=== PATIENT | male | born 1935 | race African-American/Black ===

== ENCOUNTER 2016-12-13 19:38 | Inpatient (IN) | payer MEDICARE, OTHER ==
[~2016-12-13] VITALS: Ht 170.2 cm; Wt 82.1 kg
[2016-12-13 19:38] VITALS: BP 110/64
[~2016-12-13 19:38] MED LIST: ALBUTEROL2.5 MG/3 M INH; AMIKACIN S1000 MG/4 IV; AMIKACIN S500 MG/2 M IVPB; ASCORBIC A500 MG/1 M GT; ASPIR 8181 MG ORAL; ATORVASTATIN CA20 MG GT; ATROVENT HFA12.9 GM IH; BETIMOL5 M2 BOTH EYES; CARAFATE1 G1 GT; CEFEPIME-D2 GM/50 ML IVPB; CRANBERRY EXTRAC1 G1 GT; CRANBERRY400 MG PO; CRANBERRY425 MG GT; CUBICIN1 MG IV; DOCUSATE S50 MG/5 ML GT; DOCUSATE SODIU100 MG ORAL; FERROUS SU300 MG/5 M ORAL; FLAGYL500 MG ORAL; FLOMAX0.4 MG ORAL; FUROSEMIDE40 MG GT; HEPARIN SO5000 UNIT2 SUBQ; HUMALOG100 UNIT/4 SUBQ; IRON325 M2 PO; K-SOL20 MEQ/15 PO; LACTULOSE20 GM/301 GT; LANTUS SOL100 UNIT/1 SUBQ; LANTUS5 UNITS SUBQ; LEVEMIR FL100 UNIT/1 SUBQ; M.V.I. ADULT10 ML PO; METFORMIN HCL500 M1 GT; METRONIDAZOLE500 MG GT; MIRALAX17 G2 GT; MOM30 ML ORAL; MULTIVITAMINS1 EAC2 ORAL; MULTIVITAMINS1 EAC8 GT; NAMENDA5 MG GT; NOVOLIN R100 UNIT/1 SUBQ; NOVOLOG100 UNIT/3 SUBQ; PANTOPRAZOLE SO40 MG GT; PEPCID40 MG GT; PERIDEX15 ML MM; POTASSIUM CHLO20 ME3 PO; POTASSIUM20 MEQ/15 ORAL; POTASSIUM30 MEQ/22. GT; PRILOSEC40 MG GT; PRILOSEC40 MG ORAL; PROSCAR5 MG GT; PROSCAR5 MG ORAL; PROTONIX IV40 MG IV; RANITIDINE50 MG/2 ML IV; REGLAN10 MG GT; THEO-DUR200 MG GT; TYLENOL EXTRA500 MG GT; TYLENOL100 MG/11 PO; TYLENOL325 MG GT; TYLENOL650 MG/20. ORAL; UNASYN3 GM IV; VANCOMYCIN1 GM/2502 IVPB; VITAMIN C500 M7 PO; ZINC SULFATE220 M1 GT; ZINC SULFATE220 M1 ORAL; ZOCOR40 MG ORAL; ZOFRAN4 M1 GT; ZOSYN 3.373.375 GM/1 IVPB; [UNRECOGNIZED DRUG - OTHER] PO
[2016-12-13 20:27] LABS: MEAN CORPUSCULAR HEMOGLOBIN 30.9 PG (27.0-31.0); MEAN CORPUSCULAR HGB CONC 28.7 G/DL (32.0-36.0); MEAN CORPUSCULAR VOLUME 108 FL (80-99); MEAN PLATELET VOLUME 8.9 FL (6.5-10.1); PLATELET COUNT 167 K/UL (150-450); RED BLOOD COUNT 2.49 M/UL (4.70-6.10); RED CELL DISTRIBUTION WIDTH 19.9 % (11.6-14.8); WHITE BLOOD COUNT 7.9 K/UL (4.8-10.8)
[2016-12-13 20:52] LABS: PROTHROMBIN TIME 10.1 SEC (9.30-11.50)
[2016-12-13 21:02] VITALS: BP 138/88
[2016-12-13 21:04] LABS: TROPONIN I < 0.30 ng/mL (<=0.30)
[2016-12-13 21:10] LABS: ALANINE AMINOTRANSFERASE 20 U/L (3-41); ALBUMIN/GLOBULIN RATIO 0.5 (1.0-2.7); ANION GAP 17 (5-15); ASPARTATE AMINO TRANSFERASE 32 U/L (5-40); CALCIUM 9.6 mg/dL (8.6-10.2); CARBON DIOXIDE 24 mEQ/L (20-30); CHLORIDE 103 mEQ/L (98-107); CREATININE 1.6 mg/dL (0.7-1.2); HEMOLYSIS 82; POTASSIUM 5.3 mEQ/L (3.4-4.9); SODIUM 144 mEQ/L (135-145); TOTAL PROTEIN 10.3 g/dL (6.6-8.7)
[2016-12-13 21:20] LABS: CKMB 1.5 ng/mL (< 6.7)
[2016-12-13 21:27] LABS: EOSINOPHILS % (MANUAL) 1 % (0-3); LYMPHOCYTES % (MANUAL) 35 % (20-45); NEUTROPHILS % (MANUAL) 54 % (45-75); TOTAL CELLS COUNTED 100
[2016-12-13 21:28] LABS: ANISOCYTOSIS 2+; BAND NEUTROPHILS % (MANUAL) 0 % (0-8); BASOPHILS % (MANUAL) 0 % (0-2); MACROCYTES 3+; PLATELET ESTIMATE ADEQUATE; POLYCHROMASIA 1+
--- NOTE | 2016-12-13 21:49 | Emergency Room Report ---
History of Present Illness General Chief Complaint: Abnormal Labs Source: Medical Record Present Illness HPI 81 YO M sent by Dr Bragg from [facility] for "low hemoglobin." Unknown source per Dr Bragg. Patient not providing additional HPI at this time. I do not find any SNF paperwork in patient's rack or with RN. Patient on trach/vent. No family members bedside to provide additional HPI. Allergies: Coded Allergies: NO KNOWN DRUG ALLERGIES (Unverified Allergy, Unknown, 10/29/14) Patient History Past Medical History: unable to obtain Past Surgical History: unable to obtain Pertinent Family History: unable to obtain Social History: Denies: alcohol use, drug use, smoking Immunizations: UTD Reviewed Nursing Documentation: PMH: Agreed, PSxH: Agreed Nursing Documentation-PMH Hx Cardiac Problems: Yes Hx Hypertension: Yes Hx Asthma: No Hx Diabetes: Yes Hx Cancer: No Hx Gastrointestinal Problems: Yes Hx Neurological Problems: Yes Hx Cerebrovascular Accident: Yes Hx Transient Ischemic Attacks: No Hx Dementia: Yes Hx Alzheimer's Disease: No Hx Parkinson's Disease: No Hx Meningitis: No Hx Encephalitis: No Hx Seizures: No Hx Epilepsy: No Hx Multiple Sclerosis: No Hx Cerebral Palsy: No Hx Amyotrophic Lat Sclerosis: No Hx Guillian-[place] Syndrome: No Hx Peripheral Neuropathy: No Hx Spinal Cord Injury: No Hx Head Trauma: No Hx Traumatic Brain Injury: No Hx Memory Loss: Yes Hx Concentration Difficulty: Yes Hx Speech Problem: Yes Hx Tremors: Yes Hx Vertigo: No Hx Dizziness: No Hx Syncope: No Hx Headaches: No Hx Aphasia: Yes Hx Dysphasia: Yes Hx Numbness: No Hx Weakness: No Hx Fatigue: No Hx Neurologic Surgery: No Hx Brain Shunt: No Review of Systems All Other Systems: limited - unable to provide, trach patient Physical Exam Vital Signs Date Time Temp Pulse Resp B/P Pulse Ox O2 Delivery O2 Flow Rate FiO2 12/13/16 19:27 108 22 110/64 98 Mechanical Ventilator 5.0 12/13/16 19:38 100.0 12/13/16 19:51 40 Sp02 EP Interpretation: reviewed, abnormal General Appearance: normal inspection, well appearing, no apparent distress, alert, GCS 15, non-toxic Head: normocephalic, atraumatic Eyes: bilateral eye EOMI, bilateral eye PERRL ENT: normal ENT inspection, hearing grossly normal, normal voice, other - Trach in place. No air leak Neck: normal inspection, full range of motion, supple, no bony tend Respiratory: normal inspection, lungs clear, normal breath sounds, no respiratory distress, no retraction, no wheezing Cardiovascular #1: regular rate, rhythm, no edema Gastrointestinal: normal inspection, normal bowel sounds, non tender, soft, no guarding, no hernia, other - Protuberant abdomen Rectal: deferred Genitourinary: no CVA tenderness Musculoskeletal: normal inspection, back normal, normal range of motion, Sana' s Sign negative Neurologic: normal inspection, responsive, flatwork catcher III-XII nml as tested, speech normal Psychiatric: normal inspection, judgement/insight normal, mood/affect normal Skin: normal inspection, normal color, no rash Medical Decision Making Medicare Attestation I Tino Krause MD hereby attest that the medical record entry for date of service, 09/18/16 accurately reflects signatures/notations that I made in my capacity as MD when I treated/diagnosed the above listed Medicare beneficiary. I attest that this information is true, accurate and complete to the best of my knowledge. I understand that any falsification, omission, or concealment of material fact may subject me to administrative, civil, or criminal liability. This patient warrants hospital admission for extreme of age and has a condition that cannot be treated as outpatient. Diagnostic Impression: Primary Impression: Anemia Qualified Codes: D64.9 - Anemia, unspecified ER Course Hb/Hct 7.7/26.8 Transfuse in progress Mild HyperK 5.3 Albuterol given via Trach to decrease potassium SerumCr 1.6. has had elevations in the past. Endorsed to Dr Bragg at 909pm EKG Diagnostic Results Rate: tachycardiac Rhythm: NSR ST Segments: no acute changes Rhythm Strip Diag. Results EP Interpretation: yes Rate: 112 Rhythm: NSR, no PVC's, no ectopy Chest X-Ray Diagnostic Results EP Interpretation: Yes Findings: no consolidation, no effusion, no pneumothorax, no acute cardiopulmonary disease Number of Views: 1 Last Vital Signs Date Time Temp Pulse Resp B/P Pulse Ox O2 Delivery O2 Flow Rate FiO2 12/13/16 21:30 108 23 40 12/13/16 21:02 100.0 138/88 98 Mechanical Ventilator 5.0 Status: improved Disposition: ADMITTED INPATIENT Condition: Serious Referrals: David Bowie MD (PCP) TINO KRAUSE M.D. Dec 13, 2016 21:48
[2016-12-13] MEDS ORDERED: Albuterol ud Inhalation HHN ONE (22:00)
[2016-12-13] MEDS ORDERED: Miralax 17gm pkt ORAL PRN (22:30)
[2016-12-13] MEDS ORDERED: DuoNeb 0.5-3(2.5)mg/3ml neb HHN PRN (22:30)
[2016-12-13] MEDS ORDERED: LORazepam Inj 2mg/ml 1ml IV PRN (22:30)
[2016-12-13] MEDS ORDERED: Morphine Sulfate 4mg/ml Inj IVP PRN (22:30)
[2016-12-13 22:56] VITALS: BP 144/98
[2016-12-13] MEDS ORDERED: Vancomycin 1 GM in D5W 275 ML IV SCH (23:00)
[2016-12-14] MEDS ORDERED: Piperacillin/Tazobactam 3.375 GM in NS 110 ML IVPB SCH ×2
[2016-12-14] MEDS ORDERED: Zosyn 3.375gm inj ONE (01:00)
[2016-12-14] MEDS ORDERED: Vancomycin 1gm inj IVPB ONE (01:01)
[2016-12-14] MEDS: Vancomycin 1.5 GM in D5W 325 ML IVPB SCH (02:25)
[2016-12-14 04:00] VITALS: BP 109/69
[2016-12-14 06:20] LABS: MEAN CORPUSCULAR HGB CONC 29.4 G/DL (32.0-36.0); MEAN CORPUSCULAR VOLUME 105 FL (80-99); MEAN PLATELET VOLUME 9.4 FL (6.5-10.1); PLATELET COUNT 199 K/UL (150-450); RED BLOOD COUNT 2.54 M/UL (4.70-6.10); RED CELL DISTRIBUTION WIDTH 20.7 % (11.6-14.8); WHITE BLOOD COUNT 8.7 K/UL (4.8-10.8)
[2016-12-14] MEDS: NovoLOG Insulin Flexpen SUBQ SCH ×3 (06:24→19:08)
[2016-12-14 07:35] LABS: ANION GAP 15 (5-15); CALCIUM 9.7 mg/dL (8.6-10.2); CARBON DIOXIDE 27 mEQ/L (20-30); CHLORIDE 104 mEQ/L (98-107); CREATININE 1.6 mg/dL (0.7-1.2); HEMOLYSIS 2; PHOSPHORUS 3.6 mg/dL (2.5-4.8); POTASSIUM 4.8 mEQ/L (3.4-4.9); SODIUM 146 mEQ/L (135-145)
[2016-12-14 08:00] VITALS: BP 116/64
[2016-12-14 08:48] LABS: ANISOCYTOSIS 2+; BAND NEUTROPHILS % (MANUAL) 1 % (0-8); BASOPHILS % (MANUAL) 0 % (0-2); EOSINOPHILS % (MANUAL) 2 % (0-3); LYMPHOCYTES % (MANUAL) 23 % (20-45); NEUTROPHILS % (MANUAL) 56 % (45-75); PLATELET ESTIMATE ADEQUATE; PLATELET MORPHOLOGY NORMAL; TOTAL CELLS COUNTED 100
[2016-12-14 08:49] LABS: HYPOCHROMASIA 1+; MACROCYTES 1+; POLYCHROMASIA OCCASIONAL
[2016-12-14] MEDS: Heparin 5000 units/ml inj SUBQ SCH ×2 (09:00→21:00)
[2016-12-14] MEDS: Piperacillin/Tazobactam 3.375 GM in D5W 110 ML IVPB SCH ×2 (10:48→22:04)
--- NOTE | 2016-12-14 11:59 | Consultation ---
Consult Note Consult Note DATE: 12/13/16 NOTE: HEMATOLOGY/ONCOLOGY CONSUTLATION REFERRING PHYSICIAN: David Bowie M.D. REASON FOR CONSULTATION: Evaluation of recurrent anemia IDENTIFYING DATA: Dear Dr. Bowie, The patient is a pleasant 81-year-old male with past medical history which is significant for chronic respiratory failure on trach and vent, was brought in by ambulance with complaints of low hgb of 7, was transfused here in the ER. He has been admitted multiple times in the previous past. He is in vegetative state , unable to provide any further history from the patient, does have a history of dementia. Piror eval has shown a recanalized thrombosis of the right lower extremity. Prior imaging 4 months ago showed an acute DVT in the same area, however given it has recalnalized does not need heparin. Heme was consulted because of recurrent anemia. Prior w/u does not show a iron deficiency and is c/ w anemia of chronic disease, no b12 or folate deficiency either noted and no schistocytes are seen PAST MEDICAL HISTORY: Acute on chronic respiratory failure, kidney injury, dementia, pneumonia, hypertension, diabetes mellitus, COPD, [id number] diabetes mellitus, GERD, and multiple decubitus ulceration. PAST SURGICAL HISTORY: Tracheostomy. ALLERGIES: No known drug allergies. MEDICATIONS: Ferrous sulfate, Pepcid, Colace, finasteride, insulin, metformin, omeprazole, and zinc sulfate. SOCIAL HISTORY: Difficult to obtain given mental status. FAMILY HISTORY: Unable to obtain given mental status. REVIEW OF SYSTEMS: Unable to obtain given mental status. PHYSICAL EXAMINATION: GENERAL: No acute distress. VITAL SIGNS: Last 24 Hour Vital Signs Date Time Temp Pulse Resp B/P Pulse Ox O2 Delivery O2 Flow Rate FiO2 12/14/16 11:15 101 16 40 12/14/16 09:05 100 18 40 12/14/16 08:03 40 12/14/16 08:00 97.9 98 16 116/64 100 Mechanical Ventilator 40 12/14/16 08:00 99 12/14/16 06:54 103 18 40 12/14/16 04:56 101 21 40 12/14/16 04:00 40 12/14/16 04:00 98.2 105 19 109/69 100 40 12/14/16 04:00 102 12/14/16 03:25 111 18 40 12/14/16 01:27 103 18 40 12/14/16 00:14 114 12/13/16 23:13 100.0 115 16 144/98 100 Mechanical Ventilator 5.0 40 12/13/16 22:56 100.0 115 16 144/98 100 Mechanical Ventilator 5.0 40 12/13/16 22:38 108 16 100 Mechanical Ventilator 40 12/13/16 22:36 108 16 40 12/13/16 21:59 109 23 100 Mechanical Ventilator 40 12/13/16 21:30 108 23 40 12/13/16 21:02 100.0 108 18 138/88 98 Mechanical Ventilator 5.0 40 12/13/16 19:51 112 18 40 12/13/16 19:40 40 12/13/16 19:38 100.0 114 22 110/64 98 Mechanical Ventilator 5.0 12/13/16 19:27 108 22 110/64 98 Mechanical Ventilator 5.0 PULMONARY: Decreased breath sounds. on trach/vent CARDIOVASCULAR: Regular rhythm. GASTROINTESTINAL: Abdomen soft, nontender, and nondistended. EXTREMITIES: No pedal edema. NEURO: non-focal LABORATORY DATA: Test 12/13/16 19:30 12/13/16 19:50 12/14/16 04:45 Ferritin 246 ng/mL (10-230) H White Blood Count 7.9 K/UL (4.8-10.8) 8.7 K/UL (4.8-10.8) Red Blood Count 2.49 M/UL (4.70-6.10) L 2.54 M/UL (4.70-6.10) L Hemoglobin 7.7 G/DL (14.2-18.0) L 7.9 G/DL (14.2-18.0) L Hematocrit 26.8 % (42.0-52.0) L 26.8 % (42.0-52.0) L Mean Corpuscular Volume 108 FL (80-99) H 105 FL (80-99) H Mean Corpuscular Hemoglobin 30.9 PG (27.0-31.0) 31.0 PG (27.0-31.0) Mean Corpuscular Hemoglobin Concent 28.7 G/DL (32.0-36.0) L 29.4 G/DL (32.0-36.0) L Red Cell Distribution Width 19.9 % (11.6-14.8) H 20.7 % (11.6-14.8) H Platelet Count 167 K/UL (150-450) 199 K/UL (150-450) Mean Platelet Volume 8.9 FL (6.5-10.1) 9.4 FL (6.5-10.1) Neutrophils (%) (Auto) % (45.0-75.0) % (45.0-75.0) Lymphocytes (%) (Auto) % (20.0-45.0) % (20.0-45.0) Monocytes (%) (Auto) % (1.0-10.0) % (1.0-10.0) Eosinophils (%) (Auto) % (0.0-3.0) % (0.0-3.0) Basophils (%) (Auto) % (0.0-2.0) % (0.0-2.0) Differential Total Cells Counted 100 100 Neutrophils % (Manual) 54 % (45-75) 56 % (45-75) Lymphocytes % (Manual) 35 % (20-45) 23 % (20-45) Monocytes % (Manual) 10 % (1-10) 18 % (1-10) H Eosinophils % (Manual) 1 % (0-3) 2 % (0-3) Basophils % (Manual) 0 % (0-2) 0 % (0-2) Band Neutrophils 0 % (0-8) 1 % (0-8) Platelet Estimate Adequate Adequate Platelet Morphology Normal Giant Platelets 1+ Polychromasia 1+ Occasional Anisocytosis 2+ 2+ Macrocytosis 3+ 1+ Prothrombin Time 10.1 SEC (9.30-11.50) Prothromb Time International Ratio 1.0 (0.9-1.1) Activated Partial Thromboplast Time 22 SEC (23-33) L Sodium Level 144 mEQ/L (135-145) 146 mEQ/L (135-145) H Potassium Level 5.3 mEQ/L (3.4-4.9) H 4.8 mEQ/L (3.4-4.9) Chloride Level 103 mEQ/L (98-107) 104 mEQ/L (98-107) Carbon Dioxide Level 24 mEQ/L (20-30) 27 mEQ/L (20-30) Anion Gap 17 (5-15) H 15 (5-15) Blood Urea Nitrogen 52 mg/dL (7-23) H 53 mg/dL (7-23) H Creatinine 1.6 mg/dL (0.7-1.2) H 1.6 mg/dL (0.7-1.2) H Estimat Glomerular Filtration Rate mL/min (>60) mL/min (>60) Glucose Level 193 mg/dL (74-106) H 140 mg/dL (74-106) H Calcium Level 9.6 mg/dL (8.6-10.2) 9.7 mg/dL (8.6-10.2) Total Bilirubin 0.2 mg/dL (0.0-1.2) Aspartate Amino Transf (AST/SGOT) 32 U/L (5-40) Alanine Aminotransferase (ALT/SGPT) 20 U/L (3-41) Alkaline Phosphatase 127 U/L (40-129) Total Creatine Kinase 71 U/L (38-174) Creatine Kinase MB 1.5 ng/mL (< 6.7) Creatine Kinase MB Relative Index 2.1 Troponin I < 0.30 ng/mL (<=0.30) Total Protein 10.3 g/dL (6.6-8.7) H Albumin 3.6 g/dL (3.5-5.2) 3.5 g/dL (3.5-5.2) Globulin 6.7 g/dL Albumin/Globulin Ratio 0.5 (1.0-2.7) L Hypochromasia 1+ Phosphorus Level 3.6 mg/dL (2.5-4.8) Assessment/Plan ASSESSMENT: 1. Recurrent anemia with a acute drop in h/h, now improved s/p transfusion and s /p egd in the recent past 2. Anemia secondary to chronic disease based on previous labs, ferritin elevated 3. Acute superficial clot of femoral vein (a deep vein) on 10/04/16 - rescan right now-->if continues to persist, will consider IVC filter placement 4. Leukocytosis 2/2 likely infection, r/o UTI 5. 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 Hyperferritinemia. 7. Acute on chronic respiratory failure, trach/vent 8. Elevated retic count 9. Urinary tract infection. 10. Decubitus ulceration. RECOMMENDATIONS: 1. Patient had recent GI w/u 2. Check upper doppler, may need IVC filter 3. Monitor counts 4. Continue antibiotics as needed. 5. Breathing treatments prn 6. Pain control. 7. Gi followup recs 8. DVT prophylaxis with SCDs. 9. Continue tube feedings. 10. Discussed with staff. Thank you, MD Fab Foote Roman L. Dec 14, 2016 11:59
[2016-12-14 12:00] VITALS: BP 113/73
--- NOTE | 2016-12-14 12:25 | Diagnostic Imaging Report ---
APPROVED REPORT CPT Code: 12746 Present Symptoms Shortness of breath Past History DVT :Right RIGHT LEG: Venous imaging reveals acute thrombus in the proximal superficial femoral to mid superficial femoral vein. Imaging also reveals chronic thrombus in the distal superficial femoral vein. Large collateral vein noted anterior to the superficial femoral artery. Remainder of the deep venous system within normal limits. No evidence of thrombus in the common femoral, popliteal, and calf veins. Greater saphenous vein also within normal limits. LEFT LEG: Venous imaging reveals a patent deep venous system. There is no evidence of thrombus within the femoral, popliteal or tibial segments. The greater saphenous vein is also within normal limits. Doppler indicates normal spontaneous flow within these segments. FELIX Edmond was notified of abnormal results at 1030 hours
--- NOTE | 2016-12-14 12:51 | Diagnostic Imaging Report ---
Indication: Chest Pain Comparison: 10/04/16 A single view chest radiograph was obtained. Findings: Bones are osteopenic. Tracheostomy noted. Heart is large. Lungs are essentially clear. Impression: Stable chest x-ray. No acute findings
--- NOTE | 2016-12-14 12:56 | Consultation ---
Consult Note Consult Note asked to eval for renal failure- Known to me from his previous admissions 81 YO M sent by Dr Bragg from SNF for "low hemoglobin." Unknown source per Dr Bragg. Patient not providing additional HPI at this time. I do not find any SNF paperwork in patient's rack or with RN. Patient on trach/vent. No family members bedside to provide additional HPI. Hx Cardiac Problems: Yes Hx Hypertension: Yes Hx Diabetes: Yes Hx Gastrointestinal Problems: Yes Hx Neurological Problems: Yes Hx Cerebrovascular Accident: Yes Hx Dementia: Yes Hx Memory Loss: Yes Hx Concentration Difficulty: Yes Hx Speech Problem: Yes Hx Tremors: Yes Hx Aphasia: Yes Hx Dysphasia: Yes . Assessment/Plan status: Acute Renal Failure- Pre Renal / Super Imposed on Renal Respiratory failure Anemia Decubs h/o DVT Other conditions: 1. Acute on chronic respiratory failure. 2. h/o Severe sepsis. 3. Ventilator-dependent respiratory failure. 4. Chronic obstructive pulmonary disease. 5. History of deep venous thrombosis. 6. Hypoalbuminemia. 7. h/o Clostridium difficile colitis. 8. Pressure ulcers on sacrococcygeal down to buttocks, right ischial tuberosity, and right heel and right trochanter present on admission. 9. h/o Urinary tract infection, Proteus mirabilis. 10. h/o Acute deep venous thrombosis of the right lower extremity, on heparin and bridged to Coumadin. 11. Tracheostomy status. 12. Gastrostomy tube feeding. 13. Diabetes mellitus. Plan: transfuse- Avoid Nephrotoxics- Monitor renal parameters and H&H IV protonix check COLTEN DONNELLY Dec 14, 2016 12:56
--- NOTE | 2016-12-14 12:59 | Consultation ---
History of Present Illness General Date patient seen: Dec 14, 2016 Chief Complaint: Abnormal Labs Referring physician: Dr. Bowie Reason for Consultation: chronic respiratry failure Present Illness HPI 81 year of male with hx of chronic respiratory failure, trach/vent/peg/ was discharged recently from the hospital Was found to have a low hemoglobin in the longterm and sent back to the emergency room. Patient himself is nonverbal and entire hx is taken from the medical records. Allergies: Coded Allergies: NO KNOWN DRUG ALLERGIES (Unverified Allergy, Unknown, 10/29/14) Medication History Scheduled Cranberry Extract (Cranberry), 425 MG GT DAILY, (Reported) Docusate Sodium (Docusate Sodium), 50 MG GT BID, (Reported) Famotidine (Pepcid), 40 MG GT DAILY, (Reported) Ferrous Sulfate (Ferrous Sulfate), 5 ML ORAL TID, (Reported) Finasteride* (Proscar*), 5 MG GT DAILY, (Reported) Insulin Detemir (Levemir Flexpen), 30 SUBQ Q12HR, (Reported) Insulin Glargine (Lantus), 16 UNITS SUBQ BEDTIME, (Reported) Lactulose (Lactulose*), 45 ML GT TID, (Reported) Metformin Hcl* (Metformin Hcl*), 500 MG GT TWICE A DAY, (Reported) Multivitamins* (Multivitamins*), 1 TAB ORAL DAILY, (Reported) Omeprazole (Prilosec), 40 MG GT DAILY, (Reported) Pantoprazole* (Pantoprazole*), 40 MG GT DAILY, (Reported) Zinc Sulfate (Zinc Sulfate*), 220 MG ORAL DAILY, (Reported) Scheduled PRN Acetaminophen (Tylenol), 650 MG GT EVERY 4 HOURS PRN for For Pain, (Reported) Albuterol Sulfate* (Albuterol Sulfate Hhn*), 3 ML INH Q6H PRN for Shortness of Breath, (Reported) Ipratropium Dameron (Atrovent Hfa), 12.9 GM IH EVERY 6 HOURS PRN for Shortness of Breath, (Reported) Miscellaneous Medications Ascorbic Acid (Ascorbic Acid), 500 MG GT, (Reported) Insulin Aspart* (Novolog*), 0 SUBQ, (Reported) Discontinued Medications Ampicillin Sod/Sulbactam Sod (Unasyn), 3 GM IV EVERY 6 HOURS, (Reported) Discontinued Reason: Therapy completed Cubicin (Cubicin), 1 MG IV DAILY, (Reported) Discontinued Reason: Therapy completed Stdhrzwthbog-Khti-Ctafkudp,Iso (Zosyn 3.375 Gm Pre Mix-Bag), 3.375 GM IVPB EVERY 8 HOURS, (Reported) Discontinued Reason: Therapy completed Vancomycin Hcl/D5w (Vancomycin-D5w 1 G/250 Ml), 1 GM IVPB Q24H, (Reported) Discontinued Reason: Therapy completed Vancomycin Hcl/D5w (Vancomycin-D5w 1 G/250 Ml), 1 GM IVPB Q24H, (Reported) Discontinued Reason: Therapy completed Patient History Healthcare decision maker Resuscitation status Full Code Advanced Directive on File Past Medical/Surgical History Past Medical/Surgical History: (1) Feeding by G-tube (2) Anemia (3) DVT (deep venous thrombosis) (4) UTI (urinary tract infection) (5) Pressure ulcer (6) Respiratory failure Review of Systems All Other Systems: negative except mentioned in HPI Physical Exam General Appearance: cachetic Lines, tubes and drains: peripheral, central line HEENT: normocephalic, atraumatic Neck: non-tender Respiratory/Chest: chest wall non-tender, lungs clear Cardiovascular/Chest: normal peripheral pulses, regular rhythm Abdomen: normal bowel sounds, non tender Genitourinary/Rectal: normal genital exam, normal rectal exam Extremities: normal range of motion, non-tender Last 24 Hour Vital Signs Date Time Temp Pulse Resp B/P Pulse Ox O2 Delivery O2 Flow Rate FiO2 12/14/16 12:00 40 12/14/16 11:15 101 16 40 12/14/16 09:05 100 18 40 12/14/16 08:03 40 12/14/16 08:00 97.9 98 16 116/64 100 Mechanical Ventilator 40 12/14/16 08:00 99 12/14/16 06:54 103 18 40 12/14/16 04:56 101 21 40 12/14/16 04:00 40 12/14/16 04:00 98.2 105 19 109/69 100 40 12/14/16 04:00 102 12/14/16 03:25 111 18 40 12/14/16 01:27 103 18 40 12/14/16 00:14 114 12/13/16 23:13 100.0 115 16 144/98 100 Mechanical Ventilator 5.0 40 12/13/16 22:56 100.0 115 16 144/98 100 Mechanical Ventilator 5.0 40 12/13/16 22:38 108 16 100 Mechanical Ventilator 40 12/13/16 22:36 108 16 40 12/13/16 21:59 109 23 100 Mechanical Ventilator 40 12/13/16 21:30 108 23 40 12/13/16 21:02 100.0 108 18 138/88 98 Mechanical Ventilator 5.0 40 12/13/16 19:51 112 18 40 12/13/16 19:40 40 12/13/16 19:38 100.0 114 22 110/64 98 Mechanical Ventilator 5.0 12/13/16 19:27 108 22 110/64 98 Mechanical Ventilator 5.0 Intake and Output 12/13/16 12/14/16 19:00 07:00 Intake Total 435.0 ml Output Total 1050 ml Balance -615.0 ml Intake IV Total 435.0 ml Output Urine Total 1050 ml Laboratory Tests Test 12/13/16 19:30 12/13/16 19:50 12/14/16 04:45 Ferritin 246 ng/mL (10-230) H White Blood Count 7.9 K/UL (4.8-10.8) 8.7 K/UL (4.8-10.8) Red Blood Count 2.49 M/UL (4.70-6.10) L 2.54 M/UL (4.70-6.10) L Hemoglobin 7.7 G/DL (14.2-18.0) L 7.9 G/DL (14.2-18.0) L Hematocrit 26.8 % (42.0-52.0) L 26.8 % (42.0-52.0) L Mean Corpuscular Volume 108 FL (80-99) H 105 FL (80-99) H Mean Corpuscular Hemoglobin 30.9 PG (27.0-31.0) 31.0 PG (27.0-31.0) Mean Corpuscular Hemoglobin Concent 28.7 G/DL (32.0-36.0) L 29.4 G/DL (32.0-36.0) L Red Cell Distribution Width 19.9 % (11.6-14.8) H 20.7 % (11.6-14.8) H Platelet Count 167 K/UL (150-450) 199 K/UL (150-450) Mean Platelet Volume 8.9 FL (6.5-10.1) 9.4 FL (6.5-10.1) Neutrophils (%) (Auto) % (45.0-75.0) % (45.0-75.0) Lymphocytes (%) (Auto) % (20.0-45.0) % (20.0-45.0) Monocytes (%) (Auto) % (1.0-10.0) % (1.0-10.0) Eosinophils (%) (Auto) % (0.0-3.0) % (0.0-3.0) Basophils (%) (Auto) % (0.0-2.0) % (0.0-2.0) Differential Total Cells Counted 100 100 Neutrophils % (Manual) 54 % (45-75) 56 % (45-75) Lymphocytes % (Manual) 35 % (20-45) 23 % (20-45) Monocytes % (Manual) 10 % (1-10) 18 % (1-10) H Eosinophils % (Manual) 1 % (0-3) 2 % (0-3) Basophils % (Manual) 0 % (0-2) 0 % (0-2) Band Neutrophils 0 % (0-8) 1 % (0-8) Platelet Estimate Adequate Adequate Platelet Morphology Normal Giant Platelets 1+ Polychromasia 1+ Occasional Anisocytosis 2+ 2+ Macrocytosis 3+ 1+ Prothrombin Time 10.1 SEC (9.30-11.50) Prothromb Time International Ratio 1.0 (0.9-1.1) Activated Partial Thromboplast Time 22 SEC (23-33) L Sodium Level 144 mEQ/L (135-145) 146 mEQ/L (135-145) H Potassium Level 5.3 mEQ/L (3.4-4.9) H 4.8 mEQ/L (3.4-4.9) Chloride Level 103 mEQ/L (98-107) 104 mEQ/L (98-107) Carbon Dioxide Level 24 mEQ/L (20-30) 27 mEQ/L (20-30) Anion Gap 17 (5-15) H 15 (5-15) Blood Urea Nitrogen 52 mg/dL (7-23) H 53 mg/dL (7-23) H Creatinine 1.6 mg/dL (0.7-1.2) H 1.6 mg/dL (0.7-1.2) H Estimat Glomerular Filtration Rate mL/min (>60) mL/min (>60) Glucose Level 193 mg/dL (74-106) H 140 mg/dL (74-106) H Calcium Level 9.6 mg/dL (8.6-10.2) 9.7 mg/dL (8.6-10.2) Total Bilirubin 0.2 mg/dL (0.0-1.2) Aspartate Amino Transf (AST/SGOT) 32 U/L (5-40) Alanine Aminotransferase (ALT/SGPT) 20 U/L (3-41) Alkaline Phosphatase 127 U/L (40-129) Total Creatine Kinase 71 U/L (38-174) Creatine Kinase MB 1.5 ng/mL (< 6.7) Creatine Kinase MB Relative Index 2.1 Troponin I < 0.30 ng/mL (<=0.30) Total Protein 10.3 g/dL (6.6-8.7) H Albumin 3.6 g/dL (3.5-5.2) 3.5 g/dL (3.5-5.2) Globulin 6.7 g/dL Albumin/Globulin Ratio 0.5 (1.0-2.7) L Hypochromasia 1+ Phosphorus Level 3.6 mg/dL (2.5-4.8) Height (Feet): 5 Height (Inches): 7.00 Weight (Pounds): 181 Medications Current Medications Medications (Trade) Dose Ordered Sig/Shubham Route PRN Reason Start Time Stop Time Status Last Admin Dose Admin Acetaminophen (Tylenol) 650 mg Q4H PRN ORAL FEVER 12/13/16 22:30 01/12/17 22:29 Albuterol/ Ipratropium (DuoNeb 0.5-3(2.5)mg/3ml) 3 ml EVERY 4 HOURS PRN HHN Shortness of Breath 12/13/16 22:30 12/18/16 22:29 Dextrose (Dextrose 50%) STAT PRN IV Hypoglycemia 12/13/16 22:30 01/12/17 22:29 Heparin Sodium (Porcine) (Heparin 5000 units/ml) 5,000 units EVERY 12 HOURS SUBQ 12/14/16 09:00 01/13/17 08:59 Insulin Aspart BEFORE MEALS AND HS SUBQ 12/14/16 06:30 01/13/17 06:29 12/14/16 12:35 Lorazepam (Ativan 2mg/ml 1ml) 2 mg EVERY 2 HOURS PRN IV For Anxiety 12/13/16 22:30 12/20/16 22:29 Morphine Sulfate (Morphine Sulfate) 4 mg EVERY 4 HOURS PRN IVP Severe Pain (Pain Scale 7-10) 12/13/16 22:30 12/20/16 22:29 Ondansetron HCl (Zofran) 4 mg Q6H PRN IVP Nausea & Vomiting 12/13/16 22:30 01/12/17 22:29 Piperacillin Sod/ Tazobactam Sod/ Dextrose (Zosyn/D5W) 110 ml @ 27.5 mls/hr Q8HR IVPB 12/14/16 11:00 12/21/16 10:59 12/14/16 10:48 Polyethylene Glycol (Miralax) 17 gm DAILYPRN PRN ORAL Constipation 12/13/16 22:30 01/12/17 22:29 Vancomycin HCl 1.5 gm/Dextrose 325 ml @ 162.5 mls/ hr Q24H IVPB 12/14/16 02:00 12/19/16 01:59 12/14/16 02:25 Assessment/Plan Problem List: (1) Respiratory failure ICD Codes: J96.90 - Respiratory failure, unspecified, unspecified whether with hypoxia or hypercapnia SNOMED: 216326143 Qualifiers: Qualified Codes: J96.11 - Chronic respiratory failure with hypoxia (2) Anemia ICD Codes: D64.9 - Anemia SNOMED: 894473361 (3) Hypoalbuminemia ICD Codes: E88.09 - Other disorders of plasma-protein metabolism, not elsewhere classified SNOMED: 573443695 (4) HTN (hypertension) ICD Codes: I10 - HTN (hypertension) SNOMED: 70305919 Respiratory: monitor respiratory rate, adjust FIO2, CXR Cardiac: continue pressors, continue to monitor HR/BP, d/c pm head cook Renal: F/U I&O, keep IV fluid Infectious Disease: check cultures, continue antibiotics Gastrointestinal: continue feedings/current rate, hold feedings Endocrine: check TSH, check HgA1C, continue sliding scale insulin Hematologic: monitor H/H, transfuse if hgb<8.5 Neurologic: PRN Ativan, PRN Morphine, keep patient comfortable Affect: PRN ativan Prophylaxis: Heparin Time Spent (Minutes): 40 Notes Reviewed: district sales representative, cardio, 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, consultants, pillowcase cutter MICH FONSECA Dec 14, 2016 12:59
[2016-12-14] MEDS: Pantoprazole Inj IVP SCH ×2 (14:43→21:23)
[2016-12-14] MEDS ORDERED: Heparin 2000 units/Ns 1000ml INJ ONE (15:45)
[2016-12-14] MEDS ORDERED: Sodium Bicarbonate 8.4% 50ml Inj IV ONE (15:45)
[2016-12-14 16:00] VITALS: BP 126/69
[2016-12-14] MEDS ORDERED: Lidocaine 1% Plain 30 ml INJ ONE (16:00)
--- NOTE | 2016-12-14 16:11 | Wound Care Consultation ---
Wound Assessment Wound Assessment #1: Wound Present on Admission: Yes New Wound: No Status Change of Wound: No Wound Location Body Site Modif: mid Wound Location Body Site: sacral Wound Type: pressure ulcer Danny Test: Does not Danny Pressure Ulcer Stage: IV/unstageable Wound Thickness: Full Thickness Wound Length: 1.0 Wound Width: 0.5 Wound Depth: 0.4 Percent of Wound [place]/Red: 100 Wound Drainage Description: Serosanguineous Wound Drainage Amount: Scant Wound Drainage Odor: None/Absent Tissue Surrounding Wound: with extensive full thickness scar tissue Wound General Appearance: Reddened Wound Assessment #2: Wound Number: #2 Wound Present on Admission: Yes New Wound: No Status Change of Wound: No Wound Location Body Site Modif: left Wound Location Body Site: buttocks Wound Type: pressure ulcer Danny Test: Does not Danny Pressure Ulcer Stage: III Wound Thickness: Full Thickness Wound Length: 0.5 Wound Width: 1.0 Wound Depth: 0.3 Percent of Wound [place]/Red: 100 Wound Drainage Description: Serosanguineous Wound Drainage Amount: Scant Wound Drainage Odor: None/Absent Tissue Surrounding Wound: full thickness scar tissue Wound General Appearance: Reddened Wound Assessment #3: Wound Number: #2 Wound Present on Admission: Yes New Wound: No Status Change of Wound: No Wound Location Body Site Modif: right Wound Location Body Site: buttocks Wound Type: pressure ulcer Danny Test: Does not Danny Pressure Ulcer Stage: II Wound Thickness: Partial Thickness Wound Length: 0.5 Wound Width: 0.5 Wound Depth: 0.1 Percent of Wound [place]/Red: 100 Wound Drainage Amount: None Wound Drainage Odor: None/Absent Tissue Surrounding Wound: Erythemic Wound General Appearance: Reddened Wound Assessment #4: Wound Number: #4 Wound Present on Admission: Yes New Wound: No Status Change of Wound: No Wound Location Body Site Modif: right Wound Location Body Site: ischial tuberosity Wound Type: pressure ulcer Danny Test: Does not Danny Pressure Ulcer Stage: III Wound Thickness: Full Thickness Wound Length: 2.0 Wound Width: 1.5 Wound Depth: 0.3 Percent of Wound [place]/Red: 100 Wound Drainage Description: Serosanguineous Wound Drainage Amount: Scant Wound Drainage Odor: None/Absent Tissue Surrounding Wound: full thickness scar tissue Wound General Appearance: Reddened Wound Comment #1 Sacral stage IV/Unstageable pressure ulcer. Surrounding area with extensive full thickness scar tissue #2 Right buttock stage II pressure ulcer. Surrounding area with full thickness scar tissue #3 Left buttock stage III pressure ulcer. Surrounding tissue with full thickness scar tissue #4 Right Ischial tuberosity stage III pressure ulcer. surrounding tissue with full thickness scar tissue Recommendation -Sacral area, left buttock, right buttock and right ischial tuberosity pressure ulcers Cleanse with saline pat dry apply Triad cream cover with Biatain silicone daily and PRN soiled/dislodged -Keep clean and dry -Turn and reposition -Offload both heels -Optimize nutrition -Low air loss overlay mattress -Assess and f/u accordingly for any changes RAISA QUIROZ RN Dec 14, 2016 16:11
[2016-12-14 17:46] LABS: APPEARANCE,URINE SLIGHTLY CLOUDY; KETONES,URINE NEGATIVE (NEGATIVE); LEUKOCYTE ESTERASE ,URINE 3+ (NEGATIVE); NITRITE,URINE POSITIVE (NEGATIVE); PH,URINE 9 (4.5-8.0); PROTEIN,URINE 3+ (NEGATIVE); UROBILINOGEN,URINE NORMAL MG/DL (0.0-1.0)
[2016-12-14 18:16] LABS: WBC,URINE 0-2 /HPF (0 - 0)
[2016-12-14 18:17] LABS: BACTERIA,URINE MANY /HPF; TRIPLE PHOSPHATE CRYSTAL,UR MANY /LPF
[2016-12-14 20:00] VITALS: BP 133/72
[2016-12-15] VITALS (14 sets, daily range): BP systolic 93–158; BP diastolic 57–96
[2016-12-15] MEDS: NovoLOG Insulin Flexpen SUBQ SCH ×5 (00:22→23:33)
--- NOTE | 2016-12-15 00:50 | History and Physical Report ---
DATE OF ADMISSION: 12/13/2016 HISTORY OF PRESENT ILLNESS: The patient is nonverbal. Cannot obtain any history from the patient. The patient is admitted because of severe anemia. His hemoglobin is 7.7. He is going to get transfusion by Dr. Sanon. Again, cannot obtain any history as the patient is nonverbal. PAST MEDICAL HISTORY: As mentioned, GI bleeding at the [facility]. The patient does have this GI hemorrhage from history of diverticulosis. Renal insufficiency, diverticulosis, dysphagia, and history of decubitus, history of pneumonia, history of renal failure, iron deficiency anemia, UTI, history of COPD, history of sepsis, history of DVT, history of NIDDM, history of BPH, history of GERD, iron deficiency anemia, and constipation. PAST SURGICAL HISTORY: Tracheostomy and PEG. MEDICATIONS: Zinc, Protonix, Prilosec, multivitamin, metformin, Levemir, ferrous sulfate, Colace, and vitamin C. ALLERGIES: No known allergies. SOCIAL HISTORY: Unable to obtain. FAMILY HISTORY: Unable to obtain. REVIEW OF SYSTEMS: Unable to obtain. PHYSICAL EXAMINATION: VITAL SIGNS: Temperature 97.2 degrees, pulse 95, and blood pressure 130/70. HEENT: PERRLA. Intact. Trach site is intact. NECK: Supple. No lymphadenopathy. CHEST: Clear to auscultation. ABDOMEN: Abdomen is soft. No organomegaly. Positive bowel sounds. EXTREMITIES: 2+ edema. Has edema throughout, which is chronic. NEUROLOGIC: The patient is nonverbal. Did not perform neurological exam. Bedbound, so it is difficult to get the report, please refer to the nursing notes. LABORATORY AND DIAGNOSTIC DATA: WBC is 10.9, hemoglobin 7.7, and platelets 167,000. Sodium is 144, potassium 5.3, BUN is 15, creatinine 1.6, CO2 24, and glucose of 193. ASSESSMENT AND PLAN: 1. Anemia. 2. History of diverticulitis. 3. History of GI bleed. I have asked Dr. Sanon, Dr. Loera and Dr. Solomon to see the patient for the above and to treat the anemia and to order event setting as well as for his azotemia. David Bowie M.D. DR: LUZMARIA JOB#: [id number] CC:
[2016-12-15] MEDS: Vancomycin 1.5 GM in D5W 325 ML IVPB SCH (02:43)
[2016-12-15 06:04] LABS: MEAN CORPUSCULAR HEMOGLOBIN 31.3 PG (27.0-31.0); MEAN CORPUSCULAR HGB CONC 30.7 G/DL (32.0-36.0); MEAN CORPUSCULAR VOLUME 102 FL (80-99); MEAN PLATELET VOLUME 8.8 FL (6.5-10.1); PLATELET COUNT 196 K/UL (150-450); RED CELL DISTRIBUTION WIDTH 20.7 % (11.6-14.8); WHITE BLOOD COUNT 7.6 K/UL (4.8-10.8)
[2016-12-15] MEDS: Piperacillin/Tazobactam 3.375 GM in D5W 110 ML IVPB SCH ×2 (06:17→22:09)
[2016-12-15 06:22] LABS: INR 1.1 (0.9-1.1); PROTHROMBIN TIME 10.7 SEC (9.30-11.50)
[2016-12-15 06:31] LABS: APPEARANCE,URINE CLOUDY; KETONES,URINE NEGATIVE (NEGATIVE); LEUKOCYTE ESTERASE ,URINE 3+ (NEGATIVE); NITRITE,URINE POSITIVE (NEGATIVE); PH,URINE 9 (4.5-8.0); PROTEIN,URINE 2+ (NEGATIVE); UROBILINOGEN,URINE NORMAL MG/DL (0.0-1.0)
[2016-12-15 06:35] LABS: ALANINE AMINOTRANSFERASE 14 U/L (3-41); ALBUMIN/GLOBULIN RATIO 0.5 (1.0-2.7); ANION GAP 15 (5-15); ASPARTATE AMINO TRANSFERASE 16 U/L (5-40); CALCIUM 9.4 mg/dL (8.6-10.2); CARBON DIOXIDE 26 mEQ/L (20-30); CHLORIDE 106 mEQ/L (98-107); CREATININE 1.7 mg/dL (0.7-1.2); HEMOLYSIS 16; MAGNESIUM 2.6 mg/dL (1.7-2.5); PHOSPHORUS 3.7 mg/dL (2.5-4.8); POTASSIUM 4.9 mEQ/L (3.4-4.9); SODIUM 147 mEQ/L (135-145); TOTAL PROTEIN 9.2 g/dL (6.6-8.7)
[2016-12-15 06:41] LABS: SQUAMOUS EPITHELIAL CELL,UR FEW /LPF (NONE/OCC)
[2016-12-15 06:42] LABS: TRIPLE PHOSPHATE CRYSTAL,UR MODERATE /LPF
[2016-12-15 06:44] LABS: BACTERIA,URINE MODERATE /HPF
[2016-12-15 06:50] LABS: CRP QUANT 6.1 mg/dL (< 0.5); URIC ACID 10.2 mg/dL (3.0-7.5)
[2016-12-15 08:14] LABS: ANISOCYTOSIS 2+; BAND NEUTROPHILS % (MANUAL) 1 % (0-8); BASOPHILS % (MANUAL) 0 % (0-2); EOSINOPHILS % (MANUAL) 0 % (0-3); HYPOCHROMASIA 1+; LYMPHOCYTES % (MANUAL) 16 % (20-45); MACROCYTES 1+; NEUTROPHILS % (MANUAL) 73 % (45-75); PLATELET ESTIMATE ADEQUATE; PLATELET MORPHOLOGY NORMAL; TOTAL CELLS COUNTED 100
[2016-12-15] MEDS: Pantoprazole Inj IVP SCH ×2 (08:25→20:14)
[2016-12-15] MEDS: Heparin 5000 units/ml inj SUBQ SCH ×2 (08:26→20:16)
--- NOTE | 2016-12-15 08:48 | General Progress Note ---
Assessment/Plan Assessment/Plan ASSESSMENT: 1. Acute superficial clot of femoral vein (a deep vein) on 10/04/16 and on , was rescaned and shows dvt again, will recommend ivc filter given low h/h contraindication for anticoag 2. Anemia secondary to chronic disease based on previous labs, ferritin is elevated, egd in the recent past was negative 3. Decreased h/h rule out GI bleed 4. Leukocytosis 2/2 likely infection, r/o UTI 5. 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 7. Acute on chronic respiratory failure, trach/vent 8. Elevated retic count 9. Urinary tract infection. 10. Decubitus ulceration. RECOMMENDATIONS: 1. Recommend IVc filter will discuss with primary 2. H/H remains low and clot detected 3. Monitor counts 4. Continue antibiotics as needed. 5. Breathing treatments prn 6. Pain control. 7. Gi followup recs 8. DVT prophylaxis with SCDs. 9. Continue tube feedings. 10. Discussed with staff. Thank you, Alexx Sanon MD Subjective Constitutional: Reports: no symptoms HEENT: Reports: no symptoms Cardiovascular: Reports: no symptoms Respiratory: Reports: no symptoms Gastrointestinal/Abdominal: Reports: no symptoms Genitourinary: Reports: no symptoms Neurologic/Psychiatric: Reports: no symptoms Endocrine: Reports: no symptoms Hematologic/Lymphatic: Reports: anemia Allergies: Coded Allergies: NO KNOWN DRUG ALLERGIES (Unverified Allergy, Unknown, 10/29/14) Subjective no events overnight, no fevers or chills Objective Last 24 Hour Vital Signs Date Time Temp Pulse Resp B/P Pulse Ox O2 Delivery O2 Flow Rate FiO2 12/15/16 08:03 40 12/15/16 07:18 94 16 40 12/15/16 05:18 94 17 40 12/15/16 04:13 94 12/15/16 04:00 98.3 95 16 123/71 100 Mechanical Ventilator 40 12/15/16 04:00 40 12/15/16 03:07 85 16 40 12/15/16 01:20 95 16 40 12/15/16 00:00 40 12/15/16 00:00 97.4 90 16 112/66 100 Mechanical Ventilator 40 12/14/16 23:42 90 12/14/16 23:01 89 17 40 12/14/16 20:57 89 16 40 12/14/16 20:00 95 12/14/16 20:00 40 12/14/16 20:00 98.5 95 20 133/72 100 Mechanical Ventilator 40 12/14/16 19:16 93 17 40 12/14/16 16:30 86 15 40 12/14/16 16:00 91 12/14/16 16:00 97.3 90 18 126/69 100 Mechanical Ventilator 40 12/14/16 16:00 40 12/14/16 15:36 98 15 40 12/14/16 13:14 96 16 40 12/14/16 12:00 40 12/14/16 12:00 95 12/14/16 12:00 97.2 92 16 113/73 Mechanical Ventilator 40 12/14/16 11:15 101 16 40 12/14/16 09:05 100 18 40 Intake and Output 12/14/16 12/15/16 19:00 07:00 Intake Total 510.0 ml 1215.0 ml Output Total 450 ml 670 ml Balance 60.0 ml 545.0 ml Intake Free Water 100 ml 150 ml IV Total 110.0 ml 435.0 ml Tube Feeding 300 ml 330 ml Blood Product 300 ml Output Urine Total 450 ml 670 ml # Bowel Movements 2 2 Laboratory Tests 12/14/16 16:00: Urine Color Pale yellow, Urine Appearance Slightly cloudy, Urine pH 9, Urine Specific [place] 1.010, Urine Protein 3+H, Urine Glucose (UA) Negative, Urine Ketones Negative, Urine Occult Blood 4+H, Urine Nitrite PositiveH, Urine Bilirubin Negative, Urine Urobilinogen Normal, Urine Leukocyte Esterase 3+H, Urine RBC 5-10H, Urine WBC 0-2, Urine Squamous Epithelial Cells None, Urine Triple Phosphate Crystals ManyH, Urine Bacteria ManyH 12/15/16 04:00: Urine Color Pale yellow, Urine Appearance Cloudy, Urine pH 9, Urine Specific [place] 1.015, Urine Protein 2+H, Urine Glucose (UA) Negative, Urine Ketones Negative, Urine Occult Blood 4+H, Urine Nitrite PositiveH, Urine Bilirubin Negative, Urine Urobilinogen Normal, Urine Leukocyte Esterase 3+H, Urine RBC 5- 10H, Urine WBC 2-4, Urine Squamous Epithelial Cells Few, Urine Triple Phosphate Crystals ModerateH, Urine Bacteria ModerateH, Urine Amorphous Sediment , Urine Random Sodium 59 12/15/16 05:15: White Blood Count 7.6, Red Blood Count 2.50L, Hemoglobin 7.9L, Hematocrit 25.5L , Mean Corpuscular Volume 102H, Mean Corpuscular Hemoglobin 31.3H, Mean Corpuscular Hemoglobin Concent 30.7L, Red Cell Distribution Width 20.7H, Platelet Count 196, Mean Platelet Volume 8.8, Neutrophils (%) (Auto) , Lymphocytes (%) (Auto) , Monocytes (%) (Auto) , Eosinophils (%) (Auto) , Basophils (%) (Auto) , Differential Total Cells Counted 100, Neutrophils % ( Manual) 73, Lymphocytes % (Manual) 16L, Monocytes % (Manual) 10, Eosinophils % ( Manual) 0, Basophils % (Manual) 0, Band Neutrophils 1, Platelet Estimate Adequate, Platelet Morphology Normal, Hypochromasia 1+, Anisocytosis 2+, Macrocytosis 1+, Prothrombin Time 10.7, Prothromb Time International Ratio 1.1, Activated Partial Thromboplast Time 30, Sodium Level 147H, Potassium Level 4.9, Chloride Level 106, Carbon Dioxide Level 26, Anion Gap 15, Blood Urea Nitrogen 47H, Creatinine 1.7H, Estimat Glomerular Filtration Rate , Glucose Level 204H, Uric Acid 10.2H, Calcium Level 9.4, Phosphorus Level 3.7, Magnesium Level 2.6H, Total Bilirubin 0.5, Gamma Glutamyl Transpeptidase 56, Aspartate Amino Transf ( AST/SGOT) 16, Alanine Aminotransferase (ALT/SGPT) 14, Alkaline Phosphatase 109, Total Creatine Kinase 86, C-Reactive Protein, Quantitative 6.1H, Pro-B-Type Natriuretic Peptide 128, Total Protein 9.2H, Albumin 3.2L, Globulin 6.0, Albumin /Globulin Ratio 0.5L, Thyroid Stimulating Hormone (TSH) 1.900 Height (Feet): 5 Height (Inches): 7.00 Weight (Pounds): 181 General Appearance: no apparent distress EENT: TMs normal Neck: supple Cardiovascular: regular rhythm Respiratory/Chest: lungs clear Abdomen: non tender Extremities: non-tender Edema: 1+ Leg (L), 1+ Leg (R) Edema: mild edema Neurologic: alert Skin: warm/dry Alexx Sanon Dec 15, 2016 08:48
--- NOTE | 2016-12-15 11:58 | General Progress Note ---
Assessment/Plan Problem List: (1) Abdominal distension ICD Codes: R14.0 - Abdominal distension (gaseous) SNOMED: 05395847 (2) Dehydration ICD Codes: E86.0 - Dehydration SNOMED: 38106106 (3) Tracheostomy status (4) Respiratory insufficiency ICD Codes: R06.89 - Respiratory insufficiency SNOMED: 739579683 (5) Iron deficiency anemia ICD Codes: D50.9 - Iron deficiency anemia SNOMED: 97778506 (6) Chronic respiratory failure ICD Codes: J96.10 - Chronic respiratory failure SNOMED: 54775456 (7) Anemia ICD Codes: D64.9 - Anemia SNOMED: 609345594 (8) DVT (deep venous thrombosis) ICD Codes: I82.409 - Acute embolism and thrombosis of unspecified deep veins of unspecified lower extremity SNOMED: 381864463 (9) Hypoalbuminemia ICD Codes: E88.09 - Other disorders of plasma-protein metabolism, not elsewhere classified SNOMED: 452823028 (10) Feeding by G-tube ICD Codes: Z93.1 - Feeding by G-tube SNOMED: 724297829 (11) HTN (hypertension) ICD Codes: I10 - HTN (hypertension) SNOMED: 22183744 Status: progressing Assessment/Plan dvt heme /onc recommending ivc filter so ivx filter per heme/onc h/o gi bleed so not a coumadin candidate w recurrent anemia and gi bleed Subjective ROS Limited/Unobtainable: Yes Allergies: Coded Allergies: NO KNOWN DRUG ALLERGIES (Unverified Allergy, Unknown, 10/29/14) Objective Last 24 Hour Vital Signs Date Time Temp Pulse Resp B/P Pulse Ox O2 Delivery O2 Flow Rate FiO2 12/15/16 08:42 97 19 40 12/15/16 08:03 40 12/15/16 08:00 97.7 91 16 133/85 99 Mechanical Ventilator 40 12/15/16 08:00 94 12/15/16 07:18 94 16 40 12/15/16 05:18 94 17 40 12/15/16 04:13 94 12/15/16 04:00 98.3 95 16 123/71 100 Mechanical Ventilator 40 12/15/16 04:00 40 12/15/16 03:07 85 16 40 12/15/16 01:20 95 16 40 12/15/16 00:00 40 12/15/16 00:00 97.4 90 16 112/66 100 Mechanical Ventilator 40 12/14/16 23:42 90 12/14/16 23:01 89 17 40 12/14/16 20:57 89 16 40 12/14/16 20:00 95 12/14/16 20:00 40 12/14/16 20:00 98.5 95 20 133/72 100 Mechanical Ventilator 40 12/14/16 19:16 93 17 40 12/14/16 16:30 86 15 40 12/14/16 16:00 91 12/14/16 16:00 97.3 90 18 126/69 100 Mechanical Ventilator 40 12/14/16 16:00 40 12/14/16 15:36 98 15 40 12/14/16 13:14 96 16 40 12/14/16 12:00 40 12/14/16 12:00 95 12/14/16 12:00 97.2 92 16 113/73 Mechanical Ventilator 40 Intake and Output 12/14/16 12/15/16 19:00 07:00 Intake Total 510.0 ml 1215.0 ml Output Total 450 ml 670 ml Balance 60.0 ml 545.0 ml Intake Free Water 100 ml 150 ml IV Total 110.0 ml 435.0 ml Tube Feeding 300 ml 330 ml Blood Product 300 ml Output Urine Total 450 ml 670 ml # Bowel Movements 2 2 Laboratory Tests 12/14/16 16:00: Urine Color Pale yellow, Urine Appearance Slightly cloudy, Urine pH 9, Urine Specific [place] 1.010, Urine Protein 3+H, Urine Glucose (UA) Negative, Urine Ketones Negative, Urine Occult Blood 4+H, Urine Nitrite PositiveH, Urine Bilirubin Negative, Urine Urobilinogen Normal, Urine Leukocyte Esterase 3+H, Urine RBC 5-10H, Urine WBC 0-2, Urine Squamous Epithelial Cells None, Urine Triple Phosphate Crystals ManyH, Urine Bacteria ManyH 12/15/16 04:00: Urine Color Pale yellow, Urine Appearance Cloudy, Urine pH 9, Urine Specific [place] 1.015, Urine Protein 2+H, Urine Glucose (UA) Negative, Urine Ketones Negative, Urine Occult Blood 4+H, Urine Nitrite PositiveH, Urine Bilirubin Negative, Urine Urobilinogen Normal, Urine Leukocyte Esterase 3+H, Urine RBC 5- 10H, Urine WBC 2-4, Urine Squamous Epithelial Cells Few, Urine Triple Phosphate Crystals ModerateH, Urine Bacteria ModerateH, Urine Amorphous Sediment , Urine Random Sodium 59 12/15/16 05:15: White Blood Count 7.6, Red Blood Count 2.50L, Hemoglobin 7.9L, Hematocrit 25.5L , Mean Corpuscular Volume 102H, Mean Corpuscular Hemoglobin 31.3H, Mean Corpuscular Hemoglobin Concent 30.7L, Red Cell Distribution Width 20.7H, Platelet Count 196, Mean Platelet Volume 8.8, Neutrophils (%) (Auto) , Lymphocytes (%) (Auto) , Monocytes (%) (Auto) , Eosinophils (%) (Auto) , Basophils (%) (Auto) , Differential Total Cells Counted 100, Neutrophils % ( Manual) 73, Lymphocytes % (Manual) 16L, Monocytes % (Manual) 10, Eosinophils % ( Manual) 0, Basophils % (Manual) 0, Band Neutrophils 1, Platelet Estimate Adequate, Platelet Morphology Normal, Hypochromasia 1+, Anisocytosis 2+, Macrocytosis 1+, Prothrombin Time 10.7, Prothromb Time International Ratio 1.1, Activated Partial Thromboplast Time 30, Sodium Level 147H, Potassium Level 4.9, Chloride Level 106, Carbon Dioxide Level 26, Anion Gap 15, Blood Urea Nitrogen 47H, Creatinine 1.7H, Estimat Glomerular Filtration Rate , Glucose Level 204H, Uric Acid 10.2H, Calcium Level 9.4, Phosphorus Level 3.7, Magnesium Level 2.6H, Total Bilirubin 0.5, Gamma Glutamyl Transpeptidase 56, Aspartate Amino Transf ( AST/SGOT) 16, Alanine Aminotransferase (ALT/SGPT) 14, Alkaline Phosphatase 109, Total Creatine Kinase 86, C-Reactive Protein, Quantitative 6.1H, Pro-B-Type Natriuretic Peptide 128, Total Protein 9.2H, Albumin 3.2L, Globulin 6.0, Albumin /Globulin Ratio 0.5L, Thyroid Stimulating Hormone (TSH) 1.900 Height (Feet): 5 Height (Inches): 7.00 Weight (Pounds): 181 Neck: normal inspection Cardiovascular: normal rate Respiratory/Chest: lungs clear David Bowie MD Dec 15, 2016 11:58
--- NOTE | 2016-12-15 12:13 | Pulmonology Progress Note ---
Assessment/Plan Problems: (1) Respiratory failure (2) Anemia (3) Hypoalbuminemia (4) HTN (hypertension) Respiratory: monitor respiratory rate, adjust FIO2 Cardiac: continue to monitor HR/BP Renal: F/U I&O, keep IV fluid, check electrolytes Infectious Disease: check cultures, continue antibiotics Gastrointestinal: continue feedings/current rate Endocrine: monitor blood sugar, check TSH, check HgA1C Hematologic: monitor H/H, transfuse if hgb<8.5 - got one unit prbc yesterday, will get another unit today, other Neurologic: PRN Morphine Affect: PRN ativan Prophylaxis: Protonix Notes Reviewed: planning advisor, cardio, 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, consultants, machine adjuster leader case trim Subjective ROS Limited/Unobtainable: Yes Allergies: Coded Allergies: NO KNOWN DRUG ALLERGIES (Unverified Allergy, Unknown, 10/29/14) Objective Last 24 Hour Vital Signs Date Time Temp Pulse Resp B/P Pulse Ox O2 Delivery O2 Flow Rate FiO2 12/15/16 12:04 40 12/15/16 10:48 92 16 40 12/15/16 08:42 97 19 40 12/15/16 08:03 40 12/15/16 08:00 97.7 91 16 133/85 99 Mechanical Ventilator 40 12/15/16 08:00 94 12/15/16 07:18 94 16 40 12/15/16 05:18 94 17 40 12/15/16 04:13 94 12/15/16 04:00 98.3 95 16 123/71 100 Mechanical Ventilator 40 12/15/16 04:00 40 12/15/16 03:07 85 16 40 12/15/16 01:20 95 16 40 12/15/16 00:00 40 12/15/16 00:00 97.4 90 16 112/66 100 Mechanical Ventilator 40 12/14/16 23:42 90 12/14/16 23:01 89 17 40 12/14/16 20:57 89 16 40 12/14/16 20:00 95 12/14/16 20:00 40 12/14/16 20:00 98.5 95 20 133/72 100 Mechanical Ventilator 40 12/14/16 19:16 93 17 40 12/14/16 16:30 86 15 40 12/14/16 16:00 91 12/14/16 16:00 97.3 90 18 126/69 100 Mechanical Ventilator 40 12/14/16 16:00 40 12/14/16 15:36 98 15 40 12/14/16 13:14 96 16 40 Intake and Output 12/14/16 12/15/16 19:00 07:00 Intake Total 510.0 ml 1215.0 ml Output Total 450 ml 670 ml Balance 60.0 ml 545.0 ml Intake Free Water 100 ml 150 ml IV Total 110.0 ml 435.0 ml Tube Feeding 300 ml 330 ml Blood Product 300 ml Output Urine Total 450 ml 670 ml # Bowel Movements 2 2 Objective General Appearance: WD/WN, trach in place Respiratory/Chest: chest wall non-tender, lungs clear Cardiovascular: normal peripheral pulses Abdomen: normal bowel sounds, soft, non tender, G-tube Extremities: no cyanosis, no clubbing Skin: no rash, no ulcers Lymphatic: no neck adenopathy Laboratory Tests 12/14/16 16:00: Urine Color Pale yellow, Urine Appearance Slightly cloudy, Urine pH 9, Urine Specific [place] 1.010, Urine Protein 3+H, Urine Glucose (UA) Negative, Urine Ketones Negative, Urine Occult Blood 4+H, Urine Nitrite PositiveH, Urine Bilirubin Negative, Urine Urobilinogen Normal, Urine Leukocyte Esterase 3+H, Urine RBC 5-10H, Urine WBC 0-2, Urine Squamous Epithelial Cells None, Urine Triple Phosphate Crystals ManyH, Urine Bacteria ManyH 12/15/16 04:00: Urine Color Pale yellow, Urine Appearance Cloudy, Urine pH 9, Urine Specific [place] 1.015, Urine Protein 2+H, Urine Glucose (UA) Negative, Urine Ketones Negative, Urine Occult Blood 4+H, Urine Nitrite PositiveH, Urine Bilirubin Negative, Urine Urobilinogen Normal, Urine Leukocyte Esterase 3+H, Urine RBC 5- 10H, Urine WBC 2-4, Urine Squamous Epithelial Cells Few, Urine Triple Phosphate Crystals ModerateH, Urine Bacteria ModerateH, Urine Amorphous Sediment , Urine Random Sodium 59 12/15/16 05:15: White Blood Count 7.6, Red Blood Count 2.50L, Hemoglobin 7.9L, Hematocrit 25.5L , Mean Corpuscular Volume 102H, Mean Corpuscular Hemoglobin 31.3H, Mean Corpuscular Hemoglobin Concent 30.7L, Red Cell Distribution Width 20.7H, Platelet Count 196, Mean Platelet Volume 8.8, Neutrophils (%) (Auto) , Lymphocytes (%) (Auto) , Monocytes (%) (Auto) , Eosinophils (%) (Auto) , Basophils (%) (Auto) , Differential Total Cells Counted 100, Neutrophils % ( Manual) 73, Lymphocytes % (Manual) 16L, Monocytes % (Manual) 10, Eosinophils % ( Manual) 0, Basophils % (Manual) 0, Band Neutrophils 1, Platelet Estimate Adequate, Platelet Morphology Normal, Hypochromasia 1+, Anisocytosis 2+, Macrocytosis 1+, Prothrombin Time 10.7, Prothromb Time International Ratio 1.1, Activated Partial Thromboplast Time 30, Sodium Level 147H, Potassium Level 4.9, Chloride Level 106, Carbon Dioxide Level 26, Anion Gap 15, Blood Urea Nitrogen 47H, Creatinine 1.7H, Estimat Glomerular Filtration Rate , Glucose Level 204H, Uric Acid 10.2H, Calcium Level 9.4, Phosphorus Level 3.7, Magnesium Level 2.6H, Total Bilirubin 0.5, Gamma Glutamyl Transpeptidase 56, Aspartate Amino Transf ( AST/SGOT) 16, Alanine Aminotransferase (ALT/SGPT) 14, Alkaline Phosphatase 109, Total Creatine Kinase 86, C-Reactive Protein, Quantitative 6.1H, Pro-B-Type Natriuretic Peptide 128, Total Protein 9.2H, Albumin 3.2L, Globulin 6.0, Albumin /Globulin Ratio 0.5L, Thyroid Stimulating Hormone (TSH) 1.900 Current Medications Medications (Trade) Dose Ordered Sig/Shubham Route PRN Reason Start Time Stop Time Status Last Admin Dose Admin Acetaminophen (Tylenol) 650 mg Q4H PRN ORAL FEVER 12/13/16 22:30 01/12/17 22:29 Albuterol/ Ipratropium (DuoNeb 0.5-3(2.5)mg/3ml) 3 ml EVERY 4 HOURS PRN HHN Shortness of Breath 12/13/16 22:30 12/18/16 22:29 Dextrose STAT PRN IV Hypoglycemia 12/13/16 22:30 01/12/17 22:29 Heparin Sodium (Porcine) (Heparin 5000 units/ml) 5,000 units EVERY 12 HOURS SUBQ 12/14/16 09:00 01/13/17 08:59 12/15/16 08:26 Insulin Aspart (NovoLOG) EVERY 6 HOURS SUBQ 12/14/16 18:00 01/13/17 17:59 12/15/16 06:17 Lorazepam (Ativan 2mg/ml 1ml) 2 mg EVERY 2 HOURS PRN IV For Anxiety 12/13/16 22:30 12/20/16 22:29 Morphine Sulfate (Morphine Sulfate) 4 mg EVERY 4 HOURS PRN IVP Severe Pain (Pain Scale 7-10) 12/13/16 22:30 12/20/16 22:29 Ondansetron HCl (Zofran) 4 mg Q6H PRN IVP Nausea & Vomiting 12/13/16 22:30 01/12/17 22:29 Pantoprazole (Protonix) 40 mg EVERY 12 HOURS IVP 12/14/16 14:00 01/13/17 13:59 12/15/16 08:25 Piperacillin Sod/ Tazobactam Sod/ Dextrose (Zosyn/D5W) 110 ml @ 27.5 mls/hr Q8HR IVPB 12/14/16 11:00 12/21/16 10:59 12/15/16 06:17 Polyethylene Glycol (Miralax) 17 gm DAILYPRN PRN ORAL Constipation 12/13/16 22:30 01/12/17 22:29 Vancomycin HCl 1.5 gm/Dextrose 325 ml @ 162.5 mls/ hr Q24H IVPB 12/14/16 02:00 12/19/16 01:59 12/15/16 02:43 MICH FONSECA Dec 15, 2016 12:13
[2016-12-15 12:24] LABS: OTHERS PATHOLOGIST COMMENT
--- NOTE | 2016-12-15 13:49 | General Progress Note ---
Assessment/Plan Status: unchanged Status Narrative Cr 1.7 Assessment/Plan status: Acute Renal Failure- Pre Renal / Super Imposed on Renal Respiratory failure Anemia Decubs h/o DVT Other conditions: 1. Acute on chronic respiratory failure. 2. h/o Severe sepsis. 3. Ventilator-dependent respiratory failure. 4. Chronic obstructive pulmonary disease. 5. History of deep venous thrombosis. 6. Hypoalbuminemia. 7. h/o Clostridium difficile colitis. 8. Pressure ulcers on sacrococcygeal down to buttocks, right ischial tuberosity, and right heel and right trochanter present on admission. 9. h/o Urinary tract infection, Proteus mirabilis. 10. h/o Acute deep venous thrombosis of the right lower extremity, on heparin and bridged to Coumadin. 11. Tracheostomy status. 12. Gastrostomy tube feeding. 13. Diabetes mellitus. Plan: transfuse- ? Avoid Nephrotoxics- Monitor renal parameters and H&H IV protonix check UA Subjective ROS Limited/Unobtainable: Yes Allergies: Coded Allergies: NO KNOWN DRUG ALLERGIES (Unverified Allergy, Unknown, 10/29/14) Objective Last 24 Hour Vital Signs Date Time Temp Pulse Resp B/P Pulse Ox O2 Delivery O2 Flow Rate FiO2 12/15/16 13:14 89 16 40 12/15/16 12:04 40 12/15/16 12:00 92 12/15/16 12:00 97.3 87 18 134/78 100 Mechanical Ventilator 40 12/15/16 10:48 92 16 40 12/15/16 08:42 97 19 40 12/15/16 08:03 40 12/15/16 08:00 97.7 91 16 133/85 99 Mechanical Ventilator 40 12/15/16 08:00 94 12/15/16 07:18 94 16 40 12/15/16 05:18 94 17 40 12/15/16 04:13 94 12/15/16 04:00 98.3 95 16 123/71 100 Mechanical Ventilator 40 12/15/16 04:00 40 12/15/16 03:07 85 16 40 12/15/16 01:20 95 16 40 12/15/16 00:00 40 12/15/16 00:00 97.4 90 16 112/66 100 Mechanical Ventilator 40 12/14/16 23:42 90 12/14/16 23:01 89 17 40 12/14/16 20:57 89 16 40 12/14/16 20:00 95 12/14/16 20:00 40 12/14/16 20:00 98.5 95 20 133/72 100 Mechanical Ventilator 40 12/14/16 19:16 93 17 40 12/14/16 16:30 86 15 40 12/14/16 16:00 91 12/14/16 16:00 97.3 90 18 126/69 100 Mechanical Ventilator 40 12/14/16 16:00 40 12/14/16 15:36 98 15 40 Intake and Output 12/14/16 12/15/16 18:59 06:59 Intake Total 480.0 ml 1215.0 ml Output Total 450 ml 670 ml Balance 30.0 ml 545.0 ml Intake Free Water 100 ml 150 ml IV Total 110.0 ml 435.0 ml Tube Feeding 270 ml 330 ml Blood Product 300 ml Output Urine Total 450 ml 670 ml # Bowel Movements 2 2 Laboratory Tests 12/14/16 16:00: Urine Color Pale yellow, Urine Appearance Slightly cloudy, Urine pH 9, Urine Specific [place] 1.010, Urine Protein 3+H, Urine Glucose (UA) Negative, Urine Ketones Negative, Urine Occult Blood 4+H, Urine Nitrite PositiveH, Urine Bilirubin Negative, Urine Urobilinogen Normal, Urine Leukocyte Esterase 3+H, Urine RBC 5-10H, Urine WBC 0-2, Urine Squamous Epithelial Cells None, Urine Triple Phosphate Crystals ManyH, Urine Bacteria ManyH 12/15/16 04:00: Urine Color Pale yellow, Urine Appearance Cloudy, Urine pH 9, Urine Specific [place] 1.015, Urine Protein 2+H, Urine Glucose (UA) Negative, Urine Ketones Negative, Urine Occult Blood 4+H, Urine Nitrite PositiveH, Urine Bilirubin Negative, Urine Urobilinogen Normal, Urine Leukocyte Esterase 3+H, Urine RBC 5- 10H, Urine WBC 2-4, Urine Squamous Epithelial Cells Few, Urine Triple Phosphate Crystals ModerateH, Urine Bacteria ModerateH, Urine Amorphous Sediment , Urine Random Sodium 59 12/15/16 05:15: White Blood Count 7.6, Red Blood Count 2.50L, Hemoglobin 7.9L, Hematocrit 25.5L , Mean Corpuscular Volume 102H, Mean Corpuscular Hemoglobin 31.3H, Mean Corpuscular Hemoglobin Concent 30.7L, Red Cell Distribution Width 20.7H, Platelet Count 196, Mean Platelet Volume 8.8, Neutrophils (%) (Auto) , Lymphocytes (%) (Auto) , Monocytes (%) (Auto) , Eosinophils (%) (Auto) , Basophils (%) (Auto) , Differential Total Cells Counted 100, Neutrophils % ( Manual) 73, Lymphocytes % (Manual) 16L, Monocytes % (Manual) 10, Eosinophils % ( Manual) 0, Basophils % (Manual) 0, Band Neutrophils 1, Platelet Estimate Adequate, Platelet Morphology Normal, Hypochromasia 1+, Anisocytosis 2+, Macrocytosis 1+, Prothrombin Time 10.7, Prothromb Time International Ratio 1.1, Activated Partial Thromboplast Time 30, Sodium Level 147H, Potassium Level 4.9, Chloride Level 106, Carbon Dioxide Level 26, Anion Gap 15, Blood Urea Nitrogen 47H, Creatinine 1.7H, Estimat Glomerular Filtration Rate , Glucose Level 204H, Uric Acid 10.2H, Calcium Level 9.4, Phosphorus Level 3.7, Magnesium Level 2.6H, Total Bilirubin 0.5, Gamma Glutamyl Transpeptidase 56, Aspartate Amino Transf ( AST/SGOT) 16, Alanine Aminotransferase (ALT/SGPT) 14, Alkaline Phosphatase 109, Total Creatine Kinase 86, C-Reactive Protein, Quantitative 6.1H, Pro-B-Type Natriuretic Peptide 128, Total Protein 9.2H, Albumin 3.2L, Globulin 6.0, Albumin /Globulin Ratio 0.5L, Thyroid Stimulating Hormone (TSH) 1.900 Height (Feet): 5 Height (Inches): 7.00 Weight (Pounds): 181 General Appearance: no apparent distress Neck: other - Trach Cardiovascular: regular rhythm Respiratory/Chest: decreased breath sounds Abdomen: distended COLTEN DIEGO Dec 15, 2016 13:49
--- NOTE | 2016-12-15 16:22 | Diagnostic Imaging Report ---
Indications: Long-term central IV access required for intravenous therapy Technique: The procedure indications, risks, and alternatives were explained to the agents family who understands and gives consent to proceed. Strict aseptic technique was utilized, including hand washing, use of hat and mask, use of sterile gown and gloves, sterile ultrasound gel and probe cover, prepping of right arm skin with 2% chlorhexidine solution, and application of full-body sterile barrier over this area. Skin and subcutaneous soft tissues were infiltrated with 1% lidocaine and sodium bicarbonate. A small dermatotomy was made, through which the larger of two patent, adequate size right brachial veins was punctured percutaneously under direct sonographic guidance with a 21-gauge needle. Exchange was made over a 0.018 inch guidewire for a 5 [place] peel-away sheath. A [employer] Power-PICC 5 [place] dual lumen central venous catheter was cut to appropriate length, then advanced through the sheath over the guidewire under direct fluoroscopic guidance into the superior vena cava. Guidewire and sheath were removed. Both catheter ports were aspirated, then flushed with heparinized saline. Final image was obtained. Catheter was secured the skin with adhesive dressing. Patient tolerated procedure well without immediate complications. Total fluoroscopy time: 0.3 minutes. Dose-area product: 6 dGy-cm2 Findings: Final image demonstrates tip of the central venous catheter at the level of superior vena cava-right atrial junction, 39 cm in from the skin. Both ports aspirate and flush freely. IMPRESSION:? Placement of peripherally inserted central venous catheter via right brachial vein, working well.
--- NOTE | 2016-12-15 18:02 | General Progress Note ---
Assessment/Plan Assessment/Plan ASSESSMENT: 1. Acute superficial clot of femoral vein (a deep vein) on 10/04/16 and on , was rescaned and shows dvt again, s/p ivc filter 12/15/16 2. Anemia secondary to chronic disease based on previous labs, ferritin is elevated, egd in the recent past was negative 3. Decreased h/h rule out GI bleed 4. Leukocytosis 2/2 likely infection, r/o UTI 5. 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 7. Acute on chronic respiratory failure, trach/vent 8. Elevated retic count 9. Urinary tract infection. 10. Decubitus ulceration. RECOMMENDATIONS: 1. s/p ivc filter 12/15/16 2. Transfuse hgb >7 3. Monitor counts 4. Continue antibiotics as needed. 5. Breathing treatments prn 6. Pain control. 7. Gi followup recs 8. DVT prophylaxis with SCDs. 9. Continue tube feedings. 10. Discussed with staff. Thank you, Alexx Sanon MD Subjective Date patient seen: Dec 14, 2016 Constitutional: Reports: no symptoms HEENT: Reports: no symptoms Cardiovascular: Reports: no symptoms Respiratory: Reports: no symptoms Gastrointestinal/Abdominal: Reports: poor appetite Genitourinary: Reports: no symptoms Neurologic/Psychiatric: Reports: no symptoms Endocrine: Reports: no symptoms Hematologic/Lymphatic: Reports: anemia Allergies: Coded Allergies: NO KNOWN DRUG ALLERGIES (Unverified Allergy, Unknown, 10/29/14) Subjective no events overnight, no fevers or chills, hgb lower today Objective Last 24 Hour Vital Signs Date Time Temp Pulse Resp B/P Pulse Ox O2 Delivery O2 Flow Rate FiO2 12/15/16 17:06 88 19 40 12/15/16 16:00 96.8 86 16 127/72 99 Mechanical Ventilator 40 12/15/16 15:42 86 16 40 12/15/16 15:25 97 21 122/75 100 Mechanical Ventilator 40 12/15/16 15:20 88 21 116/75 100 Mechanical Ventilator 40 12/15/16 15:15 88 23 109/71 100 Mechanical Ventilator 40 12/15/16 15:10 88 20 95/68 100 Mechanical Ventilator 40 12/15/16 15:05 82 16 93/57 100 Mechanical Ventilator 40 12/15/16 15:00 90 17 111/65 100 Mechanical Ventilator 40 12/15/16 14:55 92 21 128/79 100 Mechanical Ventilator 40 12/15/16 14:29 90 16 6.0 12/15/16 13:14 89 16 40 12/15/16 12:04 40 12/15/16 12:00 92 12/15/16 12:00 97.3 87 18 134/78 100 Mechanical Ventilator 40 12/15/16 10:48 92 16 40 12/15/16 08:42 97 19 40 12/15/16 08:03 40 12/15/16 08:00 97.7 91 16 133/85 99 Mechanical Ventilator 40 12/15/16 08:00 94 12/15/16 07:18 94 16 40 12/15/16 05:18 94 17 40 12/15/16 04:13 94 12/15/16 04:00 98.3 95 16 123/71 100 Mechanical Ventilator 40 12/15/16 04:00 40 12/15/16 03:07 85 16 40 12/15/16 01:20 95 16 40 12/15/16 00:00 40 12/15/16 00:00 97.4 90 16 112/66 100 Mechanical Ventilator 40 12/14/16 23:42 90 12/14/16 23:01 89 17 40 12/14/16 20:57 89 16 40 12/14/16 20:00 95 12/14/16 20:00 40 12/14/16 20:00 98.5 95 20 133/72 100 Mechanical Ventilator 40 12/14/16 19:16 93 17 40 Intake and Output 12/14/16 12/15/16 19:00 07:00 Intake Total 510.0 ml 1215.0 ml Output Total 450 ml 670 ml Balance 60.0 ml 545.0 ml Intake Free Water 100 ml 150 ml IV Total 110.0 ml 435.0 ml Tube Feeding 300 ml 330 ml Blood Product 300 ml Output Urine Total 450 ml 670 ml # Bowel Movements 2 2 Laboratory Tests 12/15/16 04:00: Urine Color Pale yellow, Urine Appearance Cloudy, Urine pH 9, Urine Specific [place] 1.015, Urine Protein 2+H, Urine Glucose (UA) Negative, Urine Ketones Negative, Urine Occult Blood 4+H, Urine Nitrite PositiveH, Urine Bilirubin Negative, Urine Urobilinogen Normal, Urine Leukocyte Esterase 3+H, Urine RBC 5- 10H, Urine WBC 2-4, Urine Squamous Epithelial Cells Few, Urine Triple Phosphate Crystals ModerateH, Urine Amorphous Sediment , Urine Bacteria ModerateH, Urine Random Sodium 59 12/15/16 05:15: White Blood Count 7.6, Red Blood Count 2.50L, Hemoglobin 7.9L, Hematocrit 25.5L , Mean Corpuscular Volume 102H, Mean Corpuscular Hemoglobin 31.3H, Mean Corpuscular Hemoglobin Concent 30.7L, Red Cell Distribution Width 20.7H, Platelet Count 196, Mean Platelet Volume 8.8, Neutrophils (%) (Auto) , Lymphocytes (%) (Auto) , Monocytes (%) (Auto) , Eosinophils (%) (Auto) , Basophils (%) (Auto) , Differential Total Cells Counted 100, Neutrophils % ( Manual) 73, Lymphocytes % (Manual) 16L, Monocytes % (Manual) 10, Eosinophils % ( Manual) 0, Basophils % (Manual) 0, Band Neutrophils 1, Platelet Estimate Adequate, Platelet Morphology Normal, Hypochromasia 1+, Anisocytosis 2+, Macrocytosis 1+, Prothrombin Time 10.7, Prothromb Time International Ratio 1.1, Activated Partial Thromboplast Time 30, Sodium Level 147H, Potassium Level 4.9, Chloride Level 106, Carbon Dioxide Level 26, Anion Gap 15, Blood Urea Nitrogen 47H, Creatinine 1.7H, Estimat Glomerular Filtration Rate , Glucose Level 204H, Uric Acid 10.2H, Calcium Level 9.4, Phosphorus Level 3.7, Magnesium Level 2.6H, Total Bilirubin 0.5, Gamma Glutamyl Transpeptidase 56, Aspartate Amino Transf ( AST/SGOT) 16, Alanine Aminotransferase (ALT/SGPT) 14, Alkaline Phosphatase 109, Total Creatine Kinase 86, C-Reactive Protein, Quantitative 6.1H, Pro-B-Type Natriuretic Peptide 128, Total Protein 9.2H, Albumin 3.2L, Globulin 6.0, Albumin /Globulin Ratio 0.5L, Thyroid Stimulating Hormone (TSH) 1.900 Height (Feet): 5 Height (Inches): 7.00 Weight (Pounds): 181 General Appearance: no apparent distress EENT: TMs normal Neck: supple Cardiovascular: regular rhythm Respiratory/Chest: lungs clear Abdomen: no organomegaly Extremities: non-tender Edema: 1+ Leg (L), 1+ Leg (R) Alexx Sanon Dec 15, 2016 18:02
[2016-12-16] VITALS: BP 135/74
[2016-12-16 04:00] VITALS: BP 122/56
[2016-12-16 05:04] LABS: EOSINOPHILS % (AUTO) 2.9 % (0.0-3.0); LYMPHOCYTES % (AUTO) 19.1 % (20.0-45.0); MEAN CORPUSCULAR HEMOGLOBIN 31.6 PG (27.0-31.0); MEAN CORPUSCULAR HGB CONC 31.7 G/DL (32.0-36.0); MEAN CORPUSCULAR VOLUME 100 FL (80-99); MONOCYTES % (AUTO) 11.3 % (1.0-10.0); NEUTROPHILS % (AUTO) 65.7 % (45.0-75.0); PLATELET COUNT 173 K/UL (150-450); RED BLOOD COUNT 2.75 M/UL (4.70-6.10); RED CELL DISTRIBUTION WIDTH 19.4 % (11.6-14.8); WHITE BLOOD COUNT 6.2 K/UL (4.8-10.8)
[2016-12-16] MEDS: NovoLOG Insulin Flexpen SUBQ SCH ×4 (05:44→23:29)
[2016-12-16 05:49] LABS: ANION GAP 13 (5-15); CALCIUM 9.2 mg/dL (8.6-10.2); CARBON DIOXIDE 26 mEQ/L (20-30); CHLORIDE 108 mEQ/L (98-107); CREATININE 1.4 mg/dL (0.7-1.2); HEMOLYSIS 1; POTASSIUM 4.6 mEQ/L (3.4-4.9); SODIUM 147 mEQ/L (135-145)
[2016-12-16 08:00] VITALS: BP 121/74
[2016-12-16] MEDS: Pantoprazole Inj IVP SCH ×2 (08:25→21:28)
[2016-12-16] MEDS: Heparin 5000 units/ml inj SUBQ SCH (08:26)
[2016-12-16] MEDS: Piperacillin/Tazobactam 3.375 GM in D5W 110 ML IVPB SCH ×2 (08:27→21:29)
--- NOTE | 2016-12-16 09:00 | Pulmonology Progress Note ---
Assessment/Plan Assessment/Plan ASSESSMENT VDRF/trach anemia of chronic disease s/p blood transfusion r/o GI bleeding ATN, likely prerenal, superimposed on renal dysphagia, G tube acute DVT RLE SFV s/p IVC filter UTI decubitus ulcer, POA PLAN OF CARE JALEESA vent/trach care, pulmonary toilet ABG stable on current settings, keep as is and titrate as needed CXR negative Venous Duplex + acute DVT RLE SFV s/p IVC filter heme follows started on Lovenox and Couamdin to bridge to therapeutic INR, monitor HH clsoely in lieu of current bleeding abx, fup cx ID follows monitor HH, s/p blood transfusion check stool OB GI prophylaxis strict aspiration precautions, GT feeding, monitor tolerance Bowel regimen BS management with SS of insulin wound care as per wound nurse recommendations monitor renal parameters, lytes , creat trending down, increase free water via GT case discussed and evaluated by supervising physician Subjective Allergies: Coded Allergies: NO KNOWN DRUG ALLERGIES (Unverified Allergy, Unknown, 10/29/14) Subjective ABG stable on current settings, no signs of respiratory distress HH at baseline creat trending down Objective Last 24 Hour Vital Signs Date Time Temp Pulse Resp B/P Pulse Ox O2 Delivery O2 Flow Rate FiO2 12/16/16 06:58 89 16 40 12/16/16 04:33 85 16 40 12/16/16 04:00 40 12/16/16 04:00 98.1 86 16 122/56 98 Mechanical Ventilator 40 12/16/16 04:00 87 12/16/16 04:00 40 12/16/16 02:32 87 20 40 12/16/16 00:55 87 20 40 12/16/16 00:00 40 12/16/16 00:00 87 12/16/16 00:00 98.8 85 19 135/74 100 Mechanical Ventilator 40 12/15/16 23:30 81 18 40 12/15/16 20:35 80 16 40 12/15/16 20:00 98.2 84 18 131/76 100 Mechanical Ventilator 40 12/15/16 20:00 82 12/15/16 20:00 40 12/15/16 18:57 82 16 40 12/15/16 17:06 88 19 40 12/15/16 16:00 96.8 86 16 127/72 99 Mechanical Ventilator 40 12/15/16 16:00 40 12/15/16 16:00 89 12/15/16 15:42 86 16 40 12/15/16 15:25 97 21 122/75 100 Mechanical Ventilator 40 12/15/16 15:20 88 21 116/75 100 Mechanical Ventilator 40 12/15/16 15:15 88 23 109/71 100 Mechanical Ventilator 40 12/15/16 15:10 88 20 95/68 100 Mechanical Ventilator 40 12/15/16 15:05 82 16 93/57 100 Mechanical Ventilator 40 12/15/16 15:00 90 17 111/65 100 Mechanical Ventilator 40 12/15/16 14:55 92 21 128/79 100 Mechanical Ventilator 40 12/15/16 14:29 90 16 6.0 12/15/16 13:14 89 16 40 12/15/16 12:04 40 12/15/16 12:00 92 12/15/16 12:00 97.3 87 18 134/78 100 Mechanical Ventilator 40 12/15/16 10:48 92 16 40 Intake and Output 12/15/16 12/16/16 19:00 07:00 Intake Total 540.0 ml 900.0 ml Output Total 400 ml Balance 140.0 ml 900.0 ml Intake Free Water 150 ml 50 ml IV Total 110.0 ml 110.0 ml Tube Feeding 280 ml 440 ml Blood Product 300 ml Output Urine Total 400 ml # Voids 2 General Appearance: no acute distress, other - vent dependent obtunded male in NAD Vent AC 550-16-40 HEENT: normocephalic, atraumatic, status post trach - Shiley#8, secretions moderte, yellow, thick Respiratory/Chest: chest wall non-tender, lungs clear, no respiratory distress Cardiovascular: normal rate, regular rhythm, no JVD, other - RUE PICC intact Genitourinary: normal external genitalia Skin: other - decub Neurologic/Psychiatric: no motor/sensory deficits - bedridden, other - obtunded , spastic LE Musculoskeletal: atrophy - BLE Laboratory Tests 12/16/16 04:00: White Blood Count 6.2, Red Blood Count 2.75L, Hemoglobin 8.7L, Hematocrit 27.4L , Mean Corpuscular Volume 100H, Mean Corpuscular Hemoglobin 31.6H, Mean Corpuscular Hemoglobin Concent 31.7L, Red Cell Distribution Width 19.4H, Platelet Count 173, Mean Platelet Volume 9.0, Neutrophils (%) (Auto) 65.7, Lymphocytes (%) (Auto) 19.1L, Monocytes (%) (Auto) 11.3H, Eosinophils (%) (Auto ) 2.9, Basophils (%) (Auto) 1.0, Sodium Level 147H, Potassium Level 4.6, Chloride Level 108H, Carbon Dioxide Level 26, Anion Gap 13, Blood Urea Nitrogen 36H, Creatinine 1.4H, Estimat Glomerular Filtration Rate , Glucose Level 166H, Calcium Level 9.2, Random Vancomycin Level 21.5 Current Medications Medications (Trade) Dose Ordered Sig/Shubham Route PRN Reason Start Time Stop Time Status Last Admin Dose Admin Acetaminophen (Tylenol) 650 mg Q4H PRN ORAL FEVER 12/13/16 22:30 01/12/17 22:29 Albuterol/ Ipratropium (DuoNeb 0.5-3(2.5)mg/3ml) 3 ml EVERY 4 HOURS PRN HHN Shortness of Breath 12/13/16 22:30 12/18/16 22:29 Dextrose (Dextrose 50%) STAT PRN IV Hypoglycemia 12/13/16 22:30 01/12/17 22:29 Heparin Sodium (Porcine) (Heparin 5000 units/ml) 5,000 units EVERY 12 HOURS SUBQ 12/14/16 09:00 01/13/17 08:59 12/16/16 08:26 Insulin Aspart EVERY 6 HOURS SUBQ 12/14/16 18:00 01/13/17 17:59 12/16/16 05:44 Lorazepam (Ativan 2mg/ml 1ml) 2 mg EVERY 2 HOURS PRN IV For Anxiety 12/13/16 22:30 12/20/16 22:29 Morphine Sulfate (Morphine Sulfate) 4 mg EVERY 4 HOURS PRN IVP Severe Pain (Pain Scale 7-10) 12/13/16 22:30 12/20/16 22:29 Ondansetron HCl (Zofran) 4 mg Q6H PRN IVP Nausea & Vomiting 12/13/16 22:30 01/12/17 22:29 Pantoprazole (Protonix) 40 mg EVERY 12 HOURS IVP 12/14/16 14:00 01/13/17 13:59 12/16/16 08:25 Piperacillin Sod/ Tazobactam Sod/ Dextrose (Zosyn/D5W) 110 ml @ 27.5 mls/hr Q12H IVPB 12/15/16 22:00 12/22/16 21:59 12/16/16 08:27 Polyethylene Glycol (Miralax) 17 gm DAILYPRN PRN ORAL Constipation 12/13/16 22:30 01/12/17 22:29 Ehsan DiasHermila cordova NP Dec 16, 2016 09:00
--- NOTE | 2016-12-16 11:31 | General Progress Note ---
Assessment/Plan Problem List: (1) Abdominal distension ICD Codes: R14.0 - Abdominal distension (gaseous) SNOMED: 20677071 (2) Dehydration ICD Codes: E86.0 - Dehydration SNOMED: 51900005 (3) Tracheostomy status (4) Respiratory insufficiency ICD Codes: R06.89 - Respiratory insufficiency SNOMED: 967263931 (5) Iron deficiency anemia ICD Codes: D50.9 - Iron deficiency anemia SNOMED: 58972906 (6) Chronic respiratory failure ICD Codes: J96.10 - Chronic respiratory failure SNOMED: 65415209 (7) Anemia ICD Codes: D64.9 - Anemia SNOMED: 791745072 (8) DVT (deep venous thrombosis) ICD Codes: I82.409 - Acute embolism and thrombosis of unspecified deep veins of unspecified lower extremity SNOMED: 661653078 (9) Hypoalbuminemia ICD Codes: E88.09 - Other disorders of plasma-protein metabolism, not elsewhere classified SNOMED: 290891350 (10) Feeding by G-tube ICD Codes: Z93.1 - Feeding by G-tube SNOMED: 129051454 (11) HTN (hypertension) ICD Codes: I10 - HTN (hypertension) SNOMED: 63649692 Status: progressing Assessment/Plan dvt heme /onc recommending ivc filter so ivx filter per heme/onc moniter h/h afebrile vitals stable Subjective ROS Limited/Unobtainable: Yes Constitutional: Reports: no symptoms Allergies: Coded Allergies: NO KNOWN DRUG ALLERGIES (Unverified Allergy, Unknown, 10/29/14) Objective Last 24 Hour Vital Signs Date Time Temp Pulse Resp B/P Pulse Ox O2 Delivery O2 Flow Rate FiO2 12/16/16 10:43 94 19 40 12/16/16 08:34 91 22 40 12/16/16 08:00 97.9 88 17 121/74 100 Mechanical Ventilator 40 12/16/16 08:00 88 12/16/16 08:00 40 12/16/16 06:58 89 16 40 12/16/16 04:33 85 16 40 12/16/16 04:00 40 12/16/16 04:00 98.1 86 16 122/56 98 Mechanical Ventilator 40 12/16/16 04:00 87 12/16/16 04:00 40 12/16/16 02:32 87 20 40 12/16/16 00:55 87 20 40 12/16/16 00:00 40 12/16/16 00:00 87 12/16/16 00:00 98.8 85 19 135/74 100 Mechanical Ventilator 40 12/15/16 23:30 81 18 40 12/15/16 20:35 80 16 40 12/15/16 20:00 98.2 84 18 131/76 100 Mechanical Ventilator 40 12/15/16 20:00 82 12/15/16 20:00 40 12/15/16 18:57 82 16 40 12/15/16 17:06 88 19 40 12/15/16 16:00 96.8 86 16 127/72 99 Mechanical Ventilator 40 12/15/16 16:00 40 12/15/16 16:00 89 12/15/16 15:42 86 16 40 12/15/16 15:25 97 21 122/75 100 Mechanical Ventilator 40 12/15/16 15:20 88 21 116/75 100 Mechanical Ventilator 40 12/15/16 15:15 88 23 109/71 100 Mechanical Ventilator 40 12/15/16 15:10 88 20 95/68 100 Mechanical Ventilator 40 12/15/16 15:05 82 16 93/57 100 Mechanical Ventilator 40 12/15/16 15:00 90 17 111/65 100 Mechanical Ventilator 40 12/15/16 14:55 92 21 128/79 100 Mechanical Ventilator 40 12/15/16 14:29 90 16 6.0 12/15/16 13:14 89 16 40 12/15/16 12:04 40 12/15/16 12:00 92 12/15/16 12:00 97.3 87 18 134/78 100 Mechanical Ventilator 40 Intake and Output 12/15/16 12/16/16 19:00 07:00 Intake Total 540.0 ml 900.0 ml Output Total 400 ml Balance 140.0 ml 900.0 ml Intake Free Water 150 ml 50 ml IV Total 110.0 ml 110.0 ml Tube Feeding 280 ml 440 ml Blood Product 300 ml Output Urine Total 400 ml # Voids 2 Laboratory Tests 12/16/16 04:00: White Blood Count 6.2, Red Blood Count 2.75L, Hemoglobin 8.7L, Hematocrit 27.4L , Mean Corpuscular Volume 100H, Mean Corpuscular Hemoglobin 31.6H, Mean Corpuscular Hemoglobin Concent 31.7L, Red Cell Distribution Width 19.4H, Platelet Count 173, Mean Platelet Volume 9.0, Neutrophils (%) (Auto) 65.7, Lymphocytes (%) (Auto) 19.1L, Monocytes (%) (Auto) 11.3H, Eosinophils (%) (Auto ) 2.9, Basophils (%) (Auto) 1.0, Sodium Level 147H, Potassium Level 4.6, Chloride Level 108H, Carbon Dioxide Level 26, Anion Gap 13, Blood Urea Nitrogen 36H, Creatinine 1.4H, Estimat Glomerular Filtration Rate , Glucose Level 166H, Calcium Level 9.2, Random Vancomycin Level 21.5 Height (Feet): 5 Height (Inches): 7.00 Weight (Pounds): 181 General Appearance: confused EENT: PERRL/EOMI Neck: supple Cardiovascular: normal rate Respiratory/Chest: lungs clear David Bowie MD Dec 16, 2016 11:31
[2016-12-16 12:17] LABS: ABG PCO2 47.1 mmHg (35.0-45.0)
[2016-12-16 12:18] LABS: ABG ALLEN TEST POSITIVE; ABG BASE EXCESS 1.5
[2016-12-16 12:48] VITALS: BP 129/74
--- NOTE | 2016-12-16 14:09 | General Progress Note ---
Assessment/Plan Status: stable - from renal stand Status Narrative Cr down 1.4 Assessment/Plan status: Acute Renal Failure- Pre Renal / Super Imposed on Renal Respiratory failure Anemia Decubs h/o DVT Other conditions: 1. Acute on chronic respiratory failure. 2. h/o Severe sepsis. 3. Ventilator-dependent respiratory failure. 4. Chronic obstructive pulmonary disease. 5. History of deep venous thrombosis. 6. Hypoalbuminemia. 7. h/o Clostridium difficile colitis. 8. Pressure ulcers on sacrococcygeal down to buttocks, right ischial tuberosity, and right heel and right trochanter present on admission. 9. h/o Urinary tract infection, Proteus mirabilis. 10. h/o Acute deep venous thrombosis of the right lower extremity, on heparin and bridged to Coumadin. 11. Tracheostomy status. 12. Gastrostomy tube feeding. 13. Diabetes mellitus. Plan: per consultants transfuse- ? Avoid Nephrotoxics- Monitor renal parameters and H&H IV protonix check UA Subjective ROS Limited/Unobtainable: Yes Allergies: Coded Allergies: NO KNOWN DRUG ALLERGIES (Unverified Allergy, Unknown, 10/29/14) Objective Last 24 Hour Vital Signs Date Time Temp Pulse Resp B/P Pulse Ox O2 Delivery O2 Flow Rate FiO2 12/16/16 13:00 95 16 40 12/16/16 12:50 40 12/16/16 12:48 97.5 94 16 129/74 100 Mechanical Ventilator 40 12/16/16 10:43 94 19 40 12/16/16 08:34 91 22 40 12/16/16 08:00 97.9 88 17 121/74 100 Mechanical Ventilator 40 12/16/16 08:00 88 12/16/16 08:00 40 12/16/16 06:58 89 16 40 12/16/16 04:33 85 16 40 12/16/16 04:00 40 12/16/16 04:00 98.1 86 16 122/56 98 Mechanical Ventilator 40 12/16/16 04:00 87 12/16/16 04:00 40 12/16/16 02:32 87 20 40 12/16/16 00:55 87 20 40 12/16/16 00:00 40 12/16/16 00:00 87 12/16/16 00:00 98.8 85 19 135/74 100 Mechanical Ventilator 40 12/15/16 23:30 81 18 40 12/15/16 20:35 80 16 40 12/15/16 20:00 98.2 84 18 131/76 100 Mechanical Ventilator 40 12/15/16 20:00 82 12/15/16 20:00 40 12/15/16 18:57 82 16 40 12/15/16 17:06 88 19 40 12/15/16 16:00 96.8 86 16 127/72 99 Mechanical Ventilator 40 12/15/16 16:00 40 12/15/16 16:00 89 12/15/16 15:42 86 16 40 12/15/16 15:25 97 21 122/75 100 Mechanical Ventilator 40 12/15/16 15:20 88 21 116/75 100 Mechanical Ventilator 40 12/15/16 15:15 88 23 109/71 100 Mechanical Ventilator 40 12/15/16 15:10 88 20 95/68 100 Mechanical Ventilator 40 12/15/16 15:05 82 16 93/57 100 Mechanical Ventilator 40 12/15/16 15:00 90 17 111/65 100 Mechanical Ventilator 40 12/15/16 14:55 92 21 128/79 100 Mechanical Ventilator 40 12/15/16 14:29 90 16 6.0 Intake and Output 12/15/16 12/16/16 19:00 07:00 Intake Total 540.0 ml 940.0 ml Output Total 400 ml Balance 140.0 ml 940.0 ml Intake Free Water 150 ml 50 ml IV Total 110.0 ml 110.0 ml Tube Feeding 280 ml 480 ml Blood Product 300 ml Output Urine Total 400 ml # Voids 2 Laboratory Tests 12/16/16 04:00: White Blood Count 6.2, Red Blood Count 2.75L, Hemoglobin 8.7L, Hematocrit 27.4L , Mean Corpuscular Volume 100H, Mean Corpuscular Hemoglobin 31.6H, Mean Corpuscular Hemoglobin Concent 31.7L, Red Cell Distribution Width 19.4H, Platelet Count 173, Mean Platelet Volume 9.0, Neutrophils (%) (Auto) 65.7, Lymphocytes (%) (Auto) 19.1L, Monocytes (%) (Auto) 11.3H, Eosinophils (%) (Auto ) 2.9, Basophils (%) (Auto) 1.0, Arterial Blood pH 7.370, Arterial Blood Partial Pressure CO2 47.1H, Arterial Blood Partial Pressure O2 121.1H, Arterial Blood HCO3 27.0H, Arterial Blood Oxygen Saturation 96.7, Arterial Blood Base Excess 1.5, Jam Test Positive, Sodium Level 147H, Potassium Level 4.6, Chloride Level 108H, Carbon Dioxide Level 26, Anion Gap 13, Blood Urea Nitrogen 36H, Creatinine 1.4H, Estimat Glomerular Filtration Rate , Glucose Level 166H, Calcium Level 9.2, Random Vancomycin Level 21.5 Height (Feet): 5 Height (Inches): 7.00 Weight (Pounds): 181 General Appearance: no apparent distress Objective other physical exam not changed COLTEN DIEGO 4, 2017 14:08
[2016-12-16] MEDS ORDERED: Tubing IV Secondary IV ONE (14:44)
[2016-12-16] MEDS ORDERED: Tubing Blood Filter IV ONE (14:44)
[2016-12-16] MEDS ORDERED: D5W 275ml ONE (14:44)
[2016-12-16] MEDS ORDERED: NS 275ml ONE (14:44)
[2016-12-16 16:00] VITALS: BP 113/69
--- NOTE | 2016-12-16 17:33 | General Progress Note ---
Assessment/Plan Assessment/Plan Assessment/Plan ASSESSMENT: 1. Acute superficial clot of femoral vein (a deep vein) on 10/04/16 and on , was rescaned and shows dvt again, s/p ivc filter 12/15/16 2. Anemia secondary to chronic disease based on previous labs, ferritin is elevated, egd in the recent past was negative 3. Decreased h/h rule out GI bleed 4. Leukocytosis 2/2 likely infection, r/o UTI 5. 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 7. Acute on chronic respiratory failure, trach/vent 8. Elevated retic count 9. Urinary tract infection. 10. Decubitus ulceration. RECOMMENDATIONS: 1. s/p ivc filter 12/15/16 2. Transfuse hgb >7 3. Monitor counts 4. Continue antibiotics as needed. 5. Breathing treatments prn 6. Pain control. 7. Gi followup recs 8. DVT prophylaxis with SCDs. 9. Continue tube feedings. 10. Discussed with staff. Thank you, Dion Sanon MD Subjective Constitutional: Reports: no symptoms HEENT: Reports: no symptoms Cardiovascular: Reports: no symptoms Respiratory: Reports: no symptoms Gastrointestinal/Abdominal: Reports: no symptoms Genitourinary: Reports: no symptoms Neurologic/Psychiatric: Reports: no symptoms Endocrine: Reports: no symptoms Hematologic/Lymphatic: Reports: no symptoms Allergies: Coded Allergies: NO KNOWN DRUG ALLERGIES (Unverified Allergy, Unknown, 10/29/14) Objective Last 24 Hour Vital Signs Date Time Temp Pulse Resp B/P Pulse Ox O2 Delivery O2 Flow Rate FiO2 12/16/16 17:14 89 20 40 12/16/16 16:00 98.4 88 16 113/69 100 Mechanical Ventilator 40 12/16/16 14:52 86 17 40 12/16/16 13:00 95 16 40 12/16/16 12:50 40 12/16/16 12:48 97.5 94 16 129/74 100 Mechanical Ventilator 40 12/16/16 12:00 65 12/16/16 10:43 94 19 40 12/16/16 08:34 91 22 40 12/16/16 08:00 97.9 88 17 121/74 100 Mechanical Ventilator 40 12/16/16 08:00 88 12/16/16 08:00 40 12/16/16 06:58 89 16 40 12/16/16 04:33 85 16 40 12/16/16 04:00 40 12/16/16 04:00 98.1 86 16 122/56 98 Mechanical Ventilator 40 12/16/16 04:00 87 12/16/16 04:00 40 12/16/16 02:32 87 20 40 12/16/16 00:55 87 20 40 12/16/16 00:00 40 12/16/16 00:00 87 12/16/16 00:00 98.8 85 19 135/74 100 Mechanical Ventilator 40 12/15/16 23:30 81 18 40 12/15/16 20:35 80 16 40 12/15/16 20:00 98.2 84 18 131/76 100 Mechanical Ventilator 40 12/15/16 20:00 82 12/15/16 20:00 40 12/15/16 18:57 82 16 40 Intake and Output 12/15/16 12/16/16 19:00 07:00 Intake Total 540.0 ml 940.0 ml Output Total 400 ml Balance 140.0 ml 940.0 ml Intake Free Water 150 ml 50 ml IV Total 110.0 ml 110.0 ml Tube Feeding 280 ml 480 ml Blood Product 300 ml Output Urine Total 400 ml # Voids 2 Laboratory Tests 12/16/16 04:00: White Blood Count 6.2, Red Blood Count 2.75L, Hemoglobin 8.7L, Hematocrit 27.4L , Mean Corpuscular Volume 100H, Mean Corpuscular Hemoglobin 31.6H, Mean Corpuscular Hemoglobin Concent 31.7L, Red Cell Distribution Width 19.4H, Platelet Count 173, Mean Platelet Volume 9.0, Neutrophils (%) (Auto) 65.7, Lymphocytes (%) (Auto) 19.1L, Monocytes (%) (Auto) 11.3H, Eosinophils (%) (Auto ) 2.9, Basophils (%) (Auto) 1.0, Arterial Blood pH 7.370, Arterial Blood Partial Pressure CO2 47.1H, Arterial Blood Partial Pressure O2 121.1H, Arterial Blood HCO3 27.0H, Arterial Blood Oxygen Saturation 96.7, Arterial Blood Base Excess 1.5, Jam Test Positive, Sodium Level 147H, Potassium Level 4.6, Chloride Level 108H, Carbon Dioxide Level 26, Anion Gap 13, Blood Urea Nitrogen 36H, Creatinine 1.4H, Estimat Glomerular Filtration Rate , Glucose Level 166H, Calcium Level 9.2, Random Vancomycin Level 21.5 Height (Feet): 5 Height (Inches): 7.00 Weight (Pounds): 181 General Appearance: alert EENT: TMs normal Neck: supple Cardiovascular: regular rhythm Respiratory/Chest: lungs clear Abdomen: soft Extremities: non-tender Edema: no edema noted Arm (L), no edema noted Arm (R), no edema noted Leg (L), no edema noted Leg (R), no edema noted Pedal (L), no edema noted Pedal (R), no edema noted Generalized Neurologic: alert Lymphatic: normal anterior cervical (L), normal anterior cervical (R), normal axillary (L), normal axillary (R), normal inguinal (L), normal inguinal (R), normal other, normal posterior cervical (L), normal posterior cervical (R), normal submandibular (L), normal submandibular (R), normal supraclavicular (L), normal supraclavicular (R) DION SANON Dec 16, 2016 17:33
[2016-12-16] MEDS ORDERED: Warfarin Sodium 5mg ORAL ONE (19:00)
[2016-12-16 20:00] VITALS: BP 118/85
[2016-12-16] MEDS: Enoxaparin 80mg Inj SUBQ SCH (21:29)
[2016-12-16] MEDS ORDERED: DuoNeb 0.5-3(2.5)mg/3ml neb HHN PRN (21:45)
[2016-12-17] VITALS: BP 114/68
[2016-12-17 04:00] VITALS: BP 116/67
[2016-12-17] MEDS: NovoLOG Insulin Flexpen SUBQ SCH ×4 (05:37→23:32)
[2016-12-17 05:52] LABS: BASOPHILS % (AUTO) 0.8 % (0.0-2.0); EOSINOPHILS % (AUTO) 2.7 % (0.0-3.0); LYMPHOCYTES % (AUTO) 22.5 % (20.0-45.0); MEAN CORPUSCULAR HEMOGLOBIN 31.9 PG (27.0-31.0); MEAN CORPUSCULAR HGB CONC 31.6 G/DL (32.0-36.0); MEAN CORPUSCULAR VOLUME 101 FL (80-99); MEAN PLATELET VOLUME 8.2 FL (6.5-10.1); MONOCYTES % (AUTO) 11.9 % (1.0-10.0); NEUTROPHILS % (AUTO) 62.2 % (45.0-75.0); PLATELET COUNT 185 K/UL (150-450); RED BLOOD COUNT 2.84 M/UL (4.70-6.10); RED CELL DISTRIBUTION WIDTH 19.4 % (11.6-14.8); WHITE BLOOD COUNT 6.4 K/UL (4.8-10.8)
[2016-12-17 05:59] LABS: INR 1.1 (0.9-1.1); PROTHROMBIN TIME 10.7 SEC (9.30-11.50)
[2016-12-17 06:15] LABS: ANION GAP 13 (5-15); CARBON DIOXIDE 27 mEQ/L (20-30); CHLORIDE 107 mEQ/L (98-107); CREATININE 1.4 mg/dL (0.7-1.2); HEMOLYSIS 13; SODIUM 147 mEQ/L (135-145)
--- NOTE | 2016-12-17 07:18 | General Progress Note ---
Assessment/Plan Assessment/Plan ASSESSMENT: 1. Acute superficial clot of femoral vein (a deep vein) on 10/04/16 and on , was rescaned and shows dvt again, s/p ivc filter 12/15/16 2. Anemia secondary to chronic disease based on previous labs, ferritin is elevated, egd in the recent past was negative 3. Decreased h/h rule out GI bleed, now >8.5 4. Leukocytosis 2/2 likely infection, r/o UTI 5. 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 7. Acute on chronic respiratory failure, trach/vent 8. Elevated retic count 9. Urinary tract infection. 10. Decubitus ulceration. RECOMMENDATIONS: 1. s/p ivc filter 12/15/16 2. Transfuse hgb >7 3. Monitor counts 4. Continue antibiotics as needed. 5. Breathing treatments prn 6. Pain control. 7. Gi followup recs 8. DVT prophylaxis with SCDs. 9. Continue tube feedings. 10. Discussed with staff. Thank you, Alexx Sanon MD Subjective Constitutional: Reports: no symptoms HEENT: Reports: no symptoms Cardiovascular: Reports: no symptoms Respiratory: Reports: no symptoms Gastrointestinal/Abdominal: Reports: no symptoms Genitourinary: Reports: no symptoms Neurologic/Psychiatric: Reports: no symptoms Endocrine: Reports: no symptoms Hematologic/Lymphatic: Reports: anemia Allergies: Coded Allergies: NO KNOWN DRUG ALLERGIES (Unverified Allergy, Unknown, 10/29/14) Subjective no events overnight, no fevers or chills, hgb stable Objective Last 24 Hour Vital Signs Date Time Temp Pulse Resp B/P Pulse Ox O2 Delivery O2 Flow Rate FiO2 12/17/16 05:09 90 19 30 12/17/16 04:00 86 12/17/16 04:00 97.8 89 16 116/67 100 Mechanical Ventilator 12/17/16 04:00 40 12/17/16 03:29 91 21 30 12/17/16 01:19 82 18 30 12/17/16 00:00 84 12/17/16 00:00 40 12/17/16 00:00 97.2 86 16 114/68 99 Room Air 12/16/16 23:05 92 25 30 12/16/16 21:02 82 18 30 12/16/16 20:00 87 12/16/16 20:00 40 12/16/16 20:00 97.5 89 23 118/85 100 Mechanical Ventilator 30 12/16/16 18:51 89 18 30 12/16/16 17:14 89 20 40 12/16/16 16:00 98.4 88 16 113/69 100 Mechanical Ventilator 40 12/16/16 16:00 40 12/16/16 14:52 86 17 40 12/16/16 13:00 95 16 40 12/16/16 12:50 40 12/16/16 12:48 97.5 94 16 129/74 100 Mechanical Ventilator 40 12/16/16 12:00 65 12/16/16 10:43 94 19 40 12/16/16 08:34 91 22 40 12/16/16 08:00 97.9 88 17 121/74 100 Mechanical Ventilator 40 12/16/16 08:00 88 12/16/16 08:00 40 Intake and Output 12/16/16 12/17/16 19:00 07:00 Intake Total 855 ml 710 ml Output Total 750 ml 650 ml Balance 105 ml 60 ml Intake Free Water 150 ml 60 ml Tube Feeding 705 ml 650 ml Output Urine Total 750 ml 650 ml # Bowel Movements 1 1 Laboratory Tests 12/17/16 03:51: White Blood Count 6.4, Red Blood Count 2.84L, Hemoglobin 9.1L, Hematocrit 28.7L , Mean Corpuscular Volume 101H, Mean Corpuscular Hemoglobin 31.9H, Mean Corpuscular Hemoglobin Concent 31.6L, Red Cell Distribution Width 19.4H, Platelet Count 185, Mean Platelet Volume 8.2, Neutrophils (%) (Auto) 62.2, Lymphocytes (%) (Auto) 22.5, Monocytes (%) (Auto) 11.9H, Eosinophils (%) (Auto) 2.7, Basophils (%) (Auto) 0.8, Prothrombin Time 10.7, Prothromb Time International Ratio 1.1, Sodium Level 147H, Potassium Level 5.0H, Chloride Level 107, Carbon Dioxide Level 27, Anion Gap 13, Blood Urea Nitrogen 36H, Creatinine 1.4H, Estimat Glomerular Filtration Rate , Glucose Level 153H, Calcium Level 9.0 Height (Feet): 5 Height (Inches): 7.00 Weight (Pounds): 181 General Appearance: no apparent distress EENT: TMs normal Neck: normal alignment Cardiovascular: regular rhythm Respiratory/Chest: normal breath sounds Extremities: non-tender Edema: 1+ Leg (L), 1+ Leg (R) Edema: mild edema Neurologic: alert Skin: warm/dry Alexx Sanon Dec 17, 2016 07:18
[2016-12-17 08:00] VITALS: BP 133/70
[2016-12-17] MEDS: Pantoprazole Inj IVP SCH ×2 (09:17→21:00)
[2016-12-17] MEDS: Piperacillin/Tazobactam 3.375 GM in D5W 110 ML IVPB SCH ×2 (09:18→21:01)
[2016-12-17] MEDS: Enoxaparin 80mg Inj SUBQ SCH ×2 (09:20→21:01)
--- NOTE | 2016-12-17 10:27 | Pulmonology Progress Note ---
Assessment/Plan Assessment/Plan ASSESSMENT VDRF/trach anemia of chronic disease s/p blood transfusion r/o GI bleeding ATN, likely prerenal, superimposed on renal dysphagia, G tube acute DVT RLE SFV s/p IVC filter UTI decubitus ulcer, POA PLAN OF CARE JALEESA vent/trach care, pulmonary toilet ABG stable on current settings, keep as is and titrate as needed CXR negative Venous Duplex + acute DVT RLE SFV s/p IVC filter heme follows started on Lovenox and Couamdin to bridge to therapeutic INR, monitor HH clsoely in lieu of current bleeding abx, fup cx ID follows monitor HH, s/p blood transfusion check stool OB GI prophylaxis strict aspiration precautions, GT feeding, monitor tolerance Bowel regimen BS management with SS of insulin wound care as per wound nurse recommendations monitor renal parameters, lytes , creat trending down, increased free water via GT case discussed and evaluated by supervising physician Subjective Allergies: Coded Allergies: NO KNOWN DRUG ALLERGIES (Unverified Allergy, Unknown, 10/29/14) Subjective no signs of respiratory distress afebrile, no leukocytosis at baseline Objective Last 24 Hour Vital Signs Date Time Temp Pulse Resp B/P Pulse Ox O2 Delivery O2 Flow Rate FiO2 12/17/16 08:46 99 17 30 12/17/16 08:00 89 12/17/16 06:36 98 22 30 12/17/16 05:09 90 19 30 12/17/16 04:00 86 12/17/16 04:00 97.8 89 16 116/67 100 Mechanical Ventilator 12/17/16 04:00 40 12/17/16 03:29 91 21 30 12/17/16 01:19 82 18 30 12/17/16 00:00 84 12/17/16 00:00 40 12/17/16 00:00 97.2 86 16 114/68 99 Room Air 12/16/16 23:05 92 25 30 12/16/16 21:02 82 18 30 12/16/16 20:00 87 12/16/16 20:00 40 12/16/16 20:00 97.5 89 23 118/85 100 Mechanical Ventilator 30 12/16/16 18:51 89 18 30 12/16/16 17:14 89 20 40 12/16/16 16:00 98.4 88 16 113/69 100 Mechanical Ventilator 40 12/16/16 16:00 40 12/16/16 14:52 86 17 40 12/16/16 13:00 95 16 40 12/16/16 12:50 40 12/16/16 12:48 97.5 94 16 129/74 100 Mechanical Ventilator 40 12/16/16 12:00 65 12/16/16 10:43 94 19 40 Intake and Output 12/16/16 12/17/16 19:00 07:00 Intake Total 855 ml 710 ml Output Total 750 ml 650 ml Balance 105 ml 60 ml Intake Free Water 150 ml 60 ml Tube Feeding 705 ml 650 ml Output Urine Total 750 ml 650 ml # Bowel Movements 1 1 Objective General Appearance: no acute distress, other - vent dependent obtunded male in NAD Vent AC [id number] HEENT: normocephalic, atraumatic, status post trach - Shiley#8, secretions moderte, yellow, thick Respiratory/Chest: chest wall non-tender, lungs clear, no respiratory distress Cardiovascular: normal rate, regular rhythm, no JVD, RUE PICC intact Genitourinary: normal external genitalia Skin: other - decub Neurologic/Psychiatric: no motor/sensory deficits - bedridden, obtunded, spastic LE Musculoskeletal: atrophy - BLE Microbiology Date/Time Source Procedure Growth Status 12/15/16 04:00 Urine,Clean Catch Urine Culture - Preliminary Resulted Laboratory Tests 12/17/16 03:51: White Blood Count 6.4, Red Blood Count 2.84L, Hemoglobin 9.1L, Hematocrit 28.7L , Mean Corpuscular Volume 101H, Mean Corpuscular Hemoglobin 31.9H, Mean Corpuscular Hemoglobin Concent 31.6L, Red Cell Distribution Width 19.4H, Platelet Count 185, Mean Platelet Volume 8.2, Neutrophils (%) (Auto) 62.2, Lymphocytes (%) (Auto) 22.5, Monocytes (%) (Auto) 11.9H, Eosinophils (%) (Auto) 2.7, Basophils (%) (Auto) 0.8, Prothrombin Time 10.7, Prothromb Time International Ratio 1.1, Sodium Level 147H, Potassium Level 5.0H, Chloride Level 107, Carbon Dioxide Level 27, Anion Gap 13, Blood Urea Nitrogen 36H, Creatinine 1.4H, Estimat Glomerular Filtration Rate , Glucose Level 153H, Calcium Level 9.0 Current Medications Medications (Trade) Dose Ordered Sig/Shubham Route PRN Reason Start Time Stop Time Status Last Admin Dose Admin Acetaminophen (Tylenol) 650 mg Q4H PRN ORAL FEVER 12/13/16 22:30 01/12/17 22:29 Albuterol/ Ipratropium (DuoNeb 0.5-3(2.5)mg/3ml) 3 ml Q4H PRN HHN Shortness of Breath 12/16/16 21:45 12/21/16 21:44 Dextrose (Dextrose 50%) STAT PRN IV Hypoglycemia 12/13/16 22:30 01/12/17 22:29 Enoxaparin Sodium (Lovenox) 80 mg EVERY 12 HOURS SUBQ 12/16/16 21:00 01/15/17 20:59 12/17/16 09:20 Insulin Aspart EVERY 6 HOURS SUBQ 12/14/16 18:00 01/13/17 17:59 12/17/16 05:37 Lorazepam (Ativan 2mg/ml 1ml) 2 mg EVERY 2 HOURS PRN IV For Anxiety 12/13/16 22:30 12/20/16 22:29 Morphine Sulfate (Morphine Sulfate) 4 mg EVERY 4 HOURS PRN IVP Severe Pain (Pain Scale 7-10) 12/13/16 22:30 12/20/16 22:29 Ondansetron HCl (Zofran) 4 mg Q6H PRN IVP Nausea & Vomiting 12/13/16 22:30 01/12/17 22:29 Pantoprazole (Protonix) 40 mg EVERY 12 HOURS IVP 12/14/16 14:00 01/13/17 13:59 12/17/16 09:17 Piperacillin Sod/ Tazobactam Sod/ Dextrose (Zosyn/D5W) 110 ml @ 27.5 mls/hr Q12H IVPB 12/15/16 22:00 12/22/16 21:59 12/17/16 09:18 Polyethylene Glycol (Miralax) 17 gm DAILYPRN PRN ORAL Constipation 12/13/16 22:30 01/12/17 22:29 Warfarin Sodium (Coumadin per pharmacy) 1 ea DAILY PRN MISC Per rx protocol 12/16/16 18:00 01/15/17 17:59 Warfarin Sodium (Coumadin) 5 mg COUMADIN ONCE ORAL 12/17/16 17:00 12/17/16 17:01 Ehsan (Jefferyrobin)Hermila NP Dec 17, 2016 10:27
[2016-12-17 12:00] VITALS: BP 131/80
--- NOTE | 2016-12-17 12:25 | General Progress Note ---
Assessment/Plan Status: stable Assessment/Plan status: Acute Renal Failure- Pre Renal / Super Imposed on Renal Respiratory failure Anemia Decubs h/o DVT Other conditions: 1. Acute on chronic respiratory failure. 2. h/o Severe sepsis. 3. Ventilator-dependent respiratory failure. 4. Chronic obstructive pulmonary disease. 5. History of deep venous thrombosis. 6. Hypoalbuminemia. 7. h/o Clostridium difficile colitis. 8. Pressure ulcers on sacrococcygeal down to buttocks, right ischial tuberosity, and right heel and right trochanter present on admission. 9. h/o Urinary tract infection, Proteus mirabilis. 10. h/o Acute deep venous thrombosis of the right lower extremity, on heparin and bridged to Coumadin. 11. Tracheostomy status. 12. Gastrostomy tube feeding. 13. Diabetes mellitus. Plan: per consultants transfuse as needed Avoid Nephrotoxics- Monitor renal parameters and H&H IV protonix check UA Subjective ROS Limited/Unobtainable: Yes Allergies: Coded Allergies: NO KNOWN DRUG ALLERGIES (Unverified Allergy, Unknown, 10/29/14) Objective Last 24 Hour Vital Signs Date Time Temp Pulse Resp B/P Pulse Ox O2 Delivery O2 Flow Rate FiO2 12/17/16 08:46 99 17 30 12/17/16 08:00 97.9 99 17 133/70 98 Mechanical Ventilator 12/17/16 08:00 89 12/17/16 06:36 98 22 30 12/17/16 05:09 90 19 30 12/17/16 04:00 86 12/17/16 04:00 97.8 89 16 116/67 100 Mechanical Ventilator 12/17/16 04:00 40 12/17/16 03:29 91 21 30 12/17/16 01:19 82 18 30 12/17/16 00:00 84 12/17/16 00:00 40 12/17/16 00:00 97.2 86 16 114/68 99 Room Air 12/16/16 23:05 92 25 30 12/16/16 21:02 82 18 30 12/16/16 20:00 87 12/16/16 20:00 40 12/16/16 20:00 97.5 89 23 118/85 100 Mechanical Ventilator 30 12/16/16 18:51 89 18 30 12/16/16 17:14 89 20 40 12/16/16 16:00 98.4 88 16 113/69 100 Mechanical Ventilator 40 12/16/16 16:00 40 12/16/16 14:52 86 17 40 12/16/16 13:00 95 16 40 12/16/16 12:50 40 12/16/16 12:48 97.5 94 16 129/74 100 Mechanical Ventilator 40 Intake and Output 12/16/16 12/17/16 19:00 07:00 Intake Total 855 ml 710 ml Output Total 750 ml 650 ml Balance 105 ml 60 ml Intake Free Water 150 ml 60 ml Tube Feeding 705 ml 650 ml Output Urine Total 750 ml 650 ml # Bowel Movements 1 1 Laboratory Tests 12/17/16 03:51: White Blood Count 6.4, Red Blood Count 2.84L, Hemoglobin 9.1L, Hematocrit 28.7L , Mean Corpuscular Volume 101H, Mean Corpuscular Hemoglobin 31.9H, Mean Corpuscular Hemoglobin Concent 31.6L, Red Cell Distribution Width 19.4H, Platelet Count 185, Mean Platelet Volume 8.2, Neutrophils (%) (Auto) 62.2, Lymphocytes (%) (Auto) 22.5, Monocytes (%) (Auto) 11.9H, Eosinophils (%) (Auto) 2.7, Basophils (%) (Auto) 0.8, Prothrombin Time 10.7, Prothromb Time International Ratio 1.1, Sodium Level 147H, Potassium Level 5.0H, Chloride Level 107, Carbon Dioxide Level 27, Anion Gap 13, Blood Urea Nitrogen 36H, Creatinine 1.4H, Estimat Glomerular Filtration Rate , Glucose Level 153H, Calcium Level 9.0 Height (Feet): 5 Height (Inches): 7.00 Weight (Pounds): 181 General Appearance: no apparent distress Cardiovascular: tachycardia Respiratory/Chest: decreased breath sounds Abdomen: soft Objective other physical exam not changed COLTEN DIEGO 5, 2017 12:25
[2016-12-17 16:00] VITALS: BP 117/70
[2016-12-17] MEDS ORDERED: Warfarin Sodium 5mg ORAL ONE (17:00)
[2016-12-17 20:00] VITALS: BP 116/86
[2016-12-18] VITALS (7 sets, daily range): BP systolic 110–145; BP diastolic 73–87
[2016-12-18] MEDS: NovoLOG Insulin Flexpen SUBQ SCH ×3 (06:02→17:14)
[2016-12-18 06:10] LABS: BASOPHILS % (AUTO) 0.9 % (0.0-2.0); EOSINOPHILS % (AUTO) 3.7 % (0.0-3.0); MEAN CORPUSCULAR HEMOGLOBIN 31.7 PG (27.0-31.0); MEAN CORPUSCULAR HGB CONC 31.6 G/DL (32.0-36.0); MEAN CORPUSCULAR VOLUME 100 FL (80-99); MEAN PLATELET VOLUME 9.2 FL (6.5-10.1); MONOCYTES % (AUTO) 9.6 % (1.0-10.0); NEUTROPHILS % (AUTO) 55.9 % (45.0-75.0); PLATELET COUNT 189 K/UL (150-450); RED BLOOD COUNT 2.91 M/UL (4.70-6.10); RED CELL DISTRIBUTION WIDTH 19.4 % (11.6-14.8); WHITE BLOOD COUNT 5.3 K/UL (4.8-10.8)
[2016-12-18 06:21] LABS: INR 1.1 (0.9-1.1)
[2016-12-18 06:42] LABS: ANION GAP 10 (5-15); CARBON DIOXIDE 27 mEQ/L (20-30); CHLORIDE 109 mEQ/L (98-107); CREATININE 1.4 mg/dL (0.7-1.2); HEMOLYSIS 20; POTASSIUM 5.1 mEQ/L (3.4-4.9); SODIUM 146 mEQ/L (135-145)
[2016-12-18] MEDS: Pantoprazole Inj IVP SCH (08:51)
[2016-12-18] MEDS: Enoxaparin 80mg Inj SUBQ SCH (08:53)
[2016-12-18] MEDS: Piperacillin/Tazobactam 3.375 GM in D5W 110 ML IVPB SCH (10:13)
[2016-12-18] MEDS ORDERED: Amikacin Rx to dose MISC PRN (10:45)
--- NOTE | 2016-12-18 11:07 | General Progress Note ---
Assessment/Plan Assessment/Plan ASSESSMENT: 1. Acute superficial clot of femoral vein (a deep vein) on 10/04/16 and on , was rescaned and shows dvt again, s/p ivc filter 12/15/16 2. Anemia secondary to chronic disease based on previous labs, ferritin is elevated, egd in the recent past was negative 3. Decreased h/h rule out GI bleed, now >8.5 4. Leukocytosis 2/2 likely infection, r/o UTI 5. 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 7. Acute on chronic respiratory failure, trach/vent 8. Elevated retic count 9. Urinary tract infection. 10. Decubitus ulceration. RECOMMENDATIONS: 1. s/p ivc filter 12/15/16 2. Transfuse hgb >7 3. Monitor counts 4. Continue antibiotics prn 5. Breathing treatments prn 6. Pain control. 7. Gi followup recs 8. DVT prophylaxis with coumadin + lovenox 9. INR goal 2-3 10. Discussed with staff. Thank you, Alexx Sanon MD Subjective Constitutional: Reports: no symptoms HEENT: Reports: no symptoms Cardiovascular: Reports: no symptoms Respiratory: Reports: no symptoms Gastrointestinal/Abdominal: Reports: no symptoms Genitourinary: Reports: no symptoms Neurologic/Psychiatric: Reports: no symptoms Endocrine: Reports: no symptoms Hematologic/Lymphatic: Reports: anemia Allergies: Coded Allergies: NO KNOWN DRUG ALLERGIES (Unverified Allergy, Unknown, 10/29/14) Subjective no events overnight, no fevers or chills Objective Last 24 Hour Vital Signs Date Time Temp Pulse Resp B/P Pulse Ox O2 Delivery O2 Flow Rate FiO2 12/18/16 08:00 97.7 89 19 133/81 100 Mechanical Ventilator 30 12/18/16 05:10 87 18 30 12/18/16 04:00 85 12/18/16 04:00 97.5 89 20 138/87 100 Mechanical Ventilator 12/18/16 03:36 91 21 30 12/18/16 00:54 94 18 30 12/18/16 00:00 97.5 85 20 110/73 100 Mechanical Ventilator 12/18/16 00:00 40 12/17/16 23:15 92 20 30 12/17/16 20:52 97 20 30 12/17/16 20:22 87 12/17/16 20:00 97.5 87 22 116/86 100 Mechanical Ventilator 12/17/16 20:00 90 12/17/16 20:00 40 12/17/16 19:26 93 19 30 12/17/16 17:19 107 20 30 12/17/16 16:42 40 12/17/16 16:00 94 12/17/16 16:00 97.7 92 17 117/70 99 Mechanical Ventilator 30 12/17/16 14:45 91 17 30 12/17/16 13:09 102 18 30 12/17/16 12:00 98.1 99 16 131/80 100 Mechanical Ventilator 30 12/17/16 12:00 40 12/17/16 11:07 98 17 30 Intake and Output 12/17/16 12/18/16 19:00 07:00 Intake Total 750 ml 760.0 ml Output Total 450 ml 275 ml Balance 300 ml 485.0 ml IV Total 100 ml 110.0 ml Tube Feeding 650 ml 650 ml Output Urine Total 450 ml 275 ml Laboratory Tests 12/18/16 03:45: White Blood Count 5.3, Red Blood Count 2.91L, Hemoglobin 9.2L, Hematocrit 29.2L , Mean Corpuscular Volume 100H, Mean Corpuscular Hemoglobin 31.7H, Mean Corpuscular Hemoglobin Concent 31.6L, Red Cell Distribution Width 19.4H, Platelet Count 189, Mean Platelet Volume 9.2, Neutrophils (%) (Auto) 55.9, Lymphocytes (%) (Auto) 30.0, Monocytes (%) (Auto) 9.6, Eosinophils (%) (Auto) 3.7H, Basophils (%) (Auto) 0.9, Prothrombin Time 11.0, Prothromb Time International Ratio 1.1, Sodium Level 146H, Potassium Level 5.1H, Chloride Level 109H, Carbon Dioxide Level 27, Anion Gap 10, Blood Urea Nitrogen 33H, Creatinine 1.4H, Estimat Glomerular Filtration Rate , Glucose Level 126H, Calcium Level 9.0 12/18/16 06:00: Stool Occult Blood [Pending] Height (Feet): 5 Height (Inches): 7.00 Weight (Pounds): 181 General Appearance: no apparent distress EENT: normal ENT inspection Neck: normal inspection Cardiovascular: regular rhythm Respiratory/Chest: no accessory muscle use Abdomen: no mass Extremities: non-tender Edema: 1+ Leg (L), 1+ Leg (R) Edema: mild edema Neurologic: alert Skin: warm/dry Alexx Sanon Dec 18, 2016 11:07
--- NOTE | 2016-12-18 11:54 | Pulmonology Progress Note ---
Assessment/Plan Problems: (1) Respiratory failure (2) Anemia (3) Hypoalbuminemia (4) HTN (hypertension) Respiratory: monitor respiratory rate, adjust FIO2, CXR Cardiac: continue to monitor HR/BP Renal: F/U I&O, keep IV fluid Gastrointestinal: continue feedings/current rate Endocrine: monitor blood sugar, check HgA1C Hematologic: monitor H/H, transfuse if hgb<8.5, other Neurologic: PRN Morphine Affect: PRN ativan Prophylaxis: Protonix, SCDs Notes Reviewed: buyer agent, cardio Discussed with: nurses, consultants, manager rn case Subjective ROS Limited/Unobtainable: Yes Allergies: Coded Allergies: NO KNOWN DRUG ALLERGIES (Unverified Allergy, Unknown, 10/29/14) Objective Last 24 Hour Vital Signs Date Time Temp Pulse Resp B/P Pulse Ox O2 Delivery O2 Flow Rate FiO2 12/18/16 08:00 97.7 89 19 133/81 100 Mechanical Ventilator 30 12/18/16 05:10 87 18 30 12/18/16 04:00 85 12/18/16 04:00 97.5 89 20 138/87 100 Mechanical Ventilator 12/18/16 03:36 91 21 30 12/18/16 00:54 94 18 30 12/18/16 00:00 97.5 85 20 110/73 100 Mechanical Ventilator 12/18/16 00:00 40 12/17/16 23:15 92 20 30 12/17/16 20:52 97 20 30 12/17/16 20:22 87 12/17/16 20:00 97.5 87 22 116/86 100 Mechanical Ventilator 12/17/16 20:00 90 12/17/16 20:00 40 12/17/16 19:26 93 19 30 12/17/16 17:19 107 20 30 12/17/16 16:42 40 12/17/16 16:00 94 12/17/16 16:00 97.7 92 17 117/70 99 Mechanical Ventilator 30 12/17/16 14:45 91 17 30 12/17/16 13:09 102 18 30 12/17/16 12:00 98.1 99 16 131/80 100 Mechanical Ventilator 30 12/17/16 12:00 40 Intake and Output 12/17/16 12/18/16 19:00 07:00 Intake Total 750 ml 760.0 ml Output Total 450 ml 275 ml Balance 300 ml 485.0 ml IV Total 100 ml 110.0 ml Tube Feeding 650 ml 650 ml Output Urine Total 450 ml 275 ml Objective General Appearance: WD/WN, trach in place Respiratory/Chest: chest wall non-tender, lungs clear Cardiovascular: normal peripheral pulses Abdomen: normal bowel sounds, soft, non tender, G-tube Extremities: no cyanosis, no clubbing Skin: no rash, no ulcers Lymphatic: no neck adenopathy Abdomen: normal bowel sounds, soft, non tender Laboratory Tests 12/18/16 03:45: White Blood Count 5.3, Red Blood Count 2.91L, Hemoglobin 9.2L, Hematocrit 29.2L , Mean Corpuscular Volume 100H, Mean Corpuscular Hemoglobin 31.7H, Mean Corpuscular Hemoglobin Concent 31.6L, Red Cell Distribution Width 19.4H, Platelet Count 189, Mean Platelet Volume 9.2, Neutrophils (%) (Auto) 55.9, Lymphocytes (%) (Auto) 30.0, Monocytes (%) (Auto) 9.6, Eosinophils (%) (Auto) 3.7H, Basophils (%) (Auto) 0.9, Prothrombin Time 11.0, Prothromb Time International Ratio 1.1, Sodium Level 146H, Potassium Level 5.1H, Chloride Level 109H, Carbon Dioxide Level 27, Anion Gap 10, Blood Urea Nitrogen 33H, Creatinine 1.4H, Estimat Glomerular Filtration Rate , Glucose Level 126H, Calcium Level 9.0 12/18/16 06:00: Stool Occult Blood [Pending] Current Medications Medications (Trade) Dose Ordered Sig/Shubham Route PRN Reason Start Time Stop Time Status Last Admin Dose Admin Acetaminophen (Tylenol) 650 mg Q4H PRN ORAL FEVER 12/13/16 22:30 01/12/17 22:29 Albuterol/ Ipratropium (DuoNeb 0.5-3(2.5)mg/3ml) 3 ml Q4H PRN HHN Shortness of Breath 12/16/16 21:45 12/21/16 21:44 Amikacin Protocol 1 ea 1 ea DAILY PRN MISC . 12/18/16 10:45 01/17/17 10:44 Amikacin Sulfate/ Sodium Chloride (Amikin/Sodium Chloride) 114 ml @ 228 mls/hr Q48H IV 12/18/16 12:00 12/25/16 11:59 Dextrose (Dextrose 50%) STAT PRN IV Hypoglycemia 12/13/16 22:30 01/12/17 22:29 Enoxaparin Sodium (Lovenox) 80 mg EVERY 12 HOURS SUBQ 12/16/16 21:00 01/15/17 20:59 12/18/16 08:53 Insulin Aspart (NovoLOG) EVERY 6 HOURS SUBQ 12/14/16 18:00 01/13/17 17:59 12/18/16 11:44 Lorazepam (Ativan 2mg/ml 1ml) 2 mg EVERY 2 HOURS PRN IV For Anxiety 12/13/16 22:30 12/20/16 22:29 Morphine Sulfate (Morphine Sulfate) 4 mg EVERY 4 HOURS PRN IVP Severe Pain (Pain Scale 7-10) 12/13/16 22:30 12/20/16 22:29 Ondansetron HCl (Zofran) 4 mg Q6H PRN IVP Nausea & Vomiting 12/13/16 22:30 01/12/17 22:29 Pantoprazole (Protonix) 40 mg EVERY 12 HOURS IVP 12/14/16 14:00 01/13/17 13:59 12/18/16 08:51 Polyethylene Glycol (Miralax) 17 gm DAILYPRN PRN ORAL Constipation 12/13/16 22:30 01/12/17 22:29 Warfarin Sodium (Coumadin per pharmacy) 1 ea DAILY PRN MISC Per rx protocol 12/16/16 18:00 01/15/17 17:59 Warfarin Sodium (Coumadin) 6 mg COUMADIN ONCE ORAL 12/18/16 17:00 12/18/16 17:01 MICH FONSECA Dec 18, 2016 11:54
[2016-12-18] MEDS ORDERED: Amikacin 1,000 MG in NS 110 ML IV SCH (12:00)
--- NOTE | 2016-12-18 12:15 | Diagnostic Imaging Report ---
Indication: Dyspnea Comparison: 12/13/16 A single view chest radiograph was obtained. Findings: There is interstitial prominence which is nonspecific. The findings however appear unchanged. Cardiomegaly is present. Tracheostomy and osteopenia are again noted. There is a new PICC line on the right which appears to be in good position. Impression: PICC line in good position. No significant change otherwise
--- NOTE | 2016-12-18 14:31 | General Progress Note ---
Assessment/Plan Status: unchanged Status Narrative Cr 1.4 Assessment/Plan status: Acute Renal Failure- Pre Renal / Super Imposed on Renal Respiratory failure Anemia Decubs h/o DVT Other conditions: 1. Acute on chronic respiratory failure. 2. h/o Severe sepsis. 3. Ventilator-dependent respiratory failure. 4. Chronic obstructive pulmonary disease. 5. History of deep venous thrombosis. 6. Hypoalbuminemia. 7. h/o Clostridium difficile colitis. 8. Pressure ulcers on sacrococcygeal down to buttocks, right ischial tuberosity, and right heel and right trochanter present on admission. 9. h/o Urinary tract infection, Proteus mirabilis. 10. h/o Acute deep venous thrombosis of the right lower extremity, on heparin and bridged to Coumadin. 11. Tracheostomy status. 12. Gastrostomy tube feeding. 13. Diabetes mellitus. Plan: per consultants transfuse as needed Avoid Nephrotoxics- Monitor renal parameters and H&H IV protonix check UA Subjective ROS Limited/Unobtainable: Yes Allergies: Coded Allergies: NO KNOWN DRUG ALLERGIES (Unverified Allergy, Unknown, 10/29/14) Objective Last 24 Hour Vital Signs Date Time Temp Pulse Resp B/P Pulse Ox O2 Delivery O2 Flow Rate FiO2 12/18/16 13:16 98 18 30 12/18/16 12:00 40 12/18/16 12:00 97.7 98 18 135/81 100 Mechanical Ventilator 30 12/18/16 12:00 99 12/18/16 10:39 83 23 30 12/18/16 08:37 89 17 30 12/18/16 08:00 97.7 89 19 133/81 100 Mechanical Ventilator 30 12/18/16 08:00 99 12/18/16 08:00 40 12/18/16 06:38 92 21 30 12/18/16 05:10 87 18 30 12/18/16 04:00 85 12/18/16 04:00 97.5 89 20 138/87 100 Mechanical Ventilator 12/18/16 03:36 91 21 30 12/18/16 00:54 94 18 30 12/18/16 00:00 97.5 85 20 110/73 100 Mechanical Ventilator 12/18/16 00:00 40 12/17/16 23:15 92 20 30 12/17/16 20:52 97 20 30 12/17/16 20:22 87 12/17/16 20:00 97.5 87 22 116/86 100 Mechanical Ventilator 12/17/16 20:00 90 12/17/16 20:00 40 12/17/16 19:26 93 19 30 12/17/16 17:19 107 20 30 12/17/16 16:42 40 12/17/16 16:00 94 12/17/16 16:00 97.7 92 17 117/70 99 Mechanical Ventilator 30 12/17/16 14:45 91 17 30 Intake and Output 12/17/16 12/18/16 19:00 07:00 Intake Total 750 ml 760.0 ml Output Total 450 ml 275 ml Balance 300 ml 485.0 ml IV Total 100 ml 110.0 ml Tube Feeding 650 ml 650 ml Output Urine Total 450 ml 275 ml Laboratory Tests 12/18/16 03:45: White Blood Count 5.3, Red Blood Count 2.91L, Hemoglobin 9.2L, Hematocrit 29.2L , Mean Corpuscular Volume 100H, Mean Corpuscular Hemoglobin 31.7H, Mean Corpuscular Hemoglobin Concent 31.6L, Red Cell Distribution Width 19.4H, Platelet Count 189, Mean Platelet Volume 9.2, Neutrophils (%) (Auto) 55.9, Lymphocytes (%) (Auto) 30.0, Monocytes (%) (Auto) 9.6, Eosinophils (%) (Auto) 3.7H, Basophils (%) (Auto) 0.9, Prothrombin Time 11.0, Prothromb Time International Ratio 1.1, Sodium Level 146H, Potassium Level 5.1H, Chloride Level 109H, Carbon Dioxide Level 27, Anion Gap 10, Blood Urea Nitrogen 33H, Creatinine 1.4H, Estimat Glomerular Filtration Rate , Glucose Level 126H, Calcium Level 9.0 12/18/16 06:00: Stool Occult Blood Positive Height (Feet): 5 Height (Inches): 7.00 Weight (Pounds): 181 General Appearance: no apparent distress Objective other physical exam not changed COLTEN DIEGO 6, 2017 14:31
--- NOTE | 2016-12-18 14:51 | General Progress Note ---
Assessment/Plan Problem List: (1) Abdominal distension ICD Codes: R14.0 - Abdominal distension (gaseous) SNOMED: 00855169 (2) Dehydration ICD Codes: E86.0 - Dehydration SNOMED: 33067693 (3) Tracheostomy status (4) Respiratory insufficiency ICD Codes: R06.89 - Respiratory insufficiency SNOMED: 712581227 (5) Iron deficiency anemia ICD Codes: D50.9 - Iron deficiency anemia SNOMED: 58447195 (6) Chronic respiratory failure ICD Codes: J96.10 - Chronic respiratory failure SNOMED: 19555903 (7) Anemia ICD Codes: D64.9 - Anemia SNOMED: 882888098 (8) DVT (deep venous thrombosis) ICD Codes: I82.409 - Acute embolism and thrombosis of unspecified deep veins of unspecified lower extremity SNOMED: 120800574 (9) Hypoalbuminemia ICD Codes: E88.09 - Other disorders of plasma-protein metabolism, not elsewhere classified SNOMED: 666968000 (10) Feeding by G-tube ICD Codes: Z93.1 - Feeding by G-tube SNOMED: 146354282 (11) HTN (hypertension) ICD Codes: I10 - HTN (hypertension) SNOMED: 88424063 Status: progressing Assessment/Plan dvt heme /onc recommending ivc filter so ivx filter per heme/onc h/h is stable so dc to snf see dc summary Subjective ROS Limited/Unobtainable: Yes Allergies: Coded Allergies: NO KNOWN DRUG ALLERGIES (Unverified Allergy, Unknown, 10/29/14) Objective Last 24 Hour Vital Signs Date Time Temp Pulse Resp B/P Pulse Ox O2 Delivery O2 Flow Rate FiO2 12/18/16 13:16 98 18 30 12/18/16 12:00 40 12/18/16 12:00 97.7 98 18 135/81 100 Mechanical Ventilator 30 12/18/16 12:00 99 12/18/16 10:39 83 23 30 12/18/16 08:37 89 17 30 12/18/16 08:00 97.7 89 19 133/81 100 Mechanical Ventilator 30 12/18/16 08:00 99 12/18/16 08:00 40 12/18/16 06:38 92 21 30 12/18/16 05:10 87 18 30 12/18/16 04:00 85 12/18/16 04:00 97.5 89 20 138/87 100 Mechanical Ventilator 12/18/16 03:36 91 21 30 12/18/16 00:54 94 18 30 12/18/16 00:00 97.5 85 20 110/73 100 Mechanical Ventilator 12/18/16 00:00 40 12/17/16 23:15 92 20 30 12/17/16 20:52 97 20 30 12/17/16 20:22 87 12/17/16 20:00 97.5 87 22 116/86 100 Mechanical Ventilator 12/17/16 20:00 90 12/17/16 20:00 40 12/17/16 19:26 93 19 30 12/17/16 17:19 107 20 30 12/17/16 16:42 40 12/17/16 16:00 94 12/17/16 16:00 97.7 92 17 117/70 99 Mechanical Ventilator 30 Intake and Output 12/17/16 12/18/16 19:00 07:00 Intake Total 750 ml 760.0 ml Output Total 450 ml 275 ml Balance 300 ml 485.0 ml IV Total 100 ml 110.0 ml Tube Feeding 650 ml 650 ml Output Urine Total 450 ml 275 ml Laboratory Tests 12/18/16 03:45: White Blood Count 5.3, Red Blood Count 2.91L, Hemoglobin 9.2L, Hematocrit 29.2L , Mean Corpuscular Volume 100H, Mean Corpuscular Hemoglobin 31.7H, Mean Corpuscular Hemoglobin Concent 31.6L, Red Cell Distribution Width 19.4H, Platelet Count 189, Mean Platelet Volume 9.2, Neutrophils (%) (Auto) 55.9, Lymphocytes (%) (Auto) 30.0, Monocytes (%) (Auto) 9.6, Eosinophils (%) (Auto) 3.7H, Basophils (%) (Auto) 0.9, Prothrombin Time 11.0, Prothromb Time International Ratio 1.1, Sodium Level 146H, Potassium Level 5.1H, Chloride Level 109H, Carbon Dioxide Level 27, Anion Gap 10, Blood Urea Nitrogen 33H, Creatinine 1.4H, Estimat Glomerular Filtration Rate , Glucose Level 126H, Calcium Level 9.0 12/18/16 06:00: Stool Occult Blood Positive Height (Feet): 5 Height (Inches): 7.00 Weight (Pounds): 181 EENT: PERRL/EOMI Neck: supple Cardiovascular: normal rate Respiratory/Chest: lungs clear David Bowie MD Dec 18, 2016 14:51
[2016-12-18] MEDS ORDERED: Warfarin Sodium 3mg ORAL ONE (17:00)
[2016-12-18] MEDS ORDERED: Tubing IV Secondary IV ONE (20:44)
[2016-12-18] MEDS ORDERED: NS 275ml ONE (20:44)
--- NOTE | 2016-12-19 14:12 | Discharge Summary ---
Discharge Summary Hospital Course Date of Admission Dec 13, 2016 at 20:43 Date of Discharge Dec 18, 2016 at 20:45 Admitting Diagnosis anemia HPI José Miguel Travis is a 81 year old male who was admitted on Dec 13, 2016 at 20:43 for Anemia Hospital Course dc summary # [id number] Discharge Medications New Medications: Amikacin Sulfate (Amikacin Sulfate*) 500 Mg/2 Ml Vial 1000 MG IJ QOD, #3 VIAL give q 48 hrs due to renal insufficiency for 3 more doses Enoxaparin* (Lovenox*) 80 Mg/0.8 Ml Inj 80 MG SUBQ EVERY 12 HOURS for 3 Days, #6 EA 0 Refills Lovenox and Coumadin until INR above 2, then dc Lovenox and continue Coumadin Warfarin Sod* (Coumadin*) 6 Mg Tablet 6 MG ORAL DAILY, #5 TAB on Couamdin - pre doctor dosing and Lovenox when INR above 2 , dc Lovenox and continue Coumadin, keep INR in 2-3 range Continued Medications: Acetaminophen (Tylenol) 325 Mg Tab 650 MG GT EVERY 4 HOURS PRN for For Pain, #30 TAB 0 Refills Albuterol Sulfate* (Albuterol Sulfate Hhn*) 2.5 Mg/3 Ml Vial.neb 3 ML INH Q6H PRN for Shortness of Breath, #30 EA 0 Refills Ascorbic Acid (Ascorbic Acid) 500 Mg/1 Ml Vial 500 MG GT, VIAL Cranberry Extract (Cranberry) 425 Mg Capsule 425 MG GT DAILY, CAP Docusate Sodium (Docusate Sodium) 50 Mg/5 Ml Liquid 50 MG GT BID, ML Ferrous Sulfate (Ferrous Sulfate) 300 Mg/5 Ml Liqd 5 ML ORAL TID, #473 ML 0 Refills Finasteride* (Proscar*) 5 Mg Tablet 5 MG GT DAILY, #30 TAB 0 Refills Insulin Aspart* (Novolog*) 100 Unit/1 Ml Insuln.pen 0 SUBQ, #1 EA 0 Refills Insulin Detemir (Levemir Flexpen) 100 Unit/1 Ml Insuln.pen 30 SUBQ Q12HR, #300 UNITS 0 Refills Insulin Glargine (Lantus) 100 Unit/1 Ml Insuln.pen 16 UNITS SUBQ BEDTIME, #1 EA 0 Refills Ipratropium [place] (Atrovent Hfa) 12.9 Gm Hfa.aer.ad 12.9 GM IH EVERY 6 HOURS PRN for Shortness of Breath Lactulose (Lactulose*) 20 Gm/30 Ml Solution 45 ML GT TID, ML 0 Refills Multivitamins* (Multivitamins*) 1 Each Tablet 1 TAB ORAL DAILY, TAB 0 Refills Omeprazole (Prilosec) 40 Mg Capsule.dr 40 MG GT DAILY, CAP Zinc Sulfate (Zinc Sulfate*) 220 Mg Capsule 220 MG ORAL DAILY, CAP 0 Refills Discharge Condition Upon Discharge: stable Discharge Disposition Patient was discharged to [facility] Discharge Diagnoses: Ehsan (Jefferyrobin)Hermila NP Dec 19, 2016 14:12
--- NOTE | 2016-12-20 03:28 | Discharge Summary 2 SIG ---
DATE OF ADMISSION: 12/13/2016 DATE OF DISCHARGE: 12/18/2016 REASON FOR ADMISSION: 81-year-old male with chronic ventilator-dependent respiratory failure, tracheostomy, and dysphagia brought from the correction facility for low hemoglobin. Upon presentation, hemoglobin 7.7 and hematocrit 26.8. The patient had low-grade fever of 100 degrees, tachycardic 108, respiration 22, blood pressure was stable, saturation on mechanical ventilator was stable. Serum creatinine was 1.6. Potassium 5.3. The patient admitted for further management. ADMITTING DIAGNOSIS; anemia acute renal failure hyperkalemia VDRF/trach. HOSPITAL STAY: The patient admitted to [facility]. Ventilator and tracheostomy care provided. The patient was transfused with one unit of red blood cells. Hemoglobin and hematocrit at baseline. Venous duplex bilateral lower extremities revealed acute DVT in the right lower extremity. The patient had IVC filter placed. Cutch Cleaner followed. He also started the patient on Lovenox and Coumadin to bridge to therapeutic INR. Hemoglobin and hematocrit need to be monitored closely in lieu of recurrent bleeding and anemia . On day of discharge, INR is 1.1. Stool OB x1 was positive. Hemoglobin upon discharge up to 9.2 and hematocrit 29.2,-at baseline for this patient. Ferritin high . Urine culture revealed Providencia. The patient started on empiric antibiotics initially and then optimized based on the sensitivity. Dope Sprayer followed the patient for acute renal failure. Free water increased via G-tube. Creatinine down to 1.4. Per cisco consultant, acute renal failure was likely prerenal superimposed on renal insufficiency. GI prophylaxis provided. Closely monitor hemoglobin and hematocrit in the correction facility. Recommended GI workup as outpatient. Blood sugar management was managed with sliding scale of insulin. Bowel regimen instituted. Strict aspiration precaution were maintained. Patient tolerated tube feeding, Wound care as per wound care nurse recommendations provided and continue wound care at the correction facility. DISCHARGE DIAGNOSES: 1. Anemia of chronic disease , 2. Status post blood transfusion 3. Possible gastrointestinal bleeding. 4. Acute renal failure/ tubular necrosis likely prerenal superimposed on chronic renal insufficiency. 5. Dysphagia gastrostomy tube. 6. Ventilator-dependent respiratory failure tracheostomy. 7. Acute deep venous thrombosis right lower extremity superficial femoral vein. 8. Status post inferior vena cava filter placement 9. Urinary tract infection. 10. Decubitus ulcer , present on admission. DISCHARGE MEDICATIONS: See medication reconciliation list. DISCHARGE INSTRUCTIONS: The patient discharged to correction facility. Follow up with medical doctor and marklogic developer at the facility. David Bowie M.D. Hermila [facility]manWadsworth HospitalArlyn NAlvinaPAlvina DR: Fernando JOB#: [id number] CC: PAM
--- NOTE | 2017-01-02 14:17 | Cardiology Report ---
APPROVED REPORT EKG Measurement Heart [id number] Sinus tachycardia Right bundle branch block Abnormal ECG
--- NOTE | 2017-01-17 14:00 | Diagnostic Imaging Report ---
Indications: Right lower extremity extremity deep venous thrombosis, GI bleeding precludes safe anticoagulation Technique: Procedure, indications, risks, alternatives were explained to the issues family, who understands and gives written consent to proceed. Strict aseptic technique was utilized, including hand washing, use of hat and mask, use of sterile gown and gloves, sterile ultrasound gel and probe cover, prepping of right neck base skin with 2% chlorhexidine solution, and application of full body sterile barrier over this area. Skin and subcutaneous soft tissues were infiltrated with 1% lidocaine and sodium bicarbonate. A small dermatotomy was made, through which the right internal jugular vein was punctured percutaneously under direct sonographic guidance with a 5 [place]ian micropuncture set.. Exchange was made over a guidewire for a 5 Lithuanian pigtail catheter catheter. This was advanced through the superior vena cava and inferior vena cava into the left common iliac vein. Nonionic iodine contrast was injected and digital subtraction images of the inferior vena cava obtained. The percutaneous tract was dilated over a guidewire, then a 7 Lithuanian introducer sheath advanced over the guidewire under direct fluoroscopic guidance into the infrarenal segment of the inferior vena cava. A Hemphill Vena-Tech filter was deployed into and advanced through the sheath to its distal end, sheath withdrawn and filter deployed in the immediate infrarenal inferior vena cava. The sheath was carefully advanced distal to the filter, contrast injected and followup images obtained. The sheath was removed and right neck puncture site manually compressed to achieve hemostasis. The patient tolerated the procedures well without immediate complications and was returned to his room in stable condition. Total fluoroscopy time: 2 minutes. Dose-area product: 994 dGy-cm2 Findings: Comparison: None The bilateral common iliac veins and inferior vena cava are patent and normal in caliber without intraluminal filling defect. The right renal vein joins the inferior vena cava at the L1-2 level. The left renal vein joins the inferior vena cava at the L1-L2 level. Final images demonstrate successful deployment of filter in the inferior vena cava immediately below renal veins, well centered. Contrast flows freely through the filter. IMPRESSION: Inferior venacavogram within normal limits. Placement of permanent filter in the infrarenal inferior vena cava.
== END 2016-12-18 20:45 | DRG 252 ==
LOC: EDBD 19:38 → EDBEDREQ 20:04 → EMR 20:30 → 2W 20:43 → EDBEDREQ 21:00 → EDBEDREQTM 21:36 → EDBEDREQSVC 21:36 → EDBEDREQ 21:38
PROC: 5A1955Z Respiratory Ventilation, Greater than 96 Consecutive Hours (ICD-10-PCS; 2016-12-13)
PROC: 30233N1 Transfusion of Nonautologous Red Blood Cells into Peripheral Vein, Percutaneous Approach (ICD-10-PCS; principal; 2016-12-14)
PROC: 02HV33Z Insertion of Infusion Device into Superior Vena Cava, Percutaneous Approach (ICD-10-PCS; 2016-12-15)
PROC: 06H03DZ Insertion of Intraluminal Device into Inferior Vena Cava, Percutaneous Approach (ICD-10-PCS; 2016-12-15)
DX: I82.411 Acute embolism and thrombosis of right femoral vein (principal); L89.154 Pressure ulcer of sacral region, stage 4; N17.0 Acute kidney failure with tubular necrosis; J96.20 Acute and chronic respiratory failure, unspecified whether with hypoxia or hypercapnia; Z99.11 Dependence on respirator [ventilator] status; R40.3 Persistent vegetative state; L89.219 Pressure ulcer of right hip, unspecified stage; L89.323 Pressure ulcer of left buttock, stage 3; E86.0 Dehydration; Z43.1 Encounter for attention to gastrostomy; N39.0 Urinary tract infection, site not specified; K92.2 Gastrointestinal hemorrhage, unspecified; D50.8 Other iron deficiency anemias; D63.8 Anemia in other chronic diseases classified elsewhere; R13.10 Dysphagia, unspecified; Z43.0 Encounter for attention to tracheostomy; Z79.01 Long term (current) use of anticoagulants; E87.5 Hyperkalemia; N18.9 Chronic kidney disease, unspecified; E11.9 Type 2 diabetes mellitus without complications; K21.9 Gastro-esophageal reflux disease without esophagitis; Z79.4 Long term (current) use of insulin; Z86.718 Personal history of other venous thrombosis and embolism; L89.312 Pressure ulcer of right buttock, stage 2; E88.09 Other disorders of plasma-protein metabolism, not elsewhere classified; L89.619 Pressure ulcer of right heel, unspecified stage; R14.0 Abdominal distension (gaseous)
CPT/HCPCS: 36415; 36569; 36600; 37191; 71010; 75825; 76937; 80048; 80053; 80069; 80202; 81001; 82270; 82550; 82553; 82728; 82803; 82962; 82977; 83735; 83880; 84100; 84300; 84443; 84484; 84550; 85007; 85025; 85610; 85730; 86140; 86850; 86900; 86901; 86920; 87081; 87086; 87181; 93005; 93970; 94002; 94003; 94640; J1815

== ENCOUNTER 2016-12-26 14:04 | Emergency (ER) | payer MEDICARE, OTHER ==
[~2016-12-26] VITALS: Ht 182.9 cm; Wt 90.7 kg
[2016-12-26] MEDS ORDERED: Pantoprazole Inj IV ONE (14:30)
[2016-12-26 15:07] VITALS: BP 137/77
[2016-12-26 15:09] LABS: APPEARANCE,URINE SLIGHTLY CLOUDY; KETONES,URINE NEGATIVE (NEGATIVE); LEUKOCYTE ESTERASE ,URINE 3+ (NEGATIVE); NITRITE,URINE NEGATIVE (NEGATIVE); PH,URINE 8 (4.5-8.0); PROTEIN,URINE 2+ (NEGATIVE); UROBILINOGEN,URINE NORMAL MG/DL (0.0-1.0)
--- NOTE | 2016-12-26 15:33 | Emergency Room Report ---
History of Present Illness General Chief Complaint: Abnormal Labs Source: Medical Record, EMS, PMD (NICKIE TOWNSEND D.O.) Present Illness HPI This [facility]. He presents for anemia. I was called by the patient's primary care physician and he had undergone laboratory workup at the jail facility was found to be anemic. He has had a history of GI bleed in the past. The patient cannot give a history as he trach/vent dependent. He is nonverbal at baseline. There is no other history available. (NICKIE TOWNSEND D.O.) Allergies: Coded Allergies: NO KNOWN DRUG ALLERGIES (Unverified Allergy, Unknown, 10/29/14) Patient History Past Medical History: see triage record, DM, ID, CAD, GERD, CVA/TIA, dementia Past Surgical History: other - trach, PEG Social History: Denies: alcohol use, drug use, smoking Reviewed Nursing Documentation: PMH: Agreed, PSxH: Agreed (NICKIE TOWNSEND D.O. ) Nursing Documentation-PMH Past Medical History: No History, Except For Hx Hypertension: Yes Hx Asthma: No Hx COPD: Yes - resp failure, tracheostomy Hx Diabetes: Yes Hx Cancer: No Hx Neurological Problems: Yes - dementia Hx Cerebrovascular Accident: Yes Hx Transient Ischemic Attacks: No Hx Dementia: Yes Hx Alzheimer's Disease: No Hx Parkinson's Disease: No Hx Meningitis: No Hx Encephalitis: No Hx Seizures: No Hx Epilepsy: No Hx Multiple Sclerosis: No Hx Cerebral Palsy: No Hx Amyotrophic Lat Sclerosis: No Hx Guillian-Tempe Syndrome: No Hx Peripheral Neuropathy: No Hx Spinal Cord Injury: No Hx Head Trauma: No Hx Traumatic Brain Injury: No Hx Memory Loss: Yes Hx Concentration Difficulty: Yes Hx Speech Problem: Yes Hx Tremors: Yes Hx Vertigo: No Hx Dizziness: No Hx Syncope: No Hx Headaches: No Hx Aphasia: Yes Hx Dysphasia: Yes Hx Numbness: No Hx Weakness: No Hx Fatigue: No Hx Neurologic Surgery: No Hx Brain Shunt: No (NICKIE TOWNSEND D.O.) Review of Systems All Other Systems: limited (NICKIE TOWNSEND D.O.) Physical Exam Vital Signs Date Time Temp Pulse Resp B/P Pulse Ox O2 Delivery O2 Flow Rate FiO2 12/26/16 14:10 84 18 Mechanical Ventilator 35 12/26/16 14:12 98.2 95/52 98 Sp02 EP Interpretation: reviewed, normal General Appearance: no apparent distress, alert, GCS 15, non-toxic Head: normocephalic, atraumatic Eyes: bilateral eye PERRL, bilateral eye normal inspection ENT: no angioedema, other - Trach in place Neck: other - Trach in place Respiratory: chest non-tender, lungs clear, normal breath sounds Cardiovascular #1: regular rate, rhythm, edema - ansasarca Gastrointestinal: normal inspection, normal bowel sounds, soft, non-distended, no guarding, other - PEG Rectal: deferred Musculoskeletal: swelling - anasarca Neurologic: alert, other - nonverbal. non-focal Skin: warm/dry, well hydrated, other - See RN skin exam (NICKIE TOWNSEND D.O.) Procedures Central Line Central Line : Consent: Emergent Central Line Lumen: triple Maximal Sterile Barrier Tech: yes cap, yes mask, yes sterile gown, yes sterile gloves, yes large sterile sheet, yes hand hygiene, yes chlorhexidine prep No Max Barrier Tech Because: emergency insertion Central Line Postion: femoral (R) Complications: none Attempts: Other - 3 Patient Tolerated: Well Complications: None Progress Able to obtain bloodwork from right femoral vein but unable to thread catheter despite numerous attempts Access to Right and left IJ unable d/t trach mask RN eventually able to obtain peripheral IV (SKYE KRAUSE M.D.) Medical Decision Making Medicare Attestation I Skye Krause MD hereby attest that the medical record entry for date of service, 09/18/16 accurately reflects signatures/notations that I made in my capacity as MD when I treated/diagnosed the above listed Medicare beneficiary. I attest that this information is true, accurate and complete to the best of my knowledge. I understand that any falsification, omission, or concealment of material fact may subject me to administrative, civil, or criminal liability. This patient warrants hospital admission for extreme of age and has a condition that cannot be treated as outpatient. (SKYE KRAUSE M.D.) Diagnostic Impression: Primary Impression: Anemia Qualified Codes: D64.9 - Anemia, unspecified Additional Impression: Abnormal laboratory test result ER Course This patient he presented from a jail facility for concern of anemia and a history of a GI bleed. The patient had obtained labs that the jail [facility] and was found to have a hemoglobin of 7. Primary care physician request reevaluation in emergency department. There is no evidence of bleeding on physical exam. At the time of this dictation the nursing staff was attempting to obtain labs and IV access. There was difficulty with this. This patient is signed out to the oncoming physician Dr. Krause. Please see his note. This patient may need to undergo PICC line placement. (NICKIE TOWNSEND D.O.) ER Course Received signout from Dr Jovel to obtain access, followup labs See her H&P and PE for full assessment. H&H stable. No leuks. Elevated serumCr. Mild elevated K UA negative for infection. VSS. Afebrile. K treated with levalbuterol Dw/ Dr Bragg - requests patient transfer back to SNF since H&H stable. (SKYE KRAUSE M.D.) EKG Diagnostic Results Rate: normal Rhythm: NSR ST Segments: no acute changes (NICKIE TOWNSEND D.O.) Rhythm Strip Diag. Results EP Interpretation: yes Rate: 80's Rhythm: NSR, no PVC's, no ectopy (NICKIE TOWNSEND D.O.) EP Interpretation: yes Rate: 77 Rhythm: NSR, no PVC's, no ectopy (SKYE KRAUSE M.D.) Last Vital Signs Date Time Temp Pulse Resp B/P Pulse Ox O2 Delivery O2 Flow Rate FiO2 12/26/16 15:07 98.2 84 18 137/77 100 Mechanical Ventilator 35 (NICKIE TOWNSEND D.O.) Status: improved (SKYE KRAUSE M.D.) Disposition: XFER SNF Condition: Critical Referrals: David Bowie MD (PCP) NICKIE TOWNSEND D.O. Dec 26, 2016 15:33 SKYE KRAUSE M.D. Dec 26, 2016 17:33
[2016-12-26 15:58] LABS: RBC,URINE 0-2 /HPF (0 - 0)
[2016-12-26 15:59] LABS: BACTERIA,URINE MODERATE /HPF; TRIPLE PHOSPHATE CRYSTAL,UR FEW /LPF
[2016-12-26 16:03] LABS: BASOPHILS % (AUTO) 1.7 % (0.0-2.0); EOSINOPHILS % (AUTO) 3.3 % (0.0-3.0); LYMPHOCYTES % (AUTO) 22.7 % (20.0-45.0); MEAN CORPUSCULAR HEMOGLOBIN 31.6 PG (27.0-31.0); MEAN CORPUSCULAR HGB CONC 31.9 G/DL (32.0-36.0); MEAN CORPUSCULAR VOLUME 99 FL (80-99); MEAN PLATELET VOLUME 8.2 FL (6.5-10.1); MONOCYTES % (AUTO) 6.3 % (1.0-10.0); NEUTROPHILS % (AUTO) 66.1 % (45.0-75.0); PLATELET COUNT 178 K/UL (150-450); RED BLOOD COUNT 2.88 M/UL (4.70-6.10); RED CELL DISTRIBUTION WIDTH 17.7 % (11.6-14.8); WHITE BLOOD COUNT 8.2 K/UL (4.8-10.8)
[2016-12-26 16:21] LABS: PROTHROMBIN TIME 10.1 SEC (9.30-11.50)
[2016-12-26 16:32] LABS: ALANINE AMINOTRANSFERASE 11 U/L (3-41); ALBUMIN/GLOBULIN RATIO 0.5 (1.0-2.7); ANION GAP 14 (5-15); ASPARTATE AMINO TRANSFERASE 13 U/L (5-40); CALCIUM 9.4 mg/dL (8.6-10.2); CARBON DIOXIDE 25 mEQ/L (20-30); CHLORIDE 105 mEQ/L (98-107); CREATININE 1.5 mg/dL (0.7-1.2); HEMOLYSIS 13; POTASSIUM 5.4 mEQ/L (3.4-4.9); SODIUM 144 mEQ/L (135-145)
[2016-12-26 17:05] VITALS: BP 116/64
[2016-12-26 17:51] VITALS: BP 137/75
[2016-12-26] MEDS ORDERED: Levalbuterol Inh UD 1.25mg/0.5ml HHN ONE (18:00)
[2016-12-26 19:24] VITALS: BP 134/76
[2016-12-26 20:45] VITALS: BP 137/75
--- NOTE | 2016-12-28 14:03 | Cardiology Report ---
APPROVED REPORT EKG Measurement Heart [id number] Normal sinus rhythm Right bundle branch block Cannot rule out Inferior infarct, age undetermined Abnormal ECG
== END 2016-12-26 20:45 ==
LOC: EMR 14:20 → EDBEDREQ 17:23 → EDBEDREQSVC 17:24 → CANBEDREQ 19:16 → EMR 20:45
DX: D64.9 Anemia, unspecified (principal); R79.89 Other specified abnormal findings of blood chemistry; I10 Essential (primary) hypertension; J44.9 Chronic obstructive pulmonary disease, unspecified; F03.90 Unspecified dementia, unspecified severity, without behavioral disturbance, psychotic disturbance, mood disturbance, and anxiety; E11.9 Type 2 diabetes mellitus without complications; I25.10 Atherosclerotic heart disease of native coronary artery without angina pectoris; K21.9 Gastro-esophageal reflux disease without esophagitis; Z86.73 Personal history of transient ischemic attack (TIA), and cerebral infarction without residual deficits; Z93.0 Tracheostomy status; Z99.11 Dependence on respirator [ventilator] status; Z93.1 Gastrostomy status
CPT/HCPCS: 36415; 80053; 81003; 85025; 85610; 85730; 86850; 86900; 86901; 87086; 87181; 93005; 94002; 94003; 94640; 94664; 96360; 96374; 99285; C9113; J7644

== ENCOUNTER 2017-03-09 00:51 | Inpatient (IN) | payer MEDICARE, OTHER ==
[~2017-03-09] VITALS: Ht 182.9 cm; Wt 117.9 kg
[2017-03-09] VITALS (7 sets, daily range): BP systolic 105–148; BP diastolic 58–88
--- NOTE | 2017-03-09 01:05 | Emergency Room Report ---
History of Present Illness General Chief Complaint: Abnormal Labs Source: Medical Record, EMS, PMD Present Illness HPI This is an 80-year-old male with multiple medical problems. He is a DO NOT RESUSCITATE and resides in a senior living. He has a tracheostomy and feeding tube. He presents with chief complaint of abnormal labs. His BUN is over 100. It is 2.6. No other complaint. History is from primary care Dr. and senior living note. Patient unable to give a history. No noted history of fever or vomiting. Allergies: Coded Allergies: NO KNOWN DRUG ALLERGIES (Unverified Allergy, Unknown, 10/29/14) Patient History Past Medical History: see triage record, old chart reviewed Past Surgical History: other Pertinent Family History: none Social History: Denies: smoking Immunizations: UTD Reviewed Nursing Documentation: PMH: Agreed, PSxH: Agreed Nursing Documentation-PMH Hx Hypertension: Yes Hx Asthma: No Hx COPD: Yes - ARF, TRACHEOSTOMY, VENT DEPENDENT Hx Diabetes: Yes - TYPE 2 Hx Transient Ischemic Attacks: No Hx Dementia: Yes Hx Alzheimer's Disease: No Hx Parkinson's Disease: No Hx Meningitis: No Hx Encephalitis: No Hx Seizures: No Hx Epilepsy: No Hx Multiple Sclerosis: No Hx Cerebral Palsy: No Hx Amyotrophic Lat Sclerosis: No Hx Guillian-Counce Syndrome: No Hx Peripheral Neuropathy: No Hx Spinal Cord Injury: No Hx Head Trauma: No Hx Traumatic Brain Injury: No Hx Memory Loss: Yes Hx Concentration Difficulty: Yes Hx Speech Problem: Yes Hx Tremors: Yes Hx Vertigo: No Hx Dizziness: No Hx Syncope: No Hx Headaches: No Hx Aphasia: Yes Hx Dysphasia: Yes Hx Numbness: No Hx Weakness: No Hx Fatigue: No Hx Neurologic Surgery: No Hx Brain Shunt: No Review of Systems All Other Systems: limited - Patient is norbal Physical Exam Vital Signs Date Time Temp Pulse Resp B/P Pulse Ox O2 Delivery O2 Flow Rate FiO2 03/09/17 00:52 97.9 100 20 107/67 100 Mechanical Ventilator vitals normal Sp02 EP Interpretation: reviewed, normal General Appearance: no apparent distress, alert, Chronically Ill Head: normocephalic, atraumatic Eyes: bilateral eye EOMI, bilateral eye PERRL ENT: hearing grossly normal, normal pharynx Neck: full range of motion, supple, no meningismus Respiratory: chest non-tender, lungs clear, normal breath sounds Cardiovascular #1: regular rate, rhythm, no murmur Gastrointestinal: normal bowel sounds, non tender, no mass, no organomegaly, no bruit, non-distended, other - Feeding tube intact Musculoskeletal: back normal Neurologic: alert Psychiatric: mood/affect normal Skin: warm/dry Procedures Critical Care Time Critical Care Time Critical care is mandated in this patient who presented with acute renal failure and severe dehydration. Patient require my urgent intervention to attenuate the risks of metabolic collapse which may lead to cardiovascular collapse and . Critical care time is 35 minutes excluding any reportable procedure. Critical care time included evaluation, multiple reevaluation, looking at old charts, interpreting laboratory and diagnostic data, discussing case with patient and family and consultants, and charting. Medical Decision Making Diagnostic Impression: Primary Impression: ARF (acute renal failure) Qualified Codes: N17.9 - Acute kidney failure, unspecified Additional Impressions: Anemia Qualified Codes: D64.9 - Anemia, unspecified Dehydration UTI (urinary tract infection) Qualified Codes: N30.00 - Acute cystitis without hematuria Proteinuria Qualified Codes: R80.9 - Proteinuria, unspecified ER Course Patient presents with severe dehydration and acute on chronic renal failure. Beginning to make urine after IV fluid. He does have a urinary tract infection. In December of 2016, he grew out ESBL Proteus and Providencia. Both of these bacteria are sensitive to ertapenem. He received a dose of antibiotics here. I discussed the case with primary care who will be admitting. Laboratory Tests Test 03/09/17 01:15 White Blood Count 10.7 K/UL (4.8-10.8) Red Blood Count 3.60 M/UL (4.70-6.10) L Hemoglobin 10.8 G/DL (14.2-18.0) L Hematocrit 35.7 % (42.0-52.0) L Mean Corpuscular Volume 99 FL (80-99) Mean Corpuscular Hemoglobin 29.9 PG (27.0-31.0) Mean Corpuscular Hemoglobin Concent 30.1 G/DL (32.0-36.0) L Red Cell Distribution Width 19.7 % (11.6-14.8) H Platelet Count 192 K/UL (150-450) Mean Platelet Volume 9.1 FL (6.5-10.1) Neutrophils (%) (Auto) 78.4 % (45.0-75.0) H Lymphocytes (%) (Auto) 11.3 % (20.0-45.0) L Monocytes (%) (Auto) 8.1 % (1.0-10.0) Eosinophils (%) (Auto) 1.7 % (0.0-3.0) Basophils (%) (Auto) 0.5 % (0.0-2.0) Urine Color Pale yellow Urine Appearance Slightly cloudy Urine pH 8 (4.5-8.0) Urine Specific [place] 1.010 (1.005-1.035) Urine Protein 4+ (NEGATIVE) H Urine Glucose (UA) 2+ (NEGATIVE) H Urine Ketones Negative (NEGATIVE) Urine Occult Blood 3+ (NEGATIVE) H Urine Nitrite Positive (NEGATIVE) H Urine Bilirubin Negative (NEGATIVE) Urine Urobilinogen Normal MG/DL (0.0-1.0) Urine Leukocyte Esterase 3+ (NEGATIVE) H Urine RBC 2-4 /HPF (0 - 0) H Urine WBC 20-30 /HPF (0 - 0) H Urine Squamous Epithelial Cells Few /LPF (NONE/OCC) Urine Bacteria Moderate /HPF (NONE) H Sodium Level 153 mEQ/L (135-145) H Potassium Level 5.4 mEQ/L (3.4-4.9) H Chloride Level 112 mEQ/L (98-107) H Carbon Dioxide Level 25 mEQ/L (20-30) Anion Gap 16 (5-15) H Blood Urea Nitrogen 105 mg/dL (7-23) H Creatinine 2.4 mg/dL (0.7-1.2) H Estimat Glomerular Filtration Rate mL/min (>60) Glucose Level 395 mg/dL (74-106) H Calcium Level 9.8 mg/dL (8.6-10.2) Total Bilirubin 0.3 mg/dL (0.0-1.2) Aspartate Amino Transf (AST/SGOT) 16 U/L (5-40) Alanine Aminotransferase (ALT/SGPT) 20 U/L (3-41) Alkaline Phosphatase 144 U/L (40-129) H Total Protein 11.1 g/dL (6.6-8.7) H Albumin 3.7 g/dL (3.5-5.2) Globulin 7.4 g/dL Albumin/Globulin Ratio 0.5 (1.0-2.7) L Lipase 30 U/L (< 60) Lab Results Impression labs with severe abnormality Rhythm Strip Diag. Results EP Interpretation: yes Rate: 98 Rhythm: NSR, no PVC's, no ectopy Chest X-Ray Diagnostic Results EP Interpretation: Yes Findings: no consolidation, no effusion, no pneumothorax, no acute cardiopulmonary disease, other - Atelectasis Number of Views: 1 Last Vital Signs Date Time Temp Pulse Resp B/P Pulse Ox O2 Delivery O2 Flow Rate FiO2 03/09/17 00:52 97.9 100 20 107/67 100 Mechanical Ventilator Status: improved Disposition: ADMITTED INPATIENT Condition: Serious LEOPOLDO EVANS M.D. March 09, 2017 01:04
[2017-03-09] MEDS ORDERED: DOCUSATE SODIU100 MG GT (01:08)
[2017-03-09] MEDS ORDERED: PROSCAR5 MG GT (01:08)
[2017-03-09] MEDS ORDERED: VITAMIN C500 M1 GT (01:08)
[2017-03-09] MEDS ORDERED: PEPCID40 MG GT (01:08)
[2017-03-09] MEDS ORDERED: METOCLOPRAM5 MG/1 M2 GT (01:08)
[2017-03-09] MEDS ORDERED: LEVEMIR FL100 UNIT/1 SUBQ (01:08)
[2017-03-09 01:49] LABS: APPEARANCE,URINE SLIGHTLY CLOUDY; KETONES,URINE NEGATIVE (NEGATIVE); LEUKOCYTE ESTERASE ,URINE 3+ (NEGATIVE); NITRITE,URINE POSITIVE (NEGATIVE); PH,URINE 8 (4.5-8.0); PROTEIN,URINE 4+ (NEGATIVE); UROBILINOGEN,URINE NORMAL MG/DL (0.0-1.0)
[2017-03-09 01:51] LABS: BASOPHILS % (AUTO) 0.5 % (0.0-2.0); EOSINOPHILS % (AUTO) 1.7 % (0.0-3.0); LYMPHOCYTES % (AUTO) 11.3 % (20.0-45.0); MEAN CORPUSCULAR HEMOGLOBIN 29.9 PG (27.0-31.0); MEAN CORPUSCULAR HGB CONC 30.1 G/DL (32.0-36.0); MEAN CORPUSCULAR VOLUME 99 FL (80-99); MEAN PLATELET VOLUME 9.1 FL (6.5-10.1); MONOCYTES % (AUTO) 8.1 % (1.0-10.0); NEUTROPHILS % (AUTO) 78.4 % (45.0-75.0); PLATELET COUNT 192 K/UL (150-450); RED CELL DISTRIBUTION WIDTH 19.7 % (11.6-14.8); WHITE BLOOD COUNT 10.7 K/UL (4.8-10.8)
[2017-03-09 01:57] LABS: ALANINE AMINOTRANSFERASE 20 U/L (3-41); ALBUMIN/GLOBULIN RATIO 0.5 (1.0-2.7); ANION GAP 16 (5-15); ASPARTATE AMINO TRANSFERASE 16 U/L (5-40); CALCIUM 9.8 mg/dL (8.6-10.2); CARBON DIOXIDE 25 mEQ/L (20-30); CHLORIDE 112 mEQ/L (98-107); CREATININE 2.4 mg/dL (0.7-1.2); HEMOLYSIS 2; LIPASE 30 U/L (< 60); POTASSIUM 5.4 mEQ/L (3.4-4.9); SODIUM 153 mEQ/L (135-145); TOTAL PROTEIN 11.1 g/dL (6.6-8.7)
[2017-03-09 02:03] LABS: BACTERIA,URINE MODERATE /HPF; SQUAMOUS EPITHELIAL CELL,UR FEW /LPF (NONE/OCC); WBC,URINE 20-30 /HPF (0 - 0)
[2017-03-09] MEDS ORDERED: Ertapenem 1 GM in NS 55 ML IV ONE (02:15)
[2017-03-09] MEDS ORDERED: Ertapenem (INVanz) Inj ONE (03:13)
[2017-03-09] MEDS: NovoLOG Insulin Flexpen SUBQ SCH ×4 (06:30→21:49)
--- NOTE | 2017-03-09 08:45 | Infectious Diseases Prog Note ---
Assessment/Plan Problems: (1) UTI (urinary tract infection) Assessment & Plan: with H/O ESBL producing organisms, will starrt ertapenem pending culture results (2) Pressure ulcer Assessment & Plan: not infected, continue local wound care and off loading (3) Acute prerenal azotemia Assessment & Plan: continue IVF for hydration, monitor UOP, consult renal (4) Diabetes mellitus out of control Assessment & Plan: recommend tight glycemic control to keep blood glucose between 80-120 Subjective Allergies: Coded Allergies: NO KNOWN DRUG ALLERGIES (Unverified Allergy, Unknown, 10/29/14) Objective Vital Signs Last 24 Hour Vital Signs Date Time Temp Pulse Resp B/P Pulse Ox O2 Delivery O2 Flow Rate FiO2 03/09/17 07:00 93 19 45 03/09/17 05:52 97.9 100 18 123/84 100 Mechanical Ventilator 45 03/09/17 05:50 97.9 94 18 122/77 100 Mechanical Ventilator 45 03/09/17 05:43 98 18 45 03/09/17 03:25 97.9 100 21 123/84 100 Mechanical Ventilator 45 03/09/17 03:11 100 20 45 03/09/17 02:07 45 03/09/17 01:40 97.9 99 21 119/88 100 Mechanical Ventilator 45 03/09/17 01:03 98 24 45 03/09/17 00:52 97.9 100 20 107/67 100 Mechanical Ventilator Height (Feet): 6 Weight (Pounds): 260 Laboratory Tests Test 03/09/17 01:15 White Blood Count 10.7 K/UL (4.8-10.8) Red Blood Count 3.60 M/UL (4.70-6.10) L Hemoglobin 10.8 G/DL (14.2-18.0) L Hematocrit 35.7 % (42.0-52.0) L Mean Corpuscular Volume 99 FL (80-99) Mean Corpuscular Hemoglobin 29.9 PG (27.0-31.0) Mean Corpuscular Hemoglobin Concent 30.1 G/DL (32.0-36.0) L Red Cell Distribution Width 19.7 % (11.6-14.8) H Platelet Count 192 K/UL (150-450) Mean Platelet Volume 9.1 FL (6.5-10.1) Neutrophils (%) (Auto) 78.4 % (45.0-75.0) H Lymphocytes (%) (Auto) 11.3 % (20.0-45.0) L Monocytes (%) (Auto) 8.1 % (1.0-10.0) Eosinophils (%) (Auto) 1.7 % (0.0-3.0) Basophils (%) (Auto) 0.5 % (0.0-2.0) Urine Color Pale yellow Urine Appearance Slightly cloudy Urine pH 8 (4.5-8.0) Urine Specific [place] 1.010 (1.005-1.035) Urine Protein 4+ (NEGATIVE) H Urine Glucose (UA) 2+ (NEGATIVE) H Urine Ketones Negative (NEGATIVE) Urine Occult Blood 3+ (NEGATIVE) H Urine Nitrite Positive (NEGATIVE) H Urine Bilirubin Negative (NEGATIVE) Urine Urobilinogen Normal MG/DL (0.0-1.0) Urine Leukocyte Esterase 3+ (NEGATIVE) H Urine RBC 2-4 /HPF (0 - 0) H Urine WBC 20-30 /HPF (0 - 0) H Urine Squamous Epithelial Cells Few /LPF (NONE/OCC) Urine Bacteria Moderate /HPF (NONE) H Sodium Level 153 mEQ/L (135-145) H Potassium Level 5.4 mEQ/L (3.4-4.9) H Chloride Level 112 mEQ/L (98-107) H Carbon Dioxide Level 25 mEQ/L (20-30) Anion Gap 16 (5-15) H Blood Urea Nitrogen 105 mg/dL (7-23) H Creatinine 2.4 mg/dL (0.7-1.2) H Estimat Glomerular Filtration Rate mL/min (>60) Glucose Level 395 mg/dL (74-106) H Calcium Level 9.8 mg/dL (8.6-10.2) Total Bilirubin 0.3 mg/dL (0.0-1.2) Aspartate Amino Transf (AST/SGOT) 16 U/L (5-40) Alanine Aminotransferase (ALT/SGPT) 20 U/L (3-41) Alkaline Phosphatase 144 U/L (40-129) H Total Protein 11.1 g/dL (6.6-8.7) H Albumin 3.7 g/dL (3.5-5.2) Globulin 7.4 g/dL Albumin/Globulin Ratio 0.5 (1.0-2.7) L Lipase 30 U/L (< 60) Current Medications Medications (Trade) Dose Ordered Sig/Shubham Route PRN Reason Start Time Stop Time Status Last Admin Dose Admin Dextrose STAT PRN IV Hypoglycemia 03/09/17 05:45 04/08/17 05:44 Ertapenem/Sodium Chloride (INVanz/Sodium Chloride) 55 ml @ 110 mls/hr Q24H IVPB 03/09/17 08:45 03/14/17 08:44 UNV Insulin Aspart (NovoLOG) BEFORE MEALS AND HS SUBQ 03/09/17 06:30 04/08/17 06:29 Kacey Olivo M.D. March 09, 2017 08:45
--- NOTE | 2017-03-09 11:42 | Consultation ---
History of Present Illness General Date patient seen: March 09, 2017 Chief Complaint: Abnormal Labs Reason for Consultation: vent management Present Illness HPI 80-year-old male with PMHx of chronic vent/trach/peg, DO NOT RESUSCITATE, resides in a longterm brought in with CC of abnormal labs including BUN is over 100 and creatinine 2.6. No other complaint. Patient unable to give a history. No noted history of fever or vomiting. Allergies: Coded Allergies: NO KNOWN DRUG ALLERGIES (Unverified Allergy, Unknown, 10/29/14) Medication History Scheduled Ascorbic Acid* (Vitamin C*), 500 MG GT TID, (Reported) Cranberry Extract (Cranberry), 425 MG GT DAILY, (Reported) Docusate Sodium (Docusate Sodium), 50 MG GT BID, (Reported) Docusate Sodium* (Docusate Sodium*), 100 MG GT TWICE A DAY, (Reported) Famotidine (Pepcid), 40 MG GT DAILY, (Reported) Famotidine (Pepcid), 40 MG GT DAILY, (Reported) Ferrous Sulfate (Ferrous Sulfate), 5 ML ORAL TID, (Reported) Finasteride* (Proscar*), 5 MG GT DAILY, (Reported) Finasteride* (Proscar*), 5 MG GT DAILY, (Reported) Insulin Detemir (Levemir Flexpen), 30 SUBQ Q12HR, (Reported) Insulin Glargine (Lantus), 16 UNITS SUBQ BEDTIME, (Reported) Lactulose (Lactulose*), 45 ML GT TID, (Reported) METOCLOPRAMIDE HCl* (METOCLOPRAMIDE HCl*), 5 MG GT EVERY 6 HOURS, (Reported) Metformin Hcl* (Metformin Hcl*), 500 MG GT TWICE A DAY, (Reported) Multivitamins* (Multivitamins*), 1 TAB ORAL DAILY, (Reported) Omeprazole (Prilosec), 40 MG GT DAILY, (Reported) Pantoprazole* (Pantoprazole*), 40 MG GT DAILY, (Reported) Zinc Sulfate (Zinc Sulfate*), 220 MG ORAL DAILY, (Reported) Scheduled PRN Acetaminophen (Tylenol), 650 MG GT EVERY 4 HOURS PRN for For Pain, (Reported) Albuterol Sulfate* (Albuterol Sulfate Hhn*), 3 ML INH Q6H PRN for Shortness of Breath, (Reported) Ipratropium [place] (Atrovent Hfa), 12.9 GM IH EVERY 6 HOURS PRN for Shortness of Breath, (Reported) Miscellaneous Medications Ascorbic Acid (Ascorbic Acid), 500 MG GT, (Reported) Insulin Aspart* (Novolog*), 0 SUBQ, (Reported) Insulin Detemir (Levemir Flexpen), 0 SUBQ, (Reported) Patient History Healthcare decision maker Resuscitation status Advanced Directive on File Past Medical/Surgical History Past Medical/Surgical History: (1) Pressure ulcer (2) Anemia (3) Respiratory insufficiency (4) Tracheostomy status (5) HTN (hypertension) (6) COPD (chronic obstructive pulmonary disease) Review of Systems All Other Systems: negative except mentioned in HPI Physical Exam General Appearance: cachetic Lines, tubes and drains: peripheral HEENT: normocephalic, anicteric Neck: non-tender, normal alignment Respiratory/Chest: chest wall non-tender, lungs clear Cardiovascular/Chest: normal peripheral pulses, normal rate Abdomen: normal bowel sounds Extremities: normal range of motion, non-tender Skin Exam: normal pigmentation 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 Last 24 Hour Vital Signs Date Time Temp Pulse Resp B/P Pulse Ox O2 Delivery O2 Flow Rate FiO2 03/09/17 10:40 88 18 45 03/09/17 08:50 91 19 45 03/09/17 08:00 45 03/09/17 08:00 97.7 93 18 126/66 99 Mechanical Ventilator 45 03/09/17 07:00 93 19 45 03/09/17 05:52 97.9 100 18 123/84 100 Mechanical Ventilator 45 03/09/17 05:50 97.9 94 18 122/77 100 Mechanical Ventilator 45 03/09/17 05:43 98 18 45 03/09/17 03:25 97.9 100 21 123/84 100 Mechanical Ventilator 45 03/09/17 03:11 100 20 45 03/09/17 02:07 45 03/09/17 01:40 97.9 99 21 119/88 100 Mechanical Ventilator 45 03/09/17 01:03 98 24 45 03/09/17 00:52 97.9 100 20 107/67 100 Mechanical Ventilator Intake and Output 03/08/17 03/09/17 19:00 07:00 Intake Total 0 ml Balance 0 ml Intake Oral 0 ml Laboratory Tests Test 03/09/17 01:15 White Blood Count 10.7 K/UL (4.8-10.8) Red Blood Count 3.60 M/UL (4.70-6.10) L Hemoglobin 10.8 G/DL (14.2-18.0) L Hematocrit 35.7 % (42.0-52.0) L Mean Corpuscular Volume 99 FL (80-99) Mean Corpuscular Hemoglobin 29.9 PG (27.0-31.0) Mean Corpuscular Hemoglobin Concent 30.1 G/DL (32.0-36.0) L Red Cell Distribution Width 19.7 % (11.6-14.8) H Platelet Count 192 K/UL (150-450) Mean Platelet Volume 9.1 FL (6.5-10.1) Neutrophils (%) (Auto) 78.4 % (45.0-75.0) H Lymphocytes (%) (Auto) 11.3 % (20.0-45.0) L Monocytes (%) (Auto) 8.1 % (1.0-10.0) Eosinophils (%) (Auto) 1.7 % (0.0-3.0) Basophils (%) (Auto) 0.5 % (0.0-2.0) Urine Color Pale yellow Urine Appearance Slightly cloudy Urine pH 8 (4.5-8.0) Urine Specific [place] 1.010 (1.005-1.035) Urine Protein 4+ (NEGATIVE) H Urine Glucose (UA) 2+ (NEGATIVE) H Urine Ketones Negative (NEGATIVE) Urine Occult Blood 3+ (NEGATIVE) H Urine Nitrite Positive (NEGATIVE) H Urine Bilirubin Negative (NEGATIVE) Urine Urobilinogen Normal MG/DL (0.0-1.0) Urine Leukocyte Esterase 3+ (NEGATIVE) H Urine RBC 2-4 /HPF (0 - 0) H Urine WBC 20-30 /HPF (0 - 0) H Urine Squamous Epithelial Cells Few /LPF (NONE/OCC) Urine Bacteria Moderate /HPF (NONE) H Sodium Level 153 mEQ/L (135-145) H Potassium Level 5.4 mEQ/L (3.4-4.9) H Chloride Level 112 mEQ/L (98-107) H Carbon Dioxide Level 25 mEQ/L (20-30) Anion Gap 16 (5-15) H Blood Urea Nitrogen 105 mg/dL (7-23) H Creatinine 2.4 mg/dL (0.7-1.2) H Estimat Glomerular Filtration Rate mL/min (>60) Glucose Level 395 mg/dL (74-106) H Calcium Level 9.8 mg/dL (8.6-10.2) Total Bilirubin 0.3 mg/dL (0.0-1.2) Aspartate Amino Transf (AST/SGOT) 16 U/L (5-40) Alanine Aminotransferase (ALT/SGPT) 20 U/L (3-41) Alkaline Phosphatase 144 U/L (40-129) H Total Protein 11.1 g/dL (6.6-8.7) H Albumin 3.7 g/dL (3.5-5.2) Globulin 7.4 g/dL Albumin/Globulin Ratio 0.5 (1.0-2.7) L Lipase 30 U/L (< 60) Height (Feet): 6 Weight (Pounds): 260 Medications Current Medications Medications (Trade) Dose Ordered Sig/Shubham Route PRN Reason Start Time Stop Time Status Last Admin Dose Admin Albuterol/ Ipratropium (DuoNeb 0.5-3(2.5)mg/3ml) 3 ml Q6HRT HHN 03/09/17 13:00 03/14/17 12:59 Dextrose STAT PRN IV Hypoglycemia 03/09/17 05:45 04/08/17 05:44 Ertapenem 1 gm/ Sodium Chloride 55 ml @ 110 mls/hr Q24H IVPB 03/10/17 03:00 03/15/17 02:59 Insulin Aspart (NovoLOG) BEFORE MEALS AND HS SUBQ 03/09/17 06:30 04/08/17 06:29 Sodium Chloride (0.45% NS 1000ml) 1,000 ml @ 75 mls/hr [id number] IV 03/09/17 09:00 04/08/17 08:59 03/09/17 09:40 Assessment/Plan Problem List: (1) ARF (acute renal failure) ICD Codes: N17.9 - ARF (acute renal failure) SNOMED: 30781242 Qualifiers: Qualified Codes: N17.9 - Acute kidney failure, unspecified (2) Respiratory insufficiency ICD Codes: R06.89 - Respiratory insufficiency SNOMED: 207338433 (3) Tracheostomy status (4) COPD (chronic obstructive pulmonary disease) ICD Codes: J44.9 - COPD (chronic obstructive pulmonary disease) SNOMED: 38826900 (5) Diabetes mellitus out of control ICD Codes: E11.65 - Diabetes mellitus out of control SNOMED: 214872760 (6) HTN (hypertension) ICD Codes: I10 - HTN (hypertension) SNOMED: 74745519 Respiratory: monitor respiratory rate, adjust FIO2, CXR Cardiac: continue to monitor HR/BP Renal: F/U I&O, keep IV fluid, check electrolytes Infectious Disease: check cultures Gastrointestinal: start feedings Endocrine: monitor blood sugar, continue sliding scale insulin Hematologic: monitor H/H, transfuse if hgb<8.5 Neurologic: PRN Morphine, keep patient comfortable Affect: PRN ativan Notes Reviewed: personnel records clerk, cardio Discussed with: nurses, consultants, community case manager MICH FONSECA March 09, 2017 11:42
--- NOTE | 2017-03-09 12:44 | Consultation ---
Consult Note Consult Note asked to eval for renal failure- know to me from previous admissions This is an 80-year-old male with multiple medical problems. He is a DO NOT RESUSCITATE and [facility] a [facility]. He has a tracheostomy and feeding tube. He presents with chief complaint of abnormal labs. His BUN is over 100. It is 2.6. No other complaint. History is from primary care DrAlvina and [facility]entiary note. Patient unable to give a history. No noted history of fever or vomiting. Hx Hypertension: Yes Hx COPD: Yes - ARF, TRACHEOSTOMY, VENT DEPENDENT Hx Diabetes: Yes - TYPE 2 Hx Dementia: Yes Hx Memory Loss: Yes Hx Concentration Difficulty: Yes Hx Speech Problem: Yes Hx Tremors: Yes Hx Aphasia: Yes Hx Dysphasia: Yes . Assessment/Plan Status Acute Renal Failure- Pre Renal / Super Imposed on Renal Respiratory failure- UTI h/o Anemia Decubs h/o DVT Other conditions: 1. Acute on chronic respiratory failure. 2. h/o Severe sepsis. 3. Ventilator-dependent respiratory failure. 4. Chronic obstructive pulmonary disease. 5. History of deep venous thrombosis. 6. Hypoalbuminemia. 7. h/o Clostridium difficile colitis. 8. Pressure ulcers on sacrococcygeal down to buttocks, right ischial tuberosity, and right heel and right trochanter present on admission. 9. h/o Urinary tract infection, Proteus mirabilis. 10. h/o Acute deep venous thrombosis of the right lower extremity, on heparin and bridged to Coumadin. 11. Tracheostomy status. 12. Gastrostomy tube feeding. 13. Diabetes mellitus. Plan: Slow IV hydration- BS control- keep BP under control- Avoid Nephrotoxics- monitor lytes and renal parameters- COLTEN DIEGO March 09, 2017 12:44
--- NOTE | 2017-03-09 13:17 | Diagnostic Imaging Report ---
Indication: SOB Technique: One view of the chest Comparison: 12/18/2016 Findings: Atelectatic changes are again demonstrated in the left infrahilar region. Lungs and pleural spaces otherwise clear. Interim removal of previously demonstrated right arm PICC. Tracheostomy remains Impression: Left basilar atelectasis Other findings as described This agrees with the preliminary interpretation provided by the emergency room physician
[2017-03-09 16:09] LABS: APPEARANCE,URINE SLIGHTLY CLOUDY; KETONES,URINE NEGATIVE (NEGATIVE); LEUKOCYTE ESTERASE ,URINE 3+ (NEGATIVE); NITRITE,URINE POSITIVE (NEGATIVE); PH,URINE 9 (4.5-8.0); PROTEIN,URINE 3+ (NEGATIVE); UROBILINOGEN,URINE NORMAL MG/DL (0.0-1.0)
[2017-03-09] MEDS: DuoNeb 0.5-3(2.5)mg/3ml neb HHN SCH ×2 (16:10→19:26)
[2017-03-09 16:37] LABS: BACTERIA,URINE MANY /HPF; RBC,URINE 15-20 /HPF (0 - 0); TRIPLE PHOSPHATE CRYSTAL,UR MANY /LPF
--- NOTE | 2017-03-09 18:29 | Diagnostic Imaging Report ---
APPROVED REPORT CPT Code: 23047 Present Symptoms Shortness of breath Past History DVT :Right RIGHT LEG: Venous imaging reveals recanalized chronic thrombus in the superficial femoral vein. There is no evidence of thrombus within the common femoral, popliteal or tibial segments. The greater saphenous vein is also within normal limits. Doppler indicates normal spontaneous flow within these segments. LEFT LEG: Venous imaging reveals a patent deep venous system. There is no evidence of thrombus within the femoral, popliteal or tibial segments. The greater saphenous vein is also within normal limits. Doppler indicates normal spontaneous flow within these segments. There is no evidence of acute deep vein thrombosis.
--- NOTE | 2017-03-09 20:25 | Wound Care Consultation ---
Wound Assessment Wound Assessment #1: Wound Present on Admission: Yes New Wound: No Status Change of Wound: No Wound Location Body Site Modif: right Wound Location Body Site: buttocks Wound Type: pressure ulcer Danny Test: Does not Danny Pressure Ulcer Stage: III Wound Thickness: Full Thickness Wound Length: 3.5 Wound Width: 2.5 Wound Depth: 0.3 Percent of Wound [place]/Red: 100 Wound Drainage Description: Serosanguineous Wound Drainage Amount: Moderate Wound Drainage Odor: None/Absent Tissue Surrounding Wound: extensive scar tissue Wound General Appearance: Reddened, Draining Wound Assessment #2: Wound Number: #2 Wound Present on Admission: Yes New Wound: No Status Change of Wound: No Wound Location Body Site Modif: left Wound Location Body Site: heel Wound Type: pressure ulcer Danny Test: Does not Danny Pressure Ulcer Stage: deep tissue injury Wound Thickness: Full Thickness Wound Length: 3.0 Wound Width: 3.0 Wound Depth: utd Percent of Wound Purple/Maroon: 100 Wound Drainage Amount: None Wound Drainage Odor: None/Absent Tissue Surrounding Wound: Intact Wound General Appearance: Reddened Wound Assessment #3: Wound Number: #3 Wound Present on Admission: Yes New Wound: No Status Change of Wound: No Wound Location Body Site Modif: right Wound Location Body Site: heel Wound Type: pressure ulcer Danny Test: Does not Danny Pressure Ulcer Stage: deep tissue injury Wound Thickness: Full Thickness Wound Length: 2.0 Wound Width: 2.0 Wound Depth: utd Percent of Wound Purple/Maroon: 100 Wound Drainage Amount: None Wound Drainage Odor: None/Absent Tissue Surrounding Wound: Intact Wound General Appearance: Reddened Wound Assessment #4: Wound Number: #4 Wound Present on Admission: Yes New Wound: No Status Change of Wound: No Wound Location Body Site Modif: mid Wound Location Body Site: sacral Wound Type: pressure ulcer Danny Test: Does not Danny Wound Thickness: Full Thickness - scar tissue Wound Length: 6.0 Wound Width: 5.0 Wound Depth: utd Percent of Wound [place]/Red: 100 Wound Drainage Amount: None Wound Drainage Odor: None/Absent Tissue Surrounding Wound: Intact Wound General Appearance: Asymptomatic Wound Comment #1 Right buttock stage III pressure ulcer with extensive scar tissue on the surrounding area #2 Right heel DTI pressure ulcer #3 Left heel DTI pressure ulcer #4 Sacral area scar tissue pressure ulcer #5 Full thickness scar tissue noted on right ischial tuberosity and left trochanter. Pt is at risk for skin breakdown. Recommendation -Right buttock pressure ulcer Cleanse with saline pat dry apply Triad cream cover with bordered Gauze daily and PRN soiled/dislodged -Local wound care per protocol for DTI on left and right heels -Optimize nutrition -Keep clean and dry -Low air loss mattress -Turn and reposition -Offload both heels -Heel protector on both heels -Assess and f/u accordingly for any changes RAISA QUIROZ RN March 09, 2017 20:25
--- NOTE | 2017-03-09 20:32 | Consultation ---
DATE OF CONSULTATION: 03/09/2017 INFECTIOUS DISEASE CONSULTATION: CONSULTING PHYSICIAN: Kacey Olivo M.D. REQUESTING PHYSICIAN: David Bowie M.D. REASON FOR CONSULTATION: Urinary tract infection and recommendation for antibiotic therapy. The patient had a history of multi-drug resistant organism. HISTORY OF PRESENT ILLNESS: The patient is an 81-year-old male with complicated past medical history including diabetes, COPD, and dementia, was sent from [facility] due to abnormal lab with elevated BUN and creatinine. BUN was 100 and creatinine was 2.6. The patient was found to have urinary tract infection due to the fact that he had a history of ESBL urine infection, producing bacteria in the past. I was consulted by the primary provider for antibiotics choice and further management. As of now, the patient is a poor historian. PAST MEDICAL HISTORY: Significant for hypertension, COPD, diabetes, and dementia. PAST SURGICAL HISTORY: Tracheostomy and G-tube placement. SOCIAL HISTORY: half-way resident. No recent drugs, tobacco, or alcohol. FAMILY HISTORY: Not able to obtain. ALLERGIES: No known drug allergies. MEDICATIONS: The patient received in the emergency room. For the rest of his medications, please refer to the [facility]. PHYSICAL EXAMINATION: VITAL SIGNS: Temperature is 97.7 degrees, pulse 93, respirations 18, blood pressure 126/66, and saturation 99% on mechanical ventilation with FiO2 of 45%. GENERAL: This is an elderly male, lying in bed, unresponsive, nonverbal, and not in acute distress, on mechanical ventilation with a trach. HEENT: Normocephalic and atraumatic. Pupils are reactive to light. Moist oral mucosa. NECK: Supple with tracheostomy site looks clean. CARDIOVASCULAR: Regular rate and rhythm. No murmur or gallop. LUNGS: He has decreased sounds at the bases. No wheezes or rhonchi. ABDOMEN: Soft, nontender, and nondistended. Positive bowel sounds. PEG tube site looks intact. EXTREMITIES: No edema or cyanosis. SKIN: He had right sacral pressure wound with no pus or drainage. No foul smelling, with good granulation. LABORATORY DATA: Labs showed white count of 10.7 and creatinine of 2.4. Urinalysis showed +3 leukocyte esterase, WBCs 20 to 30, and moderate amount of bacteria. IMAGING DATA: Chest x-ray showed no effusion, no consolidation, no pneumothorax, and no acute disease. ASSESSMENT AND RECOMMENDATION: 1. Urinary tract infection with history of Extended-spectrum beta-lactamases producing organism. We will start ertapenem. Pending culture results. 2. Pressure ulcer, not infected. Continue local wound care and offloading. 3. Acute prerenal azotemia. Continue intravenous fluids for hydration. Monitor urine output. 4. Diabetes, out of control. Recommend tight insulin control to keep his glucose between 80 to 120. Thank you for the consult. Kacey Olivo M.D. DR: Poncho JOB#: [id number] CC:
[2017-03-09] MEDS: Levemir Flexpen SUBQ SCH (21:50)
[2017-03-10] VITALS: BP 126/70
[2017-03-10] MEDS: DuoNeb 0.5-3(2.5)mg/3ml neb HHN SCH ×4 (01:18→18:47)
--- NOTE | 2017-03-10 02:01 | History and Physical Report ---
DATE OF ADMISSION: 03/09/2017 HISTORY OF PRESENT ILLNESS: The patient is nonverbal, which is his baseline. Comes in because of renal failure on top of chronic renal failure with severe hypernatremia, and elevated blood sugar with labile blood sugar. The patient has trach and is also admitted with UTI that grew ESBL in the past. The patient seems to have recurrence of the UTI as well at this point. I cannot obtain any history because the patient is nonverbal. PAST MEDICAL HISTORY: Again is significant for bradycardia, history of hypernatremia, history of bowel obstruction, history of proctitis, history of osteoporosis, history of gallstones, history of electrolyte imbalance, history of C. diff, history of pneumonia, history of sepsis, history of GI bleed, history of chronic respiratory insufficiency, history of COPD, NIDDM, history of constipation, GERD, and BPH. PAST SURGICAL HISTORY: Trach and PEG. MEDICATIONS: Vitamin C, Colace, Pepcid, ferrous sulfate, finasteride, insulin, lactulose, metformin, omeprazole, and Protonix. ALLERGIES: No known allergies. SOCIAL HISTORY: Unable to obtain. FAMILY HISTORY: Unable to obtain. REVIEW OF SYSTEMS: Unable to obtain. The patient is nonverbal. PHYSICAL EXAMINATION: VITAL SIGNS: Temperature is 97.7 degrees, pulse 93, and blood pressure 126/63. HEENT: PERRLA. NECK: Supple. CHEST: Bibasilar rales. CARDIOVASCULAR: Regular rate and rhythm. Does have murmur, which is chronic. GASTROINTESTINAL: Distended. Positive bowel sounds. No rebound. G-tube and trach site are intact. The patient does have anasarca, which is chronic. NEUROLOGIC: Is nonverbal, which is his chronic state. LABORATORY DATA: WBC of 10.7, hemoglobin 10.8, and platelets 192,000. Sodium 153, potassium 5.4, BUN 105, creatinine 2.4, and glucose of 395. Alkaline phosphatase is 144. ASSESSMENT AND PLAN: 1. Hypernatremia. 2. Acute renal failure on top of chronic renal failure. 3. Labile blood sugar, uncontrolled diabetes. 4. The patient grew Extended-spectrum beta-lactamase urinary tract infection in the past. 5. I have asked Dr. Morris, Dr. Loera, Dr. Soares and Dr. Olivo to see the patient for the above-mentioned diagnoses and treatment. Antibiotics per Dr. Olivo. David Bowie M.D. DR: STEW JOB#: [id number] CC:
[2017-03-10] MEDS: Ertapenem 1 GM in NS 55 ML IVPB SCH (02:33)
[2017-03-10 04:00] VITALS: BP 117/69
[2017-03-10 04:27] LABS: ALANINE AMINOTRANSFERASE 15 U/L (3-41); ALBUMIN/GLOBULIN RATIO 0.4 (1.0-2.7); ANION GAP 13 (5-15); ASPARTATE AMINO TRANSFERASE 12 U/L (5-40); CALCIUM 9.6 mg/dL (8.6-10.2); CARBON DIOXIDE 26 mEQ/L (20-30); CHLORIDE 117 mEQ/L (98-107); CREATININE 2.1 mg/dL (0.7-1.2); CRP QUANT 8.8 mg/dL (< 0.5); HEMOLYSIS 1; MAGNESIUM 3.1 mg/dL (1.7-2.5); PHOSPHORUS 3.4 mg/dL (2.5-4.8); POTASSIUM 4.8 mEQ/L (3.4-4.9); SODIUM 156 mEQ/L (135-145); TOTAL PROTEIN 9.8 g/dL (6.6-8.7); URIC ACID 11.2 mg/dL (3.0-7.5)
[2017-03-10 04:33] LABS: BASOPHILS % (AUTO) 0.6 % (0.0-2.0); EOSINOPHILS % (AUTO) 1.9 % (0.0-3.0); LYMPHOCYTES % (AUTO) 18.7 % (20.0-45.0); MEAN CORPUSCULAR HEMOGLOBIN 30.1 PG (27.0-31.0); MEAN CORPUSCULAR HGB CONC 30.4 G/DL (32.0-36.0); MEAN CORPUSCULAR VOLUME 99 FL (80-99); MEAN PLATELET VOLUME 10.2 FL (6.5-10.1); MONOCYTES % (AUTO) 8.7 % (1.0-10.0); NEUTROPHILS % (AUTO) 70.2 % (45.0-75.0); PLATELET COUNT 145 K/UL (150-450); RED BLOOD COUNT 3.01 M/UL (4.70-6.10); RED CELL DISTRIBUTION WIDTH 19.5 % (11.6-14.8); WHITE BLOOD COUNT 9.9 K/UL (4.8-10.8)
[2017-03-10] MEDS: NovoLOG Insulin Flexpen SUBQ SCH ×4 (06:03→23:58)
[2017-03-10 08:00] VITALS: BP 107/81
[2017-03-10] MEDS: Levemir Flexpen SUBQ SCH ×3 (08:17→20:43)
--- NOTE | 2017-03-10 08:31 | General Progress Note ---
Assessment/Plan Problem List: (1) Dementia ICD Codes: F03.90 - Dementia SNOMED: 39517987 (2) Sepsis ICD Codes: A41.9 - Sepsis, unspecified organism SNOMED: 94510638 (3) Feeding by G-tube ICD Codes: Z93.1 - Feeding by G-tube SNOMED: 563711104 (4) Tracheostomy status (5) Diabetes mellitus out of control ICD Codes: E11.65 - Diabetes mellitus out of control SNOMED: 553694580 (6) UTI (urinary tract infection) ICD Codes: N39.0 - Urinary tract infection, site not specified SNOMED: 22092656 Assessment/Plan increase Levemir to 20 units bid continue Novolog SSI Subjective ROS Limited/Unobtainable: Yes Allergies: Coded Allergies: NO KNOWN DRUG ALLERGIES (Unverified Allergy, Unknown, 10/29/14) Subjective events noted Objective Last 24 Hour Vital Signs Date Time Temp Pulse Resp B/P Pulse Ox O2 Delivery O2 Flow Rate FiO2 03/10/17 07:39 98 18 100 Mechanical Ventilator 45 03/10/17 07:29 45 03/10/17 07:29 96 18 45 03/10/17 07:29 96 18 99 Mechanical Ventilator 45 03/10/17 04:00 97.7 101 18 117/69 100 Mechanical Ventilator 45 03/10/17 04:00 94 03/10/17 04:00 45 03/10/17 03:15 98 18 45 03/10/17 03:01 99 16 98 Mechanical Ventilator 45 03/10/17 01:19 97 20 99 Mechanical Ventilator 45 03/10/17 01:19 45 03/10/17 01:18 97 18 45 03/10/17 00:00 98.3 91 18 126/70 100 Mechanical Ventilator 45 03/10/17 00:00 92 03/10/17 00:00 45 03/09/17 23:20 95 18 45 03/09/17 21:20 97 18 45 03/09/17 20:00 45 03/09/17 20:00 90 03/09/17 20:00 97.6 88 18 148/58 100 Mechanical Ventilator 45 03/09/17 19:39 96 18 98 Mechanical Ventilator 45 03/09/17 19:28 45 03/09/17 19:28 96 18 99 Mechanical Ventilator 45 03/09/17 19:22 96 18 45 03/09/17 17:00 89 18 45 03/09/17 16:00 45 03/09/17 16:00 92 03/09/17 16:00 97.0 93 18 105/59 100 Mechanical Ventilator 45 03/09/17 14:40 89 18 45 03/09/17 13:10 93 18 45 03/09/17 12:00 45 03/09/17 12:00 91 03/09/17 12:00 97.7 93 19 105/61 100 Mechanical Ventilator 45 03/09/17 10:40 88 18 45 03/09/17 08:50 91 19 45 Intake and Output 03/09/17 03/10/17 19:00 07:00 Intake Total 835 ml 1503.7 ml Balance 835 ml 1503.7 ml Free Water 100 ml 300 ml IV Total 695 ml 843.7 ml Tube Feeding 40 ml 360 ml # Bowel Movements 1 Laboratory Tests 03/09/17 14:00: Urine Color Pale yellow, Urine Appearance Slightly cloudy, Urine pH 9, Urine Specific [place] 1.015, Urine Protein 3+H, Urine Glucose (UA) Negative, Urine Ketones Negative, Urine Occult Blood 3+H, Urine Nitrite PositiveH, Urine Bilirubin Negative, Urine Urobilinogen Normal, Urine Leukocyte Esterase 3+H, Urine RBC 15-20H, Urine WBC 2-4, Urine Squamous Epithelial Cells None, Urine Triple Phosphate Crystals ManyH, Urine Bacteria ManyH, Urine Random Sodium 40 03/10/17 01:00: Urine Eosinophils None seen 03/10/17 03:10: White Blood Count 9.9, Red Blood Count 3.01L, Hemoglobin 9.1L, Hematocrit 29.9L , Mean Corpuscular Volume 99, Mean Corpuscular Hemoglobin 30.1, Mean Corpuscular Hemoglobin Concent 30.4L, Red Cell Distribution Width 19.5H, Platelet Count 145L, Mean Platelet Volume 10.2H, Neutrophils (%) (Auto) 70.2, Lymphocytes (%) (Auto) 18.7L, Monocytes (%) (Auto) 8.7, Eosinophils (%) (Auto) 1.9, Basophils (%) (Auto) 0.6, Sodium Level 156H, Potassium Level 4.8, Chloride Level 117H, Carbon Dioxide Level 26, Anion Gap 13, Blood Urea Nitrogen 91H, Creatinine 2.1H, Estimat Glomerular Filtration Rate , Glucose Level 256#H, Hemoglobin A1c 9.2H, Uric Acid 11.2H, Calcium Level 9.6, Phosphorus Level 3.4, Magnesium Level 3.1H, Total Bilirubin 0.4, Gamma Glutamyl Transpeptidase 85H, Aspartate Amino Transf (AST/SGOT) 12, Alanine Aminotransferase (ALT/SGPT) 15, Alkaline Phosphatase 107, Total Creatine Kinase 122, C-Reactive Protein, Quantitative 8.8H, Pro-B-Type Natriuretic Peptide 132, Total Protein 9.8H, Albumin 3.2L, Globulin 6.6, Albumin/Globulin Ratio 0.4L Height (Feet): 6 Height (Inches): 0.00 Weight (Pounds): 260 General Appearance: moderate distress Neck: other - trach Cardiovascular: normal peripheral pulses Respiratory/Chest: decreased breath sounds Abdomen: other - PEG Pelvis: normal external exam Edema: 1+ Arm (L), 1+ Arm (R), 1+ Leg (L), 1+ Leg (R), 1+ Pedal (L), 1+ Pedal ( R), 1+ Generalized Objective Item Value Date Time Bedside Blood Glucose 294 mg/dl H 03/10/17 0817 Bedside Blood Glucose 290 mg/dl H 03/10/17 0603 Bedside Blood Glucose 251 mg/dl H 03/10/17 0000 Bedside Blood Glucose 308 mg/dl H 03/09/17 2150 Bedside Blood Glucose 273 mg/dl H 03/09/17 1800 Bedside Blood Glucose 290 mg/dl H 03/09/17 1200 Bedside Blood Glucose 288 mg/dl H 03/09/17 0941 Current Medications Medications (Trade) Dose Ordered Sig/Shubham Route PRN Reason Start Time Stop Time Status Last Admin Dose Admin Albuterol/ Ipratropium (DuoNeb 0.5-3(2.5)mg/3ml) 3 ml Q6HRT HHN 03/09/17 13:00 03/14/17 12:59 03/10/17 07:29 Dextrose (Dextrose 50%) STAT PRN IV Hypoglycemia 03/09/17 21:00 04/08/17 20:59 Dextrose STAT PRN IV Hypoglycemia 03/09/17 05:45 04/08/17 05:44 Ertapenem 1 gm/ Sodium Chloride 55 ml @ 110 mls/hr Q24H IVPB 03/10/17 03:00 03/15/17 02:59 03/10/17 02:33 Insulin Aspart (NovoLOG) BEFORE MEALS AND HS SUBQ 03/09/17 06:30 04/08/17 06:29 03/10/17 06:03 Insulin Detemir (Levemir) 10 units Q12H SUBQ 03/09/17 21:00 04/08/17 20:59 03/10/17 08:17 Sodium Chloride (0.45% NS 1000ml) 1,000 ml @ 75 mls/hr [id number] IV 03/09/17 09:00 04/08/17 08:59 03/09/17 21:46 TOMMIE GARDNER March 10, 2017 08:31
--- NOTE | 2017-03-10 09:04 | Pulmonology Progress Note ---
Assessment/Plan Problems: (1) ARF (acute renal failure) (2) Respiratory insufficiency (3) Tracheostomy status (4) COPD (chronic obstructive pulmonary disease) (5) Diabetes mellitus out of control (6) HTN (hypertension) Respiratory: monitor respiratory rate, adjust FIO2, CXR Cardiac: continue pressors, continue to monitor HR/BP Renal: F/U I&O, keep IV fluid Infectious Disease: check cultures Gastrointestinal: continue feedings/current rate, hold feedings Endocrine: monitor blood sugar, check TSH, continue sliding scale insulin Hematologic: monitor H/H, transfuse if hgb<8.5 Neurologic: PRN Ativan, PRN Morphine, keep patient comfortable Prophylaxis: Heparin Time Spent (Minutes): 40 Notes Reviewed: licensed practical vocational nurse, cardio, 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, consultants, welfare case worker Subjective ROS Limited/Unobtainable: No Constitutional: Reports: no symptoms Respiratory: Reports: no symptoms Allergies: Coded Allergies: NO KNOWN DRUG ALLERGIES (Unverified Allergy, Unknown, 10/29/14) Objective Last 24 Hour Vital Signs Date Time Temp Pulse Resp B/P Pulse Ox O2 Delivery O2 Flow Rate FiO2 03/10/17 07:39 98 18 100 Mechanical Ventilator 45 03/10/17 07:29 45 03/10/17 07:29 96 18 45 03/10/17 07:29 96 18 99 Mechanical Ventilator 45 03/10/17 04:00 97.7 101 18 117/69 100 Mechanical Ventilator 45 03/10/17 04:00 94 03/10/17 04:00 45 03/10/17 03:15 98 18 45 03/10/17 03:01 99 16 98 Mechanical Ventilator 45 03/10/17 01:19 97 20 99 Mechanical Ventilator 45 03/10/17 01:19 45 03/10/17 01:18 97 18 45 03/10/17 00:00 98.3 91 18 126/70 100 Mechanical Ventilator 45 03/10/17 00:00 92 03/10/17 00:00 45 03/09/17 23:20 95 18 45 03/09/17 21:20 97 18 45 03/09/17 20:00 45 03/09/17 20:00 90 03/09/17 20:00 97.6 88 18 148/58 100 Mechanical Ventilator 45 03/09/17 19:39 96 18 98 Mechanical Ventilator 45 03/09/17 19:28 45 03/09/17 19:28 96 18 99 Mechanical Ventilator 45 03/09/17 19:22 96 18 45 03/09/17 17:00 89 18 45 03/09/17 16:00 45 03/09/17 16:00 92 03/09/17 16:00 97.0 93 18 105/59 100 Mechanical Ventilator 45 03/09/17 14:40 89 18 45 03/09/17 13:10 93 18 45 03/09/17 12:00 45 03/09/17 12:00 91 03/09/17 12:00 97.7 93 19 105/61 100 Mechanical Ventilator 45 03/09/17 10:40 88 18 45 Intake and Output 03/09/17 03/10/17 19:00 07:00 Intake Total 835 ml 1503.7 ml Balance 835 ml 1503.7 ml Free Water 100 ml 300 ml IV Total 695 ml 843.7 ml Tube Feeding 40 ml 360 ml # Bowel Movements 1 General Appearance: WD/WN HEENT: normocephalic, atraumatic Respiratory/Chest: chest wall non-tender, lungs clear Cardiovascular: normal peripheral pulses, normal rate Abdomen: normal bowel sounds, soft, non tender Genitourinary: normal external genitalia Extremities: no cyanosis Neurologic/Psychiatric: sql data analyst II-XII grossly normal Microbiology Date/Time Source Procedure Growth Status 03/09/17 14:00 Sputum Gram Stain - Final Resulted 03/09/17 14:00 Sputum Sputum Culture Pending Resulted Laboratory Tests 03/09/17 14:00: Urine Color Pale yellow, Urine Appearance Slightly cloudy, Urine pH 9, Urine Specific [place] 1.015, Urine Protein 3+H, Urine Glucose (UA) Negative, Urine Ketones Negative, Urine Occult Blood 3+H, Urine Nitrite PositiveH, Urine Bilirubin Negative, Urine Urobilinogen Normal, Urine Leukocyte Esterase 3+H, Urine RBC 15-20H, Urine WBC 2-4, Urine Squamous Epithelial Cells None, Urine Triple Phosphate Crystals ManyH, Urine Bacteria ManyH, Urine Random Sodium 40 03/10/17 01:00: Urine Eosinophils None seen 03/10/17 03:10: White Blood Count 9.9, Red Blood Count 3.01L, Hemoglobin 9.1L, Hematocrit 29.9L , Mean Corpuscular Volume 99, Mean Corpuscular Hemoglobin 30.1, Mean Corpuscular Hemoglobin Concent 30.4L, Red Cell Distribution Width 19.5H, Platelet Count 145L, Mean Platelet Volume 10.2H, Neutrophils (%) (Auto) 70.2, Lymphocytes (%) (Auto) 18.7L, Monocytes (%) (Auto) 8.7, Eosinophils (%) (Auto) 1.9, Basophils (%) (Auto) 0.6, Sodium Level 156H, Potassium Level 4.8, Chloride Level 117H, Carbon Dioxide Level 26, Anion Gap 13, Blood Urea Nitrogen 91H, Creatinine 2.1H, Estimat Glomerular Filtration Rate , Glucose Level 256#H, Hemoglobin A1c 9.2H, Uric Acid 11.2H, Calcium Level 9.6, Phosphorus Level 3.4, Magnesium Level 3.1H, Total Bilirubin 0.4, Gamma Glutamyl Transpeptidase 85H, Aspartate Amino Transf (AST/SGOT) 12, Alanine Aminotransferase (ALT/SGPT) 15, Alkaline Phosphatase 107, Total Creatine Kinase 122, C-Reactive Protein, Quantitative 8.8H, Pro-B-Type Natriuretic Peptide 132, Total Protein 9.8H, Albumin 3.2L, Globulin 6.6, Albumin/Globulin Ratio 0.4L Current Medications Medications (Trade) Dose Ordered Sig/Shubham Route PRN Reason Start Time Stop Time Status Last Admin Dose Admin Albuterol/ Ipratropium (DuoNeb 0.5-3(2.5)mg/3ml) 3 ml Q6HRT HHN 03/09/17 13:00 03/14/17 12:59 03/10/17 07:29 Dextrose (Dextrose 50%) STAT PRN IV Hypoglycemia 03/09/17 21:00 04/08/17 20:59 Dextrose STAT PRN IV Hypoglycemia 03/09/17 05:45 04/08/17 05:44 Ertapenem 1 gm/ Sodium Chloride 55 ml @ 110 mls/hr Q24H IVPB 03/10/17 03:00 03/15/17 02:59 03/10/17 02:33 Insulin Aspart (NovoLOG) BEFORE MEALS AND HS SUBQ 03/09/17 06:30 04/08/17 06:29 03/10/17 06:03 Insulin Detemir (Levemir) 20 units Q12H SUBQ 03/10/17 09:00 04/09/17 08:59 Sodium Chloride (0.45% NS 1000ml) 1,000 ml @ 75 mls/hr [id number] IV 03/09/17 09:00 04/08/17 08:59 03/09/17 21:46 MICH FONSECA March 10, 2017 09:04
--- NOTE | 2017-03-10 09:18 | General Progress Note ---
Assessment/Plan Problem List: (1) Prerenal azotemia ICD Codes: R79.89 - Prerenal azotemia SNOMED: 949985845 (2) Azotemia ICD Codes: R79.89 - Azotemia SNOMED: 813858035 (3) Acute renal failure ICD Codes: N17.9 - Acute kidney failure, unspecified SNOMED: 37170546 (4) Hyperkalemia ICD Codes: E87.5 - Hyperkalemia; R65.21 - Severe sepsis with septic shock SNOMED: 03621015 (5) Ventilator dependence (6) Chronic respiratory failure ICD Codes: J96.10 - Chronic respiratory failure, unspecified whether with hypoxia or hypercapnia SNOMED: 81468030 (7) UTI (urinary tract infection) ICD Codes: N39.0 - Urinary tract infection, site not specified SNOMED: 64929698 (8) Dementia ICD Codes: F03.90 - Dementia SNOMED: 53214297 (9) Feeding by G-tube ICD Codes: Z93.1 - Feeding by G-tube SNOMED: 639445083 (10) Diabetes mellitus out of control ICD Codes: E11.65 - Diabetes mellitus out of control SNOMED: 857216040 (11) UTI (urinary tract infection) ICD Codes: N39.0 - Urinary tract infection, site not specified SNOMED: 42563457 Status: progressing Assessment/Plan arf is improving lyte abnormlity uti .abx per id no fever trach and peg Subjective ROS Limited/Unobtainable: Yes Constitutional: Reports: no symptoms Allergies: Coded Allergies: NO KNOWN DRUG ALLERGIES (Unverified Allergy, Unknown, 10/29/14) Objective Last 24 Hour Vital Signs Date Time Temp Pulse Resp B/P Pulse Ox O2 Delivery O2 Flow Rate FiO2 03/10/17 07:39 98 18 100 Mechanical Ventilator 45 03/10/17 07:29 45 03/10/17 07:29 96 18 45 03/10/17 07:29 96 18 99 Mechanical Ventilator 45 03/10/17 04:00 97.7 101 18 117/69 100 Mechanical Ventilator 45 03/10/17 04:00 94 03/10/17 04:00 45 03/10/17 03:15 98 18 45 03/10/17 03:01 99 16 98 Mechanical Ventilator 45 03/10/17 01:19 97 20 99 Mechanical Ventilator 45 03/10/17 01:19 45 03/10/17 01:18 97 18 45 03/10/17 00:00 98.3 91 18 126/70 100 Mechanical Ventilator 45 03/10/17 00:00 92 03/10/17 00:00 45 03/09/17 23:20 95 18 45 03/09/17 21:20 97 18 45 03/09/17 20:00 45 03/09/17 20:00 90 03/09/17 20:00 97.6 88 18 148/58 100 Mechanical Ventilator 45 03/09/17 19:39 96 18 98 Mechanical Ventilator 45 03/09/17 19:28 45 03/09/17 19:28 96 18 99 Mechanical Ventilator 45 03/09/17 19:22 96 18 45 03/09/17 17:00 89 18 45 03/09/17 16:00 45 03/09/17 16:00 92 03/09/17 16:00 97.0 93 18 105/59 100 Mechanical Ventilator 45 03/09/17 14:40 89 18 45 03/09/17 13:10 93 18 45 03/09/17 12:00 45 03/09/17 12:00 91 03/09/17 12:00 97.7 93 19 105/61 100 Mechanical Ventilator 45 03/09/17 10:40 88 18 45 Intake and Output 03/09/17 03/10/17 19:00 07:00 Intake Total 835 ml 1503.7 ml Balance 835 ml 1503.7 ml Free Water 100 ml 300 ml IV Total 695 ml 843.7 ml Tube Feeding 40 ml 360 ml # Bowel Movements 1 Laboratory Tests 03/09/17 14:00: Urine Color Pale yellow, Urine Appearance Slightly cloudy, Urine pH 9, Urine Specific [place] 1.015, Urine Protein 3+H, Urine Glucose (UA) Negative, Urine Ketones Negative, Urine Occult Blood 3+H, Urine Nitrite PositiveH, Urine Bilirubin Negative, Urine Urobilinogen Normal, Urine Leukocyte Esterase 3+H, Urine RBC 15-20H, Urine WBC 2-4, Urine Squamous Epithelial Cells None, Urine Triple Phosphate Crystals ManyH, Urine Bacteria ManyH, Urine Random Sodium 40 03/10/17 01:00: Urine Eosinophils None seen 03/10/17 03:10: White Blood Count 9.9, Red Blood Count 3.01L, Hemoglobin 9.1L, Hematocrit 29.9L , Mean Corpuscular Volume 99, Mean Corpuscular Hemoglobin 30.1, Mean Corpuscular Hemoglobin Concent 30.4L, Red Cell Distribution Width 19.5H, Platelet Count 145L, Mean Platelet Volume 10.2H, Neutrophils (%) (Auto) 70.2, Lymphocytes (%) (Auto) 18.7L, Monocytes (%) (Auto) 8.7, Eosinophils (%) (Auto) 1.9, Basophils (%) (Auto) 0.6, Sodium Level 156H, Potassium Level 4.8, Chloride Level 117H, Carbon Dioxide Level 26, Anion Gap 13, Blood Urea Nitrogen 91H, Creatinine 2.1H, Estimat Glomerular Filtration Rate , Glucose Level 256#H, Hemoglobin A1c 9.2H, Uric Acid 11.2H, Calcium Level 9.6, Phosphorus Level 3.4, Magnesium Level 3.1H, Total Bilirubin 0.4, Gamma Glutamyl Transpeptidase 85H, Aspartate Amino Transf (AST/SGOT) 12, Alanine Aminotransferase (ALT/SGPT) 15, Alkaline Phosphatase 107, Total Creatine Kinase 122, C-Reactive Protein, Quantitative 8.8H, Pro-B-Type Natriuretic Peptide 132, Total Protein 9.8H, Albumin 3.2L, Globulin 6.6, Albumin/Globulin Ratio 0.4L Height (Feet): 6 Height (Inches): 0.00 Weight (Pounds): 260 Neck: supple Cardiovascular: normal rate Respiratory/Chest: lungs clear Abdomen: soft David Bowie MD March 10, 2017 09:18
--- NOTE | 2017-03-10 10:44 | General Progress Note ---
Assessment/Plan Status: unchanged Assessment/Plan Acute Renal Failure- Pre Renal / Super Imposed on Renal Respiratory failure- UTI h/o Anemia Decubs h/o DVT Other conditions: 1. Acute on chronic respiratory failure. 2. h/o Severe sepsis. 3. Ventilator-dependent respiratory failure. 4. Chronic obstructive pulmonary disease. 5. History of deep venous thrombosis. 6. Hypoalbuminemia. 7. h/o Clostridium difficile colitis. 8. Pressure ulcers on sacrococcygeal down to buttocks, right ischial tuberosity, and right heel and right trochanter present on admission. 9. h/o Urinary tract infection, Proteus mirabilis. 10. h/o Acute deep venous thrombosis of the right lower extremity, on heparin and bridged to Coumadin. 11. Tracheostomy status. 12. Gastrostomy tube feeding. 13. Diabetes mellitus. Plan: Slow IV hydration- BS control- keep BP under control- Avoid Nephrotoxics- monitor lytes and renal parameters- Subjective ROS Limited/Unobtainable: Yes Allergies: Coded Allergies: NO KNOWN DRUG ALLERGIES (Unverified Allergy, Unknown, 10/29/14) Objective Last 24 Hour Vital Signs Date Time Temp Pulse Resp B/P Pulse Ox O2 Delivery O2 Flow Rate FiO2 03/10/17 09:00 95 18 45 03/10/17 08:00 97.2 100 20 107/81 100 Mechanical Ventilator 45 03/10/17 08:00 45 03/10/17 08:00 99 03/10/17 07:39 98 18 100 Mechanical Ventilator 45 03/10/17 07:29 45 03/10/17 07:29 96 18 45 03/10/17 07:29 96 18 99 Mechanical Ventilator 45 03/10/17 04:00 97.7 101 18 117/69 100 Mechanical Ventilator 45 03/10/17 04:00 94 03/10/17 04:00 45 03/10/17 03:15 98 18 45 03/10/17 03:01 99 16 98 Mechanical Ventilator 45 03/10/17 01:19 97 20 99 Mechanical Ventilator 45 03/10/17 01:19 45 03/10/17 01:18 97 18 45 03/10/17 00:00 98.3 91 18 126/70 100 Mechanical Ventilator 45 03/10/17 00:00 92 03/10/17 00:00 45 03/09/17 23:20 95 18 45 03/09/17 21:20 97 18 45 03/09/17 20:00 45 03/09/17 20:00 90 03/09/17 20:00 97.6 88 18 148/58 100 Mechanical Ventilator 45 03/09/17 19:39 96 18 98 Mechanical Ventilator 45 03/09/17 19:28 45 03/09/17 19:28 96 18 99 Mechanical Ventilator 45 03/09/17 19:22 96 18 45 03/09/17 17:00 89 18 45 03/09/17 16:00 45 03/09/17 16:00 92 03/09/17 16:00 97.0 93 18 105/59 100 Mechanical Ventilator 45 03/09/17 14:40 89 18 45 03/09/17 13:10 93 18 45 03/09/17 12:00 45 03/09/17 12:00 91 03/09/17 12:00 97.7 93 19 105/61 100 Mechanical Ventilator 45 Intake and Output 03/09/17 03/10/17 19:00 07:00 Intake Total 835 ml 1503.7 ml Balance 835 ml 1503.7 ml Free Water 100 ml 300 ml IV Total 695 ml 843.7 ml Tube Feeding 40 ml 360 ml # Bowel Movements 1 Laboratory Tests 03/09/17 14:00: Urine Color Pale yellow, Urine Appearance Slightly cloudy, Urine pH 9, Urine Specific [place] 1.015, Urine Protein 3+H, Urine Glucose (UA) Negative, Urine Ketones Negative, Urine Occult Blood 3+H, Urine Nitrite PositiveH, Urine Bilirubin Negative, Urine Urobilinogen Normal, Urine Leukocyte Esterase 3+H, Urine RBC 15-20H, Urine WBC 2-4, Urine Squamous Epithelial Cells None, Urine Triple Phosphate Crystals ManyH, Urine Bacteria ManyH, Urine Random Sodium 40 03/10/17 01:00: Urine Eosinophils None seen 03/10/17 03:10: White Blood Count 9.9, Red Blood Count 3.01L, Hemoglobin 9.1L, Hematocrit 29.9L , Mean Corpuscular Volume 99, Mean Corpuscular Hemoglobin 30.1, Mean Corpuscular Hemoglobin Concent 30.4L, Red Cell Distribution Width 19.5H, Platelet Count 145L, Mean Platelet Volume 10.2H, Neutrophils (%) (Auto) 70.2, Lymphocytes (%) (Auto) 18.7L, Monocytes (%) (Auto) 8.7, Eosinophils (%) (Auto) 1.9, Basophils (%) (Auto) 0.6, Sodium Level 156H, Potassium Level 4.8, Chloride Level 117H, Carbon Dioxide Level 26, Anion Gap 13, Blood Urea Nitrogen 91H, Creatinine 2.1H, Estimat Glomerular Filtration Rate , Glucose Level 256#H, Hemoglobin A1c 9.2H, Uric Acid 11.2H, Calcium Level 9.6, Phosphorus Level 3.4, Magnesium Level 3.1H, Total Bilirubin 0.4, Gamma Glutamyl Transpeptidase 85H, Aspartate Amino Transf (AST/SGOT) 12, Alanine Aminotransferase (ALT/SGPT) 15, Alkaline Phosphatase 107, Total Creatine Kinase 122, C-Reactive Protein, Quantitative 8.8H, Pro-B-Type Natriuretic Peptide 132, Total Protein 9.8H, Albumin 3.2L, Globulin 6.6, Albumin/Globulin Ratio 0.4L Height (Feet): 6 Height (Inches): 0.00 Weight (Pounds): 260 General Appearance: no apparent distress EENT: other - trach Neck: limited range of motion Cardiovascular: tachycardia Respiratory/Chest: decreased breath sounds Abdomen: soft, distended Objective other PE not changed COLTEN DIEGO March 10, 2017 10:44
[2017-03-10 12:00] VITALS: BP 118/67
--- NOTE | 2017-03-10 14:07 | Infectious Diseases Prog Note ---
Assessment/Plan Problems: (1) UTI (urinary tract infection) Assessment & Plan: with H/O ESBL producing organisms, continue ertapenem pending culture results (2) Pressure ulcer Assessment & Plan: not infected, continue local wound care and off loading (3) Acute prerenal azotemia Assessment & Plan: continue IVF for hydration, monitor UOP, consult renal (4) Diabetes mellitus out of control Assessment & Plan: recommend tight glycemic control to keep blood glucose between 80-120 Subjective ROS Limited/Unobtainable: Yes Allergies: Coded Allergies: NO KNOWN DRUG ALLERGIES (Unverified Allergy, Unknown, 10/29/14) Subjective he was resting in bed, comfortable, afebrile. Objective Vital Signs Last 24 Hour Vital Signs Date Time Temp Pulse Resp B/P Pulse Ox O2 Delivery O2 Flow Rate FiO2 03/10/17 12:55 97 21 99 Mechanical Ventilator 45 03/10/17 12:45 96 21 45 03/10/17 12:45 96 21 98 Mechanical Ventilator 45 03/10/17 12:45 45 03/10/17 12:00 97.9 98 20 118/67 100 Mechanical Ventilator 45 03/10/17 12:00 45 03/10/17 12:00 101 03/10/17 11:06 98 18 45 03/10/17 09:00 95 18 45 03/10/17 08:00 97.2 100 20 107/81 100 Mechanical Ventilator 45 03/10/17 08:00 45 03/10/17 08:00 99 03/10/17 07:39 98 18 100 Mechanical Ventilator 45 03/10/17 07:29 45 03/10/17 07:29 96 18 45 03/10/17 07:29 96 18 99 Mechanical Ventilator 45 03/10/17 04:00 97.7 101 18 117/69 100 Mechanical Ventilator 45 03/10/17 04:00 94 03/10/17 04:00 45 03/10/17 03:15 98 18 45 03/10/17 03:01 99 16 98 Mechanical Ventilator 45 03/10/17 01:19 97 20 99 Mechanical Ventilator 45 03/10/17 01:19 45 03/10/17 01:18 97 18 45 03/10/17 00:00 98.3 91 18 126/70 100 Mechanical Ventilator 45 03/10/17 00:00 92 03/10/17 00:00 45 03/09/17 23:20 95 18 45 03/09/17 21:20 97 18 45 03/09/17 20:00 45 03/09/17 20:00 90 03/09/17 20:00 97.6 88 18 148/58 100 Mechanical Ventilator 45 03/09/17 19:39 96 18 98 Mechanical Ventilator 45 03/09/17 19:28 45 03/09/17 19:28 96 18 99 Mechanical Ventilator 45 03/09/17 19:22 96 18 45 03/09/17 17:00 89 18 45 03/09/17 16:00 45 03/09/17 16:00 92 03/09/17 16:00 97.0 93 18 105/59 100 Mechanical Ventilator 45 03/09/17 14:40 89 18 45 Height (Feet): 6 Height (Inches): 0.00 Weight (Pounds): 260 General Appearance: WD/WN, no acute distress HEENT: normocephalic, atraumatic, anicteric, mucous membranes moist Respiratory/Chest: chest wall non-tender, lungs clear, normal breath sounds, no respiratory distress, no accessory muscle use Cardiovascular: normal peripheral pulses, normal rate, regular rhythm, no gallop/murmur, no JVD Abdomen: normal bowel sounds, soft, non tender, no organomegaly, non distended , no mass Extremities: no cyanosis, no clubbing Skin: no rash, no lesions, ulcers Microbiology Date/Time Source Procedure Growth Status 03/09/17 14:00 Sputum Gram Stain - Final Resulted 03/09/17 14:00 Sputum Sputum Culture - Preliminary NORMAL UPPER RESPIRATORY ANJEL AT 24 ... Resulted 03/09/17 14:00 Urine,Clean Catch Urine Culture - Preliminary Gram Negative Chad Resulted 03/09/17 01:15 Urine,Clean Catch Urine Culture - Preliminary Gram Negative Chad Resulted 03/09/17 01:15 Arm Right Blood Culture - Preliminary NO GROWTH AFTER 24 HOURS Resulted 03/09/17 01:00 Arm Left Blood Culture - Preliminary NO GROWTH AFTER 24 HOURS Resulted Laboratory Tests Test 03/10/17 01:00 03/10/17 03:10 Urine Eosinophils None seen White Blood Count 9.9 K/UL (4.8-10.8) Red Blood Count 3.01 M/UL (4.70-6.10) L Hemoglobin 9.1 G/DL (14.2-18.0) L Hematocrit 29.9 % (42.0-52.0) L Mean Corpuscular Volume 99 FL (80-99) Mean Corpuscular Hemoglobin 30.1 PG (27.0-31.0) Mean Corpuscular Hemoglobin Concent 30.4 G/DL (32.0-36.0) L Red Cell Distribution Width 19.5 % (11.6-14.8) H Platelet Count 145 K/UL (150-450) L Mean Platelet Volume 10.2 FL (6.5-10.1) H Neutrophils (%) (Auto) 70.2 % (45.0-75.0) Lymphocytes (%) (Auto) 18.7 % (20.0-45.0) L Monocytes (%) (Auto) 8.7 % (1.0-10.0) Eosinophils (%) (Auto) 1.9 % (0.0-3.0) Basophils (%) (Auto) 0.6 % (0.0-2.0) Sodium Level 156 mEQ/L (135-145) H Potassium Level 4.8 mEQ/L (3.4-4.9) Chloride Level 117 mEQ/L (98-107) H Carbon Dioxide Level 26 mEQ/L (20-30) Anion Gap 13 (5-15) Blood Urea Nitrogen 91 mg/dL (7-23) H Creatinine 2.1 mg/dL (0.7-1.2) H Estimat Glomerular Filtration Rate mL/min (>60) Glucose Level 256 mg/dL (74-106) #H Hemoglobin A1c 9.2 % (< 6.0) H Uric Acid 11.2 mg/dL (3.0-7.5) H Calcium Level 9.6 mg/dL (8.6-10.2) Phosphorus Level 3.4 mg/dL (2.5-4.8) Magnesium Level 3.1 mg/dL (1.7-2.5) H Total Bilirubin 0.4 mg/dL (0.0-1.2) Gamma Glutamyl Transpeptidase 85 U/L (8-61) H Aspartate Amino Transf (AST/SGOT) 12 U/L (5-40) Alanine Aminotransferase (ALT/SGPT) 15 U/L (3-41) Alkaline Phosphatase 107 U/L (40-129) Total Creatine Kinase 122 U/L (38-174) C-Reactive Protein, Quantitative 8.8 mg/dL (< 0.5) H Pro-B-Type Natriuretic Peptide 132 pg/mL (0-450) Total Protein 9.8 g/dL (6.6-8.7) H Albumin 3.2 g/dL (3.5-5.2) L Globulin 6.6 g/dL Albumin/Globulin Ratio 0.4 (1.0-2.7) L Current Medications Medications (Trade) Dose Ordered Sig/Shubham Route PRN Reason Start Time Stop Time Status Last Admin Dose Admin Albuterol/ Ipratropium (DuoNeb 0.5-3(2.5)mg/3ml) 3 ml Q6HRT HHN 03/09/17 13:00 03/14/17 12:59 03/10/17 12:45 Dextrose (D5W 1000ml) 1,000 ml @ 100 mls/hr Q10H IV 03/10/17 10:00 04/09/17 09:59 03/10/17 10:02 Dextrose (Dextrose 50%) STAT PRN IV Hypoglycemia 03/09/17 21:00 04/08/17 20:59 Dextrose STAT PRN IV Hypoglycemia 03/09/17 05:45 04/08/17 05:44 Ertapenem/Sodium Chloride (INVanz/Sodium Chloride) 55 ml @ 110 mls/hr Q24H IVPB 03/10/17 03:00 03/15/17 02:59 03/10/17 02:33 Insulin Aspart (NovoLOG) Q6HR SUBQ 03/10/17 18:00 04/09/17 17:59 Insulin Detemir 20 units 20 units Q12H SUBQ 03/10/17 09:00 04/09/17 08:59 Kacey Olivo M.D. March 10, 2017 14:07
[2017-03-10] MEDS ORDERED: 1/2 NS 1000ml IV ONE (14:09)
[2017-03-10 16:15] VITALS: BP_SYST 120; BP_SYST 131; BP_DIAS 63; BP_DIAS 78
[2017-03-10] MEDS ORDERED: D5 1/2NS 1000ml IV ONE (16:22)
[2017-03-10 20:07] VITALS: BP 107/80
[2017-03-10 21:08] LABS: HEMOLYSIS 8; IRON 36 ug/dL (59-158); TOTAL IRON BINDING CAPACITY 178 ug/dL (250-400)
[2017-03-10 21:17] LABS: FERRITIN 254 ng/mL (10-230)
[2017-03-10] MEDS: Heparin 5000 units/ml inj SUBQ SCH (22:12)
[2017-03-11] VITALS: BP 118/68
[2017-03-11] MEDS: DuoNeb 0.5-3(2.5)mg/3ml neb HHN SCH ×4 (01:00→19:09)
[2017-03-11] MEDS: Ertapenem 1 GM in NS 55 ML IVPB SCH (02:41)
--- NOTE | 2017-03-11 03:15 | Consultation ---
DATE OF CONSULTATION: 03/10/2017 HEMATOLOGY/ONCOLOGY CONSULTATION ADMITTING PHYSICIAN: REQUESTING PHYSICIAN: David Bowie M.D. CONSULTING PHYSICIAN: Julio Cesar Sanon M.D. REASON FOR CONSULTATION: DVT and anemia. CURRENT COMPLAINT/HISTORY OF PRESENT ILLNESS: Dear Dr. Bowie, Today, I had an opportunity to see one of your patient, Thaddeus Valdez, who as you well aware 81-year-old gentleman with multiple medical problems including acute respiratory failure, pneumonia, COPD, status post tracheostomy, diabetes, dementia, tremors, aphagia, and dysphagia, status post G-tube placement. The patient with history of renal failure. The patient with DNR Code Status. During evaluation, it was found that the patient developed significant anemia. My service was called to handle the issue of significant anemia. PAST MEDICAL HISTORY: 1. History of DVT, right lower extremity. 2. History of anemia. 3. Acute/chronic respiratory failure. 4. Pneumonia. 5. COPD. 6. Status post tracheostomy. 7. Dysphagia. 8. Status post G-tube placement. 9. Diabetes mellitus. 10. Coronary artery disease. 11. Hypertension. 12. UTI. 13. Decubitus. 14. DNR Code Status. MEDICATIONS: 1. Insulin. 2. Dextrose. 3. Albuterol. ALLERGIES: NKDA. SOCIAL HISTORY: No history of smoking. No history of alcohol abuse. No history of illicit drug use. FAMILY HISTORY: Unable to obtain. REVIEW OF SYSTEMS: Unobtainable secondary to the patient's condition. PHYSICAL EXAMINATION: VITAL SIGNS: T-max 97 degrees, respiratory rate 20, heart rate 80, and blood pressure 130/80. HEENT: Head: Normocephalic and atraumatic. NECK: Supple. No thyroid enlargement. No lymphadenopathy. LUNGS: Decreased breath sounds bilaterally with few rhonchi in the base. HEART: S1 and S2 regular. ABDOMEN: Soft and benign. No organomegaly present. Bowel sounds present. EXTREMITIES: No cyanosis, clubbing, or edema. LABORATORY DATA: WBC 10.7, hemoglobin 10.8, and platelets 192,000. Creatinine 2.4 and glucose 394. IMPRESSION: 1. Anemia of chronic disease. 2. Anemia of iron deficiency. 3. Anemia of kidney disease. 4. End-stage renal disease, hemodialysis dependent. 5. Sepsis. 6. Respiratory failure. 7. Pneumonia. 8. Chronic obstructive pulmonary disease. 9. History of deep venous thrombosis, right lower extremity. 10. History of gastrointestinal bleed. 11. Dysphagia. 12. Status post gastrostomy tube placement. 13. History of Clostridium difficile colitis. 14. Nik-qktdlwp-hzlriatwz diabetes mellitus. 15. Constipation. 16. Benign prostatic hypertrophy. 17. History of . 18. History of prostatitis. 19. History of bowel obstruction. 20. History of hyponatremia. 21. Bradycardia. 22. Hypertension. 23. Malnutrition. 24. Failure to thrive. 25. Do Not Resuscitate Code Status. RECOMMENDATIONS: 1. Watch count. 2. Watch coagulopathy. 3. Heparin subcutaneous. 4. PRBC transfusion p.r.n. basis. 5. Wound care. 6. Skin care. 7. Tracheostomy care. 8. Comfort care. 9. Pain control. 10. Antibiotic IV. 11. Respiratory treatment. 12. Infectious Disease followup. 13. Pulmonary followup. 14. Discussed with the staff. Julio Cesar Sanon MD DR: Kapil JOB#: [id number] CC:
[2017-03-11 04:00] VITALS: BP 107/80
[2017-03-11 04:24] LABS: BASOPHILS % (AUTO) 0.6 % (0.0-2.0); LYMPHOCYTES % (AUTO) 18.8 % (20.0-45.0); MEAN CORPUSCULAR HEMOGLOBIN 31.2 PG (27.0-31.0); MEAN CORPUSCULAR HGB CONC 31.6 G/DL (32.0-36.0); MEAN CORPUSCULAR VOLUME 99 FL (80-99); MEAN PLATELET VOLUME 8.4 FL (6.5-10.1); MONOCYTES % (AUTO) 9.9 % (1.0-10.0); NEUTROPHILS % (AUTO) 68.7 % (45.0-75.0); PLATELET COUNT 173 K/UL (150-450); RED BLOOD COUNT 2.92 M/UL (4.70-6.10); RED CELL DISTRIBUTION WIDTH 19.7 % (11.6-14.8); WHITE BLOOD COUNT 8.7 K/UL (4.8-10.8)
[2017-03-11 04:38] LABS: ALANINE AMINOTRANSFERASE 13 U/L (3-41); ALBUMIN/GLOBULIN RATIO 0.5 (1.0-2.7); ANION GAP 16 (5-15); ASPARTATE AMINO TRANSFERASE 11 U/L (5-40); CALCIUM 9.4 mg/dL (8.6-10.2); CARBON DIOXIDE 24 mEQ/L (20-30); CHLORIDE 110 mEQ/L (98-107); HEMOLYSIS 4; MAGNESIUM 2.7 mg/dL (1.7-2.5); POTASSIUM 4.9 mEQ/L (3.4-4.9); SODIUM 150 mEQ/L (135-145); TOTAL PROTEIN 9.4 g/dL (6.6-8.7)
[2017-03-11] MEDS: NovoLOG Insulin Flexpen SUBQ SCH ×3 (06:02→17:21)
[2017-03-11] MEDS: Heparin 5000 units/ml inj SUBQ SCH ×3 (06:03→21:35)
[2017-03-11 08:00] VITALS: BP 134/74
[2017-03-11] MEDS: Levemir Flexpen SUBQ SCH ×2 (08:10→20:34)
[2017-03-11] MEDS ORDERED: PRO-STAT LIQUID30 ML ORAL (08:38)
[2017-03-11] MEDS ORDERED: ALBUTEROL2.5 MG/3 M INH (08:38)
--- NOTE | 2017-03-11 10:16 | General Progress Note ---
Assessment/Plan Problem List: (1) Dementia ICD Codes: F03.90 - Dementia SNOMED: 80488225 (2) Sepsis ICD Codes: A41.9 - Sepsis, unspecified organism SNOMED: 82522981 (3) Feeding by G-tube ICD Codes: Z93.1 - Feeding by G-tube SNOMED: 673677047 (4) Tracheostomy status (5) Diabetes mellitus out of control ICD Codes: E11.65 - Diabetes mellitus out of control SNOMED: 322206141 (6) UTI (urinary tract infection) ICD Codes: N39.0 - Urinary tract infection, site not specified SNOMED: 10186132 Assessment/Plan increase Levemir to 30 units bid continue Novolog SSI reduce TF rate to 48 cc/hour discussed with RN Subjective ROS Limited/Unobtainable: Yes Allergies: Coded Allergies: NO KNOWN DRUG ALLERGIES (Unverified Allergy, Unknown, 10/29/14) Subjective TF held due to high residue glucose is still elevated Objective Last 24 Hour Vital Signs Date Time Temp Pulse Resp B/P Pulse Ox O2 Delivery O2 Flow Rate FiO2 03/11/17 09:18 102 18 45 03/11/17 08:00 45 03/11/17 08:00 98.5 107 19 134/74 100 Mechanical Ventilator 45 03/11/17 06:46 104 24 45 03/11/17 06:46 104 20 99 Mechanical Ventilator 45 03/11/17 06:46 104 20 99 Mechanical Ventilator 45 03/11/17 06:36 107 21 97 Mechanical Ventilator 45 03/11/17 06:36 45 03/11/17 05:05 104 24 45 03/11/17 04:00 111 03/11/17 04:00 45 03/11/17 04:00 98.5 99 20 107/80 100 Mechanical Ventilator 03/11/17 03:00 105 31 45 03/11/17 01:08 105 18 99 Mechanical Ventilator 45 03/11/17 01:01 45 03/11/17 01:00 103 20 45 03/11/17 01:00 103 20 99 Mechanical Ventilator 45 03/11/17 00:00 96.3 101 19 118/68 100 Mechanical Ventilator 03/11/17 00:00 45 03/11/17 00:00 103 03/10/17 22:56 101 20 45 03/10/17 21:10 97 21 45 03/10/17 20:07 98.5 99 20 107/80 100 Mechanical Ventilator 99 03/10/17 20:00 100 03/10/17 20:00 45 03/10/17 18:55 102 20 99 Mechanical Ventilator 45 03/10/17 18:46 45 03/10/17 18:46 101 21 99 Mechanical Ventilator 45 03/10/17 18:45 101 21 45 03/10/17 17:01 103 18 45 03/10/17 16:15 97.6 96 23 120/63 100 Mechanical Ventilator 45 96 03/10/17 16:00 45 03/10/17 16:00 97 03/10/17 14:38 120 18 45 03/10/17 12:55 97 21 99 Mechanical Ventilator 45 03/10/17 12:45 96 21 45 03/10/17 12:45 96 21 98 Mechanical Ventilator 45 03/10/17 12:45 45 03/10/17 12:00 97.9 98 20 118/67 100 Mechanical Ventilator 45 03/10/17 12:00 45 03/10/17 12:00 101 03/10/17 11:06 98 18 45 Intake and Output 03/10/17 03/11/17 19:00 07:00 Intake Total 2115 ml 625 ml Output Total 700 ml 550 ml Balance 1415 ml 75 ml Free Water 300 ml 100 ml IV Total 1050 ml 200 ml Tube Feeding 705 ml 325 ml Other 60 ml Output Urine Total 700 ml 550 ml # Bowel Movements 1 Laboratory Tests 03/11/17 03:50: White Blood Count 8.7, Red Blood Count 2.92L, Hemoglobin 9.1L, Hematocrit 28.9L , Mean Corpuscular Volume 99, Mean Corpuscular Hemoglobin 31.2H, Mean Corpuscular Hemoglobin Concent 31.6L, Red Cell Distribution Width 19.7H, Platelet Count 173, Mean Platelet Volume 8.4, Neutrophils (%) (Auto) 68.7, Lymphocytes (%) (Auto) 18.8L, Monocytes (%) (Auto) 9.9, Eosinophils (%) (Auto) 2.0, Basophils (%) (Auto) 0.6, Sodium Level 150H, Potassium Level 4.9, Chloride Level 110H, Carbon Dioxide Level 24, Anion Gap 16H, Blood Urea Nitrogen 78H, Creatinine 2.0H, Estimat Glomerular Filtration Rate , Glucose Level 394#H, Calcium Level 9.4, Phosphorus Level 3.0, Magnesium Level 2.7H, Total Bilirubin 0.2, Aspartate Amino Transf (AST/SGOT) 11, Alanine Aminotransferase (ALT/SGPT) 13, Alkaline Phosphatase 118, Total Protein 9.4H, Albumin 3.2L, Globulin 6.2, Albumin/Globulin Ratio 0.5L 03/11/17 04:00: Urine Eosinophils None seen, Stool Occult Blood [Pending] Height (Feet): 6 Height (Inches): 0.00 Weight (Pounds): 260 General Appearance: lethargic Neck: normal alignment Cardiovascular: regular rhythm Respiratory/Chest: decreased breath sounds Abdomen: normal bowel sounds, other - PEG Edema: 1+ Arm (L), 1+ Arm (R), 1+ Leg (L), 1+ Leg (R), 1+ Pedal (L), 1+ Pedal ( R), 1+ Generalized Objective Current Medications Medications (Trade) Dose Ordered Sig/Shubham Route PRN Reason Start Time Stop Time Status Last Admin Dose Admin Albuterol/ Ipratropium (DuoNeb 0.5-3(2.5)mg/3ml) 3 ml Q6HRT HHN 03/09/17 13:00 03/14/17 12:59 03/11/17 07:19 Dextrose (D5W 1000ml) 1,000 ml @ 100 mls/hr Q10H IV 03/10/17 10:00 04/09/17 09:59 03/10/17 20:07 Dextrose (Dextrose 50%) STAT PRN IV Hypoglycemia 03/09/17 21:00 04/08/17 20:59 Ertapenem/Sodium Chloride (INVanz/Sodium Chloride) 55 ml @ 110 mls/hr Q24H IVPB 03/10/17 03:00 03/15/17 02:59 03/11/17 02:41 Heparin Sodium (Porcine) (Heparin 5000 units/ml) 5,000 units EVERY 8 HOURS SUBQ 03/10/17 22:00 04/09/17 21:59 03/11/17 06:03 Insulin Aspart (NovoLOG) Q6HR SUBQ 03/10/17 18:00 04/09/17 17:59 03/11/17 06:02 Insulin Detemir 20 units 20 units Q12H SUBQ 03/10/17 09:00 04/09/17 08:59 03/11/17 08:10 Item Value Date Time Bedside Blood Glucose 333 mg/dl H 03/11/17 0810 Bedside Blood Glucose 375 mg/dl H 03/11/17 0602 Bedside Blood Glucose 374 mg/dl H 03/11/17 0000 Bedside Blood Glucose 348 mg/dl H 03/10/17 2043 TOMMIE GARDNER March 11, 2017 10:16
[2017-03-11 12:00] VITALS: BP 105/65
--- NOTE | 2017-03-11 13:36 | General Progress Note ---
Assessment/Plan Problem List: (1) Prerenal azotemia ICD Codes: R79.89 - Prerenal azotemia SNOMED: 692186913 (2) Azotemia ICD Codes: R79.89 - Azotemia SNOMED: 394647334 (3) Acute renal failure ICD Codes: N17.9 - Acute kidney failure, unspecified SNOMED: 52541948 (4) Hyperkalemia ICD Codes: E87.5 - Hyperkalemia; R65.21 - Severe sepsis with septic shock SNOMED: 65475825 (5) Ventilator dependence (6) Chronic respiratory failure ICD Codes: J96.10 - Chronic respiratory failure, unspecified whether with hypoxia or hypercapnia SNOMED: 96570987 (7) UTI (urinary tract infection) ICD Codes: N39.0 - Urinary tract infection, site not specified SNOMED: 76887836 (8) Dementia ICD Codes: F03.90 - Dementia SNOMED: 67347632 (9) Feeding by G-tube ICD Codes: Z93.1 - Feeding by G-tube SNOMED: 287356249 (10) Diabetes mellitus out of control ICD Codes: E11.65 - Diabetes mellitus out of control SNOMED: 591321000 (11) UTI (urinary tract infection) ICD Codes: N39.0 - Urinary tract infection, site not specified SNOMED: 32597867 Status: progressing Assessment/Plan afebrile vitals stable no wheezing uti anemia arf on top of cri trach and peg Subjective ROS Limited/Unobtainable: Yes Constitutional: Reports: no symptoms Allergies: Coded Allergies: NO KNOWN DRUG ALLERGIES (Unverified Allergy, Unknown, 10/29/14) Objective Last 24 Hour Vital Signs Date Time Temp Pulse Resp B/P Pulse Ox O2 Delivery O2 Flow Rate FiO2 03/11/17 12:52 105 22 45 03/11/17 12:52 103 20 99 Mechanical Ventilator 45 03/11/17 12:41 105 25 100 Mechanical Ventilator 45 03/11/17 12:41 45 03/11/17 12:00 98.1 108 24 105/65 100 Mechanical Ventilator 45 03/11/17 12:00 45 03/11/17 12:00 103 03/11/17 10:47 101 23 45 03/11/17 09:18 102 18 45 03/11/17 08:00 104 03/11/17 08:00 45 03/11/17 08:00 98.5 107 19 134/74 100 Mechanical Ventilator 45 03/11/17 06:46 104 24 45 03/11/17 06:46 104 20 99 Mechanical Ventilator 45 03/11/17 06:46 104 20 99 Mechanical Ventilator 45 03/11/17 06:36 107 21 97 Mechanical Ventilator 45 03/11/17 06:36 45 03/11/17 05:05 104 24 45 03/11/17 04:00 111 03/11/17 04:00 45 03/11/17 04:00 98.5 99 20 107/80 100 Mechanical Ventilator 03/11/17 03:00 105 31 45 03/11/17 01:08 105 18 99 Mechanical Ventilator 45 03/11/17 01:01 45 03/11/17 01:00 103 20 45 03/11/17 01:00 103 20 99 Mechanical Ventilator 45 03/11/17 00:00 96.3 101 19 118/68 100 Mechanical Ventilator 03/11/17 00:00 45 03/11/17 00:00 103 03/10/17 22:56 101 20 45 03/10/17 21:10 97 21 45 03/10/17 20:07 98.5 99 20 107/80 100 Mechanical Ventilator 99 03/10/17 20:00 100 03/10/17 20:00 45 03/10/17 18:55 102 20 99 Mechanical Ventilator 45 03/10/17 18:46 45 03/10/17 18:46 101 21 99 Mechanical Ventilator 45 03/10/17 18:45 101 21 45 03/10/17 17:01 103 18 45 03/10/17 16:15 97.6 96 23 120/63 100 Mechanical Ventilator 45 96 03/10/17 16:00 45 03/10/17 16:00 97 03/10/17 14:38 120 18 45 Intake and Output 03/10/17 03/11/17 19:00 07:00 Intake Total 2115 ml 625 ml Output Total 700 ml 550 ml Balance 1415 ml 75 ml Free Water 300 ml 100 ml IV Total 1050 ml 200 ml Tube Feeding 705 ml 325 ml Other 60 ml Output Urine Total 700 ml 550 ml # Bowel Movements 1 Laboratory Tests 03/11/17 03:50: White Blood Count 8.7, Red Blood Count 2.92L, Hemoglobin 9.1L, Hematocrit 28.9L , Mean Corpuscular Volume 99, Mean Corpuscular Hemoglobin 31.2H, Mean Corpuscular Hemoglobin Concent 31.6L, Red Cell Distribution Width 19.7H, Platelet Count 173, Mean Platelet Volume 8.4, Neutrophils (%) (Auto) 68.7, Lymphocytes (%) (Auto) 18.8L, Monocytes (%) (Auto) 9.9, Eosinophils (%) (Auto) 2.0, Basophils (%) (Auto) 0.6, Sodium Level 150H, Potassium Level 4.9, Chloride Level 110H, Carbon Dioxide Level 24, Anion Gap 16H, Blood Urea Nitrogen 78H, Creatinine 2.0H, Estimat Glomerular Filtration Rate , Glucose Level 394#H, Calcium Level 9.4, Phosphorus Level 3.0, Magnesium Level 2.7H, Total Bilirubin 0.2, Aspartate Amino Transf (AST/SGOT) 11, Alanine Aminotransferase (ALT/SGPT) 13, Alkaline Phosphatase 118, Total Protein 9.4H, Albumin 3.2L, Globulin 6.2, Albumin/Globulin Ratio 0.5L 03/11/17 04:00: Urine Eosinophils None seen, Stool Occult Blood [Pending] Height (Feet): 6 Height (Inches): 0.00 Weight (Pounds): 260 Cardiovascular: normal rate Respiratory/Chest: lungs clear Abdomen: soft David Bowie MD March 11, 2017 13:36
--- NOTE | 2017-03-11 13:54 | Pulmonology Progress Note ---
Assessment/Plan Problems: (1) ARF (acute renal failure) (2) Respiratory insufficiency (3) Tracheostomy status (4) COPD (chronic obstructive pulmonary disease) (5) Diabetes mellitus out of control (6) HTN (hypertension) Respiratory: monitor respiratory rate, adjust FIO2, CXR Cardiac: continue pressors Renal: F/U I&O, keep IV fluid, increase IV fluid Infectious Disease: check cultures, continue antibiotics Gastrointestinal: continue feedings/current rate Endocrine: check TSH, check HgA1C, continue sliding scale insulin Hematologic: monitor H/H, transfuse if hgb<8.5 Neurologic: PRN Ativan, PRN Morphine, keep patient comfortable Affect: PRN ativan Time Spent (Minutes): 40 Notes 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, 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, 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, consultants, case sealer Subjective ROS Limited/Unobtainable: No Constitutional: Reports: no symptoms HEENT: Repors: no symptoms Respiratory: Reports: no symptoms Allergies: Coded Allergies: NO KNOWN DRUG ALLERGIES (Unverified Allergy, Unknown, 10/29/14) Objective Last 24 Hour Vital Signs Date Time Temp Pulse Resp B/P Pulse Ox O2 Delivery O2 Flow Rate FiO2 03/11/17 12:52 105 22 45 03/11/17 12:52 103 20 99 Mechanical Ventilator 45 03/11/17 12:41 105 25 100 Mechanical Ventilator 45 03/11/17 12:41 45 03/11/17 12:00 98.1 108 24 105/65 100 Mechanical Ventilator 45 03/11/17 12:00 45 03/11/17 12:00 103 03/11/17 10:47 101 23 45 03/11/17 09:18 102 18 45 03/11/17 08:00 104 03/11/17 08:00 45 03/11/17 08:00 98.5 107 19 134/74 100 Mechanical Ventilator 45 03/11/17 06:46 104 24 45 03/11/17 06:46 104 20 99 Mechanical Ventilator 45 03/11/17 06:46 104 20 99 Mechanical Ventilator 45 03/11/17 06:36 107 21 97 Mechanical Ventilator 45 03/11/17 06:36 45 03/11/17 05:05 104 24 45 03/11/17 04:00 111 03/11/17 04:00 45 03/11/17 04:00 98.5 99 20 107/80 100 Mechanical Ventilator 03/11/17 03:00 105 31 45 03/11/17 01:08 105 18 99 Mechanical Ventilator 45 03/11/17 01:01 45 03/11/17 01:00 103 20 45 03/11/17 01:00 103 20 99 Mechanical Ventilator 45 03/11/17 00:00 96.3 101 19 118/68 100 Mechanical Ventilator 03/11/17 00:00 45 03/11/17 00:00 103 03/10/17 22:56 101 20 45 03/10/17 21:10 97 21 45 03/10/17 20:07 98.5 99 20 107/80 100 Mechanical Ventilator 99 03/10/17 20:00 100 03/10/17 20:00 45 03/10/17 18:55 102 20 99 Mechanical Ventilator 45 03/10/17 18:46 45 03/10/17 18:46 101 21 99 Mechanical Ventilator 45 03/10/17 18:45 101 21 45 03/10/17 17:01 103 18 45 03/10/17 16:15 97.6 96 23 120/63 100 Mechanical Ventilator 45 96 03/10/17 16:00 45 03/10/17 16:00 97 03/10/17 14:38 120 18 45 Intake and Output 03/10/17 03/11/17 19:00 07:00 Intake Total 2115 ml 625 ml Output Total 700 ml 550 ml Balance 1415 ml 75 ml Free Water 300 ml 100 ml IV Total 1050 ml 200 ml Tube Feeding 705 ml 325 ml Other 60 ml Output Urine Total 700 ml 550 ml # Bowel Movements 1 General Appearance: WD/WN, no acute distress HEENT: normocephalic, status post trach Respiratory/Chest: chest wall non-tender, lungs clear, normal breath sounds Cardiovascular: normal peripheral pulses Abdomen: normal bowel sounds, no organomegaly Extremities: no cyanosis 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 II-XII grossly normal Lymphatic: no neck adenopathy Musculoskeletal: normal muscle bulk Microbiology Date/Time Source Procedure Growth Status 03/09/17 14:00 Sputum Gram Stain - Final Resulted 03/09/17 14:00 Sputum Culture - Preliminary Gram Negative Chad Resulted 03/09/17 14:00 Urine,Clean Catch Urine Culture - Preliminary Gram Negative Chad Resulted 03/09/17 01:15 Urine,Clean Catch Urine Culture - Preliminary Proteus Mirabilis Gram Negative Bacillus 2 Resulted 03/10/17 00:00 Buttock Right Gram Stain - Final Resulted 03/10/17 00:00 Wound Culture - Preliminary Gram Negative Chad Resulted 03/09/17 01:15 Arm Right Blood Culture - Preliminary NO GROWTH AFTER 48 HOURS Resulted 03/09/17 01:00 Arm Left Blood Culture - Preliminary NO GROWTH AFTER 48 HOURS Resulted Laboratory Tests 03/11/17 03:50: White Blood Count 8.7, Red Blood Count 2.92L, Hemoglobin 9.1L, Hematocrit 28.9L , Mean Corpuscular Volume 99, Mean Corpuscular Hemoglobin 31.2H, Mean Corpuscular Hemoglobin Concent 31.6L, Red Cell Distribution Width 19.7H, Platelet Count 173, Mean Platelet Volume 8.4, Neutrophils (%) (Auto) 68.7, Lymphocytes (%) (Auto) 18.8L, Monocytes (%) (Auto) 9.9, Eosinophils (%) (Auto) 2.0, Basophils (%) (Auto) 0.6, Sodium Level 150H, Potassium Level 4.9, Chloride Level 110H, Carbon Dioxide Level 24, Anion Gap 16H, Blood Urea Nitrogen 78H, Creatinine 2.0H, Estimat Glomerular Filtration Rate , Glucose Level 394#H, Calcium Level 9.4, Phosphorus Level 3.0, Magnesium Level 2.7H, Total Bilirubin 0.2, Aspartate Amino Transf (AST/SGOT) 11, Alanine Aminotransferase (ALT/SGPT) 13, Alkaline Phosphatase 118, Total Protein 9.4H, Albumin 3.2L, Globulin 6.2, Albumin/Globulin Ratio 0.5L 03/11/17 04:00: Urine Eosinophils None seen, Stool Occult Blood [Pending] Current Medications Medications (Trade) Dose Ordered Sig/Shubham Route PRN Reason Start Time Stop Time Status Last Admin Dose Admin Albuterol/ Ipratropium (DuoNeb 0.5-3(2.5)mg/3ml) 3 ml Q6HRT HHN 03/09/17 13:00 03/14/17 12:59 03/11/17 12:51 Dextrose (D5W 1000ml) 1,000 ml @ 100 mls/hr Q10H IV 03/10/17 10:00 04/09/17 09:59 03/10/17 20:07 Dextrose STAT PRN IV Hypoglycemia 03/09/17 21:00 04/08/17 20:59 Ertapenem/Sodium Chloride (INVanz/Sodium Chloride) 55 ml @ 110 mls/hr Q24H IVPB 03/10/17 03:00 03/15/17 02:59 03/11/17 02:41 Heparin Sodium (Porcine) (Heparin 5000 units/ml) 5,000 units EVERY 8 HOURS SUBQ 03/10/17 22:00 04/09/17 21:59 03/11/17 13:30 Insulin Aspart (NovoLOG) Q6HR SUBQ 03/10/17 18:00 04/09/17 17:59 03/11/17 11:41 Insulin Detemir (Levemir) 30 units Q12H SUBQ 03/11/17 21:00 04/10/17 20:59 MICH FONSECA March 11, 2017 13:54
--- NOTE | 2017-03-11 14:17 | General Progress Note ---
Assessment/Plan Status: stable Status Narrative Cr lowering Assessment/Plan Acute Renal Failure- Pre Renal / Super Imposed on Renal Respiratory failure- UTI h/o Anemia Decubs h/o DVT Other conditions: 1. Acute on chronic respiratory failure. 2. h/o Severe sepsis. 3. Ventilator-dependent respiratory failure. 4. Chronic obstructive pulmonary disease. 5. History of deep venous thrombosis. 6. Hypoalbuminemia. 7. h/o Clostridium difficile colitis. 8. Pressure ulcers on sacrococcygeal down to buttocks, right ischial tuberosity, and right heel and right trochanter present on admission. 9. h/o Urinary tract infection, Proteus mirabilis. 10. h/o Acute deep venous thrombosis of the right lower extremity, on heparin and bridged to Coumadin. 11. Tracheostomy status. 12. Gastrostomy tube feeding. 13. Diabetes mellitus. Plan: Slow IV hydration- BS control- keep BP under control- Avoid Nephrotoxics- monitor lytes and renal parameters- Subjective ROS Limited/Unobtainable: Yes Allergies: Coded Allergies: NO KNOWN DRUG ALLERGIES (Unverified Allergy, Unknown, 10/29/14) Objective Last 24 Hour Vital Signs Date Time Temp Pulse Resp B/P Pulse Ox O2 Delivery O2 Flow Rate FiO2 03/11/17 12:52 105 22 45 03/11/17 12:52 103 20 99 Mechanical Ventilator 45 03/11/17 12:41 105 25 100 Mechanical Ventilator 45 03/11/17 12:41 45 03/11/17 12:00 98.1 108 24 105/65 100 Mechanical Ventilator 45 03/11/17 12:00 45 03/11/17 12:00 103 03/11/17 10:47 101 23 45 03/11/17 09:18 102 18 45 03/11/17 08:00 104 03/11/17 08:00 45 03/11/17 08:00 98.5 107 19 134/74 100 Mechanical Ventilator 45 03/11/17 06:46 104 24 45 03/11/17 06:46 104 20 99 Mechanical Ventilator 45 03/11/17 06:46 104 20 99 Mechanical Ventilator 45 03/11/17 06:36 107 21 97 Mechanical Ventilator 45 03/11/17 06:36 45 03/11/17 05:05 104 24 45 03/11/17 04:00 111 03/11/17 04:00 45 03/11/17 04:00 98.5 99 20 107/80 100 Mechanical Ventilator 03/11/17 03:00 105 31 45 03/11/17 01:08 105 18 99 Mechanical Ventilator 45 03/11/17 01:01 45 03/11/17 01:00 103 20 45 03/11/17 01:00 103 20 99 Mechanical Ventilator 45 03/11/17 00:00 96.3 101 19 118/68 100 Mechanical Ventilator 03/11/17 00:00 45 03/11/17 00:00 103 03/10/17 22:56 101 20 45 03/10/17 21:10 97 21 45 03/10/17 20:07 98.5 99 20 107/80 100 Mechanical Ventilator 99 03/10/17 20:00 100 03/10/17 20:00 45 03/10/17 18:55 102 20 99 Mechanical Ventilator 45 03/10/17 18:46 45 03/10/17 18:46 101 21 99 Mechanical Ventilator 45 03/10/17 18:45 101 21 45 03/10/17 17:01 103 18 45 03/10/17 16:15 97.6 96 23 120/63 100 Mechanical Ventilator 45 96 03/10/17 16:00 45 03/10/17 16:00 97 03/10/17 14:38 120 18 45 Intake and Output 03/10/17 03/11/17 19:00 07:00 Intake Total 2115 ml 625 ml Output Total 700 ml 550 ml Balance 1415 ml 75 ml Free Water 300 ml 100 ml IV Total 1050 ml 200 ml Tube Feeding 705 ml 325 ml Other 60 ml Output Urine Total 700 ml 550 ml # Bowel Movements 1 Laboratory Tests 03/11/17 03:50: White Blood Count 8.7, Red Blood Count 2.92L, Hemoglobin 9.1L, Hematocrit 28.9L , Mean Corpuscular Volume 99, Mean Corpuscular Hemoglobin 31.2H, Mean Corpuscular Hemoglobin Concent 31.6L, Red Cell Distribution Width 19.7H, Platelet Count 173, Mean Platelet Volume 8.4, Neutrophils (%) (Auto) 68.7, Lymphocytes (%) (Auto) 18.8L, Monocytes (%) (Auto) 9.9, Eosinophils (%) (Auto) 2.0, Basophils (%) (Auto) 0.6, Sodium Level 150H, Potassium Level 4.9, Chloride Level 110H, Carbon Dioxide Level 24, Anion Gap 16H, Blood Urea Nitrogen 78H, Creatinine 2.0H, Estimat Glomerular Filtration Rate , Glucose Level 394#H, Calcium Level 9.4, Phosphorus Level 3.0, Magnesium Level 2.7H, Total Bilirubin 0.2, Aspartate Amino Transf (AST/SGOT) 11, Alanine Aminotransferase (ALT/SGPT) 13, Alkaline Phosphatase 118, Total Protein 9.4H, Albumin 3.2L, Globulin 6.2, Albumin/Globulin Ratio 0.5L 03/11/17 04:00: Urine Eosinophils None seen, Stool Occult Blood [Pending] Height (Feet): 6 Height (Inches): 0.00 Weight (Pounds): 260 General Appearance: no apparent distress, lethargic Cardiovascular: tachycardia Respiratory/Chest: decreased breath sounds Abdomen: distended Objective other PE not changed COLTEN DIEGO March 11, 2017 14:17
[2017-03-11 16:00] VITALS: BP 109/60
[2017-03-11 20:00] VITALS: BP 99/59
--- NOTE | 2017-03-11 22:44 | General Progress Note ---
Assessment/Plan Assessment/Plan IMPRESSION: 1. Anemia of chronic disease. Currently stable, 8-10 2. Anemia of iron deficiency. 3. Anemia of kidney disease. 4. End-stage renal disease, hemodialysis dependent. 5. Sepsis. 6. Respiratory failure. 7. Pneumonia. 8. Chronic obstructive pulmonary disease. 9. History of deep venous thrombosis, right lower extremity. 10. History of gastrointestinal bleed. 11. Dysphagia. 12. Status post gastrostomy tube placement. 13. History of Clostridium difficile colitis. 14. Ahc-wonwfkl-cxplbkxch diabetes mellitus. RECOMMENDATIONS: 1. Watch count. 2. Watch coagulopathy. 3. Heparin subcutaneous. 4. PRBC transfusion p.r.n. basis. 5. Wound care. 6. Skin care. 7. Tracheostomy care. 8. Comfort care. 9. Pain control. Subjective Constitutional: Reports: no symptoms HEENT: Reports: no symptoms Cardiovascular: Reports: no symptoms Respiratory: Reports: no symptoms Gastrointestinal/Abdominal: Reports: poor appetite Genitourinary: Reports: no symptoms Neurologic/Psychiatric: Reports: no symptoms Endocrine: Reports: no symptoms Hematologic/Lymphatic: Reports: anemia Allergies: Coded Allergies: NO KNOWN DRUG ALLERGIES (Unverified Allergy, Unknown, 10/29/14) Subjective stable, no fevers or chills, no night sweats Objective Last 24 Hour Vital Signs Date Time Temp Pulse Resp B/P Pulse Ox O2 Delivery O2 Flow Rate FiO2 03/11/17 21:10 99 18 45 03/11/17 20:00 104 03/11/17 20:00 99.2 102 18 99/59 100 Mechanical Ventilator 45 03/11/17 20:00 45 03/11/17 19:30 102 19 99 Mechanical Ventilator 45 03/11/17 19:30 45 03/11/17 19:09 101 23 98 Mechanical Ventilator 45 03/11/17 19:07 101 18 45 03/11/17 17:07 102 25 45 03/11/17 16:00 98.1 101 24 109/60 100 Mechanical Ventilator 45 03/11/17 16:00 45 03/11/17 16:00 99 03/11/17 15:20 97 18 45 03/11/17 12:52 105 22 45 03/11/17 12:52 103 20 99 Mechanical Ventilator 45 03/11/17 12:41 105 25 100 Mechanical Ventilator 45 03/11/17 12:41 45 03/11/17 12:00 98.1 108 24 105/65 100 Mechanical Ventilator 45 03/11/17 12:00 45 03/11/17 12:00 103 03/11/17 10:47 101 23 45 03/11/17 09:18 102 18 45 03/11/17 08:00 104 03/11/17 08:00 45 03/11/17 08:00 98.5 107 19 134/74 100 Mechanical Ventilator 45 03/11/17 06:46 104 24 45 03/11/17 06:46 104 20 99 Mechanical Ventilator 45 03/11/17 06:46 104 20 99 Mechanical Ventilator 45 03/11/17 06:36 107 21 97 Mechanical Ventilator 45 03/11/17 06:36 45 03/11/17 05:05 104 24 45 03/11/17 04:00 111 03/11/17 04:00 45 03/11/17 04:00 98.5 99 20 107/80 100 Mechanical Ventilator 03/11/17 03:00 105 31 45 03/11/17 01:08 105 18 99 Mechanical Ventilator 45 03/11/17 01:01 45 03/11/17 01:00 103 20 45 03/11/17 01:00 103 20 99 Mechanical Ventilator 45 03/11/17 00:00 96.3 101 19 118/68 100 Mechanical Ventilator 03/11/17 00:00 45 03/11/17 00:00 103 03/10/17 22:56 101 20 45 Intake and Output 03/10/17 03/11/17 19:00 07:00 Intake Total 2115 ml 1215 ml Output Total 700 ml 550 ml Balance 1415 ml 665 ml Free Water 300 ml 300 ml IV Total 1050 ml 200 ml Tube Feeding 705 ml 715 ml Other 60 ml Output Urine Total 700 ml 550 ml # Bowel Movements 1 Laboratory Tests 03/11/17 03:50: White Blood Count 8.7, Red Blood Count 2.92L, Hemoglobin 9.1L, Hematocrit 28.9L , Mean Corpuscular Volume 99, Mean Corpuscular Hemoglobin 31.2H, Mean Corpuscular Hemoglobin Concent 31.6L, Red Cell Distribution Width 19.7H, Platelet Count 173, Mean Platelet Volume 8.4, Neutrophils (%) (Auto) 68.7, Lymphocytes (%) (Auto) 18.8L, Monocytes (%) (Auto) 9.9, Eosinophils (%) (Auto) 2.0, Basophils (%) (Auto) 0.6, Sodium Level 150H, Potassium Level 4.9, Chloride Level 110H, Carbon Dioxide Level 24, Anion Gap 16H, Blood Urea Nitrogen 78H, Creatinine 2.0H, Estimat Glomerular Filtration Rate , Glucose Level 394#H, Calcium Level 9.4, Phosphorus Level 3.0, Magnesium Level 2.7H, Total Bilirubin 0.2, Aspartate Amino Transf (AST/SGOT) 11, Alanine Aminotransferase (ALT/SGPT) 13, Alkaline Phosphatase 118, Total Protein 9.4H, Albumin 3.2L, Globulin 6.2, Albumin/Globulin Ratio 0.5L 03/11/17 04:00: Urine Eosinophils None seen, Stool Occult Blood [Pending] Height (Feet): 6 Height (Inches): 0.00 Weight (Pounds): 260 General Appearance: alert EENT: TMs normal Neck: supple Cardiovascular: regular rhythm Respiratory/Chest: no respiratory distress Abdomen: normal bowel sounds Extremities: non-tender Edema: 1+ Leg (L), 1+ Leg (R) Edema: mild edema Neurologic: alert Skin: warm/dry Alexx Sanon March 11, 2017 22:44
[2017-03-12] VITALS: BP 114/56
[2017-03-12] MEDS: NovoLOG Insulin Flexpen SUBQ SCH ×10 (00:09→23:21)
[2017-03-12] MEDS: DuoNeb 0.5-3(2.5)mg/3ml neb HHN SCH ×4 (00:45→19:33)
[2017-03-12] MEDS: Ertapenem 1 GM in NS 55 ML IVPB SCH (03:00)
[2017-03-12 04:00] VITALS: BP 131/57
[2017-03-12] MEDS: Heparin 5000 units/ml inj SUBQ SCH ×3 (05:51→21:22)
[2017-03-12 08:00] VITALS: BP 117/57
--- NOTE | 2017-03-12 08:38 | General Progress Note ---
Assessment/Plan Problem List: (1) Dementia ICD Codes: F03.90 - Dementia SNOMED: 30546458 (2) Sepsis ICD Codes: A41.9 - Sepsis, unspecified organism SNOMED: 31537780 (3) Feeding by G-tube ICD Codes: Z93.1 - Feeding by G-tube SNOMED: 700003487 (4) Tracheostomy status (5) Diabetes mellitus out of control ICD Codes: E11.65 - Diabetes mellitus out of control SNOMED: 002191235 (6) UTI (urinary tract infection) ICD Codes: N39.0 - Urinary tract infection, site not specified SNOMED: 70524558 Assessment/Plan continue Levemir 30 units bid add Novolog 8 units every 6 hours change Novolog SSI sensitive to resistant discussed with RN Subjective ROS Limited/Unobtainable: Yes Allergies: Coded Allergies: NO KNOWN DRUG ALLERGIES (Unverified Allergy, Unknown, 10/29/14) Subjective events noted glucose is still elevated Objective Last 24 Hour Vital Signs Date Time Temp Pulse Resp B/P Pulse Ox O2 Delivery O2 Flow Rate FiO2 03/12/17 07:51 98 03/12/17 07:51 45 03/12/17 06:35 106 20 99 Mechanical Ventilator 40 03/12/17 06:35 105 20 40 03/12/17 06:25 107 20 100 Mechanical Ventilator 40 03/12/17 06:25 40 03/12/17 05:26 99 18 45 03/12/17 04:00 104 03/12/17 04:00 98.9 102 18 131/57 100 Mechanical Ventilator 45 03/12/17 04:00 45 03/12/17 03:20 101 19 45 03/12/17 01:05 45 03/12/17 01:05 98 20 99 Mechanical Ventilator 45 03/12/17 00:46 100 21 99 Mechanical Ventilator 45 03/12/17 00:44 21 18 45 03/12/17 00:00 99.1 106 21 114/56 100 Mechanical Ventilator 45 03/12/17 00:00 45 03/12/17 00:00 106 03/11/17 21:10 99 18 45 03/11/17 20:00 104 03/11/17 20:00 99.2 102 18 99/59 100 Mechanical Ventilator 45 03/11/17 20:00 45 03/11/17 19:30 102 19 99 Mechanical Ventilator 45 03/11/17 19:30 45 03/11/17 19:09 101 23 98 Mechanical Ventilator 45 03/11/17 19:07 101 18 45 03/11/17 17:07 102 25 45 03/11/17 16:00 98.1 101 24 109/60 100 Mechanical Ventilator 45 03/11/17 16:00 45 03/11/17 16:00 99 03/11/17 15:20 97 18 45 03/11/17 12:52 105 22 45 03/11/17 12:52 103 20 99 Mechanical Ventilator 45 03/11/17 12:41 105 25 100 Mechanical Ventilator 45 03/11/17 12:41 45 03/11/17 12:00 98.1 108 24 105/65 100 Mechanical Ventilator 45 03/11/17 12:00 45 03/11/17 12:00 103 03/11/17 10:47 101 23 45 03/11/17 09:18 102 18 45 Intake and Output 03/11/17 03/12/17 19:00 07:00 Intake Total 928 ml 728 ml Output Total 550 ml 650 ml Balance 378 ml 78 ml Free Water 400 ml 200 ml Tube Feeding 528 ml 528 ml Output Urine Total 550 ml 650 ml Laboratory Tests 03/12/17 06:15: Urine Eosinophils [Pending] Height (Feet): 6 Height (Inches): 0.00 Weight (Pounds): 260 General Appearance: lethargic EENT: pale conjunctivae Neck: normal alignment Cardiovascular: normal peripheral pulses Respiratory/Chest: decreased breath sounds Abdomen: normal bowel sounds Edema: 1+ Arm (L), 1+ Arm (R), 1+ Leg (L), 1+ Leg (R), 1+ Pedal (L), 1+ Pedal ( R), 1+ Generalized Objective Current Medications Medications (Trade) Dose Ordered Sig/Shubham Route PRN Reason Start Time Stop Time Status Last Admin Dose Admin Albuterol/ Ipratropium (DuoNeb 0.5-3(2.5)mg/3ml) 3 ml Q6HRT HHN 03/09/17 13:00 03/14/17 12:59 03/12/17 06:38 Dextrose (D5W 1000ml) 1,000 ml @ 100 mls/hr Q10H IV 03/10/17 10:00 04/09/17 09:59 03/10/17 20:07 Dextrose STAT PRN IV Hypoglycemia 03/09/17 21:00 04/08/17 20:59 Ertapenem/Sodium Chloride (INVanz/Sodium Chloride) 55 ml @ 110 mls/hr Q24H IVPB 03/10/17 03:00 03/15/17 02:59 03/11/17 02:41 Heparin Sodium (Porcine) (Heparin 5000 units/ml) 5,000 units EVERY 8 HOURS SUBQ 03/10/17 22:00 04/09/17 21:59 03/12/17 05:51 Insulin Aspart (NovoLOG) Q6HR SUBQ 03/10/17 18:00 04/09/17 17:59 03/12/17 05:52 Insulin Detemir (Levemir) 30 units Q12H SUBQ 03/11/17 21:00 04/10/17 20:59 03/11/17 20:34 Item Value Date Time Bedside Blood Glucose 335 mg/dl H 03/12/17 0600 Bedside Blood Glucose 335 mg/dl H 03/12/17 0032 Bedside Blood Glucose 297 mg/dl H 03/11/17 1754 12/14/91 0000 TOMMIE GARDNER March 12, 2017 08:38
[2017-03-12] MEDS: Levemir Flexpen SUBQ SCH ×2 (08:46→21:11)
[2017-03-12] MEDS: Piperacillin/Tazobactam 3.375 GM in D5W 110 ML IVPB SCH ×3 (11:31→21:12)
[2017-03-12 12:00] VITALS: BP 105/59
--- NOTE | 2017-03-12 12:39 | General Progress Note ---
Assessment/Plan Status: stable Assessment/Plan Acute Renal Failure- Pre Renal / Super Imposed on Renal Respiratory failure- UTI h/o Anemia Decubs h/o DVT Other conditions: 1. Acute on chronic respiratory failure. 2. h/o Severe sepsis. 3. Ventilator-dependent respiratory failure. 4. Chronic obstructive pulmonary disease. 5. History of deep venous thrombosis. 6. Hypoalbuminemia. 7. h/o Clostridium difficile colitis. 8. Pressure ulcers on sacrococcygeal down to buttocks, right ischial tuberosity, and right heel and right trochanter present on admission. 9. h/o Urinary tract infection, Proteus mirabilis. 10. h/o Acute deep venous thrombosis of the right lower extremity, on heparin and bridged to Coumadin. 11. Tracheostomy status. 12. Gastrostomy tube feeding. 13. Diabetes mellitus. Plan: No labs today Slow IV hydration- BS control- keep BP under control- Avoid Nephrotoxics- monitor lytes and renal parameters- Subjective ROS Limited/Unobtainable: Yes Allergies: Coded Allergies: NO KNOWN DRUG ALLERGIES (Unverified Allergy, Unknown, 10/29/14) Objective Last 24 Hour Vital Signs Date Time Temp Pulse Resp B/P Pulse Ox O2 Delivery O2 Flow Rate FiO2 03/12/17 11:27 45 03/12/17 11:27 98 03/12/17 10:48 98 18 35 03/12/17 09:00 101 18 40 03/12/17 08:00 98.1 98 18 117/57 100 Mechanical Ventilator 40 03/12/17 07:51 98 03/12/17 07:51 45 03/12/17 06:35 106 20 99 Mechanical Ventilator 40 03/12/17 06:35 105 20 40 03/12/17 06:25 107 20 100 Mechanical Ventilator 40 03/12/17 06:25 40 03/12/17 05:26 99 18 45 03/12/17 04:00 104 03/12/17 04:00 98.9 102 18 131/57 100 Mechanical Ventilator 45 03/12/17 04:00 45 03/12/17 03:20 101 19 45 03/12/17 01:05 45 03/12/17 01:05 98 20 99 Mechanical Ventilator 45 03/12/17 00:46 100 21 99 Mechanical Ventilator 45 03/12/17 00:44 21 18 45 03/12/17 00:00 99.1 106 21 114/56 100 Mechanical Ventilator 45 03/12/17 00:00 45 03/12/17 00:00 106 03/11/17 21:10 99 18 45 03/11/17 20:00 104 03/11/17 20:00 99.2 102 18 99/59 100 Mechanical Ventilator 45 03/11/17 20:00 45 03/11/17 19:30 102 19 99 Mechanical Ventilator 45 03/11/17 19:30 45 03/11/17 19:09 101 23 98 Mechanical Ventilator 45 03/11/17 19:07 101 18 45 03/11/17 17:07 102 25 45 03/11/17 16:00 98.1 101 24 109/60 100 Mechanical Ventilator 45 03/11/17 16:00 45 03/11/17 16:00 99 03/11/17 15:20 97 18 45 03/11/17 12:52 105 22 45 03/11/17 12:52 103 20 99 Mechanical Ventilator 45 03/11/17 12:41 105 25 100 Mechanical Ventilator 45 03/11/17 12:41 45 Intake and Output 03/11/17 03/12/17 19:00 07:00 Intake Total 928 ml 728 ml Output Total 550 ml 650 ml Balance 378 ml 78 ml Free Water 400 ml 200 ml Tube Feeding 528 ml 528 ml Output Urine Total 550 ml 650 ml Laboratory Tests 03/12/17 06:15: Urine Eosinophils None seen Height (Feet): 6 Height (Inches): 0.00 Weight (Pounds): 260 General Appearance: no apparent distress Cardiovascular: tachycardia Respiratory/Chest: decreased breath sounds Abdomen: soft Objective other PE not changed COLTEN DIEGO March 12, 2017 12:39
--- NOTE | 2017-03-12 15:49 | Infectious Diseases Prog Note ---
Assessment/Plan Problems: (1) UTI (urinary tract infection) Assessment & Plan: due to ESBL producing Klebsiella pneumonia , and pseudomonas aeruginosa , will switch ertapenem to zosyn, and treat for two weeks (2) Pressure ulcer Assessment & Plan: not infected, colonized with MDR Acinetobacter baumannii , staph aureus and other gram positive organisms, no need for antibiotics treatment, continue local wound care and off loading (3) Acute prerenal azotemia Assessment & Plan: improving , continue IVF for hydration, monitor UOP, renal is following (4) Diabetes mellitus out of control Assessment & Plan: recommend tight glycemic control to keep blood glucose between 80-120 (5) Tracheostomy status Assessment & Plan: colonized with Stenotrophomonas maltophilia, and MDR pseudomonas aeruginosa , will order CXR to rule out new infiltrates, otherwise no need to treat at this point.continue tracheal care Subjective ROS Limited/Unobtainable: Yes Allergies: Coded Allergies: NO KNOWN DRUG ALLERGIES (Unverified Allergy, Unknown, 10/29/14) Subjective he was sleeping and resting in bed, comfortable, afebrile. Objective Vital Signs Last 24 Hour Vital Signs Date Time Temp Pulse Resp B/P Pulse Ox O2 Delivery O2 Flow Rate FiO2 03/12/17 14:55 92 22 35 03/12/17 12:52 93 18 35 03/12/17 12:52 92 20 99 Mechanical Ventilator 35 03/12/17 12:42 35 03/12/17 12:42 92 22 100 Mechanical Ventilator 35 03/12/17 12:00 97.7 95 19 105/59 99 Mechanical Ventilator 35 03/12/17 11:27 45 03/12/17 11:27 98 03/12/17 10:48 98 18 35 03/12/17 09:00 101 18 40 03/12/17 08:00 98.1 98 18 117/57 100 Mechanical Ventilator 40 03/12/17 07:51 98 03/12/17 07:51 45 03/12/17 06:35 106 20 99 Mechanical Ventilator 40 03/12/17 06:35 105 20 40 03/12/17 06:25 107 20 100 Mechanical Ventilator 40 03/12/17 06:25 40 03/12/17 05:26 99 18 45 03/12/17 04:00 104 03/12/17 04:00 98.9 102 18 131/57 100 Mechanical Ventilator 45 03/12/17 04:00 45 03/12/17 03:20 101 19 45 03/12/17 01:05 45 03/12/17 01:05 98 20 99 Mechanical Ventilator 45 03/12/17 00:46 100 21 99 Mechanical Ventilator 45 03/12/17 00:44 21 18 45 03/12/17 00:00 99.1 106 21 114/56 100 Mechanical Ventilator 45 03/12/17 00:00 45 03/12/17 00:00 106 03/11/17 21:10 99 18 45 03/11/17 20:00 104 03/11/17 20:00 99.2 102 18 99/59 100 Mechanical Ventilator 45 03/11/17 20:00 45 03/11/17 19:30 102 19 99 Mechanical Ventilator 45 03/11/17 19:30 45 03/11/17 19:09 101 23 98 Mechanical Ventilator 45 03/11/17 19:07 101 18 45 03/11/17 17:07 102 25 45 03/11/17 16:00 98.1 101 24 109/60 100 Mechanical Ventilator 45 03/11/17 16:00 45 03/11/17 16:00 99 Height (Feet): 6 Height (Inches): 0.00 Weight (Pounds): 260 General Appearance: WD/WN, no acute distress HEENT: normocephalic, atraumatic, anicteric, no JVD, status post trach Respiratory/Chest: chest wall non-tender, lungs clear, normal breath sounds, no respiratory distress, no accessory muscle use, decreased breath sounds Cardiovascular: normal peripheral pulses, normal rate, regular rhythm, no gallop/murmur Abdomen: normal bowel sounds, soft, non tender, no organomegaly, non distended , no mass Extremities: no cyanosis, no clubbing Skin: no rash, no lesions, ulcers Microbiology Date/Time Source Procedure Growth Status 03/10/17 00:00 Buttock Right Gram Stain - Final Resulted 03/10/17 00:00 Wound Culture - Preliminary A.baumanii Complx - Mdr Staphylococcus Aureus Gram Positive Cocci Resulted Laboratory Tests Test 03/12/17 06:15 Urine Eosinophils None seen Current Medications Medications (Trade) Dose Ordered Sig/Shubham Route PRN Reason Start Time Stop Time Status Last Admin Dose Admin Albuterol/ Ipratropium 3 ml 3 ml Q6HRT HHN 03/09/17 13:00 03/14/17 12:59 03/12/17 12:59 Dextrose (D5W 1000ml) 1,000 ml @ 100 mls/hr Q10H IV 03/10/17 10:00 04/09/17 09:59 03/10/17 20:07 Dextrose STAT PRN IV Hypoglycemia 03/12/17 08:45 04/11/17 08:44 Heparin Sodium (Porcine) (Heparin 5000 units/ml) 5,000 units EVERY 8 HOURS SUBQ 03/10/17 22:00 04/09/17 21:59 03/12/17 13:37 Insulin Aspart (NovoLOG) EVERY 6 HOURS SUBQ 03/12/17 09:30 04/11/17 09:29 03/12/17 12:21 Insulin Aspart (NovoLOG) 8 units EVERY 6 HOURS SUBQ 03/12/17 09:30 04/11/17 09:29 03/12/17 12:20 Insulin Detemir (Levemir) 30 units Q12H SUBQ 03/11/17 21:00 04/10/17 20:59 03/12/17 08:46 Piperacillin Sod/ Tazobactam Sod/ Dextrose (Zosyn/D5W) 110 ml @ 27.5 mls/hr EVERY 8 HOURS IVPB 03/12/17 12:00 03/17/17 11:59 Kacey Olivo M.D. March 12, 2017 15:49
--- NOTE | 2017-03-12 15:56 | Pulmonology Progress Note ---
Assessment/Plan Problems: (1) ARF (acute renal failure) (2) Respiratory insufficiency (3) Tracheostomy status (4) COPD (chronic obstructive pulmonary disease) (5) Diabetes mellitus out of control (6) HTN (hypertension) Respiratory: adjust tidal volume, adjust FIO2 Cardiac: continue pressors Renal: keep IV fluid Infectious Disease: check cultures, continue antibiotics Gastrointestinal: hold feedings Endocrine: check TSH, continue sliding scale insulin Hematologic: monitor H/H, transfuse if hgb<8.5 Neurologic: PRN Ativan, keep patient comfortable Affect: PRN ativan Prophylaxis: Heparin Notes Reviewed: cardio, renal Discussed with: consultants, senior case manager Subjective ROS Limited/Unobtainable: Yes Allergies: Coded Allergies: NO KNOWN DRUG ALLERGIES (Unverified Allergy, Unknown, 10/29/14) Objective Last 24 Hour Vital Signs Date Time Temp Pulse Resp B/P Pulse Ox O2 Delivery O2 Flow Rate FiO2 03/12/17 14:55 92 22 35 03/12/17 12:52 93 18 35 03/12/17 12:52 92 20 99 Mechanical Ventilator 35 03/12/17 12:42 35 03/12/17 12:42 92 22 100 Mechanical Ventilator 35 03/12/17 12:00 97.7 95 19 105/59 99 Mechanical Ventilator 35 03/12/17 11:27 45 03/12/17 11:27 98 03/12/17 10:48 98 18 35 03/12/17 09:00 101 18 40 03/12/17 08:00 98.1 98 18 117/57 100 Mechanical Ventilator 40 03/12/17 07:51 98 03/12/17 07:51 45 03/12/17 06:35 106 20 99 Mechanical Ventilator 40 03/12/17 06:35 105 20 40 03/12/17 06:25 107 20 100 Mechanical Ventilator 40 03/12/17 06:25 40 03/12/17 05:26 99 18 45 03/12/17 04:00 104 03/12/17 04:00 98.9 102 18 131/57 100 Mechanical Ventilator 45 03/12/17 04:00 45 03/12/17 03:20 101 19 45 03/12/17 01:05 45 03/12/17 01:05 98 20 99 Mechanical Ventilator 45 03/12/17 00:46 100 21 99 Mechanical Ventilator 45 03/12/17 00:44 21 18 45 03/12/17 00:00 99.1 106 21 114/56 100 Mechanical Ventilator 45 03/12/17 00:00 45 03/12/17 00:00 106 03/11/17 21:10 99 18 45 03/11/17 20:00 104 03/11/17 20:00 99.2 102 18 99/59 100 Mechanical Ventilator 45 03/11/17 20:00 45 03/11/17 19:30 102 19 99 Mechanical Ventilator 45 03/11/17 19:30 45 03/11/17 19:09 101 23 98 Mechanical Ventilator 45 03/11/17 19:07 101 18 45 03/11/17 17:07 102 25 45 03/11/17 16:00 98.1 101 24 109/60 100 Mechanical Ventilator 45 03/11/17 16:00 45 03/11/17 16:00 99 Intake and Output 03/11/17 03/12/17 19:00 07:00 Intake Total 928 ml 728 ml Output Total 550 ml 650 ml Balance 378 ml 78 ml Free Water 400 ml 200 ml Tube Feeding 528 ml 528 ml Output Urine Total 550 ml 650 ml General Appearance: WD/WN HEENT: normocephalic, atraumatic Respiratory/Chest: chest wall non-tender, lungs clear Cardiovascular: normal peripheral pulses, normal rate Abdomen: normal bowel sounds, soft, non tender Genitourinary: normal external genitalia Extremities: no cyanosis Skin: no ulcers 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, no motor/sensory deficits Lymphatic: no groin adenopathy Musculoskeletal: normal muscle bulk Microbiology Date/Time Source Procedure Growth Status 03/10/17 00:00 Buttock Right Gram Stain - Final Resulted 03/10/17 00:00 Wound Culture - Preliminary A.baumanii Complx - Mdr Staphylococcus Aureus Gram Positive Cocci Resulted Laboratory Tests 03/12/17 06:15: Urine Eosinophils None seen Current Medications Medications (Trade) Dose Ordered Sig/Shubham Route PRN Reason Start Time Stop Time Status Last Admin Dose Admin Albuterol/ Ipratropium 3 ml 3 ml Q6HRT HHN 03/09/17 13:00 03/14/17 12:59 03/12/17 12:59 Dextrose (D5W 1000ml) 1,000 ml @ 100 mls/hr Q10H IV 03/10/17 10:00 6/26/17 09:59 03/10/17 20:07 Dextrose STAT PRN IV Hypoglycemia 03/12/17 08:45 04/11/17 08:44 Heparin Sodium (Porcine) (Heparin 5000 units/ml) 5,000 units EVERY 8 HOURS SUBQ 03/10/17 22:00 04/09/17 21:59 03/12/17 13:37 Insulin Aspart (NovoLOG) EVERY 6 HOURS SUBQ 03/12/17 09:30 04/11/17 09:29 03/12/17 12:21 Insulin Aspart (NovoLOG) 8 units EVERY 6 HOURS SUBQ 03/12/17 09:30 04/11/17 09:29 03/12/17 12:20 Insulin Detemir (Levemir) 30 units Q12H SUBQ 03/11/17 21:00 04/10/17 20:59 03/12/17 08:46 Piperacillin Sod/ Tazobactam Sod/ Dextrose (Zosyn/D5W) 110 ml @ 27.5 mls/hr EVERY 8 HOURS IVPB 03/12/17 12:00 03/17/17 11:59 MICH FONSECA March 12, 2017 15:56
[2017-03-12 16:00] VITALS: BP 112/63
--- NOTE | 2017-03-12 17:18 | General Progress Note ---
Assessment/Plan Assessment/Plan IMPRESSION: 1. Anemia of chronic disease. Currently stable, 8-10 2. Anemia of iron deficiency. 3. Anemia of kidney disease. 4. End-stage renal disease, hemodialysis dependent. 5. Sepsis. 6. Respiratory failure. 7. Pneumonia. 8. Chronic obstructive pulmonary disease. 9. History of deep venous thrombosis, right lower extremity. 10. History of gastrointestinal bleed. 11. Dysphagia. 12. Status post gastrostomy tube placement. 13. History of Clostridium difficile colitis. 14. Ywo-igflmcd-trgzbepsr diabetes mellitus. RECOMMENDATIONS: 1. Watch count. 2. Watch coagulopathy. 3. Heparin subcutaneous. 4. PRBC transfusion p.r.n. basis, goal >7 5. Wound care. 6. Skin care. 7. Tracheostomy care. 8. Comfort care. 9. Pain control. Subjective Constitutional: Reports: no symptoms HEENT: Reports: no symptoms Cardiovascular: Reports: no symptoms Respiratory: Reports: no symptoms Gastrointestinal/Abdominal: Reports: poor appetite Genitourinary: Reports: no symptoms Neurologic/Psychiatric: Reports: no symptoms Endocrine: Reports: no symptoms Hematologic/Lymphatic: Reports: anemia Allergies: Coded Allergies: NO KNOWN DRUG ALLERGIES (Unverified Allergy, Unknown, 10/29/14) Subjective stable, no fevers or chills, on a vent, bed bound Objective Last 24 Hour Vital Signs Date Time Temp Pulse Resp B/P Pulse Ox O2 Delivery O2 Flow Rate FiO2 03/12/17 16:40 98 03/12/17 16:40 35 03/12/17 16:36 90 19 35 03/12/17 14:55 92 22 35 03/12/17 12:52 93 18 35 03/12/17 12:52 92 20 99 Mechanical Ventilator 35 03/12/17 12:42 35 03/12/17 12:42 92 22 100 Mechanical Ventilator 35 03/12/17 12:00 97.7 95 19 105/59 99 Mechanical Ventilator 35 03/12/17 11:27 45 03/12/17 11:27 98 03/12/17 10:48 98 18 35 03/12/17 09:00 101 18 40 03/12/17 08:00 98.1 98 18 117/57 100 Mechanical Ventilator 40 03/12/17 07:51 98 03/12/17 07:51 45 03/12/17 06:35 106 20 99 Mechanical Ventilator 40 03/12/17 06:35 105 20 40 03/12/17 06:25 107 20 100 Mechanical Ventilator 40 03/12/17 06:25 40 03/12/17 05:26 99 18 45 03/12/17 04:00 104 03/12/17 04:00 98.9 102 18 131/57 100 Mechanical Ventilator 45 03/12/17 04:00 45 03/12/17 03:20 101 19 45 03/12/17 01:05 45 03/12/17 01:05 98 20 99 Mechanical Ventilator 45 03/12/17 00:46 100 21 99 Mechanical Ventilator 45 03/12/17 00:44 21 18 45 03/12/17 00:00 99.1 106 21 114/56 100 Mechanical Ventilator 45 03/12/17 00:00 45 03/12/17 00:00 106 03/11/17 21:10 99 18 45 03/11/17 20:00 104 03/11/17 20:00 99.2 102 18 99/59 100 Mechanical Ventilator 45 03/11/17 20:00 45 03/11/17 19:30 102 19 99 Mechanical Ventilator 45 03/11/17 19:30 45 03/11/17 19:09 101 23 98 Mechanical Ventilator 45 03/11/17 19:07 101 18 45 Intake and Output 03/11/17 03/12/17 19:00 07:00 Intake Total 928 ml 728 ml Output Total 550 ml 650 ml Balance 378 ml 78 ml Free Water 400 ml 200 ml Tube Feeding 528 ml 528 ml Output Urine Total 550 ml 650 ml Laboratory Tests 03/12/17 06:15: Urine Eosinophils None seen Height (Feet): 6 Height (Inches): 0.00 Weight (Pounds): 260 General Appearance: no apparent distress EENT: normal ENT inspection Neck: normal alignment Cardiovascular: normal rate Respiratory/Chest: chest wall non-tender Abdomen: non tender Extremities: non-tender Edema: no edema noted Leg (L), no edema noted Leg (R) Neurologic: no motor/sensory deficits Skin: normal pigmentation Alexx Sanon March 12, 2017 17:18
--- NOTE | 2017-03-12 17:21 | Wound Care Consultation ---
Wound Assessment Wound Assessment : Wound Present on Admission: No New Wound: No Status Change of Wound: No Wound Location Body Site Modif: right Wound Location Body Site: arm - AC Wound Type: blister - open Danny Test: Does not Danny Wound Thickness: Partial Thickness Wound Length: 6.0 Wound Width: 5.0 Percent of Wound [place]/Red: 100 Wound Drainage Description: Serosanguineous Wound Drainage Amount: Scant Wound Drainage Odor: None/Absent Tissue Surrounding Wound: Intact Wound General Appearance: Reddened, Draining Wound Comment #1 Right arm AC open blisters Recommendation -Cleanse with saline, pat dry, apply Triad cream, cover with bordered gauze Q3 DAYS and PRN soiled/dislodged -Keep clean and dry -Assess and f/u accordingly for any changes RAISA QUIROZ RN March 12, 2017 17:21
[2017-03-12 20:00] VITALS: BP 109/67
[2017-03-13] VITALS: BP 110/71
[2017-03-13] MEDS: DuoNeb 0.5-3(2.5)mg/3ml neb HHN SCH ×4 (01:20→19:20)
[2017-03-13 04:00] VITALS: BP 118/70
[2017-03-13 05:41] LABS: BASOPHILS % (AUTO) 0.8 % (0.0-2.0); EOSINOPHILS % (AUTO) 1.8 % (0.0-3.0); LYMPHOCYTES % (AUTO) 14.7 % (20.0-45.0); MEAN CORPUSCULAR HGB CONC 30.5 G/DL (32.0-36.0); MEAN CORPUSCULAR VOLUME 98 FL (80-99); MEAN PLATELET VOLUME 9.1 FL (6.5-10.1); NEUTROPHILS % (AUTO) 69.7 % (45.0-75.0); PLATELET COUNT 160 K/UL (150-450); RED BLOOD COUNT 2.82 M/UL (4.70-6.10); RED CELL DISTRIBUTION WIDTH 19.8 % (11.6-14.8); WHITE BLOOD COUNT 10.4 K/UL (4.8-10.8)
[2017-03-13] MEDS: Piperacillin/Tazobactam 3.375 GM in D5W 110 ML IVPB SCH ×2 (05:59→14:22)
[2017-03-13 06:00] LABS: INR 4.8 (0.9-1.1); PROTHROMBIN TIME 51.8 SEC (9.30-11.50)
[2017-03-13] MEDS: Heparin 5000 units/ml inj SUBQ SCH ×3 (06:00→22:00)
[2017-03-13] MEDS: NovoLOG Insulin Flexpen SUBQ SCH ×6 (06:00→18:19)
[2017-03-13 06:05] LABS: CRP QUANT 14.3 mg/dL (< 0.5); URIC ACID 10.3 mg/dL (3.0-7.5)
[2017-03-13 06:08] LABS: ALANINE AMINOTRANSFERASE 15 U/L (3-41); ALBUMIN/GLOBULIN RATIO 0.4 (1.0-2.7); ANION GAP 15 (5-15); ASPARTATE AMINO TRANSFERASE 18 U/L (5-40); CALCIUM 9.1 mg/dL (8.6-10.2); CARBON DIOXIDE 24 mEQ/L (20-30); CHLORIDE 115 mEQ/L (98-107); CREATININE 2.1 mg/dL (0.7-1.2); HEMOLYSIS 3; MAGNESIUM 2.5 mg/dL (1.7-2.5); PHOSPHORUS 2.9 mg/dL (2.5-4.8); POTASSIUM 5.2 mEQ/L (3.4-4.9); SODIUM 154 mEQ/L (135-145); TOTAL PROTEIN 9.2 g/dL (6.6-8.7)
--- NOTE | 2017-03-13 07:11 | General Progress Note ---
Assessment/Plan Problem List: (1) Dementia ICD Codes: F03.90 - Dementia SNOMED: 00265086 (2) Sepsis ICD Codes: A41.9 - Sepsis, unspecified organism SNOMED: 05974966 (3) Feeding by G-tube ICD Codes: Z93.1 - Feeding by G-tube SNOMED: 314429578 (4) Tracheostomy status (5) Diabetes mellitus out of control ICD Codes: E11.65 - Diabetes mellitus out of control SNOMED: 190674414 (6) UTI (urinary tract infection) ICD Codes: N39.0 - Urinary tract infection, site not specified SNOMED: 14512563 Assessment/Plan continue Levemir 30 units bid increase Novolog 8 to 12 units every 6 hours + SSI Subjective ROS Limited/Unobtainable: Yes Allergies: Coded Allergies: NO KNOWN DRUG ALLERGIES (Unverified Allergy, Unknown, 10/29/14) Subjective events noted glucose is still elevated Objective Last 24 Hour Vital Signs Date Time Temp Pulse Resp B/P Pulse Ox O2 Delivery O2 Flow Rate FiO2 03/13/17 05:04 85 20 35 03/13/17 04:01 81 20 35 03/13/17 04:00 97.7 100 24 118/70 97 Room Air 03/13/17 04:00 100 03/13/17 04:00 35 03/13/17 01:28 89 20 99 Mechanical Ventilator 35 03/13/17 01:20 35 03/13/17 01:19 91 23 100 Mechanical Ventilator 35 03/13/17 01:19 91 19 35 03/13/17 00:00 97.3 102 26 110/71 98 Mechanical Ventilator 03/13/17 00:00 35 03/12/17 23:33 95 25 35 03/12/17 23:33 101 03/12/17 21:47 92 21 35 03/12/17 20:00 35 03/12/17 20:00 93 03/12/17 20:00 97.5 94 22 109/67 94 Mechanical Ventilator 03/12/17 19:47 81 21 99 Mechanical Ventilator 35 03/12/17 19:32 35 03/12/17 19:32 85 25 100 Mechanical Ventilator 35 03/12/17 19:31 85 23 35 03/12/17 16:40 98 03/12/17 16:40 35 03/12/17 16:36 90 19 35 03/12/17 16:00 97.6 89 18 112/63 99 Mechanical Ventilator 35 03/12/17 14:55 92 22 35 03/12/17 12:52 93 18 35 03/12/17 12:52 92 20 99 Mechanical Ventilator 35 03/12/17 12:42 35 03/12/17 12:42 92 22 100 Mechanical Ventilator 35 03/12/17 12:00 97.7 95 19 105/59 99 Mechanical Ventilator 35 03/12/17 11:27 45 03/12/17 11:27 98 03/12/17 10:48 98 18 35 03/12/17 09:00 101 18 40 03/12/17 08:00 98.1 98 18 117/57 100 Mechanical Ventilator 40 03/12/17 07:51 98 03/12/17 07:51 45 Intake and Output 03/12/17 03/13/17 19:00 07:00 Intake Total 1236 ml 2138.0 ml Output Total 550 ml Balance 686 ml 2138.0 ml Free Water 350 ml 300 ml IV Total 310 ml 1310.0 ml Tube Feeding 576 ml 528 ml Output Urine Total 550 ml # Bowel Movements 1 2 Laboratory Tests 03/13/17 04:10: White Blood Count 10.4, Red Blood Count 2.82L, Hemoglobin 8.5L, Hematocrit 27.7L , Mean Corpuscular Volume 98, Mean Corpuscular Hemoglobin 30.0, Mean Corpuscular Hemoglobin Concent 30.5L, Red Cell Distribution Width 19.8H, Platelet Count 160, Mean Platelet Volume 9.1, Neutrophils (%) (Auto) 69.7, Lymphocytes (%) (Auto) 14.7L, Monocytes (%) (Auto) 13.0H, Eosinophils (%) (Auto ) 1.8, Basophils (%) (Auto) 0.8, Prothrombin Time 51.8H, Prothromb Time International Ratio 4.8H, Activated Partial Thromboplast Time 28, Sodium Level 154H, Potassium Level 5.2H, Chloride Level 115H, Carbon Dioxide Level 24, Anion Gap 15, Blood Urea Nitrogen 66H, Creatinine 2.1H, Estimat Glomerular Filtration Rate , Glucose Level 223H, Uric Acid 10.3H, Calcium Level 9.1, Phosphorus Level 2.9, Magnesium Level 2.5, Total Bilirubin 0.4, Aspartate Amino Transf (AST/SGOT ) 18, Alanine Aminotransferase (ALT/SGPT) 15, Alkaline Phosphatase 124, C- Reactive Protein, Quantitative 14.3H, Pro-B-Type Natriuretic Peptide 338, Total Protein 9.2H, Albumin 3.0L, Globulin 6.2, Albumin/Globulin Ratio 0.4L Height (Feet): 6 Height (Inches): 0.00 Weight (Pounds): 260 General Appearance: lethargic Neck: normal alignment Cardiovascular: normal rate Respiratory/Chest: decreased breath sounds Abdomen: normal bowel sounds Objective Current Medications Medications (Trade) Dose Ordered Sig/Shubham Route PRN Reason Start Time Stop Time Status Last Admin Dose Admin Albuterol/ Ipratropium 3 ml 3 ml Q6HRT HHN 03/09/17 13:00 03/14/17 12:59 03/13/17 01:20 Dextrose (D5W 1000ml) 1,000 ml @ 100 mls/hr Q10H IV 03/10/17 10:00 04/09/17 09:59 03/13/17 02:40 Dextrose STAT PRN IV Hypoglycemia 03/12/17 08:45 04/11/17 08:44 Heparin Sodium (Porcine) (Heparin 5000 units/ml) 5,000 units EVERY 8 HOURS SUBQ 03/10/17 22:00 04/09/17 21:59 03/13/17 06:00 Insulin Aspart (NovoLOG) EVERY 6 HOURS SUBQ 03/12/17 09:30 04/11/17 09:29 03/13/17 06:01 Insulin Aspart (NovoLOG) 8 units EVERY 6 HOURS SUBQ 03/12/17 09:30 04/11/17 09:29 03/13/17 06:00 Insulin Detemir (Levemir) 30 units Q12H SUBQ 03/11/17 21:00 04/10/17 20:59 03/12/17 21:11 Piperacillin Sod/ Tazobactam Sod/ Dextrose (Zosyn/D5W) 110 ml @ 27.5 mls/hr EVERY 8 HOURS IVPB 03/12/17 12:00 03/17/17 11:59 03/13/17 05:59 Item Value Date Time Bedside Blood Glucose 279 mg/dl H 03/13/17 0601 Bedside Blood Glucose 234 mg/dl H 03/13/17 0000 Bedside Blood Glucose 227 mg/dl H 03/12/17 2111 Bedside Blood Glucose 219 mg/dl H 03/12/17 1809 Bedside Blood Glucose 308 mg/dl H 03/12/17 1221 Bedside Blood Glucose 335 mg/dl H 03/12/17 1017 TOMMIE GARDNER March 13, 2017 07:11
[2017-03-13 08:00] VITALS: BP 111/64
[2017-03-13] MEDS: Levemir Flexpen SUBQ SCH ×2 (08:07→22:06)
--- NOTE | 2017-03-13 10:08 | Pulmonology Progress Note ---
Assessment/Plan Problems: (1) ARF (acute renal failure) (2) Respiratory insufficiency (3) Tracheostomy status (4) COPD (chronic obstructive pulmonary disease) (5) Diabetes mellitus out of control (6) HTN (hypertension) Respiratory: monitor respiratory rate, adjust FIO2, CXR Cardiac: continue to monitor HR/BP Renal: F/U I&O, keep IV fluid Infectious Disease: check cultures, continue antibiotics Gastrointestinal: continue feedings/current rate Endocrine: monitor blood sugar, check HgA1C, continue sliding scale insulin Hematologic: transfuse if hgb<8.5 Neurologic: PRN Ativan, keep patient comfortable Affect: PRN ativan Time Spent (Minutes): 40 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, 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, 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, consultants, nurse case manager Subjective ROS Limited/Unobtainable: No Allergies: Coded Allergies: NO KNOWN DRUG ALLERGIES (Unverified Allergy, Unknown, 10/29/14) Objective Last 24 Hour Vital Signs Date Time Temp Pulse Resp B/P Pulse Ox O2 Delivery O2 Flow Rate FiO2 03/13/17 09:14 83 18 35 03/13/17 08:00 100 03/13/17 08:00 97.9 98 18 111/64 100 Mechanical Ventilator 35 03/13/17 08:00 35 03/13/17 07:36 102 18 99 Mechanical Ventilator 35 03/13/17 07:24 104 21 35 03/13/17 07:23 35 03/13/17 07:21 104 25 100 Mechanical Ventilator 35 03/13/17 05:04 85 20 35 03/13/17 04:01 81 20 35 03/13/17 04:00 97.7 100 24 118/70 97 Room Air 03/13/17 04:00 100 03/13/17 04:00 35 03/13/17 01:28 89 20 99 Mechanical Ventilator 35 03/13/17 01:20 35 03/13/17 01:19 91 23 100 Mechanical Ventilator 35 03/13/17 01:19 91 19 35 03/13/17 00:00 97.3 102 26 110/71 98 Mechanical Ventilator 03/13/17 00:00 35 03/12/17 23:33 95 25 35 03/12/17 23:33 101 03/12/17 21:47 92 21 35 03/12/17 20:00 35 03/12/17 20:00 93 03/12/17 20:00 97.5 94 22 109/67 94 Mechanical Ventilator 03/12/17 19:47 81 21 99 Mechanical Ventilator 35 03/12/17 19:32 35 03/12/17 19:32 85 25 100 Mechanical Ventilator 35 03/12/17 19:31 85 23 35 03/12/17 16:40 98 03/12/17 16:40 35 03/12/17 16:36 90 19 35 03/12/17 16:00 97.6 89 18 112/63 99 Mechanical Ventilator 35 03/12/17 14:55 92 22 35 03/12/17 12:52 93 18 35 03/12/17 12:52 92 20 99 Mechanical Ventilator 35 03/12/17 12:42 35 03/12/17 12:42 92 22 100 Mechanical Ventilator 35 03/12/17 12:00 97.7 95 19 105/59 99 Mechanical Ventilator 35 03/12/17 11:27 45 03/12/17 11:27 98 03/12/17 10:48 98 18 35 Intake and Output 03/12/17 03/13/17 19:00 07:00 Intake Total 1236 ml 2138.0 ml Output Total 550 ml 700 ml Balance 686 ml 1438.0 ml Free Water 350 ml 300 ml IV Total 310 ml 1310.0 ml Tube Feeding 576 ml 528 ml Output Urine Total 550 ml 700 ml # Bowel Movements 1 2 General Appearance: WD/WN HEENT: normocephalic, status post trach Respiratory/Chest: chest wall non-tender Cardiovascular: normal peripheral pulses, normal rate Abdomen: normal bowel sounds, soft, non tender Skin: no rash, no ulcers 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, normal mood/affect Lymphatic: no groin adenopathy Musculoskeletal: no effusion Laboratory Tests 03/13/17 04:10: White Blood Count 10.4, Red Blood Count 2.82L, Hemoglobin 8.5L, Hematocrit 27.7L , Mean Corpuscular Volume 98, Mean Corpuscular Hemoglobin 30.0, Mean Corpuscular Hemoglobin Concent 30.5L, Red Cell Distribution Width 19.8H, Platelet Count 160, Mean Platelet Volume 9.1, Neutrophils (%) (Auto) 69.7, Lymphocytes (%) (Auto) 14.7L, Monocytes (%) (Auto) 13.0H, Eosinophils (%) (Auto ) 1.8, Basophils (%) (Auto) 0.8, Prothrombin Time 51.8H, Prothromb Time International Ratio 4.8H, Activated Partial Thromboplast Time 28, Sodium Level 154H, Potassium Level 5.2H, Chloride Level 115H, Carbon Dioxide Level 24, Anion Gap 15, Blood Urea Nitrogen 66H, Creatinine 2.1H, Estimat Glomerular Filtration Rate , Glucose Level 223H, Uric Acid 10.3H, Calcium Level 9.1, Phosphorus Level 2.9, Magnesium Level 2.5, Total Bilirubin 0.4, Aspartate Amino Transf (AST/SGOT ) 18, Alanine Aminotransferase (ALT/SGPT) 15, Alkaline Phosphatase 124, C- Reactive Protein, Quantitative 14.3H, Pro-B-Type Natriuretic Peptide 338, Total Protein 9.2H, Albumin 3.0L, Globulin 6.2, Albumin/Globulin Ratio 0.4L Current Medications Medications (Trade) Dose Ordered Sig/Shubham Route PRN Reason Start Time Stop Time Status Last Admin Dose Admin Albuterol/ Ipratropium 3 ml 3 ml Q6HRT HHN 03/09/17 13:00 03/14/17 12:59 03/13/17 07:21 Allopurinol (Allopurinol) 300 mg DAILY GT 03/13/17 10:00 04/12/17 09:59 Dextrose (D5W 1000ml) 1,000 ml @ 100 mls/hr Q10H IV 03/10/17 10:00 04/09/17 09:59 03/13/17 02:40 Dextrose STAT PRN IV Hypoglycemia 03/12/17 08:45 04/11/17 08:44 Heparin Sodium (Porcine) (Heparin 5000 units/ml) 5,000 units EVERY 8 HOURS SUBQ 03/10/17 22:00 04/09/17 21:59 03/13/17 06:00 Insulin Aspart (NovoLOG) EVERY 6 HOURS SUBQ 03/12/17 09:30 04/11/17 09:29 03/13/17 06:01 Insulin Aspart (NovoLOG) 12 units EVERY 6 HOURS SUBQ 03/13/17 12:00 04/12/17 11:59 Insulin Detemir (Levemir) 30 units Q12H SUBQ 03/11/17 21:00 04/10/17 20:59 03/13/17 08:07 Piperacillin Sod/ Tazobactam Sod/ Dextrose (Zosyn/D5W) 110 ml @ 27.5 mls/hr EVERY 8 HOURS IVPB 03/12/17 12:00 03/17/17 11:59 03/13/17 05:59 MICH FONSECA March 13, 2017 10:08
--- NOTE | 2017-03-13 10:40 | Diagnostic Imaging Report ---
Indication: Shortness of breath Technique: One view of the chest Comparison: 03/09/2017 Findings: There is questionably increased interstitial disease, left greater than right, although some of this may be an artifact of different exposure technique. There is suggestion of increased infrahilar atelectasis and possibly some consolidation. Pleural spaces are clear. Heart size is normal. Impression: Increased left infrahilar atelectasis and consolidation, over 3 days Questionably increased interstitial disease bilaterally, left greater than right; this may be an artifact of different exposure technique, however
[2017-03-13] MEDS ORDERED: Heparin 2000 units/Ns 1000ml INJ PRN (10:45)
[2017-03-13] MEDS ORDERED: Lidocaine 1% Plain 30 ml INJ PRN (10:45)
[2017-03-13 11:57] VITALS: BP 118/70
--- NOTE | 2017-03-13 12:51 | General Progress Note ---
Assessment/Plan Problem List: (1) Prerenal azotemia ICD Codes: R79.89 - Prerenal azotemia SNOMED: 339689907 (2) Azotemia ICD Codes: R79.89 - Azotemia SNOMED: 759778237 (3) Acute renal failure ICD Codes: N17.9 - Acute kidney failure, unspecified SNOMED: 31762271 (4) Hyperkalemia ICD Codes: E87.5 - Hyperkalemia; R65.21 - Severe sepsis with septic shock SNOMED: 72367597 (5) Ventilator dependence (6) Chronic respiratory failure ICD Codes: J96.10 - Chronic respiratory failure, unspecified whether with hypoxia or hypercapnia SNOMED: 64853684 (7) UTI (urinary tract infection) ICD Codes: N39.0 - Urinary tract infection, site not specified SNOMED: 61272981 (8) Dementia ICD Codes: F03.90 - Dementia SNOMED: 01282438 (9) Feeding by G-tube ICD Codes: Z93.1 - Feeding by G-tube SNOMED: 033159086 (10) Diabetes mellitus out of control ICD Codes: E11.65 - Diabetes mellitus out of control SNOMED: 457782827 (11) UTI (urinary tract infection) ICD Codes: N39.0 - Urinary tract infection, site not specified SNOMED: 36762137 Status: progressing Assessment/Plan uti anemia is getting worse consulted dr kenyon for anemia getting worse also na is getting worse and is very high at 154 today will discuss w consultants re plan of treatment Subjective ROS Limited/Unobtainable: Yes Constitutional: Reports: no symptoms Allergies: Coded Allergies: NO KNOWN DRUG ALLERGIES (Unverified Allergy, Unknown, 10/29/14) Objective Last 24 Hour Vital Signs Date Time Temp Pulse Resp B/P Pulse Ox O2 Delivery O2 Flow Rate FiO2 03/13/17 12:00 35 03/13/17 11:59 96 03/13/17 11:57 97.7 96 22 118/70 98 Mechanical Ventilator 35 03/13/17 11:08 88 21 35 03/13/17 09:14 83 18 35 03/13/17 08:00 100 03/13/17 08:00 97.9 98 18 111/64 100 Mechanical Ventilator 35 03/13/17 08:00 35 03/13/17 07:36 102 18 99 Mechanical Ventilator 35 03/13/17 07:24 104 21 35 03/13/17 07:23 35 03/13/17 07:21 104 25 100 Mechanical Ventilator 35 03/13/17 05:04 85 20 35 03/13/17 04:01 81 20 35 03/13/17 04:00 97.7 100 24 118/70 97 Room Air 03/13/17 04:00 100 03/13/17 04:00 35 03/13/17 01:28 89 20 99 Mechanical Ventilator 35 03/13/17 01:20 35 03/13/17 01:19 91 23 100 Mechanical Ventilator 35 03/13/17 01:19 91 19 35 03/13/17 00:00 97.3 102 26 110/71 98 Mechanical Ventilator 03/13/17 00:00 35 03/12/17 23:33 95 25 35 03/12/17 23:33 101 03/12/17 21:47 92 21 35 03/12/17 20:00 35 03/12/17 20:00 93 03/12/17 20:00 97.5 94 22 109/67 94 Mechanical Ventilator 03/12/17 19:47 81 21 99 Mechanical Ventilator 35 03/12/17 19:32 35 03/12/17 19:32 85 25 100 Mechanical Ventilator 35 03/12/17 19:31 85 23 35 03/12/17 16:40 98 03/12/17 16:40 35 03/12/17 16:36 90 19 35 03/12/17 16:00 97.6 89 18 112/63 99 Mechanical Ventilator 35 03/12/17 14:55 92 22 35 03/12/17 12:52 93 18 35 03/12/17 12:52 92 20 99 Mechanical Ventilator 35 Intake and Output 03/12/17 03/13/17 19:00 07:00 Intake Total 1236 ml 2463.5 ml Output Total 550 ml 700 ml Balance 686 ml 1763.5 ml Free Water 350 ml 450 ml IV Total 310 ml 1437.5 ml Tube Feeding 576 ml 576 ml Output Urine Total 550 ml 700 ml # Bowel Movements 1 2 Laboratory Tests 03/13/17 04:10: White Blood Count 10.4, Red Blood Count 2.82L, Hemoglobin 8.5L, Hematocrit 27.7L , Mean Corpuscular Volume 98, Mean Corpuscular Hemoglobin 30.0, Mean Corpuscular Hemoglobin Concent 30.5L, Red Cell Distribution Width 19.8H, Platelet Count 160, Mean Platelet Volume 9.1, Neutrophils (%) (Auto) 69.7, Lymphocytes (%) (Auto) 14.7L, Monocytes (%) (Auto) 13.0H, Eosinophils (%) (Auto ) 1.8, Basophils (%) (Auto) 0.8, Prothrombin Time 51.8H, Prothromb Time International Ratio 4.8H, Activated Partial Thromboplast Time 28, Sodium Level 154H, Potassium Level 5.2H, Chloride Level 115H, Carbon Dioxide Level 24, Anion Gap 15, Blood Urea Nitrogen 66H, Creatinine 2.1H, Estimat Glomerular Filtration Rate , Glucose Level 223H, Uric Acid 10.3H, Calcium Level 9.1, Phosphorus Level 2.9, Magnesium Level 2.5, Total Bilirubin 0.4, Aspartate Amino Transf (AST/SGOT ) 18, Alanine Aminotransferase (ALT/SGPT) 15, Alkaline Phosphatase 124, C- Reactive Protein, Quantitative 14.3H, Pro-B-Type Natriuretic Peptide 338, Total Protein 9.2H, Albumin 3.0L, Globulin 6.2, Albumin/Globulin Ratio 0.4L Height (Feet): 6 Height (Inches): 0.00 Weight (Pounds): 260 General Appearance: confused Neck: supple Respiratory/Chest: lungs clear David Bowie MD March 13, 2017 12:51
[2017-03-13] MEDS ORDERED: Phytonadione 10 mg/mL 1ml amp SUBQ ONE (15:00)
--- NOTE | 2017-03-13 15:07 | General Progress Note ---
Assessment/Plan Status: stable Assessment/Plan Acute Renal Failure- Pre Renal / Super Imposed on Renal Respiratory failure- UTI h/o Anemia Decubs h/o DVT Other conditions: 1. Acute on chronic respiratory failure. 2. h/o Severe sepsis. 3. Ventilator-dependent respiratory failure. 4. Chronic obstructive pulmonary disease. 5. History of deep venous thrombosis. 6. Hypoalbuminemia. 7. h/o Clostridium difficile colitis. 8. Pressure ulcers on sacrococcygeal down to buttocks, right ischial tuberosity, and right heel and right trochanter present on admission. 9. h/o Urinary tract infection, Proteus mirabilis. 10. h/o Acute deep venous thrombosis of the right lower extremity, on heparin and bridged to Coumadin. 11. Tracheostomy status. 12. Gastrostomy tube feeding. 13. Diabetes mellitus. Plan: Slow IV hydration- BS control- keep BP under control- Avoid Nephrotoxics- monitor lytes and renal parameters- Subjective ROS Limited/Unobtainable: Yes Allergies: Coded Allergies: NO KNOWN DRUG ALLERGIES (Unverified Allergy, Unknown, 10/29/14) Objective Last 24 Hour Vital Signs Date Time Temp Pulse Resp B/P Pulse Ox O2 Delivery O2 Flow Rate FiO2 03/13/17 13:17 97 18 99 Mechanical Ventilator 35 03/13/17 13:06 35 03/13/17 13:06 94 20 35 03/13/17 13:05 94 20 100 Mechanical Ventilator 35 03/13/17 12:00 35 03/13/17 11:59 96 03/13/17 11:57 97.7 96 22 118/70 98 Mechanical Ventilator 35 03/13/17 11:08 88 21 35 03/13/17 09:14 83 18 35 03/13/17 08:00 100 03/13/17 08:00 97.9 98 18 111/64 100 Mechanical Ventilator 35 03/13/17 08:00 35 03/13/17 07:36 102 18 99 Mechanical Ventilator 35 03/13/17 07:24 104 21 35 03/13/17 07:23 35 03/13/17 07:21 104 25 100 Mechanical Ventilator 35 03/13/17 05:04 85 20 35 03/13/17 04:01 81 20 35 03/13/17 04:00 97.7 100 24 118/70 97 Room Air 03/13/17 04:00 100 03/13/17 04:00 35 03/13/17 01:28 89 20 99 Mechanical Ventilator 35 03/13/17 01:20 35 03/13/17 01:19 91 23 100 Mechanical Ventilator 35 03/13/17 01:19 91 19 35 03/13/17 00:00 97.3 102 26 110/71 98 Mechanical Ventilator 03/13/17 00:00 35 03/12/17 23:33 95 25 35 03/12/17 23:33 101 03/12/17 21:47 92 21 35 03/12/17 20:00 35 03/12/17 20:00 93 03/12/17 20:00 97.5 94 22 109/67 94 Mechanical Ventilator 03/12/17 19:47 81 21 99 Mechanical Ventilator 35 03/12/17 19:32 35 03/12/17 19:32 85 25 100 Mechanical Ventilator 35 03/12/17 19:31 85 23 35 03/12/17 16:40 98 03/12/17 16:40 35 03/12/17 16:36 90 19 35 03/12/17 16:00 97.6 89 18 112/63 99 Mechanical Ventilator 35 Intake and Output 03/12/17 03/13/17 19:00 07:00 Intake Total 1236 ml 2463.5 ml Output Total 550 ml 700 ml Balance 686 ml 1763.5 ml Free Water 350 ml 450 ml IV Total 310 ml 1437.5 ml Tube Feeding 576 ml 576 ml Output Urine Total 550 ml 700 ml # Bowel Movements 1 2 Laboratory Tests 03/13/17 04:10: White Blood Count 10.4, Red Blood Count 2.82L, Hemoglobin 8.5L, Hematocrit 27.7L , Mean Corpuscular Volume 98, Mean Corpuscular Hemoglobin 30.0, Mean Corpuscular Hemoglobin Concent 30.5L, Red Cell Distribution Width 19.8H, Platelet Count 160, Mean Platelet Volume 9.1, Neutrophils (%) (Auto) 69.7, Lymphocytes (%) (Auto) 14.7L, Monocytes (%) (Auto) 13.0H, Eosinophils (%) (Auto ) 1.8, Basophils (%) (Auto) 0.8, Prothrombin Time 51.8H, Prothromb Time International Ratio 4.8H, Activated Partial Thromboplast Time 28, Sodium Level 154H, Potassium Level 5.2H, Chloride Level 115H, Carbon Dioxide Level 24, Anion Gap 15, Blood Urea Nitrogen 66H, Creatinine 2.1H, Estimat Glomerular Filtration Rate , Glucose Level 223H, Uric Acid 10.3H, Calcium Level 9.1, Phosphorus Level 2.9, Magnesium Level 2.5, Total Bilirubin 0.4, Aspartate Amino Transf (AST/SGOT ) 18, Alanine Aminotransferase (ALT/SGPT) 15, Alkaline Phosphatase 124, C- Reactive Protein, Quantitative 14.3H, Pro-B-Type Natriuretic Peptide 338, Total Protein 9.2H, Albumin 3.0L, Globulin 6.2, Albumin/Globulin Ratio 0.4L Height (Feet): 6 Height (Inches): 0.00 Weight (Pounds): 260 General Appearance: no apparent distress, lethargic Cardiovascular: tachycardia Respiratory/Chest: decreased breath sounds Abdomen: distended Edema: 1+ Arm (L), 1+ Arm (R), 1+ Leg (L), 1+ Leg (R), 1+ Pedal (L), 1+ Pedal ( R), 1+ Generalized Objective other PE not changed COLTEN DIEGO March 13, 2017 15:07
[2017-03-13 16:00] VITALS: BP 120/67
--- NOTE | 2017-03-13 17:35 | Diagnostic Imaging Report ---
Indications: Needs long-term IV access Technique: Procedure performed at bedside. Procedural timeout performed. Ultrasound confirms patent compressible right brachial vein. Total sterile technique, including sterile probe cover and sterile gel, sterile gloves, hand hygiene, hat, mask,, sterile gown, large sterile drape, and preparation with 2% chlorhexidine utilized. Local anesthesia with 1% lidocaine. Under real-time ultrasound guidance, puncture brachial vein using 21-gauge needle, passage 0.018 guidewire, exchange for 5 Algerian peel-away sheath. 5 Algerian Bard dual-lumen power PICC cut to 38 cm. It was inserted through the peel-away sheath. Peel-away sheath and guidewire removed. Catheter fixed to the skin. Both catheter ports aspirated and flushed. Patient tolerated procedure well, without immediate complication. Followup chest x-ray obtained, documents catheter tip position at the cavoatrial junction Impression: Successful bedside placement of right arm PICC under sonographic guidance, as described above.
--- NOTE | 2017-03-13 18:35 | Infectious Diseases Prog Note ---
Assessment/Plan Problems: (1) UTI (urinary tract infection) Assessment & Plan: due to ESBL producing Klebsiella pneumonia , and pseudomonas aeruginosa , on zosyn for two weeks (2) Pressure ulcer Assessment & Plan: not infected, colonized with MDR Acinetobacter baumannii , MRSA and E.faecalis , no need for antibiotics treatment, continue local wound care and off loading (3) Acute prerenal azotemia Assessment & Plan: improving , continue IVF for hydration, monitor UOP, renal is following (4) Diabetes mellitus out of control Assessment & Plan: recommend tight glycemic control to keep blood glucose between 80-120 (5) Tracheostomy status Assessment & Plan: colonized with Stenotrophomonas maltophilia, and MDR pseudomonas aeruginosa , CXR ruled out new infiltrates, no need to treat at this point.continue tracheal care Subjective ROS Limited/Unobtainable: Yes Allergies: Coded Allergies: NO KNOWN DRUG ALLERGIES (Unverified Allergy, Unknown, 10/29/14) Subjective he was sleeping and resting in bed, comfortable, afebrile. Objective Vital Signs Last 24 Hour Vital Signs Date Time Temp Pulse Resp B/P Pulse Ox O2 Delivery O2 Flow Rate FiO2 03/13/17 16:57 94 23 35 03/13/17 16:00 35 03/13/17 16:00 92 03/13/17 16:00 97.7 96 22 120/67 98 Mechanical Ventilator 35 03/13/17 15:14 100 17 35 03/13/17 13:17 97 18 99 Mechanical Ventilator 35 03/13/17 13:06 35 03/13/17 13:06 94 20 35 03/13/17 13:05 94 20 100 Mechanical Ventilator 03/13/17 12:00 35 03/13/17 11:59 96 03/13/17 11:57 97.7 96 22 118/70 98 Mechanical Ventilator 35 03/13/17 11:08 88 21 35 03/13/17 09:14 83 18 35 03/13/17 08:00 100 03/13/17 08:00 97.9 98 18 111/64 100 Mechanical Ventilator 03/13/17 08:00 35 03/13/17 07:36 102 18 99 Mechanical Ventilator 35 03/13/17 07:24 104 21 35 03/13/17 07:23 35 03/13/17 07:21 104 25 100 Mechanical Ventilator 35 03/13/17 05:04 85 20 35 03/13/17 04:01 81 20 35 03/13/17 04:00 97.7 100 24 118/70 97 Room Air 03/13/17 04:00 100 03/13/17 04:00 35 03/13/17 01:28 89 20 99 Mechanical Ventilator 35 03/13/17 01:20 35 03/13/17 01:19 91 23 100 Mechanical Ventilator 35 03/13/17 01:19 91 19 35 03/13/17 00:00 97.3 102 26 110/71 98 Mechanical Ventilator 03/13/17 00:00 35 03/12/17 23:33 95 25 35 03/12/17 23:33 101 03/12/17 21:47 92 21 35 03/12/17 20:00 35 03/12/17 20:00 93 03/12/17 20:00 97.5 94 22 109/67 94 Mechanical Ventilator 03/12/17 19:47 81 21 99 Mechanical Ventilator 35 03/12/17 19:32 35 03/12/17 19:32 85 25 100 Mechanical Ventilator 35 03/12/17 19:31 85 23 35 Height (Feet): 6 Height (Inches): 0.00 Weight (Pounds): 260 General Appearance: WD/WN, no acute distress HEENT: normocephalic, atraumatic, anicteric, mucous membranes moist, status post trach Respiratory/Chest: no respiratory distress, no accessory muscle use, decreased breath sounds, crackles/rales Cardiovascular: normal peripheral pulses, normal rate, regular rhythm, no gallop/murmur, no JVD Abdomen: normal bowel sounds, soft, non tender, no organomegaly, non distended , no mass, no scars Extremities: no cyanosis, no clubbing Skin: no rash, no lesions Laboratory Tests Test 03/13/17 04:10 White Blood Count 10.4 K/UL (4.8-10.8) Red Blood Count 2.82 M/UL (4.70-6.10) L Hemoglobin 8.5 G/DL (14.2-18.0) L Hematocrit 27.7 % (42.0-52.0) L Mean Corpuscular Volume 98 FL (80-99) Mean Corpuscular Hemoglobin 30.0 PG (27.0-31.0) Mean Corpuscular Hemoglobin Concent 30.5 G/DL (32.0-36.0) L Red Cell Distribution Width 19.8 % (11.6-14.8) H Platelet Count 160 K/UL (150-450) Mean Platelet Volume 9.1 FL (6.5-10.1) Neutrophils (%) (Auto) 69.7 % (45.0-75.0) Lymphocytes (%) (Auto) 14.7 % (20.0-45.0) L Monocytes (%) (Auto) 13.0 % (1.0-10.0) H Eosinophils (%) (Auto) 1.8 % (0.0-3.0) Basophils (%) (Auto) 0.8 % (0.0-2.0) Prothrombin Time 51.8 SEC (9.30-11.50) H Prothromb Time International Ratio 4.8 (0.9-1.1) H Activated Partial Thromboplast Time 28 SEC (23-33) Sodium Level 154 mEQ/L (135-145) H Potassium Level 5.2 mEQ/L (3.4-4.9) H Chloride Level 115 mEQ/L (98-107) H Carbon Dioxide Level 24 mEQ/L (20-30) Anion Gap 15 (5-15) Blood Urea Nitrogen 66 mg/dL (7-23) H Creatinine 2.1 mg/dL (0.7-1.2) H Estimat Glomerular Filtration Rate mL/min (>60) Glucose Level 223 mg/dL (74-106) H Uric Acid 10.3 mg/dL (3.0-7.5) H Calcium Level 9.1 mg/dL (8.6-10.2) Phosphorus Level 2.9 mg/dL (2.5-4.8) Magnesium Level 2.5 mg/dL (1.7-2.5) Total Bilirubin 0.4 mg/dL (0.0-1.2) Aspartate Amino Transf (AST/SGOT) 18 U/L (5-40) Alanine Aminotransferase (ALT/SGPT) 15 U/L (3-41) Alkaline Phosphatase 124 U/L (40-129) C-Reactive Protein, Quantitative 14.3 mg/dL (< 0.5) H Pro-B-Type Natriuretic Peptide 338 pg/mL (0-450) Total Protein 9.2 g/dL (6.6-8.7) H Albumin 3.0 g/dL (3.5-5.2) L Globulin 6.2 g/dL Albumin/Globulin Ratio 0.4 (1.0-2.7) L Current Medications Medications (Trade) Dose Ordered Sig/Shubham Route PRN Reason Start Time Stop Time Status Last Admin Dose Admin Albuterol/ Ipratropium (DuoNeb 0.5-3(2.5)mg/3ml) 3 ml Q6HRT HHN 03/09/17 13:00 03/14/17 12:59 03/13/17 13:05 Allopurinol (Allopurinol) 300 mg DAILY GT 03/13/17 10:00 04/12/17 09:59 03/13/17 10:10 Chlorhexidine Gluconate 1 applic 1 applic DAILY TOPIC 03/14/17 09:00 04/13/17 08:59 Dextrose 1,000 ml @ 75 mls/hr [id number] IV 03/13/17 16:00 04/12/17 15:59 03/13/17 15:46 Dextrose (Dextrose 50%) STAT PRN IV Hypoglycemia 03/12/17 08:45 04/11/17 08:44 Heparin Sodium (Porcine) (Heparin 5000 units/ml) 5,000 units EVERY 8 HOURS SUBQ 03/10/17 22:00 04/09/17 21:59 03/13/17 06:00 Heparin Sodium/ Sodium Chloride (Heparin 2000 units/Ns 1000ml premix) 2,000 unit ONCE PRN INJ PICC PLACEMENT 03/13/17 10:45 03/14/17 23:59 Insulin Aspart (NovoLOG) EVERY 6 HOURS SUBQ 03/12/17 09:30 04/11/17 09:29 03/13/17 18:17 Insulin Aspart (NovoLOG) 12 units EVERY 6 HOURS SUBQ 03/13/17 12:00 04/12/17 11:59 03/13/17 18:19 Insulin Detemir (Levemir) 30 units Q12H SUBQ 03/11/17 21:00 04/10/17 20:59 03/13/17 08:07 Lidocaine HCl (Xylocaine 1% 30ml) 30 ml ONCE PRN INJ FOR PICC PLACEMENT 03/13/17 10:45 03/14/17 23:59 Piperacillin Sod/ Tazobactam Sod/ Dextrose (Zosyn/D5W) 110 ml @ 220 mls/hr EVERY 8 HOURS IV 03/13/17 22:00 03/20/17 21:59 Kacey Olivo M.D. March 13, 2017 18:35
[2017-03-13 20:00] VITALS: BP 118/77
[2017-03-13] MEDS ORDERED: Piperacillin/Tazobactam 2.25 GM in D5W 110 ML IVPB SCH (22:00)
[2017-03-13] MEDS: Piperacillin/Tazobactam 2.25 GM in D5W 110 ML IV SCH (22:06)
--- NOTE | 2017-03-13 23:30 | General Progress Note ---
Assessment/Plan Assessment/Plan IMPRESSION: 1. Anemia of chronic disease. Currently stable, 8-10 2. Anemia of iron deficiency. 3. Anemia of kidney disease. 4. End-stage renal disease, hemodialysis dependent. 5. Sepsis. 6. Respiratory failure. 7. Pneumonia. 8. Chronic obstructive pulmonary disease. 9. History of deep venous thrombosis, right lower extremity. 10. History of gastrointestinal bleed. 11. Dysphagia. 12. Status post gastrostomy tube placement. 13. History of Clostridium difficile colitis. 14. Ltl-ocseyjq-akohdjqur diabetes mellitus. RECOMMENDATIONS: 1. Watch count. 2. Watch coagulopathy. 3. Heparin subcutaneous. 4. PRBC transfusion p.r.n. basis, goal >7 5. Wound care. 6. Skin care. 7. Tracheostomy care. Subjective Constitutional: Reports: no symptoms HEENT: Reports: no symptoms Cardiovascular: Reports: no symptoms Respiratory: Reports: no symptoms Gastrointestinal/Abdominal: Reports: no symptoms Genitourinary: Reports: no symptoms Neurologic/Psychiatric: Reports: no symptoms Endocrine: Reports: no symptoms Hematologic/Lymphatic: Reports: anemia Allergies: Coded Allergies: NO KNOWN DRUG ALLERGIES (Unverified Allergy, Unknown, 10/29/14) Subjective stable, no fevers or chills, on a vent, bed bound, unchnaged Objective Last 24 Hour Vital Signs Date Time Temp Pulse Resp B/P Pulse Ox O2 Delivery O2 Flow Rate FiO2 03/13/17 21:35 95 23 35 03/13/17 20:00 97.7 101 18 118/77 98 Mechanical Ventilator 35 03/13/17 20:00 35 03/13/17 19:44 101 18 99 Mechanical Ventilator 35 03/13/17 19:19 35 03/13/17 19:19 84 22 100 Mechanical Ventilator 35 03/13/17 19:18 85 24 35 03/13/17 16:57 94 23 35 03/13/17 16:00 35 03/13/17 16:00 92 03/13/17 16:00 97.7 96 22 120/67 98 Mechanical Ventilator 35 03/13/17 15:14 100 17 35 03/13/17 13:17 97 18 99 Mechanical Ventilator 35 03/13/17 13:06 35 03/13/17 13:06 94 20 35 03/13/17 13:05 94 20 100 Mechanical Ventilator 35 03/13/17 12:00 35 03/13/17 11:59 96 03/13/17 11:57 97.7 96 22 118/70 98 Mechanical Ventilator 35 03/13/17 11:08 88 21 35 03/13/17 09:14 83 18 35 03/13/17 08:00 100 03/13/17 08:00 97.9 98 18 111/64 100 Mechanical Ventilator 35 03/13/17 08:00 35 03/13/17 07:36 102 18 99 Mechanical Ventilator 35 03/13/17 07:24 104 21 35 03/13/17 07:23 35 03/13/17 07:21 104 25 100 Mechanical Ventilator 35 03/13/17 05:04 85 20 35 03/13/17 04:01 81 20 35 03/13/17 04:00 97.7 100 24 118/70 97 Room Air 03/13/17 04:00 100 03/13/17 04:00 35 03/13/17 01:28 89 20 99 Mechanical Ventilator 35 03/13/17 01:20 35 03/13/17 01:19 91 23 100 Mechanical Ventilator 35 03/13/17 01:19 91 19 35 03/13/17 00:00 97.3 102 26 110/71 98 Mechanical Ventilator 03/13/17 00:00 35 03/12/17 23:33 95 25 35 03/12/17 23:33 101 Intake and Output 03/12/17 03/13/17 18:59 06:59 Intake Total 1236 ml 2186.0 ml Output Total 550 ml 700 ml Balance 686 ml 1486.0 ml Free Water 350 ml 300 ml IV Total 310 ml 1310.0 ml Tube Feeding 576 ml 576 ml Output Urine Total 550 ml 700 ml # Bowel Movements 1 2 Laboratory Tests 03/13/17 04:10: White Blood Count 10.4, Red Blood Count 2.82L, Hemoglobin 8.5L, Hematocrit 27.7L , Mean Corpuscular Volume 98, Mean Corpuscular Hemoglobin 30.0, Mean Corpuscular Hemoglobin Concent 30.5L, Red Cell Distribution Width 19.8H, Platelet Count 160, Mean Platelet Volume 9.1, Neutrophils (%) (Auto) 69.7, Lymphocytes (%) (Auto) 14.7L, Monocytes (%) (Auto) 13.0H, Eosinophils (%) (Auto ) 1.8, Basophils (%) (Auto) 0.8, Prothrombin Time 51.8H, Prothromb Time International Ratio 4.8H, Activated Partial Thromboplast Time 28, Sodium Level 154H, Potassium Level 5.2H, Chloride Level 115H, Carbon Dioxide Level 24, Anion Gap 15, Blood Urea Nitrogen 66H, Creatinine 2.1H, Estimat Glomerular Filtration Rate , Glucose Level 223H, Uric Acid 10.3H, Calcium Level 9.1, Phosphorus Level 2.9, Magnesium Level 2.5, Total Bilirubin 0.4, Aspartate Amino Transf (AST/SGOT ) 18, Alanine Aminotransferase (ALT/SGPT) 15, Alkaline Phosphatase 124, C- Reactive Protein, Quantitative 14.3H, Pro-B-Type Natriuretic Peptide 338, Total Protein 9.2H, Albumin 3.0L, Globulin 6.2, Albumin/Globulin Ratio 0.4L Height (Feet): 6 Height (Inches): 0.00 Weight (Pounds): 260 General Appearance: no apparent distress EENT: TMs normal Neck: supple Cardiovascular: regular rhythm Respiratory/Chest: chest wall non-tender Genitourinary/Rectal: normal rectal exam Extremities: normal range of motion Alexx Sanon March 13, 2017 23:30
[2017-03-14] VITALS: BP 116/70
[2017-03-14] MEDS: NovoLOG Insulin Flexpen SUBQ SCH ×6 (00:01→11:24)
[2017-03-14] MEDS: DuoNeb 0.5-3(2.5)mg/3ml neb HHN SCH ×3 (00:09→12:53)
[2017-03-14 04:00] VITALS: BP 138/61
[2017-03-14 04:51] LABS: EOSINOPHILS % (AUTO) 1.8 % (0.0-3.0); LYMPHOCYTES % (AUTO) 14.5 % (20.0-45.0); MEAN CORPUSCULAR HEMOGLOBIN 30.6 PG (27.0-31.0); MEAN CORPUSCULAR HGB CONC 32.3 G/DL (32.0-36.0); MEAN CORPUSCULAR VOLUME 95 FL (80-99); MEAN PLATELET VOLUME 8.9 FL (6.5-10.1); MONOCYTES % (AUTO) 12.9 % (1.0-10.0); NEUTROPHILS % (AUTO) 69.8 % (45.0-75.0); PLATELET COUNT 150 K/UL (150-450); RED BLOOD COUNT 3.22 M/UL (4.70-6.10); RED CELL DISTRIBUTION WIDTH 18.3 % (11.6-14.8); WHITE BLOOD COUNT 9.5 K/UL (4.8-10.8)
[2017-03-14 05:29] LABS: ALANINE AMINOTRANSFERASE 16 U/L (3-41); ALBUMIN/GLOBULIN RATIO 0.4 (1.0-2.7); ANION GAP 14 (5-15); ASPARTATE AMINO TRANSFERASE 20 U/L (5-40); CALCIUM 9.4 mg/dL (8.6-10.2); CARBON DIOXIDE 25 mEQ/L (20-30); CHLORIDE 114 mEQ/L (98-107); CREATININE 2.3 mg/dL (0.7-1.2); CRP QUANT 12.9 mg/dL (< 0.5); HEMOLYSIS 0; MAGNESIUM 2.5 mg/dL (1.7-2.5); PHOSPHORUS 2.8 mg/dL (2.5-4.8); POTASSIUM 5.2 mEQ/L (3.4-4.9); SODIUM 153 mEQ/L (135-145); TOTAL PROTEIN 9.5 g/dL (6.6-8.7); URIC ACID 8.7 mg/dL (3.0-7.5)
[2017-03-14] MEDS: Heparin 5000 units/ml inj SUBQ SCH ×2 (05:59→13:04)
[2017-03-14] MEDS: Piperacillin/Tazobactam 2.25 GM in D5W 110 ML IV SCH ×2 (05:59→13:15)
--- NOTE | 2017-03-14 06:09 | General Progress Note ---
Assessment/Plan Problem List: (1) Dementia ICD Codes: F03.90 - Dementia SNOMED: 31412881 (2) Sepsis ICD Codes: A41.9 - Sepsis, unspecified organism SNOMED: 34993875 (3) Feeding by G-tube ICD Codes: Z93.1 - Feeding by G-tube SNOMED: 527854986 (4) Tracheostomy status (5) Diabetes mellitus out of control ICD Codes: E11.65 - Diabetes mellitus out of control SNOMED: 885393657 (6) UTI (urinary tract infection) ICD Codes: N39.0 - Urinary tract infection, site not specified SNOMED: 25466566 Assessment/Plan continue Levemir 30 units bid continue Novolog 12 units every 6 hours + SSI Subjective ROS Limited/Unobtainable: Yes Allergies: Coded Allergies: NO KNOWN DRUG ALLERGIES (Unverified Allergy, Unknown, 10/29/14) Subjective events noted Objective Last 24 Hour Vital Signs Date Time Temp Pulse Resp B/P Pulse Ox O2 Delivery O2 Flow Rate FiO2 03/14/17 05:00 97 22 35 03/14/17 04:00 35 03/14/17 04:00 99.0 109 24 138/61 100 Mechanical Ventilator 35 03/14/17 03:49 109 03/14/17 03:20 95 25 35 03/14/17 01:24 101 18 35 03/14/17 00:26 98 18 99 Mechanical Ventilator 35 03/14/17 00:07 98 18 35 03/14/17 00:06 35 03/14/17 00:06 98 18 100 Mechanical Ventilator 35 03/14/17 00:00 35 03/14/17 00:00 98.2 100 24 116/70 100 Mechanical Ventilator 35 03/14/17 00:00 100 03/13/17 21:35 95 23 35 03/13/17 20:00 97.7 101 18 118/77 98 Mechanical Ventilator 35 03/13/17 20:00 105 03/13/17 20:00 35 03/13/17 19:44 101 18 99 Mechanical Ventilator 35 03/13/17 19:19 35 03/13/17 19:19 84 22 100 Mechanical Ventilator 35 03/13/17 19:18 85 24 35 03/13/17 16:57 94 23 35 03/13/17 16:00 35 03/13/17 16:00 92 03/13/17 16:00 97.7 96 22 120/67 98 Mechanical Ventilator 35 03/13/17 15:14 100 17 35 03/13/17 13:17 97 18 99 Mechanical Ventilator 35 03/13/17 13:06 35 03/13/17 13:06 94 20 35 03/13/17 13:05 94 20 100 Mechanical Ventilator 35 03/13/17 12:00 35 03/13/17 11:59 96 03/13/17 11:57 97.7 96 22 118/70 98 Mechanical Ventilator 35 03/13/17 11:08 88 21 35 03/13/17 09:14 83 18 35 03/13/17 08:00 100 03/13/17 08:00 97.9 98 18 111/64 100 Mechanical Ventilator 35 03/13/17 08:00 35 03/13/17 07:36 102 18 99 Mechanical Ventilator 35 03/13/17 07:24 104 21 35 03/13/17 07:23 35 03/13/17 07:21 104 25 100 Mechanical Ventilator 35 Intake and Output 03/13/17 03/14/17 19:00 07:00 Intake Total 1608.5 ml 1477 ml Output Total 650 ml Balance 958.5 ml 1477 ml Free Water 450 ml 150 ml IV Total 582.5 ml 895 ml Tube Feeding 576 ml 432 ml Output Urine Total 650 ml # Bowel Movements 1 1 Laboratory Tests 03/14/17 03:30: White Blood Count 9.5, Red Blood Count 3.22L, Hemoglobin 9.9L, Hematocrit 30.6L , Mean Corpuscular Volume 95, Mean Corpuscular Hemoglobin 30.6, Mean Corpuscular Hemoglobin Concent 32.3, Red Cell Distribution Width 18.3H, Platelet Count 150, Mean Platelet Volume 8.9, Neutrophils (%) (Auto) 69.8, Lymphocytes (%) (Auto) 14.5L, Monocytes (%) (Auto) 12.9H, Eosinophils (%) (Auto ) 1.8, Basophils (%) (Auto) 1.0, Sodium Level 153H, Potassium Level 5.2H, Chloride Level 114H, Carbon Dioxide Level 25, Anion Gap 14, Blood Urea Nitrogen 63H, Creatinine 2.3H, Estimat Glomerular Filtration Rate , Glucose Level 201H, Uric Acid 8.7H, Calcium Level 9.4, Phosphorus Level 2.8, Magnesium Level 2.5, Total Bilirubin 0.6, Aspartate Amino Transf (AST/SGOT) 20, Alanine Aminotransferase (ALT/SGPT) 16, Alkaline Phosphatase 120, C-Reactive Protein, Quantitative 12.9H, Pro-B-Type Natriuretic Peptide 353, Total Protein 9.5H, Albumin 3.1L, Globulin 6.4, Albumin/Globulin Ratio 0.4L Height (Feet): 6 Height (Inches): 0.00 Weight (Pounds): 260 General Appearance: no apparent distress Neck: normal alignment Cardiovascular: normal rate Respiratory/Chest: decreased breath sounds Abdomen: normal bowel sounds Objective Current Medications Medications (Trade) Dose Ordered Sig/Shubham Route PRN Reason Start Time Stop Time Status Last Admin Dose Admin Albuterol/ Ipratropium (DuoNeb 0.5-3(2.5)mg/3ml) 3 ml Q6HRT HHN 03/09/17 13:00 03/14/17 12:59 03/14/17 00:09 Allopurinol (Allopurinol) 300 mg DAILY GT 03/13/17 10:00 04/12/17 09:59 03/13/17 10:10 Chlorhexidine Gluconate 1 applic 1 applic DAILY TOPIC 03/14/17 09:00 04/13/17 08:59 Dextrose 1,000 ml @ 75 mls/hr [id number] IV 03/13/17 16:00 04/12/17 15:59 03/14/17 05:59 Dextrose (Dextrose 50%) STAT PRN IV Hypoglycemia 03/12/17 08:45 04/11/17 08:44 Heparin Sodium (Porcine) (Heparin 5000 units/ml) 5,000 units EVERY 8 HOURS SUBQ 03/10/17 22:00 04/09/17 21:59 03/13/17 06:00 Heparin Sodium/ Sodium Chloride (Heparin 2000 units/Ns 1000ml premix) 2,000 unit ONCE PRN INJ PICC PLACEMENT 03/13/17 10:45 03/14/17 23:59 Insulin Aspart (NovoLOG) EVERY 6 HOURS SUBQ 03/12/17 09:30 04/11/17 09:29 03/14/17 00:01 Insulin Aspart (NovoLOG) 12 units EVERY 6 HOURS SUBQ 03/13/17 12:00 04/12/17 11:59 03/14/17 00:02 Insulin Detemir (Levemir) 30 units Q12H SUBQ 03/11/17 21:00 04/10/17 20:59 03/13/17 22:06 Lidocaine HCl (Xylocaine 1% 30ml) 30 ml ONCE PRN INJ FOR PICC PLACEMENT 03/13/17 10:45 03/14/17 23:59 Piperacillin Sod/ Tazobactam Sod/ Dextrose (Zosyn/D5W) 110 ml @ 220 mls/hr EVERY 8 HOURS IV 03/13/17 22:00 03/20/17 21:59 03/14/17 05:59 Item Value Date Time Bedside Blood Glucose 194 mg/dl H 03/14/17 0002 Bedside Blood Glucose 270 mg/dl H 03/13/17 2206 Bedside Blood Glucose 270 mg/dl H 03/13/17 1819 Bedside Blood Glucose 275 mg/dl H 03/13/17 1147 Glucose Level 201 mg/dL H 03/14/17 0330 TOMMIE GARDNER March 14, 2017 06:09
[2017-03-14 08:00] VITALS: BP 107/67
[2017-03-14] MEDS: Levemir Flexpen SUBQ SCH (08:28)
[2017-03-14] MEDS ORDERED: Dyna-Hex 2% Top Sol 8oz TOPIC SCH (09:00)
--- NOTE | 2017-03-14 09:34 | General Progress Note ---
Assessment/Plan Status: stable Assessment/Plan Acute Renal Failure- Pre Renal / Super Imposed on Renal Respiratory failure- UTI h/o Anemia Decubs h/o DVT Other conditions: 1. Acute on chronic respiratory failure. 2. h/o Severe sepsis. 3. Ventilator-dependent respiratory failure. 4. Chronic obstructive pulmonary disease. 5. History of deep venous thrombosis. 6. Hypoalbuminemia. 7. h/o Clostridium difficile colitis. 8. Pressure ulcers on sacrococcygeal down to buttocks, right ischial tuberosity, and right heel and right trochanter present on admission. 9. h/o Urinary tract infection, Proteus mirabilis. 10. h/o Acute deep venous thrombosis of the right lower extremity, on heparin and bridged to Coumadin. 11. Tracheostomy status. 12. Gastrostomy tube feeding. 13. Diabetes mellitus. Plan: Slow IV hydration- BS control- keep BP under control- Avoid Nephrotoxics- monitor lytes and renal parameters- Subjective ROS Limited/Unobtainable: No Allergies: Coded Allergies: NO KNOWN DRUG ALLERGIES (Unverified Allergy, Unknown, 10/29/14) Objective Last 24 Hour Vital Signs Date Time Temp Pulse Resp B/P Pulse Ox O2 Delivery O2 Flow Rate FiO2 03/14/17 09:30 100 28 35 03/14/17 08:00 99.2 102 23 107/67 100 Mechanical Ventilator 35 03/14/17 08:00 35 03/14/17 08:00 102 03/14/17 06:51 105 19 100 Mechanical Ventilator 35 03/14/17 06:48 105 28 35 03/14/17 06:43 105 26 100 Mechanical Ventilator 35 03/14/17 06:43 35 03/14/17 05:00 97 22 35 03/14/17 04:00 35 03/14/17 04:00 99.0 109 24 138/61 100 Mechanical Ventilator 35 03/14/17 03:49 109 03/14/17 03:20 95 25 35 03/14/17 01:24 101 18 35 03/14/17 00:26 98 18 99 Mechanical Ventilator 35 03/14/17 00:07 98 18 35 03/14/17 00:06 35 03/14/17 00:06 98 18 100 Mechanical Ventilator 35 03/14/17 00:00 35 03/14/17 00:00 98.2 100 24 116/70 100 Mechanical Ventilator 35 03/14/17 00:00 100 03/13/17 21:35 95 23 35 03/13/17 20:00 97.7 101 18 118/77 98 Mechanical Ventilator 35 03/13/17 20:00 105 03/13/17 20:00 35 03/13/17 19:44 101 18 99 Mechanical Ventilator 35 03/13/17 19:19 35 03/13/17 19:19 84 22 100 Mechanical Ventilator 35 03/13/17 19:18 85 24 35 03/13/17 16:57 94 23 35 03/13/17 16:00 35 03/13/17 16:00 92 03/13/17 16:00 97.7 96 22 120/67 98 Mechanical Ventilator 35 03/13/17 15:14 100 17 35 03/13/17 13:17 97 18 99 Mechanical Ventilator 35 03/13/17 13:06 35 03/13/17 13:06 94 20 35 03/13/17 13:05 94 20 100 Mechanical Ventilator 35 03/13/17 12:00 35 03/13/17 11:59 96 03/13/17 11:57 97.7 96 22 118/70 98 Mechanical Ventilator 35 03/13/17 11:08 88 21 35 Intake and Output 03/13/17 03/14/17 19:00 07:00 Intake Total 1608.5 ml 2566 ml Output Total 650 ml 700 ml Balance 958.5 ml 1866 ml Free Water 450 ml 150 ml IV Total 582.5 ml 1340 ml Tube Feeding 576 ml 576 ml Blood Product 500 ml Output Urine Total 650 ml 700 ml # Bowel Movements 1 3 Laboratory Tests 03/14/17 03:30: White Blood Count 9.5, Red Blood Count 3.22L, Hemoglobin 9.9L, Hematocrit 30.6L , Mean Corpuscular Volume 95, Mean Corpuscular Hemoglobin 30.6, Mean Corpuscular Hemoglobin Concent 32.3, Red Cell Distribution Width 18.3H, Platelet Count 150, Mean Platelet Volume 8.9, Neutrophils (%) (Auto) 69.8, Lymphocytes (%) (Auto) 14.5L, Monocytes (%) (Auto) 12.9H, Eosinophils (%) (Auto ) 1.8, Basophils (%) (Auto) 1.0, Sodium Level 153H, Potassium Level 5.2H, Chloride Level 114H, Carbon Dioxide Level 25, Anion Gap 14, Blood Urea Nitrogen 63H, Creatinine 2.3H, Estimat Glomerular Filtration Rate , Glucose Level 201H, Uric Acid 8.7H, Calcium Level 9.4, Phosphorus Level 2.8, Magnesium Level 2.5, Total Bilirubin 0.6, Aspartate Amino Transf (AST/SGOT) 20, Alanine Aminotransferase (ALT/SGPT) 16, Alkaline Phosphatase 120, C-Reactive Protein, Quantitative 12.9H, Pro-B-Type Natriuretic Peptide 353, Total Protein 9.5H, Albumin 3.1L, Globulin 6.4, Albumin/Globulin Ratio 0.4L Height (Feet): 6 Height (Inches): 0.00 Weight (Pounds): 260 General Appearance: no apparent distress Objective other PE not changed COLTEN DIEGO March 14, 2017 09:34
--- NOTE | 2017-03-14 10:15 | Pulmonology Progress Note ---
Assessment/Plan Problems: (1) ARF (acute renal failure) (2) Respiratory insufficiency (3) Tracheostomy status (4) COPD (chronic obstructive pulmonary disease) (5) Diabetes mellitus out of control (6) HTN (hypertension) Respiratory: monitor respiratory rate, adjust FIO2 Cardiac: continue to monitor HR/BP Renal: F/U I&O, keep IV fluid, check electrolytes Infectious Disease: check cultures Gastrointestinal: continue feedings/current rate Endocrine: monitor blood sugar, continue sliding scale insulin Hematologic: transfuse if hgb<8.5 Neurologic: PRN Ativan, keep patient comfortable Affect: PRN ativan Prophylaxis: Protonix, Heparin Time Spent (Minutes): 40 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, 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, 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, 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, 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 Subjective ROS Limited/Unobtainable: Yes Allergies: Coded Allergies: NO KNOWN DRUG ALLERGIES (Unverified Allergy, Unknown, 10/29/14) Objective Last 24 Hour Vital Signs Date Time Temp Pulse Resp B/P Pulse Ox O2 Delivery O2 Flow Rate FiO2 03/14/17 09:30 100 28 35 03/14/17 08:00 99.2 102 23 107/67 100 Mechanical Ventilator 35 03/14/17 08:00 35 03/14/17 08:00 102 03/14/17 06:51 105 19 100 Mechanical Ventilator 35 03/14/17 06:48 105 28 35 03/14/17 06:43 105 26 100 Mechanical Ventilator 35 03/14/17 06:43 35 03/14/17 05:00 97 22 35 03/14/17 04:00 35 03/14/17 04:00 99.0 109 24 138/61 100 Mechanical Ventilator 35 03/14/17 03:49 109 03/14/17 03:20 95 25 35 03/14/17 01:24 101 18 35 03/14/17 00:26 98 18 99 Mechanical Ventilator 35 03/14/17 00:07 98 18 35 03/14/17 00:06 35 03/14/17 00:06 98 18 100 Mechanical Ventilator 35 03/14/17 00:00 35 03/14/17 00:00 98.2 100 24 116/70 100 Mechanical Ventilator 35 03/14/17 00:00 100 03/13/17 21:35 95 23 35 03/13/17 20:00 97.7 101 18 118/77 98 Mechanical Ventilator 35 03/13/17 20:00 105 03/13/17 20:00 35 03/13/17 19:44 101 18 99 Mechanical Ventilator 35 03/13/17 19:19 35 03/13/17 19:19 84 22 100 Mechanical Ventilator 35 03/13/17 19:18 85 24 35 03/13/17 16:57 94 23 35 03/13/17 16:00 35 03/13/17 16:00 92 03/13/17 16:00 97.7 96 22 120/67 98 Mechanical Ventilator 35 03/13/17 15:14 100 17 35 03/13/17 13:17 97 18 99 Mechanical Ventilator 35 03/13/17 13:06 35 03/13/17 13:06 94 20 35 03/13/17 13:05 94 20 100 Mechanical Ventilator 35 03/13/17 12:00 35 03/13/17 11:59 96 03/13/17 11:57 97.7 96 22 118/70 98 Mechanical Ventilator 35 03/13/17 11:08 88 21 35 Intake and Output 03/13/17 03/14/17 19:00 07:00 Intake Total 1608.5 ml 2566 ml Output Total 650 ml 700 ml Balance 958.5 ml 1866 ml Free Water 450 ml 150 ml IV Total 582.5 ml 1340 ml Tube Feeding 576 ml 576 ml Blood Product 500 ml Output Urine Total 650 ml 700 ml # Bowel Movements 1 3 Objective General Appearance: WD/WN Lines, tubes and drains: peripheral HEENT: normocephalic, anicteric Neck: non-tender, normal alignment, trach intact Respiratory/Chest: chest wall non-tender, lungs rhonchi Cardiovascular/Chest: normal peripheral pulses, normal rate Abdomen: normal bowel sounds, non tender Genitourinary/Rectal: normal genital exam, normal rectal exam Laboratory Tests 03/14/17 03:30: White Blood Count 9.5, Red Blood Count 3.22L, Hemoglobin 9.9L, Hematocrit 30.6L , Mean Corpuscular Volume 95, Mean Corpuscular Hemoglobin 30.6, Mean Corpuscular Hemoglobin Concent 32.3, Red Cell Distribution Width 18.3H, Platelet Count 150, Mean Platelet Volume 8.9, Neutrophils (%) (Auto) 69.8, Lymphocytes (%) (Auto) 14.5L, Monocytes (%) (Auto) 12.9H, Eosinophils (%) (Auto ) 1.8, Basophils (%) (Auto) 1.0, Sodium Level 153H, Potassium Level 5.2H, Chloride Level 114H, Carbon Dioxide Level 25, Anion Gap 14, Blood Urea Nitrogen 63H, Creatinine 2.3H, Estimat Glomerular Filtration Rate , Glucose Level 201H, Uric Acid 8.7H, Calcium Level 9.4, Phosphorus Level 2.8, Magnesium Level 2.5, Total Bilirubin 0.6, Aspartate Amino Transf (AST/SGOT) 20, Alanine Aminotransferase (ALT/SGPT) 16, Alkaline Phosphatase 120, C-Reactive Protein, Quantitative 12.9H, Pro-B-Type Natriuretic Peptide 353, Total Protein 9.5H, Albumin 3.1L, Globulin 6.4, Albumin/Globulin Ratio 0.4L Current Medications Medications (Trade) Dose Ordered Sig/Shubham Route PRN Reason Start Time Stop Time Status Last Admin Dose Admin Albuterol/ Ipratropium (DuoNeb 0.5-3(2.5)mg/3ml) 3 ml Q6HRT HHN 03/09/17 13:00 03/14/17 12:59 03/14/17 06:48 Allopurinol (Allopurinol) 300 mg DAILY GT 03/13/17 10:00 04/12/17 09:59 03/14/17 08:29 Chlorhexidine Gluconate 1 applic 1 applic DAILY TOPIC 03/14/17 09:00 04/13/17 08:59 03/14/17 08:28 Dextrose 1,000 ml @ 75 mls/hr [id number] IV 03/13/17 16:00 04/12/17 15:59 03/14/17 05:59 Dextrose (Dextrose 50%) STAT PRN IV Hypoglycemia 03/12/17 08:45 04/11/17 08:44 Heparin Sodium (Porcine) (Heparin 5000 units/ml) 5,000 units EVERY 8 HOURS SUBQ 03/10/17 22:00 04/09/17 21:59 03/13/17 06:00 Heparin Sodium/ Sodium Chloride (Heparin 2000 units/Ns 1000ml premix) 2,000 unit ONCE PRN INJ PICC PLACEMENT 03/13/17 10:45 03/14/17 23:59 Insulin Aspart (NovoLOG) EVERY 6 HOURS SUBQ 03/12/17 09:30 04/11/17 09:29 03/14/17 06:10 Insulin Aspart (NovoLOG) 12 units EVERY 6 HOURS SUBQ 03/13/17 12:00 04/12/17 11:59 03/14/17 06:11 Insulin Detemir (Levemir) 30 units Q12H SUBQ 03/11/17 21:00 04/10/17 20:59 03/14/17 08:28 Lidocaine HCl (Xylocaine 1% 30ml) 30 ml ONCE PRN INJ FOR PICC PLACEMENT 03/13/17 10:45 03/14/17 23:59 Piperacillin Sod/ Tazobactam Sod/ Dextrose (Zosyn/D5W) 110 ml @ 220 mls/hr EVERY 8 HOURS IV 03/13/17 22:00 03/20/17 21:59 03/14/17 05:59 MICH FONSECA March 14, 2017 10:15
--- NOTE | 2017-03-14 11:02 | General Progress Note ---
Assessment/Plan Problem List: (1) Prerenal azotemia ICD Codes: R79.89 - Prerenal azotemia SNOMED: 157918819 (2) Azotemia ICD Codes: R79.89 - Azotemia SNOMED: 977105088 (3) Acute renal failure ICD Codes: N17.9 - Acute kidney failure, unspecified SNOMED: 15117354 (4) Hyperkalemia ICD Codes: E87.5 - Hyperkalemia; R65.21 - Severe sepsis with septic shock SNOMED: 12918934 (5) Ventilator dependence (6) Chronic respiratory failure ICD Codes: J96.10 - Chronic respiratory failure, unspecified whether with hypoxia or hypercapnia SNOMED: 56467503 (7) UTI (urinary tract infection) ICD Codes: N39.0 - Urinary tract infection, site not specified SNOMED: 44499857 (8) Dementia ICD Codes: F03.90 - Dementia SNOMED: 84659628 (9) Feeding by G-tube ICD Codes: Z93.1 - Feeding by G-tube SNOMED: 327330299 (10) Diabetes mellitus out of control ICD Codes: E11.65 - Diabetes mellitus out of control SNOMED: 226957940 (11) UTI (urinary tract infection) ICD Codes: N39.0 - Urinary tract infection, site not specified SNOMED: 62377986 Status: progressing Assessment/Plan uti anemia is getting worse consulted dr kenyon for anemia getting worse also na is 153 will dc if ok w renal trach and peg Subjective ROS Limited/Unobtainable: Yes Constitutional: Reports: no symptoms Allergies: Coded Allergies: NO KNOWN DRUG ALLERGIES (Unverified Allergy, Unknown, 10/29/14) Objective Last 24 Hour Vital Signs Date Time Temp Pulse Resp B/P Pulse Ox O2 Delivery O2 Flow Rate FiO2 03/14/17 09:30 100 28 35 03/14/17 08:00 99.2 102 23 107/67 100 Mechanical Ventilator 35 03/14/17 08:00 35 03/14/17 08:00 102 03/14/17 06:51 105 19 100 Mechanical Ventilator 35 03/14/17 06:48 105 28 35 03/14/17 06:43 105 26 100 Mechanical Ventilator 35 03/14/17 06:43 35 03/14/17 05:00 97 22 35 03/14/17 04:00 35 03/14/17 04:00 99.0 109 24 138/61 100 Mechanical Ventilator 35 03/14/17 03:49 109 03/14/17 03:20 95 25 35 03/14/17 01:24 101 18 35 03/14/17 00:26 98 18 99 Mechanical Ventilator 35 03/14/17 00:07 98 18 35 03/14/17 00:06 35 03/14/17 00:06 98 18 100 Mechanical Ventilator 35 03/14/17 00:00 35 03/14/17 00:00 98.2 100 24 116/70 100 Mechanical Ventilator 35 03/14/17 00:00 100 03/13/17 21:35 95 23 35 03/13/17 20:00 97.7 101 18 118/77 98 Mechanical Ventilator 35 03/13/17 20:00 105 03/13/17 20:00 35 03/13/17 19:44 101 18 99 Mechanical Ventilator 35 03/13/17 19:19 35 03/13/17 19:19 84 22 100 Mechanical Ventilator 35 03/13/17 19:18 85 24 35 03/13/17 16:57 94 23 35 03/13/17 16:00 35 03/13/17 16:00 92 03/13/17 16:00 97.7 96 22 120/67 98 Mechanical Ventilator 35 03/13/17 15:14 100 17 35 03/13/17 13:17 97 18 99 Mechanical Ventilator 35 03/13/17 13:06 35 03/13/17 13:06 94 20 35 03/13/17 13:05 94 20 100 Mechanical Ventilator 35 03/13/17 12:00 35 03/13/17 11:59 96 03/13/17 11:57 97.7 96 22 118/70 98 Mechanical Ventilator 35 03/13/17 11:08 88 21 35 Intake and Output 03/13/17 03/14/17 19:00 07:00 Intake Total 1608.5 ml 2566 ml Output Total 650 ml 700 ml Balance 958.5 ml 1866 ml Free Water 450 ml 150 ml IV Total 582.5 ml 1340 ml Tube Feeding 576 ml 576 ml Blood Product 500 ml Output Urine Total 650 ml 700 ml # Bowel Movements 1 3 Laboratory Tests 03/14/17 03:30: White Blood Count 9.5, Red Blood Count 3.22L, Hemoglobin 9.9L, Hematocrit 30.6L , Mean Corpuscular Volume 95, Mean Corpuscular Hemoglobin 30.6, Mean Corpuscular Hemoglobin Concent 32.3, Red Cell Distribution Width 18.3H, Platelet Count 150, Mean Platelet Volume 8.9, Neutrophils (%) (Auto) 69.8, Lymphocytes (%) (Auto) 14.5L, Monocytes (%) (Auto) 12.9H, Eosinophils (%) (Auto ) 1.8, Basophils (%) (Auto) 1.0, Sodium Level 153H, Potassium Level 5.2H, Chloride Level 114H, Carbon Dioxide Level 25, Anion Gap 14, Blood Urea Nitrogen 63H, Creatinine 2.3H, Estimat Glomerular Filtration Rate , Glucose Level 201H, Uric Acid 8.7H, Calcium Level 9.4, Phosphorus Level 2.8, Magnesium Level 2.5, Total Bilirubin 0.6, Aspartate Amino Transf (AST/SGOT) 20, Alanine Aminotransferase (ALT/SGPT) 16, Alkaline Phosphatase 120, C-Reactive Protein, Quantitative 12.9H, Pro-B-Type Natriuretic Peptide 353, Total Protein 9.5H, Albumin 3.1L, Globulin 6.4, Albumin/Globulin Ratio 0.4L Height (Feet): 6 Height (Inches): 0.00 Weight (Pounds): 260 General Appearance: lethargic Neck: supple Cardiovascular: normal rate Respiratory/Chest: lungs clear Abdomen: soft David Bowie MD March 14, 2017 11:02
[2017-03-14 12:00] VITALS: BP 123/72
--- NOTE | 2017-03-14 15:13 | Infectious Diseases Prog Note ---
Assessment/Plan Problems: (1) UTI (urinary tract infection) Assessment & Plan: due to ESBL producing Klebsiella pneumonia , and pseudomonas aeruginosa , on zosyn for two weeks. EOT 03/26/17 (2) Pressure ulcer Assessment & Plan: not infected, colonized with MDR Acinetobacter baumannii , MRSA and E.faecalis , no need for antibiotics treatment, continue local wound care and off loading (3) Acute prerenal azotemia Assessment & Plan: improving , continue IVF for hydration, monitor UOP, renal is following (4) Diabetes mellitus out of control Assessment & Plan: recommend tight glycemic control to keep blood glucose between 80-120 (5) Tracheostomy status Assessment & Plan: colonized with Stenotrophomonas maltophilia, and MDR pseudomonas aeruginosa , CXR ruled out new infiltrates, no need to treat at this point.continue tracheal care Subjective ROS Limited/Unobtainable: Yes Allergies: Coded Allergies: NO KNOWN DRUG ALLERGIES (Unverified Allergy, Unknown, 10/29/14) Subjective he was sleeping and resting in bed, comfortable, afebrile. Objective Vital Signs Last 24 Hour Vital Signs Date Time Temp Pulse Resp B/P Pulse Ox O2 Delivery O2 Flow Rate FiO2 03/14/17 12:54 98 25 99 Mechanical Ventilator 35 03/14/17 12:54 35 03/14/17 12:48 100 26 35 03/14/17 12:00 100 03/14/17 12:00 35 03/14/17 12:00 98.7 100 24 123/72 99 Mechanical Ventilator 35 03/14/17 11:18 100 27 35 03/14/17 09:30 100 28 35 03/14/17 08:00 99.2 102 23 107/67 100 Mechanical Ventilator 35 03/14/17 08:00 35 03/14/17 08:00 102 03/14/17 06:51 105 19 100 Mechanical Ventilator 35 03/14/17 06:48 105 28 35 03/14/17 06:43 105 26 100 Mechanical Ventilator 35 03/14/17 06:43 35 03/14/17 05:00 97 22 35 03/14/17 04:00 35 03/14/17 04:00 99.0 109 24 138/61 100 Mechanical Ventilator 35 03/14/17 03:49 109 03/14/17 03:20 95 25 35 03/14/17 01:24 101 18 35 03/14/17 00:26 98 18 99 Mechanical Ventilator 35 03/14/17 00:07 98 18 35 03/14/17 00:06 35 03/14/17 00:06 98 18 100 Mechanical Ventilator 35 03/14/17 00:00 35 03/14/17 00:00 98.2 100 24 116/70 100 Mechanical Ventilator 35 03/14/17 00:00 100 03/13/17 21:35 95 23 35 03/13/17 20:00 97.7 101 18 118/77 98 Mechanical Ventilator 35 03/13/17 20:00 105 03/13/17 20:00 35 03/13/17 19:44 101 18 99 Mechanical Ventilator 35 03/13/17 19:19 35 03/13/17 19:19 84 22 100 Mechanical Ventilator 35 03/13/17 19:18 85 24 35 03/13/17 16:57 94 23 35 03/13/17 16:00 35 03/13/17 16:00 92 03/13/17 16:00 97.7 96 22 120/67 98 Mechanical Ventilator 35 03/13/17 15:14 100 17 35 Height (Feet): 6 Height (Inches): 0.00 Weight (Pounds): 260 General Appearance: WD/WN, no acute distress HEENT: normocephalic, atraumatic, anicteric, mucous membranes moist Respiratory/Chest: chest wall non-tender, lungs clear, normal breath sounds, no respiratory distress, no accessory muscle use Cardiovascular: normal peripheral pulses, normal rate, regular rhythm, no gallop/murmur, no JVD Abdomen: normal bowel sounds, soft, non tender, no organomegaly, non distended , no mass Extremities: no cyanosis, no clubbing Skin: no rash, no lesions Laboratory Tests Test 03/14/17 03:30 White Blood Count 9.5 K/UL (4.8-10.8) Red Blood Count 3.22 M/UL (4.70-6.10) L Hemoglobin 9.9 G/DL (14.2-18.0) L Hematocrit 30.6 % (42.0-52.0) L Mean Corpuscular Volume 95 FL (80-99) Mean Corpuscular Hemoglobin 30.6 PG (27.0-31.0) Mean Corpuscular Hemoglobin Concent 32.3 G/DL (32.0-36.0) Red Cell Distribution Width 18.3 % (11.6-14.8) H Platelet Count 150 K/UL (150-450) Mean Platelet Volume 8.9 FL (6.5-10.1) Neutrophils (%) (Auto) 69.8 % (45.0-75.0) Lymphocytes (%) (Auto) 14.5 % (20.0-45.0) L Monocytes (%) (Auto) 12.9 % (1.0-10.0) H Eosinophils (%) (Auto) 1.8 % (0.0-3.0) Basophils (%) (Auto) 1.0 % (0.0-2.0) Sodium Level 153 mEQ/L (135-145) H Potassium Level 5.2 mEQ/L (3.4-4.9) H Chloride Level 114 mEQ/L (98-107) H Carbon Dioxide Level 25 mEQ/L (20-30) Anion Gap 14 (5-15) Blood Urea Nitrogen 63 mg/dL (7-23) H Creatinine 2.3 mg/dL (0.7-1.2) H Estimat Glomerular Filtration Rate mL/min (>60) Glucose Level 201 mg/dL (74-106) H Uric Acid 8.7 mg/dL (3.0-7.5) H Calcium Level 9.4 mg/dL (8.6-10.2) Phosphorus Level 2.8 mg/dL (2.5-4.8) Magnesium Level 2.5 mg/dL (1.7-2.5) Total Bilirubin 0.6 mg/dL (0.0-1.2) Aspartate Amino Transf (AST/SGOT) 20 U/L (5-40) Alanine Aminotransferase (ALT/SGPT) 16 U/L (3-41) Alkaline Phosphatase 120 U/L (40-129) C-Reactive Protein, Quantitative 12.9 mg/dL (< 0.5) H Pro-B-Type Natriuretic Peptide 353 pg/mL (0-450) Total Protein 9.5 g/dL (6.6-8.7) H Albumin 3.1 g/dL (3.5-5.2) L Globulin 6.4 g/dL Albumin/Globulin Ratio 0.4 (1.0-2.7) L Current Medications Medications (Trade) Dose Ordered Sig/Shubham Route PRN Reason Start Time Stop Time Status Last Admin Dose Admin Allopurinol (Allopurinol) 300 mg DAILY GT 03/13/17 10:00 04/12/17 09:59 03/14/17 08:29 Chlorhexidine Gluconate 1 applic 1 applic DAILY TOPIC 03/14/17 09:00 04/13/17 08:59 03/14/17 08:28 Dextrose 1,000 ml @ 75 mls/hr [id number] IV 03/13/17 16:00 04/12/17 15:59 03/14/17 05:59 Dextrose (Dextrose 50%) STAT PRN IV Hypoglycemia 03/12/17 08:45 04/11/17 08:44 Heparin Sodium (Porcine) (Heparin 5000 units/ml) 5,000 units EVERY 8 HOURS SUBQ 03/10/17 22:00 04/09/17 21:59 03/13/17 06:00 Heparin Sodium/ Sodium Chloride (Heparin 2000 units/Ns 1000ml premix) 2,000 unit ONCE PRN INJ PICC PLACEMENT 03/13/17 10:45 03/14/17 23:59 Insulin Aspart (NovoLOG) EVERY 6 HOURS SUBQ 03/12/17 09:30 04/11/17 09:29 03/14/17 11:23 Insulin Aspart (NovoLOG) 12 units EVERY 6 HOURS SUBQ 03/13/17 12:00 04/12/17 11:59 03/14/17 11:24 Insulin Detemir (Levemir) 30 units Q12H SUBQ 03/11/17 21:00 04/10/17 20:59 03/14/17 08:28 Lidocaine HCl (Xylocaine 1% 30ml) 30 ml ONCE PRN INJ FOR PICC PLACEMENT 03/13/17 10:45 03/14/17 23:59 Piperacillin Sod/ Tazobactam Sod/ Dextrose (Zosyn/D5W) 110 ml @ 220 mls/hr EVERY 8 HOURS IV 03/13/17 22:00 03/20/17 21:59 03/14/17 13:15 Kacey Olivo M.D. March 14, 2017 15:13
[2017-03-14] MEDS ORDERED: Tubing Blood Filter IV ONE (16:34)
[2017-03-14] MEDS ORDERED: NS 275ml ONE (16:34)
--- NOTE | 2017-03-15 15:13 | Discharge Summary ---
Discharge Summary Hospital Course Date of Admission March 09, 2017 at 01:39 Date of Discharge March 14, 2017 at 16:35 Admitting Diagnosis acute renal failure, Dehydration HPI José Miguel Travis is a 81 year old male who was admitted on March 09, 2017 at 01:39 for Acute Renal Failure,Dehydration Hospital Course [id number] Discharge Discharge Disposition Patient was discharged to SNF/Subacute Facility(03) Discharge Diagnoses: Makenzie Casey NP Mar 15, 2017 15:13
--- NOTE | 2017-03-16 01:00 | Discharge Summary 2 SIG ---
DATE OF ADMISSION: 03/09/2017 DATE OF DISCHARGE: 03/14/2017 CONSULTANTS: 1. Kacey Olivo M.D. 2. Santana Soares M.D. 3. Maulik Loera M.D. 4. Troy Morris M.D. 5. Alexx Sanon M.D. BRIEF HOSPITAL COURSE: The patient is an 81-year-old male, who resides in a detention, who has chronic respiratory failure, on trach and vent, was sent to ED for abnormal laboratories. BUN was over 100. On evaluation at ED, laboratories showed kidney failure, anemia, and dehydration. Urine showed evidence of infection. The patient was admitted for further evaluation and was started on ertapenem by Infectious Disease specialist secondary to history of ESBL infection in the past. Dr. Soares was consulted for vent management and Dr. Loera for evaluation of renal failure. BUN was over 100 and creatinine 2.6. He was given slow IV hydration. Venous Duplex of lower extremity was negative for DVT. 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 His blood sugars were elevated. Levemir and NovoLog were adjusted. He was given Levemir and NovoLog sliding scale every six hours. Urine culture showed growth of ESBL Klebsiella and Pseudomonas. Wound was colonized with MDR Acinetobacter, MRSA, and Enterococcus faecalis. He was given local wound treatment. No need for antibiotic treatment for the wounds. Sputum was colonized with Stenotrophomonas maltophilia and MDR pseudomonas aeruginosa. Chest x-ray ruled out infiltrates. He had a PICC line inserted to the right upper arm on 03/13/2017. He had an episode of anemia and received two units packed RBC. Anemia was assessed to be secondary to chronic kidney disease and iron deficiency and had been stable. He came in with multiple pressure ulcers and was given local wound care and low air loss mattress. He was eventually discharged back to SNF to continue IV antibiotic, Zosyn for ESBL urinary tract infection. DISPOSITION: The patient was discharged to shelter facility. FINAL DIAGNOSES: 1. Acute renal failure, prerenal, superimposed on renal. 2. Chronic respiratory failure, on trach and vent. 3. Diabetes mellitus, out of control. 4. Hypertension. 5. Urinary tract infection with extended-spectrum beta-lactamases Klebsiella and Pseudomonas. 6. Chronic obstructive pulmonary disease. 7. Multiple pressure ulcer, present on admission. 8. Gastrostomy tube feeding. 9. Dementia. 10. Hyperkalemia. 11. Hypertension. 12. Acute anemia, requiring blood transfusion. 13. Anemia of chronic disease. 14. Anemia of iron deficiency. 15. Anemia of kidney disease. David Bowie M.D. I have been assigned to dictate discharge summary on this account and I was not involved in the patient's management. Makenzie Casey N.P. DR: Kush JOB#: [id number] CC: PAM
== END 2017-03-14 16:35 | DRG 682 ==
LOC: ENRESERVTM → ENRESERVDT → EDBD 00:51 → EDUNIT# 00:51 → EMR 01:04 → 2W 01:39 → EDBEDREQ 05:02 → 2W 03-10 12:29
PROC: 5A1955Z Respiratory Ventilation, Greater than 96 Consecutive Hours (ICD-10-PCS; principal; 2017-03-09)
PROC: 02HV33Z Insertion of Infusion Device into Superior Vena Cava, Percutaneous Approach (ICD-10-PCS; 2017-03-13)
PROC: 30233N1 Transfusion of Nonautologous Red Blood Cells into Peripheral Vein, Percutaneous Approach (ICD-10-PCS; 2017-03-13)
DX: N17.9 Acute kidney failure, unspecified (principal); J96.20 Acute and chronic respiratory failure, unspecified whether with hypoxia or hypercapnia; Z99.11 Dependence on respirator [ventilator] status; E87.0 Hyperosmolality and hypernatremia; E46 Unspecified protein-calorie malnutrition; L89.313 Pressure ulcer of right buttock, stage 3; Z43.0 Encounter for attention to tracheostomy; L89.159 Pressure ulcer of sacral region, unspecified stage; F03.90 Unspecified dementia, unspecified severity, without behavioral disturbance, psychotic disturbance, mood disturbance, and anxiety; N39.0 Urinary tract infection, site not specified; Z43.1 Encounter for attention to gastrostomy; I12.0 Hypertensive chronic kidney disease with stage 5 chronic kidney disease or end stage renal disease; J44.9 Chronic obstructive pulmonary disease, unspecified; R13.10 Dysphagia, unspecified; E11.65 Type 2 diabetes mellitus with hyperglycemia; N18.9 Chronic kidney disease, unspecified; E86.0 Dehydration; D63.8 Anemia in other chronic diseases classified elsewhere; D50.9 Iron deficiency anemia, unspecified; B96.1 Klebsiella pneumoniae [K. pneumoniae] as the cause of diseases classified elsewhere; B96.5 Pseudomonas (aeruginosa) (mallei) (pseudomallei) as the cause of diseases classified elsewhere; Z16.12 Extended spectrum beta lactamase (ESBL) resistance; Z66 Do not resuscitate; Z86.718 Personal history of other venous thrombosis and embolism; Z79.01 Long term (current) use of anticoagulants; E11.22 Type 2 diabetes mellitus with diabetic chronic kidney disease; N18.6 End stage renal disease; Z99.2 Dependence on renal dialysis; N40.0 Benign prostatic hyperplasia without lower urinary tract symptoms; R00.1 Bradycardia, unspecified; L89.620 Pressure ulcer of left heel, unstageable; L89.610 Pressure ulcer of right heel, unstageable; K21.9 Gastro-esophageal reflux disease without esophagitis; Z79.4 Long term (current) use of insulin; Z22.322 Carrier or suspected carrier of Methicillin resistant Staphylococcus aureus
CPT/HCPCS: 36415; 36569; 71010; 76937; 80053; 81001; 81003; 82270; 82550; 82728; 82962; 82977; 83036; 83540; 83550; 83690; 83735; 83880; 84100; 84300; 84550; 85025; 85610; 85730; 86140; 86850; 86900; 86901; 86920; 87040; 87070; 87086; 87181; 87205; 89050; 93970; 94002; 94003; 94640; J1815; J7620; S5561

== ENCOUNTER 2017-03-22 06:48 | Inpatient (IN) | payer MEDICARE, OTHER ==
[~2017-03-22] VITALS: Ht 167.6 cm; Wt 81.6 kg
[2017-03-22] VITALS (8 sets, daily range): BP systolic 96–124; BP diastolic 60–81
[~2017-03-22 06:48] MED LIST changes: +DOCUSATE SODIU100 MG GT; +METOCLOPRAM5 MG/1 M2 GT; +MULTIVITAMINS1 EAC2 GT; -MULTIVITAMINS1 EAC2 ORAL; +PRO-STAT LIQUID30 ML ORAL; +VITAMIN C500 M1 GT
[2017-03-22] MEDS ORDERED: LEVEMIR FL100 UNIT/1 SUBQ (06:59)
[2017-03-22] MEDS ORDERED: EPOGEN20000 UNI1 SUBQ (06:59)
[2017-03-22] MEDS ORDERED: CEPHALEXIN500 MG GT (06:59)
--- NOTE | 2017-03-22 07:14 | Emergency Room Report ---
History of Present Illness General Chief Complaint: General Complaint Source: Medical Record, EMS Present Illness HPI 81YOM BIBEMS from SNF for Gtube replacement after dislodged last night allegedly at 11pm. Has [address]. Previous note indicates likely has 24F Gtube as well. Patient with multiple visits to ED and [facility] before. Resides in SNF, has chronic respiratory failure, on trach and vent. Previous admission last month, February 2017: - Urine culture showed growth of ESBL Klebsiella and Pseudomonas - Wound was colonized with MDR Acinetobacter, MRSA, and Enterococcus faecalis. - Sputum was colonized with Stenotrophomonas maltophilia and MDR pseudomonas aeruginosa. - Chest x-ray ruled out infiltrates. - He had a PICC line inserted to the right upper arm on 03/13/2017. PMHx: CKD, chronic respiratory failure, DM, HTN, COPD, Dementia, anemia PMD is Dr Bragg Allergies: Coded Allergies: NO KNOWN DRUG ALLERGIES (Unverified Allergy, Unknown, 10/29/14) Patient History Past Medical History: other - see hpi Pertinent Family History: unable to obtain Social History: Denies: alcohol use, drug use, smoking Immunizations: UTD Reviewed Nursing Documentation: PMH: Agreed, PSxH: Agreed Nursing Documentation-PMH Hx Hypertension: Yes Hx COPD: No - ACUTE RESP FAILURE, TRACHEOSTOMY Hx Diabetes: Yes Hx Gastrointestinal Problems: Yes - Gastrostomy Hx Cerebrovascular Accident: Yes Hx Transient Ischemic Attacks: Yes Hx Dementia: Yes Hx Alzheimer's Disease: No Hx Parkinson's Disease: No Hx Meningitis: No Hx Encephalitis: No Hx Seizures: No Hx Epilepsy: No Hx Multiple Sclerosis: No Hx Cerebral Palsy: No Hx Amyotrophic Lat Sclerosis: No Hx Guillian-[place] Syndrome: No Hx Peripheral Neuropathy: No Hx Spinal Cord Injury: No Hx Head Trauma: No Hx Traumatic Brain Injury: No Hx Memory Loss: Yes Hx Concentration Difficulty: Yes Hx Speech Problem: Yes Hx Tremors: Yes Hx Vertigo: No Hx Dizziness: No Hx Syncope: No Hx Headaches: No Hx Aphasia: Yes Hx Dysphasia: Yes Hx Numbness: No Hx Weakness: No Hx Fatigue: No Hx Neurologic Surgery: No Hx Brain Shunt: No Review of Systems All Other Systems: limited - Patient nonverbakl Physical Exam Vital Signs Date Time Temp Pulse Resp B/P Pulse Ox O2 Delivery O2 Flow Rate FiO2 03/22/17 06:49 100.6 115 19 105/76 96 Trach Collar 5.0 Sp02 EP Interpretation: reviewed, abnormal General Appearance: normal inspection, well appearing, no apparent distress, non-toxic Head: normocephalic, atraumatic Eyes: bilateral eye EOMI, bilateral eye PERRL ENT: normal ENT inspection, normal pharynx, no angioedema Neck: normal inspection, supple, no meningismus, no bony tend, other - Trach collar in place - connected to vent. No air leak or mucous plug. No bleeding Respiratory: normal inspection, lungs clear, normal breath sounds, no respiratory distress, no retraction, no wheezing Cardiovascular #1: regular rate, rhythm, no edema Gastrointestinal: normal inspection, normal bowel sounds, no guarding, no hernia, distended, other Genitourinary: no CVA tenderness Musculoskeletal: normal inspection, back normal, normal range of motion, Sana' s Sign negative Neurologic: normal inspection, responsive, motor strength/tone normal Psychiatric: normal inspection, judgement/insight normal, mood/affect normal Skin: normal inspection, normal color Procedures Additional Procedure Procedure Narrative Gtube replacement - Malhotra 24 deflated and removed - 24F Gtube placed under sterile procedure and inflated with 20CC sterile water - No complications - Patient tolerated well - Verified on KUB Medical Decision Making Medicare Attestation I Tino Krause MD hereby attest that the medical record entry for date of service, 09/18/16 accurately reflects signatures/notations that I made in my capacity as MD when I treated/diagnosed the above listed Medicare beneficiary. I attest that this information is true, accurate and complete to the best of my knowledge. I understand that any falsification, omission, or concealment of material fact may subject me to administrative, civil, or criminal liability. This patient warrants hospital admission for extreme of age and has a condition that cannot be treated as outpatient. Diagnostic Impression: Primary Impression: Sepsis Qualified Codes: A41.9 - Sepsis, unspecified organism Additional Impressions: Ventilator dependence Abdominal distension Gastrostomy tube dysfunction BRUCE (acute kidney injury) CKD (chronic kidney disease) Qualified Codes: N18.9 - Chronic kidney disease, unspecified Hyperkalemia UTI (urinary tract infection) Qualified Codes: N30.01 - Acute cystitis with hematuria Hyperglycemia ER Course Misplaced Gtube - Replaced in ED (see procedure note) - Verified on KUB Fever, tachycardia - SIRS Criteria - Likely source is recurrent UTI, UA grossly infected - Vanc/Zosyn given - Blood and Urine Cx pending - CXR no obvious PNA - Abd is distended. I discussed with PMD Dr Bragg but Dr Bragg does not want a CTAP given chronic distention, DNR status. 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 Now with bifascular block. No peaked twaves - IV calcium and albuterol given in ED BRUCE on CKD - Likely pre-renal dehydration - 1NS IVF bolus given Endorsed to Dr Bragg for JALEESA admission at 815am EKG Diagnostic Results Rate: tachycardiac Rhythm: other - bifascular block ASA given to the pt in ED: No Rhythm Strip Diag. Results EP Interpretation: yes Rate: 127 Rhythm: NSR, no PVC's, no ectopy Chest X-Ray Diagnostic Results EP Interpretation: Yes Findings: no pneumothorax, no acute cardiopulmonary disease, other - Unchanged from previous. No lobar PNA Last Vital Signs Date Time Temp Pulse Resp B/P Pulse Ox O2 Delivery O2 Flow Rate FiO2 03/22/17 06:49 100.6 115 19 105/76 96 Trach Collar 5.0 Status: improved Disposition: ADMITTED INPATIENT Condition: Serious TINO KRAUSE M.D. Mar 22, 2017 07:14
[2017-03-22] MEDS ORDERED: Vancomycin 1.5gm/D5W 300ml 325 ML IVPB ONE (07:15)
[2017-03-22] MEDS ORDERED: Acetaminophen 650mg/20.3ml GT PRN ×2 (07:15→16:00)
[2017-03-22] MEDS ORDERED: Piperacillin/Tazobactam 3.375 GM in NS 110 ML IVPB ONE (07:15)
[2017-03-22] MEDS ORDERED: Zosyn 3.375gm inj ONE (07:33)
[2017-03-22 07:34] LABS: APPEARANCE,URINE CLEAR; KETONES,URINE NEGATIVE (NEGATIVE); LEUKOCYTE ESTERASE ,URINE 3+ (NEGATIVE); NITRITE,URINE NEGATIVE (NEGATIVE); PH,URINE 8 (4.5-8.0); PROTEIN,URINE 3+ (NEGATIVE); UROBILINOGEN,URINE NORMAL MG/DL (0.0-1.0)
[2017-03-22 07:36] LABS: BASOPHILS % (AUTO) 0.9 % (0.0-2.0); LYMPHOCYTES % (AUTO) 7.7 % (20.0-45.0); MEAN CORPUSCULAR HEMOGLOBIN 29.3 PG (27.0-31.0); MEAN CORPUSCULAR HGB CONC 31.2 G/DL (32.0-36.0); MEAN CORPUSCULAR VOLUME 94 FL (80-99); MEAN PLATELET VOLUME 8.6 FL (6.5-10.1); MONOCYTES % (AUTO) 13.5 % (1.0-10.0); NEUTROPHILS % (AUTO) 76.9 % (45.0-75.0); PLATELET COUNT 160 K/UL (150-450); RED BLOOD COUNT 3.35 M/UL (4.70-6.10); RED CELL DISTRIBUTION WIDTH 17.5 % (11.6-14.8); WHITE BLOOD COUNT 16.4 K/UL (4.8-10.8)
[2017-03-22 07:43] LABS: BACTERIA,URINE FEW /HPF; SQUAMOUS EPITHELIAL CELL,UR OCCASIONAL /LPF (NONE/OCC); WBC,URINE 20-30 /HPF (0 - 0)
[2017-03-22 07:47] LABS: ALANINE AMINOTRANSFERASE 15 U/L (3-41); ALBUMIN/GLOBULIN RATIO 0.4 (1.0-2.7); ANION GAP 18 (5-15); ASPARTATE AMINO TRANSFERASE 18 U/L (5-40); CALCIUM 9.4 mg/dL (8.6-10.2); CARBON DIOXIDE 21 mEQ/L (20-30); CHLORIDE 103 mEQ/L (98-107); HEMOLYSIS 4; POTASSIUM 5.4 mEQ/L (3.4-4.9); SODIUM 142 mEQ/L (135-145); TOTAL PROTEIN 9.9 g/dL (6.6-8.7); TROPONIN I < 0.30 ng/mL (<=0.30)
[2017-03-22 07:57] LABS: CKMB 2.1 ng/mL (< 6.7)
[2017-03-22] MEDS ORDERED: Albuterol ud Inhalation HHN ONE (08:15)
[2017-03-22] MEDS ORDERED: Meropenem 1 GM in NS 110 ML IVPB SCH (09:15)
--- NOTE | 2017-03-22 09:19 | Infectious Diseases Prog Note ---
Assessment/Plan Problems: (1) Severe sepsis Assessment & Plan: source suspect UTI, he is colonized with MDR organisms , will start meropenem and zyvox for now pending blood and urine culture results (2) UTI (urinary tract infection) Assessment & Plan: with H/O MDR organisms, will start meropenem pending culture results (3) Pneumonia Assessment & Plan: with interstitial infiltrates, on wide spectrum antibiotics , no need to send trach for culture since he is colonized with MDRO (4) Acute renal failure Assessment & Plan: due to the above, continue IVF for hydration, avoid nephrotoxic meds , monitor UOP (5) Pressure ulcer Assessment & Plan: continue local wound care, and off loading, consult wound care (6) Chronic respiratory failure Assessment & Plan: with trach, on mechanical ventilation, monitor ABG Subjective Allergies: Coded Allergies: NO KNOWN DRUG ALLERGIES (Unverified Allergy, Unknown, 10/29/14) Objective Vital Signs Last 24 Hour Vital Signs Date Time Temp Pulse Resp B/P Pulse Ox O2 Delivery O2 Flow Rate FiO2 03/22/17 08:19 98.4 03/22/17 07:54 98.4 127 28 124/81 100 Mechanical Ventilator 5.0 40 03/22/17 07:13 124 28 Mechanical Ventilator 40 03/22/17 07:10 124 28 40 03/22/17 07:00 100.5 120 22 102/73 100 Mechanical Ventilator 40 03/22/17 06:49 100.6 115 19 105/76 96 Trach Collar 5.0 Height (Feet): 5 Height (Inches): 6.00 Weight (Pounds): 180 Microbiology Date/Time Source Procedure Growth Status 03/22/17 07:00 Nasal Nares Influenza Types A,B Antigen (RUDY) - Final Complete Laboratory Tests Test 03/22/17 07:00 White Blood Count 16.4 K/UL (4.8-10.8) H Red Blood Count 3.35 M/UL (4.70-6.10) L Hemoglobin 9.8 G/DL (14.2-18.0) L Hematocrit 31.5 % (42.0-52.0) L Mean Corpuscular Volume 94 FL (80-99) Mean Corpuscular Hemoglobin 29.3 PG (27.0-31.0) Mean Corpuscular Hemoglobin Concent 31.2 G/DL (32.0-36.0) L Red Cell Distribution Width 17.5 % (11.6-14.8) H Platelet Count 160 K/UL (150-450) Mean Platelet Volume 8.6 FL (6.5-10.1) Neutrophils (%) (Auto) 76.9 % (45.0-75.0) H Lymphocytes (%) (Auto) 7.7 % (20.0-45.0) L Monocytes (%) (Auto) 13.5 % (1.0-10.0) H Eosinophils (%) (Auto) 1.0 % (0.0-3.0) Basophils (%) (Auto) 0.9 % (0.0-2.0) Urine Color Pale yellow Urine Appearance Clear Urine pH 8 (4.5-8.0) Urine Specific [place] 1.010 (1.005-1.035) Urine Protein 3+ (NEGATIVE) H Urine Glucose (UA) Negative (NEGATIVE) Urine Ketones Negative (NEGATIVE) Urine Occult Blood 4+ (NEGATIVE) H Urine Nitrite Negative (NEGATIVE) Urine Bilirubin Negative (NEGATIVE) Urine Urobilinogen Normal MG/DL (0.0-1.0) Urine Leukocyte Esterase 3+ (NEGATIVE) H Urine RBC 5-10 /HPF (0 - 0) H Urine WBC 20-30 /HPF (0 - 0) H Urine Squamous Epithelial Cells Occasional /LPF Urine Bacteria Few /HPF (NONE) Sodium Level 142 mEQ/L (135-145) Potassium Level 5.4 mEQ/L (3.4-4.9) H Chloride Level 103 mEQ/L (98-107) Carbon Dioxide Level 21 mEQ/L (20-30) Anion Gap 18 (5-15) H Blood Urea Nitrogen 78 mg/dL (7-23) H Creatinine 3.0 mg/dL (0.7-1.2) H Estimat Glomerular Filtration Rate mL/min (>60) Glucose Level 213 mg/dL (74-106) H Lactic Acid Level 1.60 mmol/L (0.66-2.22) Calcium Level 9.4 mg/dL (8.6-10.2) Total Bilirubin 0.3 mg/dL (0.0-1.2) Aspartate Amino Transf (AST/SGOT) 18 U/L (5-40) Alanine Aminotransferase (ALT/SGPT) 15 U/L (3-41) Alkaline Phosphatase 141 U/L (40-129) H Total Creatine Kinase 341 U/L (38-174) H Creatine Kinase MB 2.1 ng/mL (< 6.7) Creatine Kinase MB Relative Index 0.6 Troponin I < 0.30 ng/mL (<=0.30) Total Protein 9.9 g/dL (6.6-8.7) H Albumin 2.9 g/dL (3.5-5.2) L Globulin 7.0 g/dL Albumin/Globulin Ratio 0.4 (1.0-2.7) L Current Medications Medications (Trade) Dose Ordered Sig/Shubham Route PRN Reason Start Time Stop Time Status Last Admin Dose Admin Acetaminophen 650 mg 650 mg STAT PRN GT Mild Pain/Temp > 100.5 03/22/17 07:15 04/21/17 07:14 03/22/17 07:41 Sodium Chloride (Sodium Chloride 1000ml bag) 1,000 ml @ 999 mls/hr Q1H1M ONCE IV 03/22/17 08:15 03/22/17 09:15 03/22/17 08:32 Vancomycin HCl/ Dextrose (Vancomycin 1.5gm/D5W 300ml) 325 ml @ 162.5 mls/ hr ONCE ONCE IVPB 03/22/17 07:15 03/22/17 09:14 03/22/17 07:41 Kacey Olivo M.D. Mar 22, 2017 09:19
--- NOTE | 2017-03-22 11:34 | Diagnostic Imaging Report ---
Indication: SOB Technique: One view of the chest Comparison: 03/12/2017 Findings: Slightly better inspiration on the current study. Bilateral interstitial disease appears similar to the previous exam tracheostomy remains. New right arm PICC, tip projected at the innominate venous confluence. Impression: Interstitial disease, appearing similar to prior study of 03/13/2017. Findings may represent recurrent acute disease, chronic disease, or combination of both. Correlate with clinical findings Other stable findings as described
--- NOTE | 2017-03-22 11:45 | Diagnostic Imaging Report ---
Indication: Placement Technique: Supine view of the abdomen Comparison: 07/10/2016 Findings: Injected contrast fills either the duodenal bulb or gastric antrum, as well as the remainder of the duodenum and a short length of proximal jejunum. No contrast extravasation demonstrated. Inferior vena cava filter is now present Impression: Satisfactory position of gastrostomy
[2017-03-22] MEDS ORDERED: DuoNeb 0.5-3(2.5)mg/3ml neb HHN SCH (13:00)
[2017-03-22] MEDS: Meropenem 500mg/NS 55ml IVPB SCH ×4 (13:14→20:35)
--- NOTE | 2017-03-22 14:22 | Consultation ---
Consult Note Consult Note 81YOM BIBEMS from SNF for Gtube replacement after dislodged last night allegedly at 11pm. Has 24F [address]ra [address] place. Previous note indicates likely has 24F Gtube as well. Patient with multiple visits to ED and [facility] before. Resides in SNF, has chronic respiratory failure, on trach and vent. Previous admission last month, February 2017: - Urine culture showed growth of ESBL Klebsiella and Pseudomonas - Wound was colonized with MDR Acinetobacter, MRSA, and Enterococcus faecalis. - Sputum was colonized with Stenotrophomonas maltophilia and MDR pseudomonas aeruginosa. - Chest x-ray ruled out infiltrates. - He had a PICC line inserted to the right upper arm on 03/13/2017. PMHx: CKD, chronic respiratory failure, DM, HTN, COPD, Dementia, anemia Assessment/Plan Acute Renal Failure- with high K- Pre Renal / Super Imposed on Renal Respiratory failure- UTI / Sepsis h/o Anemia Decubs h/o DVT Other conditions: 1. Acute on chronic respiratory failure. 2. h/o Severe sepsis. 3. Ventilator-dependent respiratory failure. 4. Chronic obstructive pulmonary disease. 5. History of deep venous thrombosis. 6. Hypoalbuminemia. 7. h/o Clostridium difficile colitis. 8. Pressure ulcers on sacrococcygeal down to buttocks, right ischial tuberosity, and right heel and right trochanter present on admission. 9. h/o Urinary tract infection, Proteus mirabilis. 10. h/o Acute deep venous thrombosis of the right lower extremity, on heparin and bridged to Coumadin. 11. Tracheostomy status. 12. Gastrostomy tube feeding. 13. Diabetes mellitus. Plan: Slow IV hydration- BS control- keep BP under control- Avoid Nephrotoxics- monitor lytes and renal parameters- COLTEN DIEGO Mar 22, 2017 14:22
[2017-03-22] MEDS ORDERED: Albuterol ud Inhalation IN-LINE PRN (16:00)
[2017-03-22] MEDS ORDERED: Ferrous Sulfate 300 MG/5 ML UDC ORAL SCH (18:00)
[2017-03-22] MEDS: Ferrous Sulfate 300 MG/5 ML UDC NG SCH (18:01)
[2017-03-22] MEDS: Docusate 100mg/10ml Liq GT SCH (18:01)
[2017-03-22] MEDS: Metoclopramide 10mg/10ml Liq NG SCH (18:01)
[2017-03-22] MEDS: Lactulose 20gm/30ml UDC GT SCH (18:02)
[2017-03-22] MEDS: Ascorbic Acid 500mg tab GT SCH (18:02)
[2017-03-22] MEDS: Albuterol ud Inhalation IN-LINE SCH (19:13)
[2017-03-22] MEDS: Levemir Flexpen SUBQ SCH (20:36)
--- NOTE | 2017-03-22 21:30 | Consultation ---
DATE OF CONSULTATION: 03/22/2017 INFECTIOUS DISEASE CONSULTATION CONSULTING PHYSICIAN: Kacey Olivo M.D. REFERRING PHYSICIAN: David Bowie M.D. REASON FOR CONSULTATION: UTI, sepsis, and recommendation for antibiotic therapy. HISTORY OF PRESENT ILLNESS: The patient is an 81-year-old male with chronic respiratory failure, status post trach, ventilator dependent and chronic urinary retention, status post Malhotra catheter who was recently discharged from the hospital for urinary tract infection due to ESBL producing Klebsiella and Pseudomonas. He was sent to the emergency room today for G-tube replacement after it got dislodged the night before. The patient was found to have gastrostomy tube out. It was placed back in the emergency room. His urine looked cloudy and showed evidence of infection. The patient had leukocytosis. He was hypotensive and febrile. So, he was admitted to the hospital for possible sepsis and urinary tract infection treatment, and I was consulted by the primary provider for antibiotics recommendation and further care. As of note, the patient is demented, nonverbal, cannot provide any history. History was mainly obtained from the medical record. PAST MEDICAL HISTORY: Significant for chronic kidney disease; chronic respiratory failure, status post trach; diabetes; hypertension; COPD; dementia; and anemia. PAST SURGICAL HISTORY: He has tracheostomy and G-tube placement. FAMILY HISTORY: Unable to obtain. SOCIAL HISTORY: The patient is detention resident. Denied using any drugs tobacco or alcohol. ALLERGIES: He has no known drug allergy. MEDICATIONS: The patient received Zosyn and vancomycin in the emergency room. For the rest of his medications, please refer to MAR. LABORATORY DATA: White count 16.4, hemoglobin 9.8, and platelet count 160,000. BUN of 78 and creatinine of 3. Alkaline phosphatase of 141. CK level 341. Urinalysis showed +3 leukocyte esterase, 20 to 30 WBC, and few bacteria. MICROBIOLOGY: Influenza A and B antigen screening was negative. IMAGING: Abdominal x-ray showed satisfactory position of gastrostomy tube. Chest x-ray showed interstitial disease, appears similar to prior study on 03/13/2017. PHYSICAL EXAMINATION: VITAL SIGNS: Temperature 99.7, pulse 122, respirations 20, blood pressure 98/60, and pulse oximetry 100% on mechanical ventilation with FiO2 of 40. GENERAL: An elderly male, demented, aphasic, with tracheostomy on mechanical ventilation, resting in bed, not in acute distress. HEENT: Normocephalic and atraumatic. Cataracts in both eyes. Moist oral mucosa. No thrush. No ulceration. NECK: Supple. No lymphadenopathy. CARDIOVASCULAR: He is tachycardic. S1 and S2 normal. No murmur. LUNGS: He had diminished breathing sounds at the bases with crackles. ABDOMEN: Soft, nontender, not distended. Negative bowel sounds. No organomegaly. No guarding. G-tube site looks intact and clean. No drainage or erythema. EXTREMITIES: No edema or cyanosis. Contraction and muscle atrophy. SKIN: He had sacral skin breakdown with redness and erythema. ASSESSMENT AND RECOMMENDATION: 1. Severe sepsis with hypotension and fever. Suspect source urinary tract infection versus pneumonia. The patient is colonized with multi-drug resistant organism. We will start meropenem and Zyvox empiric treatment for now pending blood and urine culture results. 2. Urinary tract infection with history of multi-drug resistant organism. We will start meropenem pending culture results. 3. Possible pneumonia. The patient will be covered with meropenem and Zyvox. No need to send any culture from the trach since he is colonized already with multidrug resistant organism. 4. Acute renal failure due to the above. Continue IV fluid for hydration. Avoid nephrotoxic medicine. Monitor urine output. 5. Sacral pressure ulcer with mild cellulitis. The patient will be on meropenem and Zyvox. Continue local wound care, offloading, and consult Wound Care. 6. Chronic respiratory failure with tracheostomy, on mechanical ventilation. Monitor ABG and chest x-ray. Consult Pulmonary. Kacey Olivo M.D. DR: LALI JOB#: [id number] CC:
--- NOTE | 2017-03-22 22:45 | History and Physical Report ---
DATE OF ADMISSION: 03/22/2017 HISTORY OF PRESENT ILLNESS: The patient is being admitted for sepsis, UTI, acute renal failure, and hyperkalemia. The patient was sent because the G-tube came out. ER doctor put a permanent G-tube. However, he was found to have sepsis, UTI, hyperkalemia, acute renal failure on top of renal failure. The patient has trach, anasarca, edema, malnutrition, and admitted for all those above reasons. PAST MEDICAL HISTORY: Chronic respiratory insufficiency, history of cellulitis. The patient has acute on chronic renal failure, the patient also has a history of dehydration, the patient also has anemia, BPH, NIDDM, hypertension, and GERD. PAST SURGICAL HISTORY: Trach and PEG. MEDICATIONS: Vitamin C, cranberry, Colace, Epogen, famotidine, ferrous sulfate, Proscar, insulin, omeprazole, Reglan p.r.n., and zinc. ALLERGIES: No known allergies. FAMILY HISTORY: Unable to obtain. SOCIAL HISTORY: Unable to obtain. REVIEW OF SYSTEMS: Unable to obtain. PHYSICAL EXAMINATION: VITAL SIGNS: Temperature is 98.4 degrees, pulse 117, and blood pressure 105/68. HEENT: PERRLA. NECK: Supple. CHEST: Clear to auscultation. GASTROINTESTINAL: Soft and distended, which is chronic. Positive bowel sounds. G-tube site is intact. EXTREMITIES: Edema throughout. NEUROLOGIC: Oriented x0. Nonverbal, which is his baseline. LABORATORY DATA: Laboratory mai, WBC of 16.7, hemoglobin 9.8, and platelets 160,000. Sodium 142, potassium 5.4, BUN 70, and creatinine of 3. Glucose of 213. Alkaline phosphatase 141. CPK of 341. ASSESSMENT: 1. Acute renal failure on top of chronic renal failure. 2. Hyperkalemia. 3. Elevated CPK level. 4. Gastrostomy tube. 5. Sepsis. 6. Rule out urinary tract infection. 7. Leukocytosis. 8. Anemia. PLAN: I have asked Dr. Olivo, Dr. Soares, Dr. Loera, Dr. Solomon, and Dr. Sanon to see the patient for the above-mentioned diagnoses and treatment. David Bowie M.D. DR: MEGAN JOB#: [id number] CC:
--- NOTE | 2017-03-22 23:07 | Consultation ---
Consult Note Consult Note Heme Consult Note DATE: 03/22/17 REFERRING PHYSICIAN: David Bowie M.D. REASON FOR CONSULTATION: Evaluation of recurrent anemia IDENTIFYING DATA: Dear Dr. Bowie, The patient is a pleasant 81-year-old male with past medical history which is significant for chronic respiratory failure on trach and vent, was brought in by ambulance with gtube fell out, kristin, sepsis. He has been admitted multiple times in the previous past. He is in vegetative state, unable to provide any further history from the patient, does have a history of dementia. Piror eval has shown a recanalized thrombosis of the right lower extremity. Prior imaging 4 months ago showed an acute DVT in the same area, however given it has recalnalized does not need heparin. Heme was consulted because of recurrent anemia. Prior w/u does not show a iron deficiency and is c/w anemia of chronic disease, no b12 or folate deficiency either noted and no schistocytes are seen PAST MEDICAL HISTORY: Acute on chronic respiratory failure, kidney injury, dementia, pneumonia, hypertension, diabetes mellitus, COPD, daw-[id number] diabetes mellitus, GERD, and multiple decubitus ulceration. PAST SURGICAL HISTORY: Tracheostomy. ALLERGIES: No known drug allergies. MEDICATIONS: Ferrous sulfate, Pepcid, Colace, finasteride, insulin, metformin, omeprazole, and zinc sulfate. SOCIAL HISTORY: Difficult to obtain given mental status. FAMILY HISTORY: Unable to obtain given mental status. REVIEW OF SYSTEMS: Unable to obtain given mental status. PHYSICAL EXAMINATION: GENERAL: No acute distress. VITAL SIGNS: Last 24 Hour Vital Signs Date Time Temp Pulse Resp B/P Pulse Ox O2 Delivery O2 Flow Rate FiO2 03/22/17 21:16 105 29 40 03/22/17 20:00 97.7 102 31 107/62 98 Mechanical Ventilator 40 03/22/17 20:00 5.0 40 03/22/17 20:00 102 03/22/17 19:21 100 24 100 Mechanical Ventilator 40 03/22/17 19:13 103 26 98 Mechanical Ventilator 40 03/22/17 19:05 103 26 40 03/22/17 17:27 102 20 40 03/22/17 16:00 98.7 106 27 120/74 100 Mechanical Ventilator 40 03/22/17 16:00 103 03/22/17 16:00 5.0 40 03/22/17 15:15 103 30 40 03/22/17 12:58 115 30 40 03/22/17 12:30 5.0 40 03/22/17 12:30 118 03/22/17 11:55 99.7 122 20 98/60 100 Mechanical Ventilator 5.0 40 03/22/17 11:43 114 21 96/61 100 Mechanical Ventilator 5.0 40 03/22/17 11:09 116 23 40 03/22/17 10:51 99.1 117 23 105/68 100 Mechanical Ventilator 5.0 40 03/22/17 10:35 98.4 117 23 105/68 100 Mechanical Ventilator 5.0 40 03/22/17 09:30 118 23 40 03/22/17 09:19 121 28 109/65 100 Mechanical Ventilator 5.0 40 03/22/17 08:19 98.4 03/22/17 07:54 98.4 127 28 124/81 100 Mechanical Ventilator 5.0 40 03/22/17 07:13 124 28 Mechanical Ventilator 40 03/22/17 07:10 124 28 40 03/22/17 07:00 100.5 120 22 102/73 100 Mechanical Ventilator 40 03/22/17 06:49 100.6 115 19 105/76 96 Trach Collar 5.0 PULMONARY: Decreased breath sounds. on trach/vent CARDIOVASCULAR: Regular rhythm. GASTROINTESTINAL: Abdomen soft, nontender, and nondistended. EXTREMITIES: No pedal edema. NEURO: non-focal Laboratory Tests Test 03/22/17 07:00 White Blood Count 16.4 K/UL (4.8-10.8) H Red Blood Count 3.35 M/UL (4.70-6.10) L Hemoglobin 9.8 G/DL (14.2-18.0) L Hematocrit 31.5 % (42.0-52.0) L Mean Corpuscular Volume 94 FL (80-99) Mean Corpuscular Hemoglobin 29.3 PG (27.0-31.0) Mean Corpuscular Hemoglobin Concent 31.2 G/DL (32.0-36.0) L Red Cell Distribution Width 17.5 % (11.6-14.8) H Platelet Count 160 K/UL (150-450) Mean Platelet Volume 8.6 FL (6.5-10.1) Neutrophils (%) (Auto) 76.9 % (45.0-75.0) H Lymphocytes (%) (Auto) 7.7 % (20.0-45.0) L Monocytes (%) (Auto) 13.5 % (1.0-10.0) H Eosinophils (%) (Auto) 1.0 % (0.0-3.0) Basophils (%) (Auto) 0.9 % (0.0-2.0) Urine Color Pale yellow Urine Appearance Clear Urine pH 8 (4.5-8.0) Urine Specific [place] 1.010 (1.005-1.035) Urine Protein 3+ (NEGATIVE) H Urine Glucose (UA) Negative (NEGATIVE) Urine Ketones Negative (NEGATIVE) Urine Occult Blood 4+ (NEGATIVE) H Urine Nitrite Negative (NEGATIVE) Urine Bilirubin Negative (NEGATIVE) Urine Urobilinogen Normal MG/DL (0.0-1.0) Urine Leukocyte Esterase 3+ (NEGATIVE) H Urine RBC 5-10 /HPF (0 - 0) H Urine WBC 20-30 /HPF (0 - 0) H Urine Squamous Epithelial Cells Occasional /LPF Urine Bacteria Few /HPF (NONE) Sodium Level 142 mEQ/L (135-145) Potassium Level 5.4 mEQ/L (3.4-4.9) H Chloride Level 103 mEQ/L (98-107) Carbon Dioxide Level 21 mEQ/L (20-30) Anion Gap 18 (5-15) H Blood Urea Nitrogen 78 mg/dL (7-23) H Creatinine 3.0 mg/dL (0.7-1.2) H Estimat Glomerular Filtration Rate mL/min (>60) Glucose Level 213 mg/dL (74-106) H Hemoglobin A1c 8.6 % (< 6.0) H Lactic Acid Level 1.60 mmol/L (0.66-2.22) Calcium Level 9.4 mg/dL (8.6-10.2) Total Bilirubin 0.3 mg/dL (0.0-1.2) Aspartate Amino Transf (AST/SGOT) 18 U/L (5-40) Alanine Aminotransferase (ALT/SGPT) 15 U/L (3-41) Alkaline Phosphatase 141 U/L (40-129) H Total Creatine Kinase 341 U/L (38-174) H Creatine Kinase MB 2.1 ng/mL (< 6.7) Creatine Kinase MB Relative Index 0.6 Troponin I < 0.30 ng/mL (<=0.30) Total Protein 9.9 g/dL (6.6-8.7) H Albumin 2.9 g/dL (3.5-5.2) L Globulin 7.0 g/dL Albumin/Globulin Ratio 0.4 (1.0-2.7) L ASSESSMENT: 1. Recurrent anemia currently better btw 8-10, now improved s/p transfusion and s/p egd in the recent past 2. Anemia secondary to chronic disease based on previous labs, ferritin elevated 3. Hx of anemia of iron deficiency 4. Leukocytosis 2/2 likely infection, r/o UTI 5. 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 Hyperferritinemia. 7. Chronic respiratory failure, trach/vent 8. Recanalized superficial femoral clot 9. Urinary tract infection. hx, sepsis now 10. Decubitus ulceration. RECOMMENDATIONS: 1. Patient had recent GI w/u 2. Hgb goAL >7 3. Monitor counts 4. Continue antibiotics as needed. 5. Breathing treatments prn 6. Pain control. 7. Gi followup recs 8. DVT prophylaxis with SCDs. 9. Continue tube feedings. 10. Discussed with staff. Alexx Sanon. Mar 22, 2017 23:07
[2017-03-23] VITALS: BP 110/62
[2017-03-23] MEDS: Metoclopramide 10mg/10ml Liq NG SCH ×4 (00:48→18:07)
[2017-03-23] MEDS: NovoLOG Insulin Flexpen SUBQ SCH ×4 (00:49→18:29)
[2017-03-23] MEDS: Albuterol ud Inhalation IN-LINE SCH ×4 (00:54→19:08)
[2017-03-23 04:00] VITALS: BP 112/66
[2017-03-23 04:39] LABS: EOSINOPHILS % (AUTO) 1.5 % (0.0-3.0); LYMPHOCYTES % (AUTO) 15.1 % (20.0-45.0); MEAN CORPUSCULAR HEMOGLOBIN 29.7 PG (27.0-31.0); MEAN CORPUSCULAR HGB CONC 31.3 G/DL (32.0-36.0); MEAN CORPUSCULAR VOLUME 95 FL (80-99); MEAN PLATELET VOLUME 9.2 FL (6.5-10.1); MONOCYTES % (AUTO) 15.9 % (1.0-10.0); NEUTROPHILS % (AUTO) 66.6 % (45.0-75.0); PLATELET COUNT 142 K/UL (150-450); RED BLOOD COUNT 2.81 M/UL (4.70-6.10); RED CELL DISTRIBUTION WIDTH 17.1 % (11.6-14.8); WHITE BLOOD COUNT 10.9 K/UL (4.8-10.8)
[2017-03-23 04:55] LABS: HEMOLYSIS 7; IRON 35 ug/dL (59-158); TOTAL IRON BINDING CAPACITY 129 ug/dL (250-400)
[2017-03-23 04:56] LABS: ALANINE AMINOTRANSFERASE 12 U/L (3-41); ALBUMIN/GLOBULIN RATIO 0.4 (1.0-2.7); ANION GAP 16 (5-15); ASPARTATE AMINO TRANSFERASE 14 U/L (5-40); CARBON DIOXIDE 22 mEQ/L (20-30); CHLORIDE 105 mEQ/L (98-107); CREATININE 2.9 mg/dL (0.7-1.2); HEMOLYSIS 1; POTASSIUM 4.7 mEQ/L (3.4-4.9); SODIUM 143 mEQ/L (135-145); TOTAL PROTEIN 8.9 g/dL (6.6-8.7)
[2017-03-23 05:06] LABS: FERRITIN 475 ng/mL (10-230)
[2017-03-23 05:11] LABS: CRP QUANT 29.8 mg/dL (< 0.5); MAGNESIUM 2.5 mg/dL (1.7-2.5); PHOSPHORUS 3.1 mg/dL (2.5-4.8); URIC ACID 8.2 mg/dL (3.0-7.5)
[2017-03-23 06:09] LABS: APPEARANCE,URINE CLEAR; KETONES,URINE NEGATIVE (NEGATIVE); LEUKOCYTE ESTERASE ,URINE 3+ (NEGATIVE); NITRITE,URINE POSITIVE (NEGATIVE); PH,URINE 6.5 (4.5-8.0); PROTEIN,URINE 3+ (NEGATIVE); UROBILINOGEN,URINE NORMAL MG/DL (0.0-1.0)
[2017-03-23 06:26] LABS: AMORPHOUS SEDIMENT,UR FEW /LPF; BACTERIA,URINE FEW /HPF; RBC,URINE 15-20 /HPF (0 - 0); SQUAMOUS EPITHELIAL CELL,UR OCCASIONAL /LPF (NONE/OCC); TRANSITIONAL EPI CELLS,URINE FEW /LPF
--- NOTE | 2017-03-23 07:30 | Consultation ---
DATE OF CONSULTATION: 03/22/2017 GASTROENTEROLOGY CONSULTATION REPORT CHIEF COMPLAINT: I was asked to see this patient by Dr. David Bowie for gastrostomy and probable evaluation. HISTORY OF PRESENT ILLNESS: The patient is debilitated, unfortunate, 81-year-old man, who has been transferred and admitted to the hospital due to various issues outlined above. From gastrointestinal standpoint, the patient has had and respiratory failure requiring a tracheostomy tube placement and gastrostomy tube placement. He is sedentary and bedbound in a rigid state and unresponsive. Most of the information is only able to get from the chart. The patient's gastrostomy tube fell out and was replaced by the emergency room with a 24-Amharic caliber larger tube with distended abdomen. The KUB was done and the results were accordingly unremarkable. PAST MEDICAL HISTORY: History of deep vein thrombosis, status post IVC filter placement, history of anemia, respiratory failure, pneumonia, COPD, status post tracheostomy tube placement, status post gastrostomy tube placement, dysphagia, diabetes, coronary artery disease, hypertension, urinary tract infection, and decubitus ulceration. MEDICATIONS: See chart for details. ALLERGIES: None. SOCIAL HISTORY: The patient has had no recent history of smoking or drinking. FAMILY HISTORY: Not available. REVIEW OF SYSTEMS: Otherwise negative. PHYSICAL EXAMINATION: GENERAL: Debilitated -[place] Citizen man, seen in the emergency room. HEENT: Normocephalic and atraumatic. Dentition was difficult to evaluate due to the patient's uncooperative state. NECK: He had a tracheostomy catheter in good position. CHEST: Reveals scattered rhonchi. CARDIOVASCULAR: Regular rate. ABDOMEN: Distended and tympanitic, but somewhat soft. There is no obvious organomegaly, but the examination was difficult due to the patient's abdominal habitus. EXTREMITIES: Revealed contraction deformities. NEUROLOGIC: Nonfocal, although the patient is essentially obtunded. LABORATORY DATA: Noted. KUB was noted. ASSESSMENT: This patient has a distended abdomen, which by my recollection may be somewhat baseline for him. I will place him on a bowel regimen and follow the bowel regimen closely. In meantime, he should also be restarted on tube feedings since there is no obvious complication of feeding. Should there be significant gastroparesis or leakage, further evaluation and treatment may be necessary. The patient's overall prognosis is poor. Do Not Resuscitate status will be appropriate. RECOMMENDATIONS: Per above discussion and per orders written in the chart. Thank you for asking me to participate in care of this patient. Pablito Solomon M.D. DR: Nicki JOB#: [id number] CC:
[2017-03-23 08:00] VITALS: BP 117/54
--- NOTE | 2017-03-23 08:03 | General Progress Note ---
Assessment/Plan Assessment/Plan Assessment - dysphagia - s/p PEG and Trach - chronic abd distention - Anemia - Renal failure - Resp failure - poor px Recommendations - continue TF - GT care - bowel regimen - elevate HOB - DVT prophylaxis I will return Mon to see pt. Please call if GI issues Pablito Solomon MD Subjective Allergies: Coded Allergies: NO KNOWN DRUG ALLERGIES (Unverified Allergy, Unknown, 10/29/14) Subjective Above noted stable overnight tolerating TF WBC lower Objective Last 24 Hour Vital Signs Date Time Temp Pulse Resp B/P Pulse Ox O2 Delivery O2 Flow Rate FiO2 03/23/17 07:15 108 28 100 Mechanical Ventilator 40 03/23/17 07:10 107 28 40 03/23/17 07:10 107 29 100 Mechanical Ventilator 40 03/23/17 05:00 102 23 40 03/23/17 04:00 102 03/23/17 04:00 97.1 102 15 112/66 98 Mechanical Ventilator 40 03/23/17 04:00 5.0 40 03/23/17 03:05 98 27 40 03/23/17 01:05 108 29 99 Mechanical Ventilator 40 03/23/17 00:55 97 26 98 Mechanical Ventilator 40 03/23/17 00:55 97 26 40 03/23/17 00:00 97.7 97 27 110/62 98 Mechanical Ventilator 40 03/23/17 00:00 97 03/23/17 00:00 5.0 40 03/22/17 23:20 95 26 40 03/22/17 21:16 105 29 40 03/22/17 20:00 97.7 102 31 107/62 98 Mechanical Ventilator 40 03/22/17 20:00 5.0 40 03/22/17 20:00 102 03/22/17 19:21 100 24 100 Mechanical Ventilator 40 03/22/17 19:13 103 26 98 Mechanical Ventilator 40 03/22/17 19:05 103 26 40 03/22/17 17:27 102 20 40 03/22/17 16:00 98.7 106 27 120/74 100 Mechanical Ventilator 40 03/22/17 16:00 103 03/22/17 16:00 5.0 40 03/22/17 15:15 103 30 40 03/22/17 12:58 115 30 40 03/22/17 12:30 5.0 40 03/22/17 12:30 118 03/22/17 11:55 99.7 122 20 98/60 100 Mechanical Ventilator 5.0 40 03/22/17 11:43 114 21 96/61 100 Mechanical Ventilator 5.0 40 03/22/17 11:09 116 23 40 03/22/17 10:51 99.1 117 23 105/68 100 Mechanical Ventilator 5.0 40 03/22/17 10:35 98.4 117 23 105/68 100 Mechanical Ventilator 5.0 40 03/22/17 09:30 118 23 40 03/22/17 09:19 121 28 109/65 100 Mechanical Ventilator 5.0 40 03/22/17 08:19 98.4 Intake and Output 03/22/17 03/23/17 19:00 07:00 Intake Total 2365 ml 1930 ml Output Total 800 ml 750 ml Balance 1565 ml 1180 ml Intake Free Water 250 ml 100 ml IV Total 1905 ml 1180 ml Tube Feeding 210 ml 650 ml Output Urine Total 800 ml 750 ml # Bowel Movements 2 4 Laboratory Tests 03/23/17 04:00: White Blood Count 10.9H, Red Blood Count 2.81L, Hemoglobin 8.4L, Hematocrit 26.7L, Mean Corpuscular Volume 95, Mean Corpuscular Hemoglobin 29.7, Mean Corpuscular Hemoglobin Concent 31.3L, Red Cell Distribution Width 17.1H, Platelet Count 142L, Mean Platelet Volume 9.2, Neutrophils (%) (Auto) 66.6, Lymphocytes (%) (Auto) 15.1L, Monocytes (%) (Auto) 15.9H, Eosinophils (%) (Auto ) 1.5, Basophils (%) (Auto) 1.0, Urine Color Pale yellow, Urine Appearance Clear , Urine pH 6.5, Urine Specific [place] 1.005, Urine Protein 3+H, Urine Glucose ( UA) Negative, Urine Ketones Negative, Urine Occult Blood 4+H, Urine Nitrite PositiveH, Urine Bilirubin Negative, Urine Urobilinogen Normal, Urine Leukocyte Esterase 3+H, Urine RBC 15-20H, Urine WBC 10-15H, Urine Squamous Epithelial Cells Occasional, Urine Transitional Epithelial Cells FewH, Urine Amorphous Sediment FewH, Urine Bacteria Few, Urine Random Sodium 51, Sodium Level 143, Potassium Level 4.7, Chloride Level 105, Carbon Dioxide Level 22, Anion Gap 16H , Blood Urea Nitrogen 72H, Creatinine 2.9H, Estimat Glomerular Filtration Rate , Glucose Level 220H, Uric Acid 8.2H, Calcium Level 9.0, Phosphorus Level 3.1, Magnesium Level 2.5, Iron Level 35L, Total Iron Binding Capacity 129L, Percent Iron Saturation 27, Unsaturated Iron Binding 94L, Ferritin 475H, Total Bilirubin 0.3, Gamma Glutamyl Transpeptidase 120H, Aspartate Amino Transf (AST/ SGOT) 14, Alanine Aminotransferase (ALT/SGPT) 12, Alkaline Phosphatase 132H, Total Creatine Kinase 273H, C-Reactive Protein, Quantitative 29.8H, Pro-B-Type Natriuretic Peptide 2394H, Total Protein 8.9H, Albumin 2.7L, Globulin 6.2, Albumin/Globulin Ratio 0.4L 03/23/17 06:30: Stool Occult Blood [Pending] Height (Feet): 5 Height (Inches): 6.00 Weight (Pounds): 180 Objective Elderly WM obtunded NCAT (+) trach coarse BS RRR abd distended, tympanitic, GT in good position no edema OBS/obtunded PABLITO SOLOMON Mar 23, 2017 08:03
[2017-03-23] MEDS: Lactulose 20gm/30ml UDC GT SCH ×3 (09:00→18:08)
[2017-03-23] MEDS: Levemir Flexpen SUBQ SCH ×2 (09:00→21:34)
[2017-03-23] MEDS: Meropenem 500mg/NS 55ml IVPB SCH ×4 (09:00→21:32)
[2017-03-23] MEDS: Dyna-Hex 2% Top Sol 8oz TOPIC SCH (09:00)
[2017-03-23] MEDS: Multivitamins W/Minerals 15 ML UDC GT SCH (09:00)
--- NOTE | 2017-03-23 09:47 | General Progress Note ---
Assessment/Plan Status: unchanged Status Narrative Cr and Hgb lower Assessment/Plan Acute Renal Failure- with high K- Pre Renal / Super Imposed on Renal Respiratory failure- UTI / Sepsis h/o Anemia Decubs h/o DVT Other conditions: 1. Acute on chronic respiratory failure. 2. h/o Severe sepsis. 3. Ventilator-dependent respiratory failure. 4. Chronic obstructive pulmonary disease. 5. History of deep venous thrombosis. 6. Hypoalbuminemia. 7. h/o Clostridium difficile colitis. 8. Pressure ulcers on sacrococcygeal down to buttocks, right ischial tuberosity, and right heel and right trochanter present on admission. 9. h/o Urinary tract infection, Proteus mirabilis. 10. h/o Acute deep venous thrombosis of the right lower extremity, on heparin and bridged to Coumadin. 11. Tracheostomy status. 12. Gastrostomy tube feeding. 13. Diabetes mellitus. Plan: Slow IV hydration- BS control- keep BP under control- Avoid Nephrotoxics- monitor lytes and renal parameters- Subjective ROS Limited/Unobtainable: Yes Allergies: Coded Allergies: NO KNOWN DRUG ALLERGIES (Unverified Allergy, Unknown, 10/29/14) Objective Last 24 Hour Vital Signs Date Time Temp Pulse Resp B/P Pulse Ox O2 Delivery O2 Flow Rate FiO2 03/23/17 09:10 104 22 40 03/23/17 08:00 99.5 114 30 117/54 100 Mechanical Ventilator 40 03/23/17 07:15 108 28 100 Mechanical Ventilator 40 03/23/17 07:10 107 28 40 03/23/17 07:10 107 29 100 Mechanical Ventilator 40 03/23/17 05:00 102 23 40 03/23/17 04:00 102 03/23/17 04:00 97.1 102 15 112/66 98 Mechanical Ventilator 40 03/23/17 04:00 5.0 40 03/23/17 03:05 98 27 40 03/23/17 01:05 108 29 99 Mechanical Ventilator 40 03/23/17 00:55 97 26 98 Mechanical Ventilator 40 03/23/17 00:55 97 26 40 03/23/17 00:00 97.7 97 27 110/62 98 Mechanical Ventilator 40 03/23/17 00:00 97 03/23/17 00:00 5.0 40 03/22/17 23:20 95 26 40 03/22/17 21:16 105 29 40 03/22/17 20:00 97.7 102 31 107/62 98 Mechanical Ventilator 40 03/22/17 20:00 5.0 40 03/22/17 20:00 102 03/22/17 19:21 100 24 100 Mechanical Ventilator 40 03/22/17 19:13 103 26 98 Mechanical Ventilator 40 03/22/17 19:05 103 26 40 03/22/17 17:27 102 20 40 03/22/17 16:00 98.7 106 27 120/74 100 Mechanical Ventilator 40 03/22/17 16:00 103 03/22/17 16:00 5.0 40 03/22/17 15:15 103 30 40 03/22/17 12:58 115 30 40 03/22/17 12:30 5.0 40 03/22/17 12:30 118 03/22/17 11:55 99.7 122 20 98/60 100 Mechanical Ventilator 5.0 40 03/22/17 11:43 114 21 96/61 100 Mechanical Ventilator 5.0 40 03/22/17 11:09 116 23 40 03/22/17 10:51 99.1 117 23 105/68 100 Mechanical Ventilator 5.0 40 03/22/17 10:35 98.4 117 23 105/68 100 Mechanical Ventilator 5.0 40 Intake and Output 03/22/17 03/23/17 19:00 07:00 Intake Total 2365 ml 1930 ml Output Total 800 ml 750 ml Balance 1565 ml 1180 ml Intake Free Water 250 ml 100 ml IV Total 1905 ml 1180 ml Tube Feeding 210 ml 650 ml Output Urine Total 800 ml 750 ml # Bowel Movements 2 4 Laboratory Tests 03/23/17 04:00: White Blood Count 10.9H, Red Blood Count 2.81L, Hemoglobin 8.4L, Hematocrit 26.7L, Mean Corpuscular Volume 95, Mean Corpuscular Hemoglobin 29.7, Mean Corpuscular Hemoglobin Concent 31.3L, Red Cell Distribution Width 17.1H, Platelet Count 142L, Mean Platelet Volume 9.2, Neutrophils (%) (Auto) 66.6, Lymphocytes (%) (Auto) 15.1L, Monocytes (%) (Auto) 15.9H, Eosinophils (%) (Auto ) 1.5, Basophils (%) (Auto) 1.0, Urine Color Pale yellow, Urine Appearance Clear , Urine pH 6.5, Urine Specific [place] 1.005, Urine Protein 3+H, Urine Glucose ( UA) Negative, Urine Ketones Negative, Urine Occult Blood 4+H, Urine Nitrite PositiveH, Urine Bilirubin Negative, Urine Urobilinogen Normal, Urine Leukocyte Esterase 3+H, Urine RBC 15-20H, Urine WBC 10-15H, Urine Squamous Epithelial Cells Occasional, Urine Transitional Epithelial Cells FewH, Urine Amorphous Sediment FewH, Urine Bacteria Few, Urine Random Sodium 51, Sodium Level 143, Potassium Level 4.7, Chloride Level 105, Carbon Dioxide Level 22, Anion Gap 16H , Blood Urea Nitrogen 72H, Creatinine 2.9H, Estimat Glomerular Filtration Rate , Glucose Level 220H, Uric Acid 8.2H, Calcium Level 9.0, Phosphorus Level 3.1, Magnesium Level 2.5, Iron Level 35L, Total Iron Binding Capacity 129L, Percent Iron Saturation 27, Unsaturated Iron Binding 94L, Ferritin 475H, Total Bilirubin 0.3, Gamma Glutamyl Transpeptidase 120H, Aspartate Amino Transf (AST/ SGOT) 14, Alanine Aminotransferase (ALT/SGPT) 12, Alkaline Phosphatase 132H, Total Creatine Kinase 273H, C-Reactive Protein, Quantitative 29.8H, Pro-B-Type Natriuretic Peptide 2394H, Total Protein 8.9H, Albumin 2.7L, Globulin 6.2, Albumin/Globulin Ratio 0.4L 03/23/17 06:30: Stool Occult Blood Positive Height (Feet): 5 Height (Inches): 6.00 Weight (Pounds): 180 General Appearance: no apparent distress Objective no change COLTEN DIEGO Mar 23, 2017 09:47
--- NOTE | 2017-03-23 11:02 | Diagnostic Imaging Report ---
Indication: DYSPNEA Technique: One view of the chest Comparison: 03/22/2017 Findings: Stable right arm PICC, tip projecting at the innominate venous confluence. Tracheostomy remains. 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
--- NOTE | 2017-03-23 11:25 | Consultation ---
History of Present Illness General Date patient seen: Mar 22, 2017 Chief Complaint: General Complaint Referring physician: Dr. Ureña Reason for Consultation: respiratory failure Present Illness HPI 81 year old male with hx of chronic trach/vent/peg, assisted resident was sent to ER because his Gtube fell off. In ER he was found to have fever and admitted to [facility] for further evaluation. Pt has vegetative state and can't give any history. Allergies: Coded Allergies: NO KNOWN DRUG ALLERGIES (Unverified Allergy, Unknown, 10/29/14) Medication History Scheduled Albuterol Sulfate* (Albuterol Sulfate Hhn*), 3 ML INH Q6H, (Reported) Amino Acids/Protein Hydrolys (Pro-Stat Liquid), 30 ML ORAL TWICE A DAY, ( Reported) Ascorbic Acid* (Vitamin C*), 500 MG GT TID, (Reported) Cephalexin* (Keflex*), 500 MG GT TWICE A DAY, (Reported) Cranberry Extract (Cranberry), 425 MG GT DAILY, (Reported) Docusate Sodium* (Docusate Sodium*), 100 MG GT TWICE A DAY, (Reported) Epoetin Valeriano (Epogen), 10,000 UNIT SUBQ ONCE A WEEK, (Reported) Famotidine (Pepcid), 40 MG GT DAILY, (Reported) Ferrous Sulfate (Ferrous Sulfate), 5 ML ORAL TID, (Reported) Finasteride* (Proscar*), 5 MG GT DAILY, (Reported) Insulin Detemir (Levemir Flexpen), 38 SUBQ Q12HR, (Reported) Ipratropium [place] (Atrovent Hfa), 12.9 GM IH EVERY 6 HOURS, (Reported) Lactulose (Lactulose*), 45 ML GT TID, (Reported) METOCLOPRAMIDE HCl* (METOCLOPRAMIDE HCl*), 5 MG GT EVERY 6 HOURS, (Reported) Multivitamins* (Multivitamins*), 1 TAB GT DAILY, (Reported) Pantoprazole* (Pantoprazole*), 40 MG GT DAILY, (Reported) Scheduled PRN Acetaminophen (Tylenol), 650 MG GT EVERY 4 HOURS PRN for Fever/Headache/Mild Pain, (Reported) Albuterol Sulfate* (Albuterol Sulfate Hhn*), 3 ML INH EVERY 2 HOURS PRN for Shortness of Breath, (Reported) Miscellaneous Medications Insulin Aspart* (Novolog*), 0 SUBQ, (Reported) Discontinued Medications Metformin Hcl* (Metformin Hcl*), 500 MG GT TWICE A DAY, (Reported) Discontinued Reason: Medication dose changed Patient History Healthcare decision maker Resuscitation status Advanced Directive on File Yes Past Medical/Surgical History Past Medical/Surgical History: (1) Chronic respiratory failure (2) Pressure ulcer (3) Ventilator dependence (4) Feeding by G-tube (5) Dementia Review of Systems All Other Systems: negative except mentioned in HPI Physical Exam General Appearance: WD/WN Lines, tubes and drains: peripheral HEENT: normocephalic, atraumatic Neck: non-tender, normal alignment Respiratory/Chest: chest wall non-tender, lungs clear Breasts: no masses Cardiovascular/Chest: normal peripheral pulses Abdomen: normal bowel sounds Genitourinary/Rectal: normal genital exam Extremities: normal range of motion Skin Exam: normal pigmentation Last 24 Hour Vital Signs Date Time Temp Pulse Resp B/P Pulse Ox O2 Delivery O2 Flow Rate FiO2 03/23/17 10:54 103 24 40 03/23/17 09:56 5.0 40 03/23/17 09:10 104 22 40 03/23/17 09:00 114 03/23/17 08:00 99.5 114 30 117/54 100 Mechanical Ventilator 40 03/23/17 07:15 108 28 100 Mechanical Ventilator 40 03/23/17 07:10 107 28 40 03/23/17 07:10 107 29 100 Mechanical Ventilator 40 03/23/17 05:00 102 23 40 03/23/17 04:00 102 03/23/17 04:00 97.1 102 15 112/66 98 Mechanical Ventilator 40 03/23/17 04:00 5.0 40 03/23/17 03:05 98 27 40 03/23/17 01:05 108 29 99 Mechanical Ventilator 40 03/23/17 00:55 97 26 98 Mechanical Ventilator 40 03/23/17 00:55 97 26 40 03/23/17 00:00 97.7 97 27 110/62 98 Mechanical Ventilator 40 03/23/17 00:00 97 03/23/17 00:00 5.0 40 03/22/17 23:20 95 26 40 03/22/17 21:16 105 29 40 03/22/17 20:00 97.7 102 31 107/62 98 Mechanical Ventilator 40 03/22/17 20:00 5.0 40 03/22/17 20:00 102 03/22/17 19:21 100 24 100 Mechanical Ventilator 40 03/22/17 19:13 103 26 98 Mechanical Ventilator 40 03/22/17 19:05 103 26 40 03/22/17 17:27 102 20 40 03/22/17 16:00 98.7 106 27 120/74 100 Mechanical Ventilator 40 03/22/17 16:00 103 03/22/17 16:00 5.0 40 03/22/17 15:15 103 30 40 03/22/17 12:58 115 30 40 03/22/17 12:30 5.0 40 03/22/17 12:30 118 03/22/17 11:55 99.7 122 20 98/60 100 Mechanical Ventilator 5.0 40 03/22/17 11:43 114 21 96/61 100 Mechanical Ventilator 5.0 40 Intake and Output 03/22/17 03/23/17 19:00 07:00 Intake Total 2365 ml 1930 ml Output Total 800 ml 750 ml Balance 1565 ml 1180 ml Intake Free Water 250 ml 100 ml IV Total 1905 ml 1180 ml Tube Feeding 210 ml 650 ml Output Urine Total 800 ml 750 ml # Bowel Movements 2 4 Laboratory Tests Test 03/23/17 04:00 03/23/17 06:30 White Blood Count 10.9 K/UL (4.8-10.8) H Red Blood Count 2.81 M/UL (4.70-6.10) L Hemoglobin 8.4 G/DL (14.2-18.0) L Hematocrit 26.7 % (42.0-52.0) L Mean Corpuscular Volume 95 FL (80-99) Mean Corpuscular Hemoglobin 29.7 PG (27.0-31.0) Mean Corpuscular Hemoglobin Concent 31.3 G/DL (32.0-36.0) L Red Cell Distribution Width 17.1 % (11.6-14.8) H Platelet Count 142 K/UL (150-450) L Mean Platelet Volume 9.2 FL (6.5-10.1) Neutrophils (%) (Auto) 66.6 % (45.0-75.0) Lymphocytes (%) (Auto) 15.1 % (20.0-45.0) L Monocytes (%) (Auto) 15.9 % (1.0-10.0) H Eosinophils (%) (Auto) 1.5 % (0.0-3.0) Basophils (%) (Auto) 1.0 % (0.0-2.0) Urine Color Pale yellow Urine Appearance Clear Urine pH 6.5 (4.5-8.0) Urine Specific [place] 1.005 (1.005-1.035) Urine Protein 3+ (NEGATIVE) H Urine Glucose (UA) Negative (NEGATIVE) Urine Ketones Negative (NEGATIVE) Urine Occult Blood 4+ (NEGATIVE) H Urine Nitrite Positive (NEGATIVE) H Urine Bilirubin Negative (NEGATIVE) Urine Urobilinogen Normal MG/DL (0.0-1.0) Urine Leukocyte Esterase 3+ (NEGATIVE) H Urine RBC 15-20 /HPF (0 - 0) H Urine WBC 10-15 /HPF (0 - 0) H Urine Squamous Epithelial Cells Occasional /LPF Urine Transitional Epithelial Cells Few /LPF (NONE) H Urine Amorphous Sediment Few /LPF (NONE) H Urine Bacteria Few /HPF (NONE) Urine Random Sodium 51 mmol/L Sodium Level 143 mEQ/L (135-145) Potassium Level 4.7 mEQ/L (3.4-4.9) Chloride Level 105 mEQ/L (98-107) Carbon Dioxide Level 22 mEQ/L (20-30) Anion Gap 16 (5-15) H Blood Urea Nitrogen 72 mg/dL (7-23) H Creatinine 2.9 mg/dL (0.7-1.2) H Estimat Glomerular Filtration Rate mL/min (>60) Glucose Level 220 mg/dL (74-106) H Uric Acid 8.2 mg/dL (3.0-7.5) H Calcium Level 9.0 mg/dL (8.6-10.2) Phosphorus Level 3.1 mg/dL (2.5-4.8) Magnesium Level 2.5 mg/dL (1.7-2.5) Iron Level 35 ug/dL (59-158) L Total Iron Binding Capacity 129 ug/dL (250-400) L Percent Iron Saturation 27 % (15-50) Unsaturated Iron Binding 94 ug/dL (112-346) L Ferritin 475 ng/mL (10-230) H Total Bilirubin 0.3 mg/dL (0.0-1.2) Gamma Glutamyl Transpeptidase 120 U/L (8-61) H Aspartate Amino Transf (AST/SGOT) 14 U/L (5-40) Alanine Aminotransferase (ALT/SGPT) 12 U/L (3-41) Alkaline Phosphatase 132 U/L (40-129) H Total Creatine Kinase 273 U/L (38-174) H C-Reactive Protein, Quantitative 29.8 mg/dL (< 0.5) H Pro-B-Type Natriuretic Peptide 2394 pg/mL (0-450) H Total Protein 8.9 g/dL (6.6-8.7) H Albumin 2.7 g/dL (3.5-5.2) L Globulin 6.2 g/dL Albumin/Globulin Ratio 0.4 (1.0-2.7) L Stool Occult Blood Positive (NEGATIVE) Height (Feet): 5 Height (Inches): 6.00 Weight (Pounds): 180 Medications Current Medications Medications (Trade) Dose Ordered Sig/Shubham Route PRN Reason Start Time Stop Time Status Last Admin Dose Admin Acetaminophen (Tylenol) 650 mg Q4H PRN GT Mild Pain/Temp > 100.5 03/22/17 16:00 04/21/17 15:59 Albuterol Sulfate (Proventil) 2.5 mg Q2H PRN IN-LINE Shortness of Breath 03/22/17 16:00 03/27/17 15:59 Albuterol Sulfate (Proventil) 2.5 mg Q6HRT IN-LINE 03/22/17 19:00 03/27/17 18:59 03/23/17 07:28 Ascorbic Acid (Vitamin C) 500 mg TID GT 03/22/17 18:00 04/21/17 17:59 03/22/17 18:02 Chlorhexidine Gluconate (Janina-Hex 2%) 1 applic DAILY TOPIC 03/23/17 09:00 04/22/17 08:59 Dextrose (Dextrose 50%) STAT PRN IV Hypoglycemia 03/22/17 18:45 04/21/17 18:44 Docusate Sodium (Colace) 100 mg TWICE A DAY GT 03/22/17 18:00 04/21/17 17:59 03/22/17 18:01 Ferrous Sulfate (Feosol) 330 mg THREE TIMES A DAY NG 03/22/17 18:00 04/21/17 17:59 03/22/17 18:01 Finasteride (Proscar) 5 mg DAILY GT 03/23/17 09:00 04/22/17 08:59 Insulin Aspart (NovoLOG) EVERY 6 HOURS SUBQ 03/23/17 00:00 04/22/17 00:00 03/23/17 05:54 Insulin Detemir (Levemir) 38 units EVERY 12 HOURS SUBQ 03/22/17 21:00 04/21/17 20:59 03/22/17 20:36 Lactulose (Cephulac) 30 gm TID GT 03/22/17 18:00 04/21/17 17:59 03/22/17 18:02 Lansoprazole (Prevacid) 30 mg DAILY GT 03/23/17 09:00 04/22/17 08:59 Linezolid 300 ml @ 300 mls/hr Q12HR IVPB 03/22/17 12:00 03/29/17 11:59 03/22/17 21:35 Meropenem 500 mg/ Sodium Chloride 55 ml @ 110 mls/hr Q12HR IVPB 03/22/17 12:00 03/27/17 11:59 03/22/17 20:35 Metoclopramide HCl (Reglan) 5 mg EVERY 6 HOURS NG 03/22/17 18:00 04/21/17 17:59 03/23/17 05:53 Multivitamins (Multivitamins W/ Minerals 15ml Liquid) 15 ml DAILY GT 03/23/17 09:00 04/22/17 08:59 Sodium Chloride (0.45% NS 1000ml) 1,000 ml @ 100 mls/hr Q10H IV 03/22/17 15:00 04/21/17 14:59 03/23/17 06:01 Assessment/Plan Problem List: (1) Chronic respiratory failure ICD Codes: J96.10 - Chronic respiratory failure SNOMED: 95401593 (2) Sepsis ICD Codes: A41.9 - Sepsis SNOMED: 85009312 (3) Dementia ICD Codes: F03.90 - Dementia SNOMED: 12519458 (4) Pneumonia ICD Codes: J18.9 - Pneumonia, unspecified organism SNOMED: 735069606 (5) Severe sepsis ICD Codes: A41.9 - Sepsis, unspecified organism; R65.20 - Severe sepsis without septic shock SNOMED: 42008410 (6) Feeding by G-tube ICD Codes: Z93.1 - Feeding by G-tube SNOMED: 756010955 Respiratory: monitor respiratory rate, adjust FIO2 Cardiac: continue to monitor HR/BP Renal: F/U I&O, keep IV fluid, check electrolytes Infectious Disease: check cultures, continue antibiotics Gastrointestinal: hold feedings, abdominal imaging, other - GI evaluation Endocrine: monitor blood sugar, continue sliding scale insulin Hematologic: monitor H/H, transfuse if hgb<8.5 Neurologic: PRN Morphine, keep patient comfortable Prophylaxis: Protonix Notes Reviewed: pants closer, cardio Discussed with: consultants, block and case maker MICH FONSECA Mar 23, 2017 11:25
--- NOTE | 2017-03-23 11:26 | Pulmonology Progress Note ---
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 room host, 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, consultants, human services case manager Subjective ROS Limited/Unobtainable: No Constitutional: Reports: no symptoms HEENT: Repors: no symptoms Respiratory: Reports: no symptoms Allergies: Coded Allergies: NO KNOWN DRUG ALLERGIES (Unverified Allergy, Unknown, 10/29/14) Objective Last 24 Hour Vital Signs Date Time Temp Pulse Resp B/P Pulse Ox O2 Delivery O2 Flow Rate FiO2 03/23/17 10:54 103 24 40 03/23/17 09:56 5.0 40 03/23/17 09:10 104 22 40 03/23/17 09:00 114 03/23/17 08:00 99.5 114 30 117/54 100 Mechanical Ventilator 40 03/23/17 07:15 108 28 100 Mechanical Ventilator 40 03/23/17 07:10 107 28 40 03/23/17 07:10 107 29 100 Mechanical Ventilator 40 03/23/17 05:00 102 23 40 03/23/17 04:00 102 03/23/17 04:00 97.1 102 15 112/66 98 Mechanical Ventilator 40 03/23/17 04:00 5.0 40 03/23/17 03:05 98 27 40 03/23/17 01:05 108 29 99 Mechanical Ventilator 40 03/23/17 00:55 97 26 98 Mechanical Ventilator 40 03/23/17 00:55 97 26 40 03/23/17 00:00 97.7 97 27 110/62 98 Mechanical Ventilator 40 03/23/17 00:00 97 03/23/17 00:00 5.0 40 03/22/17 23:20 95 26 40 03/22/17 21:16 105 29 40 03/22/17 20:00 97.7 102 31 107/62 98 Mechanical Ventilator 40 03/22/17 20:00 5.0 40 03/22/17 20:00 102 03/22/17 19:21 100 24 100 Mechanical Ventilator 40 03/22/17 19:13 103 26 98 Mechanical Ventilator 40 03/22/17 19:05 103 26 40 03/22/17 17:27 102 20 40 03/22/17 16:00 98.7 106 27 120/74 100 Mechanical Ventilator 40 03/22/17 16:00 103 03/22/17 16:00 5.0 40 03/22/17 15:15 103 30 40 03/22/17 12:58 115 30 40 03/22/17 12:30 5.0 40 03/22/17 12:30 118 03/22/17 11:55 99.7 122 20 98/60 100 Mechanical Ventilator 5.0 40 03/22/17 11:43 114 21 96/61 100 Mechanical Ventilator 5.0 40 Intake and Output 03/22/17 03/23/17 19:00 07:00 Intake Total 2365 ml 1930 ml Output Total 800 ml 750 ml Balance 1565 ml 1180 ml Intake Free Water 250 ml 100 ml IV Total 1905 ml 1180 ml Tube Feeding 210 ml 650 ml Output Urine Total 800 ml 750 ml # Bowel Movements 2 4 General Appearance: WD/WN HEENT: normocephalic, atraumatic Respiratory/Chest: chest wall non-tender, lungs clear Cardiovascular: normal peripheral pulses, normal rate Abdomen: normal bowel sounds, soft, non tender Genitourinary: normal external genitalia Extremities: no cyanosis, no clubbing Skin: no lesions Neurologic/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81L, Hemoglobin 8.4L, Hematocrit 26.7L, Mean Corpuscular Volume 95, Mean Corpuscular Hemoglobin 29.7, Mean Corpuscular Hemoglobin Concent 31.3L, Red Cell Distribution Width 17.1H, Platelet Count 142L, Mean Platelet Volume 9.2, Neutrophils (%) (Auto) 66.6, Lymphocytes (%) (Auto) 15.1L, Monocytes (%) (Auto) 15.9H, Eosinophils (%) (Auto ) 1.5, Basophils (%) (Auto) 1.0, Urine Color Pale yellow, Urine Appearance Clear , Urine pH 6.5, Urine Specific [place] 1.005, Urine Protein 3+H, Urine Glucose ( UA) Negative, Urine Ketones Negative, Urine Occult Blood 4+H, Urine Nitrite PositiveH, Urine Bilirubin Negative, Urine Urobilinogen Normal, Urine Leukocyte Esterase 3+H, Urine RBC 15-20H, Urine WBC 10-15H, Urine Squamous Epithelial Cells Occasional, Urine Transitional Epithelial Cells FewH, Urine Amorphous Sediment FewH, Urine Bacteria Few, Urine Random Sodium 51, Sodium Level 143, Potassium Level 4.7, Chloride Level 105, Carbon Dioxide Level 22, Anion Gap 16H , Blood Urea Nitrogen 72H, Creatinine 2.9H, Estimat Glomerular Filtration Rate , Glucose Level 220H, Uric Acid 8.2H, Calcium Level 9.0, Phosphorus Level 3.1, Magnesium Level 2.5, Iron Level 35L, Total Iron Binding Capacity 129L, Percent Iron Saturation 27, Unsaturated Iron Binding 94L, Ferritin 475H, Total Bilirubin 0.3, Gamma Glutamyl Transpeptidase 120H, Aspartate Amino Transf (AST/ SGOT) 14, Alanine Aminotransferase (ALT/SGPT) 12, Alkaline Phosphatase 132H, Total Creatine Kinase 273H, C-Reactive Protein, Quantitative 29.8H, Pro-B-Type Natriuretic Peptide 2394H, Total Protein 8.9H, Albumin 2.7L, Globulin 6.2, Albumin/Globulin Ratio 0.4L 03/23/17 06:30: Stool Occult Blood Positive Current Medications Medications (Trade) Dose Ordered Sig/Shubham Route PRN Reason Start Time Stop Time Status Last Admin Dose Admin Acetaminophen (Tylenol) 650 mg Q4H PRN GT Mild Pain/Temp > 100.5 03/22/17 16:00 04/21/17 15:59 Albuterol Sulfate (Proventil) 2.5 mg Q2H PRN IN-LINE Shortness of Breath 03/22/17 16:00 03/27/17 15:59 Albuterol Sulfate (Proventil) 2.5 mg Q6HRT IN-LINE 03/22/17 19:00 03/27/17 18:59 03/23/17 07:28 Ascorbic Acid (Vitamin C) 500 mg TID GT 03/22/17 18:00 04/21/17 17:59 03/22/17 18:02 Chlorhexidine Gluconate (Janina-Hex 2%) 1 applic DAILY TOPIC 03/23/17 09:00 04/22/17 08:59 Dextrose (Dextrose 50%) STAT PRN IV Hypoglycemia 03/22/17 18:45 04/21/17 18:44 Docusate Sodium (Colace) 100 mg TWICE A DAY GT 03/22/17 18:00 04/21/17 17:59 03/22/17 18:01 Ferrous Sulfate (Feosol) 330 mg THREE TIMES A DAY NG 03/22/17 18:00 04/21/17 17:59 03/22/17 18:01 Finasteride (Proscar) 5 mg DAILY GT 03/23/17 09:00 04/22/17 08:59 Insulin Aspart (NovoLOG) EVERY 6 HOURS SUBQ 03/23/17 00:00 04/22/17 00:00 03/23/17 05:54 Insulin Detemir (Levemir) 38 units EVERY 12 HOURS SUBQ 03/22/17 21:00 04/21/17 20:59 03/22/17 20:36 Lactulose (Cephulac) 30 gm TID GT 03/22/17 18:00 04/21/17 17:59 03/22/17 18:02 Lansoprazole (Prevacid) 30 mg DAILY GT 03/23/17 09:00 04/22/17 08:59 Linezolid 300 ml @ 300 mls/hr Q12HR IVPB 03/22/17 12:00 03/29/17 11:59 03/22/17 21:35 Meropenem 500 mg/ Sodium Chloride 55 ml @ 110 mls/hr Q12HR IVPB 03/22/17 12:00 03/27/17 11:59 03/22/17 20:35 Metoclopramide HCl (Reglan) 5 mg EVERY 6 HOURS NG 03/22/17 18:00 04/21/17 17:59 03/23/17 05:53 Multivitamins (Multivitamins W/ Minerals 15ml Liquid) 15 ml DAILY GT 03/23/17 09:00 04/22/17 08:59 Sodium Chloride (0.45% NS 1000ml) 1,000 ml @ 100 mls/hr Q10H IV 03/22/17 15:00 04/21/17 14:59 03/23/17 06:01 MICH FONSECA Mar 23, 2017 11:26
[2017-03-23 12:00] VITALS: BP 93/56
[2017-03-23] MEDS: Ascorbic Acid 500mg tab GT SCH ×3 (12:25→18:09)
[2017-03-23] MEDS: Docusate 100mg/10ml Liq GT SCH ×2 (12:25→18:10)
[2017-03-23] MEDS: Ferrous Sulfate 300 MG/5 ML UDC NG SCH ×3 (12:26→18:09)
--- NOTE | 2017-03-23 12:39 | Wound Care Consultation ---
Wound Assessment Wound Assessment #1: Wound Present on Admission: Yes New Wound: No Status Change of Wound: No Wound Location Body Site Modif: mid Wound Location Body Site: sacral Wound Type: pressure ulcer Danny Test: Does not Danny Pressure Ulcer Stage: III - scattered Wound Thickness: Full Thickness Wound Length: 6.0 Wound Width: 5.0 Wound Depth: utd Wound Drainage Description: Serosanguineous Wound Drainage Amount: Scant Wound Drainage Odor: None/Absent Tissue Surrounding Wound: extensive scar tissue Wound General Appearance: Reddened Wound Assessment #2: Wound Number: #2 Wound Present on Admission: Yes New Wound: No Status Change of Wound: No Wound Location Body Site Modif: right Wound Location Body Site: ischial tuberosity Wound Type: pressure ulcer Danny Test: Does not Danny Pressure Ulcer Stage: deep tissue injury Wound Thickness: Full Thickness Wound Length: 4.0 Wound Width: 4.0 Wound Depth: utd Percent of Wound Purple/Maroon: 100 Wound Drainage Amount: None Wound Drainage Odor: None/Absent Tissue Surrounding Wound: Erythemic Wound General Appearance: Reddened - maroon Wound Comment #1 Sacral scattered stage III pressure ulcers. Periwound area with resurfaced extensive scar tissue to left and right buttock #2 Right ischial tuberosity DTI pressure ulcer Recommendation - #1 pressure ulcer on sacral area #2 Left and right buttock resurfaced scar tissue Cleanse with saline, pat dry, apply Triad cream, cover with bordered Gauze daily and PRN soiled/dislodged -Local wound care per protocol for DTI on right ischial tuberosity -Optimize nutrition -Keep clean and dry -Low air loss mattress -Turn and reposition -Offload both heels -Heel protector on both heels -Assess and f/u accordingly for any changes RAISA QUIROZ RN Mar 23, 2017 12:39
[2017-03-23 16:00] VITALS: BP 116/66
[2017-03-23] MEDS ORDERED: Amikacin Rx to dose MISC PRN (16:45)
--- NOTE | 2017-03-23 16:46 | Infectious Diseases Prog Note ---
Assessment/Plan Problems: (1) Severe sepsis Assessment & Plan: with gram negative rods , source suspect UTI, with H/O MDR organisms , will add amikacin for double coverage , and continue meropenem , and zyvox for now pending blood and urine culture results (2) UTI (urinary tract infection) Assessment & Plan: due to gram negative rods, with H/O MDR organisms, will add amikacin and continue meropenem pending culture results (3) Pneumonia Assessment & Plan: with interstitial infiltrates, on wide spectrum antibiotics , no need to send trach for culture since he is colonized with MDRO (4) Acute renal failure Assessment & Plan: due to the above, continue IVF for hydration, monitor UOP (5) Pressure ulcer Assessment & Plan: continue local wound care, and off loading, consult wound care (6) Chronic respiratory failure Assessment & Plan: with trach, on mechanical ventilation, monitor ABG Subjective ROS Limited/Unobtainable: Yes Allergies: Coded Allergies: NO KNOWN DRUG ALLERGIES (Unverified Allergy, Unknown, 10/29/14) Subjective he is comfortabel, still febrile, not in acute distress Objective Vital Signs Last 24 Hour Vital Signs Date Time Temp Pulse Resp B/P Pulse Ox O2 Delivery O2 Flow Rate FiO2 03/23/17 16:00 5.0 40 03/23/17 16:00 99.5 107 32 116/66 97 Mechanical Ventilator 40 03/23/17 16:00 107 03/23/17 15:10 105 25 40 03/23/17 13:01 103 26 100 Mechanical Ventilator 40 03/23/17 12:53 103 24 100 Mechanical Ventilator 40 03/23/17 12:52 103 24 40 03/23/17 12:00 101 03/23/17 12:00 99.7 98 28 93/56 97 Mechanical Ventilator 97 03/23/17 12:00 5.0 40 03/23/17 10:54 103 24 40 03/23/17 09:56 5.0 40 03/23/17 09:10 104 22 40 03/23/17 09:00 114 03/23/17 08:00 99.5 114 30 117/54 100 Mechanical Ventilator 40 03/23/17 07:15 108 28 100 Mechanical Ventilator 40 03/23/17 07:10 107 28 40 03/23/17 07:10 107 29 100 Mechanical Ventilator 40 03/23/17 05:00 102 23 40 03/23/17 04:00 102 03/23/17 04:00 97.1 102 15 112/66 98 Mechanical Ventilator 40 03/23/17 04:00 5.0 40 03/23/17 03:05 98 27 40 03/23/17 01:05 108 29 99 Mechanical Ventilator 40 03/23/17 00:55 97 26 98 Mechanical Ventilator 40 03/23/17 00:55 97 26 40 03/23/17 00:00 97.7 97 27 110/62 98 Mechanical Ventilator 40 03/23/17 00:00 97 03/23/17 00:00 5.0 40 03/22/17 23:20 95 26 40 03/22/17 21:16 105 29 40 03/22/17 20:00 97.7 102 31 107/62 98 Mechanical Ventilator 40 03/22/17 20:00 5.0 40 03/22/17 20:00 102 03/22/17 19:21 100 24 100 Mechanical Ventilator 40 03/22/17 19:13 103 26 98 Mechanical Ventilator 40 03/22/17 19:05 103 26 40 03/22/17 17:27 102 20 40 Height (Feet): 5 Height (Inches): 6.00 Weight (Pounds): 180 General Appearance: WD/WN, no acute distress HEENT: normocephalic, atraumatic, anicteric, mucous membranes moist, status post trach Respiratory/Chest: normal breath sounds, no respiratory distress, no accessory muscle use Cardiovascular: normal peripheral pulses, normal rate, regular rhythm, no gallop/murmur, no JVD Abdomen: normal bowel sounds, soft, non tender, no organomegaly, non distended , no mass Extremities: no cyanosis, no clubbing Skin: no rash, no lesions, ulcers Microbiology Date/Time Source Procedure Growth Status 03/22/17 07:00 Blood Blood Culture - Preliminary Gram Negative Bacillus 1 Resulted 03/22/17 07:00 Blood Blood Culture - Preliminary Gram Negative Bacillus 1 Resulted 03/22/17 07:00 Nasal Nares Influenza Types A,B Antigen (RUDY) - Final Complete 03/22/17 07:00 Urine,Clean Catch Urine Culture - Preliminary Gram Negative Bacillus 1 Resulted Laboratory Tests Test 03/23/17 04:00 03/23/17 06:30 White Blood Count 10.9 K/UL (4.8-10.8) H Red Blood Count 2.81 M/UL (4.70-6.10) L Hemoglobin 8.4 G/DL (14.2-18.0) L Hematocrit 26.7 % (42.0-52.0) L Mean Corpuscular Volume 95 FL (80-99) Mean Corpuscular Hemoglobin 29.7 PG (27.0-31.0) Mean Corpuscular Hemoglobin Concent 31.3 G/DL (32.0-36.0) L Red Cell Distribution Width 17.1 % (11.6-14.8) H Platelet Count 142 K/UL (150-450) L Mean Platelet Volume 9.2 FL (6.5-10.1) Neutrophils (%) (Auto) 66.6 % (45.0-75.0) Lymphocytes (%) (Auto) 15.1 % (20.0-45.0) L Monocytes (%) (Auto) 15.9 % (1.0-10.0) H Eosinophils (%) (Auto) 1.5 % (0.0-3.0) Basophils (%) (Auto) 1.0 % (0.0-2.0) Urine Color Pale yellow Urine Appearance Clear Urine pH 6.5 (4.5-8.0) Urine Specific [place] 1.005 (1.005-1.035) Urine Protein 3+ (NEGATIVE) H Urine Glucose (UA) Negative (NEGATIVE) Urine Ketones Negative (NEGATIVE) Urine Occult Blood 4+ (NEGATIVE) H Urine Nitrite Positive (NEGATIVE) H Urine Bilirubin Negative (NEGATIVE) Urine Urobilinogen Normal MG/DL (0.0-1.0) Urine Leukocyte Esterase 3+ (NEGATIVE) H Urine RBC 15-20 /HPF (0 - 0) H Urine WBC 10-15 /HPF (0 - 0) H Urine Squamous Epithelial Cells Occasional /LPF Urine Transitional Epithelial Cells Few /LPF (NONE) H Urine Amorphous Sediment Few /LPF (NONE) H Urine Bacteria Few /HPF (NONE) Urine Random Sodium 51 mmol/L Sodium Level 143 mEQ/L (135-145) Potassium Level 4.7 mEQ/L (3.4-4.9) Chloride Level 105 mEQ/L (98-107) Carbon Dioxide Level 22 mEQ/L (20-30) Anion Gap 16 (5-15) H Blood Urea Nitrogen 72 mg/dL (7-23) H Creatinine 2.9 mg/dL (0.7-1.2) H Estimat Glomerular Filtration Rate mL/min (>60) Glucose Level 220 mg/dL (74-106) H Uric Acid 8.2 mg/dL (3.0-7.5) H Calcium Level 9.0 mg/dL (8.6-10.2) Phosphorus Level 3.1 mg/dL (2.5-4.8) Magnesium Level 2.5 mg/dL (1.7-2.5) Iron Level 35 ug/dL (59-158) L Total Iron Binding Capacity 129 ug/dL (250-400) L Percent Iron Saturation 27 % (15-50) Unsaturated Iron Binding 94 ug/dL (112-346) L Ferritin 475 ng/mL (10-230) H Total Bilirubin 0.3 mg/dL (0.0-1.2) Gamma Glutamyl Transpeptidase 120 U/L (8-61) H Aspartate Amino Transf (AST/SGOT) 14 U/L (5-40) Alanine Aminotransferase (ALT/SGPT) 12 U/L (3-41) Alkaline Phosphatase 132 U/L (40-129) H Total Creatine Kinase 273 U/L (38-174) H C-Reactive Protein, Quantitative 29.8 mg/dL (< 0.5) H Pro-B-Type Natriuretic Peptide 2394 pg/mL (0-450) H Total Protein 8.9 g/dL (6.6-8.7) H Albumin 2.7 g/dL (3.5-5.2) L Globulin 6.2 g/dL Albumin/Globulin Ratio 0.4 (1.0-2.7) L Stool Occult Blood Positive (NEGATIVE) Current Medications Medications (Trade) Dose Ordered Sig/Shubham Route PRN Reason Start Time Stop Time Status Last Admin Dose Admin Acetaminophen (Tylenol) 650 mg Q4H PRN GT Mild Pain/Temp > 100.5 03/22/17 16:00 04/21/17 15:59 Albuterol Sulfate (Proventil) 2.5 mg Q2H PRN IN-LINE Shortness of Breath 03/22/17 16:00 03/27/17 15:59 Albuterol Sulfate (Proventil) 2.5 mg Q6HRT IN-LINE 6/8/17 19:00 03/27/17 18:59 03/23/17 12:52 Ascorbic Acid (Vitamin C) 500 mg TID GT 03/22/17 18:00 04/21/17 17:59 03/23/17 13:00 Chlorhexidine Gluconate (Janina-Hex 2%) 1 applic DAILY TOPIC 03/23/17 09:00 04/22/17 08:59 03/23/17 09:00 Dextrose (Dextrose 50%) STAT PRN IV Hypoglycemia 03/22/17 18:45 04/21/17 18:44 Docusate Sodium (Colace) 100 mg TWICE A DAY GT 03/22/17 18:00 04/21/17 17:59 03/23/17 12:25 Ferrous Sulfate (Feosol) 330 mg THREE TIMES A DAY NG 03/22/17 18:00 04/21/17 17:59 03/23/17 13:00 Finasteride (Proscar) 5 mg DAILY GT 03/23/17 09:00 04/22/17 08:59 03/23/17 12:23 Insulin Aspart (NovoLOG) EVERY 6 HOURS SUBQ 03/23/17 00:00 04/22/17 00:00 03/23/17 14:35 Insulin Detemir (Levemir) 38 units EVERY 12 HOURS SUBQ 03/22/17 21:00 04/21/17 20:59 03/23/17 09:00 Lactulose (Cephulac) 30 gm TID GT 03/22/17 18:00 04/21/17 17:59 03/23/17 12:25 Lansoprazole (Prevacid) 30 mg DAILY GT 03/23/17 09:00 04/22/17 08:59 03/23/17 12:24 Linezolid 300 ml @ 300 mls/hr Q12HR IVPB 03/22/17 12:00 03/29/17 11:59 03/23/17 14:01 Meropenem 500 mg/ Sodium Chloride 55 ml @ 110 mls/hr Q12HR IVPB 03/22/17 12:00 03/27/17 11:59 03/23/17 09:00 Metoclopramide HCl (Reglan) 5 mg EVERY 6 HOURS NG 03/22/17 18:00 04/21/17 17:59 03/23/17 12:00 Multivitamins (Multivitamins W/ Minerals 15ml Liquid) 15 ml DAILY GT 03/23/17 09:00 04/22/17 08:59 03/23/17 09:00 Sodium Chloride (0.45% NS 1000ml) 1,000 ml @ 100 mls/hr Q10H IV 03/22/17 15:00 04/21/17 14:59 03/23/17 06:01 Kacey Olivo M.D. Mar 23, 2017 16:46
[2017-03-23] MEDS ORDERED: NS IV ONE (19:00)
[2017-03-23] MEDS ORDERED: NovoLOG Insulin Flexpen SUBQ SCH (19:00)
[2017-03-23] MEDS ORDERED: AMIKACIN IV ONE (19:00)
[2017-03-23 20:00] VITALS: BP 112/70
[2017-03-24] VITALS: BP 118/67
[2017-03-24] MEDS: Metoclopramide 10mg/10ml Liq NG SCH ×5 (00:21→23:55)
[2017-03-24] MEDS: NovoLOG Insulin Flexpen SUBQ SCH ×5 (00:25→23:57)
[2017-03-24] MEDS: Albuterol ud Inhalation IN-LINE SCH ×4 (01:00→19:02)
[2017-03-24 04:00] VITALS: BP 104/57
[2017-03-24 08:00] VITALS: BP_SYST 100; BP_SYST 146; BP_DIAS 60; BP_DIAS 79
[2017-03-24] MEDS: Dyna-Hex 2% Top Sol 8oz TOPIC SCH (08:04)
[2017-03-24] MEDS: Levemir Flexpen SUBQ SCH ×2 (08:05→21:29)
[2017-03-24] MEDS: Meropenem 500mg/NS 55ml IVPB SCH ×4 (08:06→21:27)
[2017-03-24] MEDS: Ascorbic Acid 500mg tab GT SCH ×3 (08:08→17:57)
[2017-03-24] MEDS: Multivitamins W/Minerals 15 ML UDC GT SCH (08:10)
[2017-03-24] MEDS: Lactulose 20gm/30ml UDC GT SCH ×3 (08:12→17:56)
[2017-03-24] MEDS: Ferrous Sulfate 300 MG/5 ML UDC NG SCH ×3 (08:12→17:57)
[2017-03-24] MEDS: Docusate 100mg/10ml Liq GT SCH ×2 (08:13→17:56)
[2017-03-24] MEDS ORDERED: 1/2 NS 1000ml IV ONE (09:12)
--- NOTE | 2017-03-24 11:06 | General Progress Note ---
Assessment/Plan Problem List: (1) Bacteriuria ICD Codes: N39.0 - Bacteriuria SNOMED: 40576447 (2) Respiratory insufficiency ICD Codes: R06.89 - Other abnormalities of breathing SNOMED: 638995337 (3) Azotemia ICD Codes: R79.89 - Other specified abnormal findings of blood chemistry SNOMED: 974532962 (4) Sepsis ICD Codes: A41.9 - Sepsis, unspecified organism SNOMED: 55558858 (5) Acute and chronic respiratory failure ([id number]) ICD Codes: J96.20 - Acute and chronic respiratory failure ([id number]) SNOMED: 99082094 (6) HTN (hypertension) ICD Codes: I10 - HTN (hypertension) SNOMED: 35038465 (7) ARF (acute renal failure) ICD Codes: N17.9 - ARF (acute renal failure) SNOMED: 22370691 Status: progressing Assessment/Plan sepsis uti abx per id afebrile arf is improving trach and peg Subjective ROS Limited/Unobtainable: Yes Allergies: Coded Allergies: NO KNOWN DRUG ALLERGIES (Unverified Allergy, Unknown, 10/29/14) Objective Last 24 Hour Vital Signs Date Time Temp Pulse Resp B/P Pulse Ox O2 Delivery O2 Flow Rate FiO2 03/24/17 10:44 93 25 40 03/24/17 08:44 92 21 40 03/24/17 08:00 96 03/24/17 08:00 5.0 40 03/24/17 08:00 98.1 93 26 100/60 98 Mechanical Ventilator 40 03/24/17 07:25 88 21 98 Mechanical Ventilator 40 03/24/17 07:15 88 21 98 Mechanical Ventilator 40 03/24/17 07:15 88 21 40 03/24/17 04:55 106 27 40 03/24/17 04:00 98.6 110 26 104/57 97 Mechanical Ventilator 40 03/24/17 04:00 5.0 40 03/24/17 03:37 106 03/24/17 03:24 107 24 40 03/24/17 01:37 Mechanical Ventilator 03/24/17 01:37 125 03/24/17 01:22 124 34 40 03/24/17 00:00 123 03/24/17 00:00 5.0 40 03/24/17 00:00 99.9 118 28 118/67 97 Mechanical Ventilator 40 03/23/17 23:08 121 36 40 03/23/17 21:20 100 23 40 03/23/17 20:00 97.9 108 20 112/70 97 Mechanical Ventilator 40 03/23/17 20:00 5.0 40 03/23/17 19:45 105 03/23/17 19:17 99 24 98 Mechanical Ventilator 40 03/23/17 19:08 101 28 98 Mechanical Ventilator 40 03/23/17 19:07 101 28 40 03/23/17 16:53 97 31 40 03/23/17 16:00 5.0 40 03/23/17 16:00 99.5 107 32 116/66 97 Mechanical Ventilator 40 03/23/17 16:00 107 03/23/17 15:10 105 25 40 03/23/17 13:01 103 26 100 Mechanical Ventilator 40 03/23/17 12:53 103 24 100 Mechanical Ventilator 40 03/23/17 12:52 103 24 40 03/23/17 12:00 101 03/23/17 12:00 99.7 98 28 93/56 97 Mechanical Ventilator 97 03/23/17 12:00 5.0 40 Intake and Output 03/23/17 03/24/17 19:00 07:00 Intake Total 875 ml 2109.2 ml Output Total 650 ml 600 ml Balance 225 ml 1509.2 ml Intake Free Water 100 ml 200 ml IV Total 175 ml 1299.2 ml Tube Feeding 600 ml 610 ml Output Urine Total 650 ml 600 ml # Bowel Movements 5 2 Height (Feet): 5 Height (Inches): 6.00 Weight (Pounds): 180 General Appearance: confused Cardiovascular: normal rate Respiratory/Chest: lungs clear David Bowie MD Mar 24, 2017 11:06
[2017-03-24 12:00] VITALS: BP 113/61
--- NOTE | 2017-03-24 12:14 | General Progress Note ---
Assessment/Plan Status: stable Assessment/Plan Acute Renal Failure- with high K- Pre Renal / Super Imposed on Renal Respiratory failure- UTI / Sepsis h/o Anemia Decubs h/o DVT Other conditions: 1. Acute on chronic respiratory failure. 2. h/o Severe sepsis. 3. Ventilator-dependent respiratory failure. 4. Chronic obstructive pulmonary disease. 5. History of deep venous thrombosis. 6. Hypoalbuminemia. 7. h/o Clostridium difficile colitis. 8. Pressure ulcers on sacrococcygeal down to buttocks, right ischial tuberosity, and right heel and right trochanter present on admission. 9. h/o Urinary tract infection, Proteus mirabilis. 10. h/o Acute deep venous thrombosis of the right lower extremity, on heparin and bridged to Coumadin. 11. Tracheostomy status. 12. Gastrostomy tube feeding. 13. Diabetes mellitus. Plan: no labs today- Slow IV hydration- BS control- keep BP under control- Avoid Nephrotoxics- monitor lytes and renal parameters- Subjective ROS Limited/Unobtainable: Yes Allergies: Coded Allergies: NO KNOWN DRUG ALLERGIES (Unverified Allergy, Unknown, 10/29/14) Objective Last 24 Hour Vital Signs Date Time Temp Pulse Resp B/P Pulse Ox O2 Delivery O2 Flow Rate FiO2 03/24/17 10:44 93 25 40 03/24/17 08:44 92 21 40 03/24/17 08:00 96 03/24/17 08:00 5.0 40 03/24/17 08:00 98.1 93 26 100/60 98 Mechanical Ventilator 40 03/24/17 07:25 88 21 98 Mechanical Ventilator 40 03/24/17 07:15 88 21 98 Mechanical Ventilator 40 03/24/17 07:15 88 21 40 03/24/17 04:55 106 27 40 03/24/17 04:00 98.6 110 26 104/57 97 Mechanical Ventilator 40 03/24/17 04:00 5.0 40 03/24/17 03:37 106 03/24/17 03:24 107 24 40 03/24/17 01:37 Mechanical Ventilator 03/24/17 01:37 125 03/24/17 01:22 124 34 40 03/24/17 00:00 123 03/24/17 00:00 5.0 40 03/24/17 00:00 99.9 118 28 118/67 97 Mechanical Ventilator 40 03/23/17 23:08 121 36 40 03/23/17 21:20 100 23 40 03/23/17 20:00 97.9 108 20 112/70 97 Mechanical Ventilator 40 03/23/17 20:00 5.0 40 03/23/17 19:45 105 03/23/17 19:17 99 24 98 Mechanical Ventilator 40 03/23/17 19:08 101 28 98 Mechanical Ventilator 40 03/23/17 19:07 101 28 40 03/23/17 16:53 97 31 40 03/23/17 16:00 5.0 40 03/23/17 16:00 99.5 107 32 116/66 97 Mechanical Ventilator 40 03/23/17 16:00 107 03/23/17 15:10 105 25 40 03/23/17 13:01 103 26 100 Mechanical Ventilator 40 03/23/17 12:53 103 24 100 Mechanical Ventilator 40 03/23/17 12:52 103 24 40 Intake and Output 03/23/17 03/24/17 19:00 07:00 Intake Total 875 ml 2109.2 ml Output Total 650 ml 600 ml Balance 225 ml 1509.2 ml Intake Free Water 100 ml 200 ml IV Total 175 ml 1299.2 ml Tube Feeding 600 ml 610 ml Output Urine Total 650 ml 600 ml # Bowel Movements 5 2 Height (Feet): 5 Height (Inches): 6.00 Weight (Pounds): 180 General Appearance: no apparent distress Objective no change COLTEN DIEGO Mar 24, 2017 12:14
--- NOTE | 2017-03-24 13:54 | Infectious Diseases Prog Note ---
Assessment/Plan Problems: (1) Severe sepsis Assessment & Plan: with MDR Acinetobacter baumannii and staph aureus , will continue amikacin with meropenem for double coverage , and continue zyvox for now to cover for staph aureus pending sensitivity . PICC line is most likely the source , will repeat blood culture to confirm clearance and take the picc line out . (2) UTI (urinary tract infection) Assessment & Plan: due to pseudomonas aeruginosa, resistant to meropenem , already on amikacin for bacteremia which will cover his pseudomonas (3) Pneumonia Assessment & Plan: improving on wide spectrum antibiotics , no need to send trach for culture since he is colonized with MDRO (4) Acute renal failure Assessment & Plan: due to the above, continue IVF for hydration, monitor UOP, renal is following (5) Pressure ulcer Assessment & Plan: continue local wound care, and off loading, consult wound care (6) Chronic respiratory failure Assessment & Plan: with trach, on mechanical ventilation, monitor ABG Subjective ROS Limited/Unobtainable: Yes Allergies: Coded Allergies: NO KNOWN DRUG ALLERGIES (Unverified Allergy, Unknown, 10/29/14) Subjective he is comfortable, afebrile, on mechanical ventilation , not in acute distress Objective Vital Signs Last 24 Hour Vital Signs Date Time Temp Pulse Resp B/P Pulse Ox O2 Delivery O2 Flow Rate FiO2 03/24/17 13:26 91 24 100 Mechanical Ventilator 40 03/24/17 13:16 91 24 99 Mechanical Ventilator 40 03/24/17 13:01 91 24 40 03/24/17 12:00 97.1 100 27 113/61 98 Mechanical Ventilator 40 03/24/17 10:44 93 25 40 03/24/17 08:44 92 21 40 03/24/17 08:00 96 03/24/17 08:00 5.0 40 03/24/17 08:00 98.1 93 26 100/60 98 Mechanical Ventilator 40 03/24/17 07:25 88 21 98 Mechanical Ventilator 40 03/24/17 07:15 88 21 98 Mechanical Ventilator 40 03/24/17 07:15 88 21 40 03/24/17 04:55 106 27 40 03/24/17 04:00 98.6 110 26 104/57 97 Mechanical Ventilator 40 03/24/17 04:00 5.0 40 03/24/17 03:37 106 03/24/17 03:24 107 24 40 03/24/17 01:37 Mechanical Ventilator 03/24/17 01:37 125 03/24/17 01:22 124 34 40 03/24/17 00:00 123 03/24/17 00:00 5.0 40 03/24/17 00:00 99.9 118 28 118/67 97 Mechanical Ventilator 40 03/23/17 23:08 121 36 40 03/23/17 21:20 100 23 40 03/23/17 20:00 97.9 108 20 112/70 97 Mechanical Ventilator 40 03/23/17 20:00 5.0 40 03/23/17 19:45 105 03/23/17 19:17 99 24 98 Mechanical Ventilator 40 03/23/17 19:08 101 28 98 Mechanical Ventilator 40 03/23/17 19:07 101 28 40 03/23/17 16:53 97 31 40 03/23/17 16:00 5.0 40 03/23/17 16:00 99.5 107 32 116/66 97 Mechanical Ventilator 40 03/23/17 16:00 107 03/23/17 15:10 105 25 40 Height (Feet): 5 Height (Inches): 6.00 Weight (Pounds): 180 General Appearance: WD/WN, no acute distress HEENT: normocephalic, atraumatic, anicteric, mucous membranes moist, no JVD, status post trach Respiratory/Chest: chest wall non-tender, lungs clear, normal breath sounds, no respiratory distress, no accessory muscle use Cardiovascular: normal peripheral pulses, normal rate, regular rhythm, no gallop/murmur, no JVD Abdomen: normal bowel sounds, soft, non tender, no organomegaly, non distended , no mass Extremities: no cyanosis, no clubbing Skin: no rash, no lesions, ulcers Microbiology Date/Time Source Procedure Growth Status 03/22/17 07:00 Blood Blood Culture - Preliminary Acinetobacter Baumannii Complx Resulted 03/22/17 07:00 Blood Blood Culture - Preliminary A.baumanii Complx - Mdr Staphylococcus Aureus Resulted 03/22/17 07:00 Nasal Nares Influenza Types A,B Antigen (RUDY) - Final Complete 03/23/17 04:00 Urine,Clean Catch Urine Culture - Preliminary Gram Negative Chad Resulted 03/22/17 07:00 Urine,Clean Catch Urine Culture - Preliminary Pseudomonas Aeruginosa Resulted Current Medications Medications (Trade) Dose Ordered Sig/Shubham Route PRN Reason Start Time Stop Time Status Last Admin Dose Admin Acetaminophen (Tylenol) 650 mg Q4H PRN GT Mild Pain/Temp > 100.5 03/22/17 16:00 04/21/17 15:59 Albuterol Sulfate (Proventil) 2.5 mg Q2H PRN IN-LINE Shortness of Breath 03/22/17 16:00 03/27/17 15:59 Albuterol Sulfate (Proventil) 2.5 mg Q6HRT IN-LINE 03/22/17 19:00 03/27/17 18:59 03/24/17 13:16 Amikacin Protocol (Amikacin pharmacy to dose) 1 ea DAILY PRN MISC Per rx protocol 03/23/17 16:45 04/22/17 16:44 Ascorbic Acid (Vitamin C) 500 mg TID GT 03/22/17 18:00 04/21/17 17:59 03/24/17 12:06 Chlorhexidine Gluconate (Janina-Hex 2%) 1 applic DAILY TOPIC 03/23/17 09:00 04/22/17 08:59 03/24/17 08:04 Dextrose (Dextrose 50%) STAT PRN IV Hypoglycemia 03/22/17 18:45 04/21/17 18:44 Docusate Sodium (Colace) 100 mg TWICE A DAY GT 03/22/17 18:00 04/21/17 17:59 03/23/17 18:10 Ferrous Sulfate (Feosol) 330 mg THREE TIMES A DAY NG 03/22/17 18:00 04/21/17 17:59 03/24/17 12:07 Finasteride (Proscar) 5 mg DAILY GT 03/23/17 09:00 04/22/17 08:59 03/24/17 08:03 Insulin Aspart (NovoLOG) EVERY 6 HOURS SUBQ 03/23/17 00:00 04/22/17 00:00 03/24/17 12:04 Insulin Detemir (Levemir) 38 units EVERY 12 HOURS SUBQ 03/22/17 21:00 04/21/17 20:59 03/24/17 08:05 Lactulose (Cephulac) 30 gm TID GT 03/22/17 18:00 04/21/17 17:59 03/23/17 18:08 Lansoprazole (Prevacid) 30 mg DAILY GT 03/23/17 09:00 04/22/17 08:59 03/24/17 08:09 Linezolid 300 ml @ 300 mls/hr Q12HR IVPB 03/22/17 12:00 03/29/17 11:59 03/24/17 09:09 Meropenem 500 mg/ Sodium Chloride 55 ml @ 110 mls/hr Q12HR IVPB 03/22/17 12:00 03/27/17 11:59 03/24/17 08:06 Metoclopramide HCl (Reglan) 5 mg EVERY 6 HOURS NG 03/22/17 18:00 04/21/17 17:59 03/24/17 12:07 Multivitamins (Multivitamins W/ Minerals 15ml Liquid) 15 ml DAILY GT 03/23/17 09:00 04/22/17 08:59 03/24/17 08:10 Sodium Chloride (0.45% NS 1000ml) 1,000 ml @ 100 mls/hr Q10H IV 03/22/17 15:00 04/21/17 14:59 03/24/17 06:44 Kacey Olivo M.D. Mar 24, 2017 13:54
[2017-03-24 16:00] VITALS: BP 101/56
--- NOTE | 2017-03-24 16:03 | General Progress Note ---
Assessment/Plan Assessment/Plan ASSESSMENT: 1. Recurrent anemia currently better btw 8-10, now improved s/p transfusion and s/p egd in the recent past 2. Anemia secondary to chronic disease based on previous labs, ferritin elevated 3. Hx of anemia of iron deficiency 4. Leukocytosis 2/2 likely infection, r/o UTI 5. 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 Hyperferritinemia. 7. Chronic respiratory failure, trach/vent 8. Recanalized superficial femoral clot 9. Urinary tract infection. hx, sepsis now 10. Decubitus ulceration. RECOMMENDATIONS: 1. Patient had recent GI w/u 2. Hgb goAL >7 3. Monitor counts 4. Continue antibiotics as needed. 5. Breathing treatments prn 6. Pain control. 7. Gi followup recs 8. DVT prophylaxis with SCDs. 9. Continue tube feedings. 10. Discussed with staff. Fab Harrell M.D.. Mar 22, 2017 23:07 Subjective Constitutional: Reports: no symptoms HEENT: Reports: no symptoms Cardiovascular: Reports: no symptoms Respiratory: Reports: no symptoms Gastrointestinal/Abdominal: Reports: no symptoms Genitourinary: Reports: no symptoms Neurologic/Psychiatric: Reports: no symptoms Endocrine: Reports: no symptoms Hematologic/Lymphatic: Reports: no symptoms Allergies: Coded Allergies: NO KNOWN DRUG ALLERGIES (Unverified Allergy, Unknown, 10/29/14) Objective Last 24 Hour Vital Signs Date Time Temp Pulse Resp B/P Pulse Ox O2 Delivery O2 Flow Rate FiO2 03/24/17 14:51 85 18 40 03/24/17 13:26 91 24 100 Mechanical Ventilator 40 03/24/17 13:16 91 24 99 Mechanical Ventilator 40 03/24/17 13:01 91 24 40 03/24/17 12:00 100 03/24/17 12:00 5.0 40 03/24/17 12:00 97.1 100 27 113/61 98 Mechanical Ventilator 40 03/24/17 10:44 93 25 40 03/24/17 08:44 92 21 40 03/24/17 08:00 96 03/24/17 08:00 5.0 40 03/24/17 08:00 98.1 93 26 100/60 98 Mechanical Ventilator 40 03/24/17 07:25 88 21 98 Mechanical Ventilator 40 03/24/17 07:15 88 21 98 Mechanical Ventilator 40 03/24/17 07:15 88 21 40 03/24/17 04:55 106 27 40 03/24/17 04:00 98.6 110 26 104/57 97 Mechanical Ventilator 40 03/24/17 04:00 5.0 40 03/24/17 03:37 106 03/24/17 03:24 107 24 40 03/24/17 01:37 Mechanical Ventilator 03/24/17 01:37 125 03/24/17 01:22 124 34 40 03/24/17 00:00 123 03/24/17 00:00 5.0 40 03/24/17 00:00 99.9 118 28 118/67 97 Mechanical Ventilator 40 03/23/17 23:08 121 36 40 03/23/17 21:20 100 23 40 03/23/17 20:00 97.9 108 20 112/70 97 Mechanical Ventilator 40 03/23/17 20:00 5.0 40 03/23/17 19:45 105 03/23/17 19:17 99 24 98 Mechanical Ventilator 40 03/23/17 19:08 101 28 98 Mechanical Ventilator 40 03/23/17 19:07 101 28 40 03/23/17 16:53 97 31 40 Intake and Output 03/23/17 03/24/17 19:00 07:00 Intake Total 875 ml 2109.2 ml Output Total 650 ml 600 ml Balance 225 ml 1509.2 ml Intake Free Water 100 ml 200 ml IV Total 175 ml 1299.2 ml Tube Feeding 600 ml 610 ml Output Urine Total 650 ml 600 ml # Bowel Movements 5 2 Height (Feet): 5 Height (Inches): 6.00 Weight (Pounds): 180 General Appearance: no apparent distress EENT: TMs normal Neck: supple Cardiovascular: regular rhythm Respiratory/Chest: lungs clear Abdomen: soft Pelvis: no masses Extremities: non-tender Edema: no edema noted Arm (L), no edema noted Arm (R), no edema noted Leg (L), no edema noted Leg (R), no edema noted Pedal (L), no edema noted Pedal (R), no edema noted Generalized Edema: mild edema Neurologic: alert Skin: warm/dry Lymphatic: normal anterior cervical (L), normal anterior cervical (R), normal axillary (L), normal axillary (R), normal inguinal (L), normal inguinal (R), normal other, normal posterior cervical (L), normal posterior cervical (R), normal submandibular (L), normal submandibular (R), normal supraclavicular (L), normal supraclavicular (R) DION ENCISO Mar 24, 2017 16:03
[2017-03-24 20:00] VITALS: BP 119/73
--- NOTE | 2017-03-24 20:18 | General Progress Note ---
Assessment/Plan Assessment/Plan ASSESSMENT: 1. Recurrent anemia currently better btw 8-10, now improved s/p transfusion and s/p egd in the recent past 2. Anemia secondary to chronic disease based on previous labs, ferritin is elevated 3. Hx of anemia of iron deficiency 4. Leukocytosis 2/2 likely infection, r/o UTI 5. 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 Hyperferritinemia. 7. Chronic respiratory failure, trach/vent 8. Recanalized superficial femoral clot 9. Urinary tract infection. hx, sepsis now 10. Decubitus ulceration. RECOMMENDATIONS: 1. Patient had recent GI w/u 2. Hgb goAL >7 3. Monitor counts 4. Antibiotics as needed. 5. Breathing treatments prn 6. Pain control. 7. Gi followup recs 8. DVT prophylaxis with SCDs. 9. Continue tube feedings. 10. Discussed with staff. Subjective Date patient seen: Mar 23, 2017 Constitutional: Reports: no symptoms HEENT: Reports: no symptoms Cardiovascular: Reports: no symptoms Respiratory: Reports: no symptoms Gastrointestinal/Abdominal: Reports: no symptoms Genitourinary: Reports: no symptoms Neurologic/Psychiatric: Reports: no symptoms Endocrine: Reports: no symptoms Hematologic/Lymphatic: Reports: anemia Allergies: Coded Allergies: NO KNOWN DRUG ALLERGIES (Unverified Allergy, Unknown, 10/29/14) Subjective no fevers, or chills, no night sweats Objective Last 24 Hour Vital Signs Date Time Temp Pulse Resp B/P Pulse Ox O2 Delivery O2 Flow Rate FiO2 03/24/17 19:12 103 20 99 Mechanical Ventilator 40 03/24/17 19:01 101 24 98 Mechanical Ventilator 40 03/24/17 19:01 40 03/24/17 18:58 101 24 40 03/24/17 16:38 91 28 40 03/24/17 16:00 97.9 89 26 101/56 98 Mechanical Ventilator 40 03/24/17 16:00 5.0 40 03/24/17 16:00 86 03/24/17 14:51 85 18 40 03/24/17 13:26 91 24 100 Mechanical Ventilator 40 03/24/17 13:16 91 24 99 Mechanical Ventilator 40 03/24/17 13:01 91 24 40 03/24/17 12:00 100 03/24/17 12:00 5.0 40 03/24/17 12:00 97.1 100 27 113/61 98 Mechanical Ventilator 40 03/24/17 10:44 93 25 40 03/24/17 08:44 92 21 40 03/24/17 08:00 96 03/24/17 08:00 5.0 40 03/24/17 08:00 98.1 93 26 100/60 98 Mechanical Ventilator 40 03/24/17 07:25 88 21 98 Mechanical Ventilator 40 03/24/17 07:15 88 21 98 Mechanical Ventilator 40 03/24/17 07:15 88 21 40 03/24/17 04:55 106 27 40 03/24/17 04:00 98.6 110 26 104/57 97 Mechanical Ventilator 40 03/24/17 04:00 5.0 40 03/24/17 03:37 106 03/24/17 03:24 107 24 40 03/24/17 01:37 Mechanical Ventilator 03/24/17 01:37 125 03/24/17 01:22 124 34 40 03/24/17 00:00 123 03/24/17 00:00 5.0 40 03/24/17 00:00 99.9 118 28 118/67 97 Mechanical Ventilator 40 03/23/17 23:08 121 36 40 03/23/17 21:20 100 23 40 Intake and Output 03/23/17 03/24/17 19:00 07:00 Intake Total 875 ml 2109.2 ml Output Total 650 ml 600 ml Balance 225 ml 1509.2 ml Intake Free Water 100 ml 200 ml IV Total 175 ml 1299.2 ml Tube Feeding 600 ml 610 ml Output Urine Total 650 ml 600 ml # Bowel Movements 5 2 Laboratory Tests 03/24/17 19:00: Random Amikacin Level 8.9 Height (Feet): 5 Height (Inches): 6.00 Weight (Pounds): 180 General Appearance: no apparent distress EENT: normal ENT inspection Neck: supple Cardiovascular: regular rhythm Respiratory/Chest: normal breath sounds Abdomen: non tender Extremities: non-tender Edema: 1+ Leg (L), 1+ Leg (R) Edema: mild edema Neurologic: no motor/sensory deficits Skin: normal pigmentation Alexx Sanon Mar 24, 2017 20:18
--- NOTE | 2017-03-24 22:41 | Pulmonology Progress Note ---
Assessment/Plan Problems: (1) Chronic respiratory failure (2) Sepsis (3) Dementia (4) Pneumonia (5) Severe sepsis (6) Feeding by G-tube Respiratory: monitor respiratory rate, adjust FIO2, CXR Cardiac: continue to monitor HR/BP Renal: F/U I&O, keep IV fluid Infectious Disease: check cultures Gastrointestinal: continue feedings/current rate, hold feedings Endocrine: monitor blood sugar, check HgA1C Neurologic: PRN Morphine Affect: PRN ativan Subjective ROS Limited/Unobtainable: Yes Allergies: Coded Allergies: NO KNOWN DRUG ALLERGIES (Unverified Allergy, Unknown, 10/29/14) Objective Last 24 Hour Vital Signs Date Time Temp Pulse Resp B/P Pulse Ox O2 Delivery O2 Flow Rate FiO2 03/24/17 21:04 104 25 40 03/24/17 19:12 103 20 99 Mechanical Ventilator 40 03/24/17 19:01 101 24 98 Mechanical Ventilator 40 03/24/17 19:01 40 03/24/17 18:58 101 24 40 03/24/17 16:38 91 28 40 03/24/17 16:00 97.9 89 26 101/56 98 Mechanical Ventilator 40 03/24/17 16:00 5.0 40 03/24/17 16:00 86 03/24/17 14:51 85 18 40 03/24/17 13:26 91 24 100 Mechanical Ventilator 40 03/24/17 13:16 91 24 99 Mechanical Ventilator 40 03/24/17 13:01 91 24 40 03/24/17 12:00 100 03/24/17 12:00 5.0 40 03/24/17 12:00 97.1 100 27 113/61 98 Mechanical Ventilator 40 03/24/17 10:44 93 25 40 03/24/17 08:44 92 21 40 03/24/17 08:00 96 03/24/17 08:00 5.0 40 03/24/17 08:00 98.1 93 26 100/60 98 Mechanical Ventilator 40 03/24/17 07:25 88 21 98 Mechanical Ventilator 40 03/24/17 07:15 88 21 98 Mechanical Ventilator 40 03/24/17 07:15 88 21 40 03/24/17 04:55 106 27 40 03/24/17 04:00 98.6 110 26 104/57 97 Mechanical Ventilator 40 03/24/17 04:00 5.0 40 03/24/17 03:37 106 03/24/17 03:24 107 24 40 03/24/17 01:37 Mechanical Ventilator 03/24/17 01:37 125 03/24/17 01:22 124 34 40 03/24/17 00:00 123 03/24/17 00:00 5.0 40 03/24/17 00:00 99.9 118 28 118/67 97 Mechanical Ventilator 40 03/23/17 23:08 121 36 40 Intake and Output 03/23/17 03/24/17 19:00 07:00 Intake Total 875 ml 2109.2 ml Output Total 650 ml 600 ml Balance 225 ml 1509.2 ml Intake Free Water 100 ml 200 ml IV Total 175 ml 1299.2 ml Tube Feeding 600 ml 610 ml Output Urine Total 650 ml 600 ml # Bowel Movements 5 2 Objective Lines, tubes and drains: peripheral HEENT: normocephalic, atraumatic Neck: non-tender, normal alignment Respiratory/Chest: chest wall non-tender, lungs clear Breasts: no masses Cardiovascular/Chest: normal peripheral pulses Abdomen: normal bowel sounds, non tender Genitourinary/Rectal: normal genital exam Extremities: normal range of motion Microbiology Date/Time Source Procedure Growth Status 03/22/17 07:00 Blood Blood Culture - Preliminary Acinetobacter Baumannii Complx Resulted 03/22/17 07:00 Blood Blood Culture - Preliminary A.baumanii Complx - Mdr Staphylococcus Aureus Resulted 03/22/17 07:00 Nasal Nares Influenza Types A,B Antigen (RUDY) - Final Complete 03/23/17 04:00 Urine,Clean Catch Urine Culture - Preliminary Gram Negative Chad Resulted 03/22/17 07:00 Urine,Clean Catch Urine Culture - Preliminary Pseudomonas Aeruginosa Resulted Laboratory Tests 03/24/17 19:00: Random Amikacin Level 8.9 Current Medications Medications (Trade) Dose Ordered Sig/Shubham Route PRN Reason Start Time Stop Time Status Last Admin Dose Admin Acetaminophen (Tylenol) 650 mg Q4H PRN GT Mild Pain/Temp > 100.5 03/22/17 16:00 04/21/17 15:59 Albuterol Sulfate (Proventil) 2.5 mg Q2H PRN IN-LINE Shortness of Breath 03/22/17 16:00 03/27/17 15:59 Albuterol Sulfate (Proventil) 2.5 mg Q6HRT IN-LINE 03/22/17 19:00 03/27/17 18:59 03/24/17 19:02 Amikacin Protocol 1 ea 1 ea DAILY PRN MISC Per rx protocol 03/23/17 16:45 04/22/17 16:44 Amikacin Sulfate/ Dextrose (Amikin/D5W) 112 ml @ 112 mls/hr ONCE IV 03/25/17 08:00 04/01/17 07:59 Ascorbic Acid (Vitamin C) 500 mg TID GT 03/22/17 18:00 04/21/17 17:59 03/24/17 17:57 Chlorhexidine Gluconate (Janina-Hex 2%) 1 applic DAILY TOPIC 03/23/17 09:00 04/22/17 08:59 03/24/17 08:04 Dextrose (Dextrose 50%) STAT PRN IV Hypoglycemia 03/22/17 18:45 04/21/17 18:44 Docusate Sodium (Colace) 100 mg TWICE A DAY GT 03/22/17 18:00 04/21/17 17:59 03/23/17 18:10 Ferrous Sulfate (Feosol) 330 mg THREE TIMES A DAY NG 03/22/17 18:00 04/21/17 17:59 03/24/17 17:57 Finasteride (Proscar) 5 mg DAILY GT 03/23/17 09:00 04/22/17 08:59 03/24/17 08:03 Insulin Aspart (NovoLOG) EVERY 6 HOURS SUBQ 03/23/17 00:00 04/22/17 00:00 03/24/17 18:00 Insulin Detemir (Levemir) 38 units EVERY 12 HOURS SUBQ 03/22/17 21:00 04/21/17 20:59 03/24/17 21:29 Lactulose (Cephulac) 30 gm TID GT 03/22/17 18:00 04/21/17 17:59 03/23/17 18:08 Lansoprazole (Prevacid) 30 mg DAILY GT 03/23/17 09:00 04/22/17 08:59 03/24/17 08:09 Linezolid 300 ml @ 300 mls/hr Q12HR IVPB 03/22/17 12:00 03/29/17 11:59 03/24/17 21:27 Meropenem 500 mg/ Sodium Chloride 55 ml @ 110 mls/hr Q12HR IVPB 03/22/17 12:00 03/27/17 11:59 03/24/17 21:27 Metoclopramide HCl (Reglan) 5 mg EVERY 6 HOURS NG 03/22/17 18:00 04/21/17 17:59 03/24/17 17:57 Multivitamins (Multivitamins W/ Minerals 15ml Liquid) 15 ml DAILY GT 03/23/17 09:00 04/22/17 08:59 03/24/17 08:10 Sodium Chloride (0.45% NS 1000ml) 1,000 ml @ 100 mls/hr Q10H IV 03/22/17 15:00 04/21/17 14:59 03/24/17 17:16 MICH FONSECA Mar 24, 2017 22:41
[2017-03-25] VITALS: BP 124/76
[2017-03-25] MEDS: Albuterol ud Inhalation IN-LINE SCH ×4 (01:58→19:45)
[2017-03-25 04:00] VITALS: BP 123/75
[2017-03-25] MEDS: Metoclopramide 10mg/10ml Liq NG SCH ×4 (05:01→23:13)
[2017-03-25] MEDS: NovoLOG Insulin Flexpen SUBQ SCH ×4 (05:03→23:15)
[2017-03-25 07:27] LABS: ALANINE AMINOTRANSFERASE 19 U/L (3-41); ALBUMIN/GLOBULIN RATIO 0.8 (1.0-2.7); ANION GAP 23 (5-15); ASPARTATE AMINO TRANSFERASE 48 U/L (5-40); CALCIUM 8.7 mg/dL (8.6-10.2); CARBON DIOXIDE 18 mEQ/L (20-30); CHLORIDE 97 mEQ/L (98-107); CREATININE 1.5 mg/dL (0.7-1.2); HEMOLYSIS 4; MAGNESIUM 1.9 mg/dL (1.7-2.5); PHOSPHORUS 5.8 mg/dL (2.5-4.8); POTASSIUM 4.5 mEQ/L (3.4-4.9); SODIUM 138 mEQ/L (135-145)
[2017-03-25 07:30] LABS: CRP QUANT 2.6 mg/dL (< 0.5)
[2017-03-25 08:00] VITALS: BP 117/68
[2017-03-25] MEDS ORDERED: Amikacin 500 MG in D5W 110 ML IV SCH (08:00)
[2017-03-25] MEDS ORDERED: 1/2 NS 1000ml IV ONE (08:35)
[2017-03-25] MEDS: Levemir Flexpen SUBQ SCH ×2 (08:40→20:11)
[2017-03-25] MEDS: Dyna-Hex 2% Top Sol 8oz TOPIC SCH (08:58)
[2017-03-25] MEDS: Lactulose 20gm/30ml UDC GT SCH ×3 (08:58→17:26)
[2017-03-25] MEDS: Docusate 100mg/10ml Liq GT SCH ×2 (08:59→17:26)
[2017-03-25] MEDS: Ascorbic Acid 500mg tab GT SCH ×3 (08:59→17:27)
[2017-03-25] MEDS: Multivitamins W/Minerals 15 ML UDC GT SCH (08:59)
[2017-03-25] MEDS: Ferrous Sulfate 300 MG/5 ML UDC NG SCH (08:59)
[2017-03-25] MEDS: Meropenem 500mg/NS 55ml IVPB SCH ×4 (09:00→20:10)
[2017-03-25 09:23] LABS: BASOPHILS % (AUTO) 0.7 % (0.0-2.0); EOSINOPHILS % (AUTO) 1.1 % (0.0-3.0); LYMPHOCYTES % (AUTO) 19.5 % (20.0-45.0); MEAN CORPUSCULAR HEMOGLOBIN 29.1 PG (27.0-31.0); MEAN CORPUSCULAR HGB CONC 30.9 G/DL (32.0-36.0); MEAN CORPUSCULAR VOLUME 94 FL (80-99); MEAN PLATELET VOLUME 7.6 FL (6.5-10.1); MONOCYTES % (AUTO) 16.3 % (1.0-10.0); NEUTROPHILS % (AUTO) 62.4 % (45.0-75.0); PLATELET COUNT 151 K/UL (150-450); RED BLOOD COUNT 2.91 M/UL (4.70-6.10); RED CELL DISTRIBUTION WIDTH 17.2 % (11.6-14.8); WHITE BLOOD COUNT 11.8 K/UL (4.8-10.8)
--- NOTE | 2017-03-25 11:16 | General Progress Note ---
Assessment/Plan Status: stable - from renal stand Assessment/Plan status: Acute Renal Failure- with high K- Pre Renal / Super Imposed on Renal Respiratory failure- UTI / Sepsis h/o Anemia Decubs h/o DVT Other conditions: 1. Acute on chronic respiratory failure. 2. h/o Severe sepsis. 3. Ventilator-dependent respiratory failure. 4. Chronic obstructive pulmonary disease. 5. History of deep venous thrombosis. 6. Hypoalbuminemia. 7. h/o Clostridium difficile colitis. 8. Pressure ulcers on sacrococcygeal down to buttocks, right ischial tuberosity, and right heel and right trochanter present on admission. 9. h/o Urinary tract infection, Proteus mirabilis. 10. h/o Acute deep venous thrombosis of the right lower extremity, on heparin and bridged to Coumadin. 11. Tracheostomy status. 12. Gastrostomy tube feeding. 13. Diabetes mellitus. Plan: Labs improving Slow IV hydration- BS control- keep BP under control- Avoid Nephrotoxics- monitor lytes and renal parameters- Subjective ROS Limited/Unobtainable: Yes Allergies: Coded Allergies: NO KNOWN DRUG ALLERGIES (Unverified Allergy, Unknown, 10/29/14) Objective Last 24 Hour Vital Signs Date Time Temp Pulse Resp B/P Pulse Ox O2 Delivery O2 Flow Rate FiO2 03/25/17 10:56 98 26 40 03/25/17 08:31 98 27 40 03/25/17 08:00 99.0 106 18 117/68 97 Mechanical Ventilator 40 03/25/17 08:00 5.0 40 03/25/17 07:54 105 03/25/17 06:45 40 03/25/17 06:45 97 24 99 Mechanical Ventilator 40 03/25/17 06:45 99 22 99 Mechanical Ventilator 40 03/25/17 06:43 97 24 40 03/25/17 05:00 99 26 40 03/25/17 04:00 5.0 40 03/25/17 04:00 106 03/25/17 04:00 97.9 86 22 123/75 99 Mechanical Ventilator 40 03/25/17 03:10 99 25 40 03/25/17 02:05 98 22 99 Mechanical Ventilator 40 03/25/17 01:58 103 29 99 Mechanical Ventilator 40 03/25/17 01:58 40 03/25/17 01:30 97 20 40 03/25/17 00:00 97 03/25/17 00:00 97.8 88 22 124/76 99 Mechanical Ventilator 40 03/25/17 00:00 5.0 40 03/24/17 23:20 93 28 40 03/24/17 21:04 104 25 40 03/24/17 20:00 5.0 40 03/24/17 20:00 98.6 100 24 119/73 98 Mechanical Ventilator 40 03/24/17 20:00 100 03/24/17 19:12 103 20 99 Mechanical Ventilator 40 03/24/17 19:01 101 24 98 Mechanical Ventilator 40 03/24/17 19:01 40 03/24/17 18:58 101 24 40 03/24/17 16:38 91 28 40 03/24/17 16:00 97.9 89 26 101/56 98 Mechanical Ventilator 40 03/24/17 16:00 5.0 40 03/24/17 16:00 86 03/24/17 14:51 85 18 40 03/24/17 13:26 91 24 100 Mechanical Ventilator 40 03/24/17 13:16 91 24 99 Mechanical Ventilator 40 03/24/17 13:01 91 24 40 03/24/17 12:00 100 03/24/17 12:00 5.0 40 03/24/17 12:00 97.1 100 27 113/61 98 Mechanical Ventilator 40 Intake and Output 03/24/17 03/25/17 19:00 07:00 Intake Total 2280 ml 2025 ml Output Total 950 ml Balance 2280 ml 1075 ml Intake Free Water 150 ml 100 ml IV Total 1410 ml 1205 ml Tube Feeding 720 ml 720 ml Output Urine Total 950 ml # Bowel Movements 1 4 Laboratory Tests 03/24/17 19:00: Random Amikacin Level 8.9 03/25/17 04:45: Sodium Level 138, Potassium Level 4.5, Chloride Level 97L, Carbon Dioxide Level 18L, Anion Gap 23H, Blood Urea Nitrogen 43H, Creatinine 1.5H, Estimat Glomerular Filtration Rate , Glucose Level 135H, Uric Acid 6.0, Calcium Level 8.7, Phosphorus Level 5.8H, Magnesium Level 1.9, Total Bilirubin 0.9, Aspartate Amino Transf (AST/SGOT) 48H, Alanine Aminotransferase (ALT/SGPT) 19, Alkaline Phosphatase 115, C-Reactive Protein, Quantitative 2.6H, Pro-B-Type Natriuretic Peptide 4007H, Total Protein 7.0, Albumin 3.2L, Globulin 3.8, Albumin/Globulin Ratio 0.8L 03/25/17 08:45: White Blood Count 11.8H, Red Blood Count 2.91L, Hemoglobin 8.4L, Hematocrit 27.3L, Mean Corpuscular Volume 94, Mean Corpuscular Hemoglobin 29.1, Mean Corpuscular Hemoglobin Concent 30.9L, Red Cell Distribution Width 17.2H, Platelet Count 151, Mean Platelet Volume 7.6, Neutrophils (%) (Auto) 62.4, Lymphocytes (%) (Auto) 19.5L, Monocytes (%) (Auto) 16.3H, Eosinophils (%) (Auto ) 1.1, Basophils (%) (Auto) 0.7 Height (Feet): 5 Height (Inches): 6.00 Weight (Pounds): 180 General Appearance: no apparent distress Cardiovascular: tachycardia Respiratory/Chest: decreased breath sounds Abdomen: soft Objective no change COLTEN DIEGO Mar 25, 2017 11:16
[2017-03-25 12:00] VITALS: BP 130/77
[2017-03-25 16:00] VITALS: BP 126/78
--- NOTE | 2017-03-25 17:29 | Pulmonology Progress Note ---
Assessment/Plan Problems: (1) Chronic respiratory failure (2) Sepsis (3) Pneumonia (4) Severe sepsis (5) ARF (acute renal failure) (6) Feeding by G-tube (7) Dementia Respiratory: monitor respiratory rate Cardiac: continue pressors, stop pressors Renal: F/U I&O Infectious Disease: check cultures, continue antibiotics Gastrointestinal: continue feedings/current rate Endocrine: monitor blood sugar, check TSH, check HgA1C, start insulin drip, continue sliding scale insulin Hematologic: transfuse if hgb<8.5 Neurologic: PRN Ativan, keep patient comfortable Affect: PRN ativan Prophylaxis: Protonix, Heparin Discussed with: nurses, consultants, corrections caseworker Subjective ROS Limited/Unobtainable: Yes Allergies: Coded Allergies: NO KNOWN DRUG ALLERGIES (Unverified Allergy, Unknown, 10/29/14) Objective Last 24 Hour Vital Signs Date Time Temp Pulse Resp B/P Pulse Ox O2 Delivery O2 Flow Rate FiO2 03/25/17 16:33 99 24 40 03/25/17 16:00 40 03/25/17 16:00 98.7 104 28 126/78 99 Mechanical Ventilator 40 03/25/17 15:10 99 23 40 03/25/17 13:01 96 21 99 Mechanical Ventilator 40 03/25/17 12:50 98 18 40 03/25/17 12:50 98 18 99 Mechanical Ventilator 40 03/25/17 12:50 40 03/25/17 12:00 99.5 101 20 130/77 98 Mechanical Ventilator 40 03/25/17 12:00 40 03/25/17 11:46 97 03/25/17 10:56 98 26 40 03/25/17 08:31 98 27 40 03/25/17 08:00 99.0 106 18 117/68 97 Mechanical Ventilator 40 03/25/17 08:00 5.0 40 03/25/17 07:54 105 03/25/17 06:45 40 03/25/17 06:45 97 24 99 Mechanical Ventilator 40 03/25/17 06:45 99 22 99 Mechanical Ventilator 40 03/25/17 06:43 97 24 40 03/25/17 05:00 99 26 40 03/25/17 04:00 5.0 40 03/25/17 04:00 106 03/25/17 04:00 97.9 86 22 123/75 99 Mechanical Ventilator 40 03/25/17 03:10 99 25 40 03/25/17 02:05 98 22 99 Mechanical Ventilator 40 03/25/17 01:58 103 29 99 Mechanical Ventilator 40 03/25/17 01:58 40 03/25/17 01:30 97 20 40 03/25/17 00:00 97 03/25/17 00:00 97.8 88 22 124/76 99 Mechanical Ventilator 40 03/25/17 00:00 5.0 40 03/24/17 23:20 93 28 40 03/24/17 21:04 104 25 40 03/24/17 20:00 5.0 40 03/24/17 20:00 98.6 100 24 119/73 98 Mechanical Ventilator 40 03/24/17 20:00 100 03/24/17 19:12 103 20 99 Mechanical Ventilator 40 03/24/17 19:01 101 24 98 Mechanical Ventilator 40 03/24/17 19:01 40 03/24/17 18:58 101 24 40 Intake and Output 03/24/17 03/25/17 19:00 07:00 Intake Total 2280 ml 2025 ml Output Total 950 ml Balance 2280 ml 1075 ml Intake Free Water 150 ml 100 ml IV Total 1410 ml 1205 ml Tube Feeding 720 ml 720 ml Output Urine Total 950 ml # Bowel Movements 1 4 Objective Lines, tubes and drains: peripheral HEENT: normocephalic, atraumatic Neck: non-tender, normal alignment Respiratory/Chest: chest wall non-tender, lungs clear Breasts: no masses Cardiovascular/Chest: normal peripheral pulses Abdomen: normal bowel sounds, non tender Genitourinary/Rectal: normal genital exam Extremities: normal range of motion Microbiology Date/Time Source Procedure Growth Status 03/24/17 05:00 Sputum Gram Stain - Final Resulted 03/24/17 05:00 Sputum Sputum Culture Pending Resulted 03/23/17 04:00 Urine,Clean Catch Urine Culture - Preliminary Gram Negative Chad Resulted Laboratory Tests 03/24/17 19:00: Random Amikacin Level 8.9 03/25/17 04:45: Sodium Level 138, Potassium Level 4.5, Chloride Level 97L, Carbon Dioxide Level 18L, Anion Gap 23H, Blood Urea Nitrogen 43H, Creatinine 1.5H, Estimat Glomerular Filtration Rate , Glucose Level 135H, Uric Acid 6.0, Calcium Level 8.7, Phosphorus Level 5.8H, Magnesium Level 1.9, Total Bilirubin 0.9, Aspartate Amino Transf (AST/SGOT) 48H, Alanine Aminotransferase (ALT/SGPT) 19, Alkaline Phosphatase 115, C-Reactive Protein, Quantitative 2.6H, Pro-B-Type Natriuretic Peptide 4007H, Total Protein 7.0, Albumin 3.2L, Globulin 3.8, Albumin/Globulin Ratio 0.8L 03/25/17 08:45: White Blood Count 11.8H, Red Blood Count 2.91L, Hemoglobin 8.4L, Hematocrit 27.3L, Mean Corpuscular Volume 94, Mean Corpuscular Hemoglobin 29.1, Mean Corpuscular Hemoglobin Concent 30.9L, Red Cell Distribution Width 17.2H, Platelet Count 151, Mean Platelet Volume 7.6, Neutrophils (%) (Auto) 62.4, Lymphocytes (%) (Auto) 19.5L, Monocytes (%) (Auto) 16.3H, Eosinophils (%) (Auto ) 1.1, Basophils (%) (Auto) 0.7 Current Medications Medications (Trade) Dose Ordered Sig/Shubham Route PRN Reason Start Time Stop Time Status Last Admin Dose Admin Acetaminophen (Tylenol) 650 mg Q4H PRN GT Mild Pain/Temp > 100.5 03/22/17 16:00 04/21/17 15:59 Albuterol Sulfate (Proventil) 2.5 mg Q2H PRN IN-LINE Shortness of Breath 03/22/17 16:00 03/27/17 15:59 Albuterol Sulfate (Proventil) 2.5 mg Q6HRT IN-LINE 03/22/17 19:00 03/27/17 18:59 03/25/17 12:50 Amikacin Protocol 1 ea 1 ea DAILY PRN MISC Per rx protocol 03/23/17 16:45 04/22/17 16:44 Ascorbic Acid (Vitamin C) 500 mg TID GT 03/22/17 18:00 04/21/17 17:59 03/25/17 12:08 Chlorhexidine Gluconate (Janina-Hex 2%) 1 applic DAILY TOPIC 03/23/17 09:00 04/22/17 08:59 03/25/17 08:58 Dextrose (Dextrose 50%) STAT PRN IV Hypoglycemia 03/22/17 18:45 04/21/17 18:44 Docusate Sodium (Colace) 100 mg TWICE A DAY GT 03/22/17 18:00 04/21/17 17:59 03/25/17 08:59 Finasteride (Proscar) 5 mg DAILY GT 03/23/17 09:00 04/22/17 08:59 03/25/17 08:59 Insulin Aspart (NovoLOG) EVERY 6 HOURS SUBQ 03/23/17 00:00 04/22/17 00:00 03/25/17 11:06 Insulin Detemir (Levemir) 38 units EVERY 12 HOURS SUBQ 03/22/17 21:00 04/21/17 20:59 03/25/17 08:40 Lactulose (Cephulac) 30 gm TID GT 03/22/17 18:00 04/21/17 17:59 03/25/17 12:08 Lansoprazole (Prevacid) 30 mg DAILY GT 03/23/17 09:00 04/22/17 08:59 03/25/17 08:59 Linezolid 300 ml @ 300 mls/hr Q12HR IVPB 03/22/17 12:00 03/29/17 11:59 03/25/17 09:51 Meropenem/Sodium Chloride (Merrem/Sodium Chloride) 55 ml @ 110 mls/hr Q12HR IVPB 03/22/17 12:00 03/27/17 11:59 03/25/17 09:00 Metoclopramide HCl (Reglan) 5 mg EVERY 6 HOURS NG 03/22/17 18:00 04/21/17 17:59 03/25/17 11:04 Multivitamins (Multivitamins W/ Minerals 15ml Liquid) 15 ml DAILY GT 03/23/17 09:00 04/22/17 08:59 03/25/17 08:59 Sodium Chloride (0.45% NS 1000ml) 1,000 ml @ 50 mls/hr Q20H IV 03/25/17 12:00 04/24/17 11:59 03/25/17 12:06 MICH FONSECA Mar 25, 2017 17:29
[2017-03-25 20:00] VITALS: BP 130/69
--- NOTE | 2017-03-25 22:28 | Cardiology Report ---
APPROVED REPORT EKG Measurement Heart [id number] Sinus tachycardia Low voltage QRS Right bundle branch block Left posterior fascicular block Bifascicular block Abnormal ECG
--- NOTE | 2017-03-25 23:18 | General Progress Note ---
Assessment/Plan Assessment/Plan ASSESSMENT: 1. Recurrent anemia currently better btw 8-10, now improved s/p transfusion and s/p egd in the recent past 2. Anemia secondary to chronic disease based on previous labs, ferritin remains elevated 3. Hx of anemia of iron deficiency 4. Leukocytosis 2/2 likely infection, r/o UTI 5. 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 Hyperferritinemia. 7. Chronic respiratory failure, trach/vent 8. Recanalized superficial femoral clot 9. Urinary tract infection. hx, sepsis now 10. Decubitus ulceration. RECOMMENDATIONS: 1. Patient had recent GI w/u 2. Hgb goAL >7 3. Monitor counts 4. Antibiotics as needed. 5. Breathing treatments prn 6. Pain control. 7. Gi followup recs 8. DVT prophylaxis with scds 9. Continue tube feedings. 10. Discussed with staff. Subjective Constitutional: Reports: fever, no symptoms HEENT: Reports: no symptoms Cardiovascular: Reports: no symptoms Respiratory: Reports: no symptoms Gastrointestinal/Abdominal: Reports: no symptoms Genitourinary: Reports: no symptoms Neurologic/Psychiatric: Reports: no symptoms Hematologic/Lymphatic: Reports: anemia Allergies: Coded Allergies: NO KNOWN DRUG ALLERGIES (Unverified Allergy, Unknown, 10/29/14) Subjective no fevers, or chills, no night sweats, obtunded Objective Last 24 Hour Vital Signs Date Time Temp Pulse Resp B/P Pulse Ox O2 Delivery O2 Flow Rate FiO2 03/25/17 21:25 116 33 40 03/25/17 20:00 97.9 104 20 130/69 99 Mechanical Ventilator 40 03/25/17 20:00 103 03/25/17 19:54 104 33 99 Mechanical Ventilator 40 03/25/17 19:47 98 26 40 03/25/17 19:45 103 26 99 Mechanical Ventilator 40 03/25/17 19:45 40 03/25/17 19:06 99 26 40 03/25/17 17:01 100 03/25/17 16:33 99 24 40 03/25/17 16:00 40 03/25/17 16:00 98.7 104 28 126/78 99 Mechanical Ventilator 40 03/25/17 15:10 99 23 40 03/25/17 13:01 96 21 99 Mechanical Ventilator 40 03/25/17 12:50 98 18 40 03/25/17 12:50 98 18 99 Mechanical Ventilator 40 03/25/17 12:50 40 03/25/17 12:00 99.5 101 20 130/77 98 Mechanical Ventilator 40 03/25/17 12:00 40 03/25/17 11:46 97 03/25/17 10:56 98 26 40 03/25/17 08:31 98 27 40 03/25/17 08:00 99.0 106 18 117/68 97 Mechanical Ventilator 40 03/25/17 08:00 5.0 40 03/25/17 07:54 105 03/25/17 06:45 40 03/25/17 06:45 97 24 99 Mechanical Ventilator 40 03/25/17 06:45 99 22 99 Mechanical Ventilator 40 03/25/17 06:43 97 24 40 03/25/17 05:00 99 26 40 03/25/17 04:00 5.0 40 03/25/17 04:00 106 03/25/17 04:00 97.9 86 22 123/75 99 Mechanical Ventilator 40 03/25/17 03:10 99 25 40 03/25/17 02:05 98 22 99 Mechanical Ventilator 40 03/25/17 01:58 103 29 99 Mechanical Ventilator 40 03/25/17 01:58 40 03/25/17 01:30 97 20 40 03/25/17 00:00 97 03/25/17 00:00 97.8 88 22 124/76 99 Mechanical Ventilator 40 03/25/17 00:00 5.0 40 03/24/17 23:20 93 28 40 Intake and Output 03/24/17 03/25/17 19:00 07:00 Intake Total 2280 ml 2025 ml Output Total 950 ml Balance 2280 ml 1075 ml Intake Free Water 150 ml 100 ml IV Total 1410 ml 1205 ml Tube Feeding 720 ml 720 ml Output Urine Total 950 ml # Bowel Movements 1 4 Laboratory Tests 03/25/17 04:45: Sodium Level 138, Potassium Level 4.5, Chloride Level 97L, Carbon Dioxide Level 18L, Anion Gap 23H, Blood Urea Nitrogen 43H, Creatinine 1.5H, Estimat Glomerular Filtration Rate , Glucose Level 135H, Uric Acid 6.0, Calcium Level 8.7, Phosphorus Level 5.8H, Magnesium Level 1.9, Total Bilirubin 0.9, Aspartate Amino Transf (AST/SGOT) 48H, Alanine Aminotransferase (ALT/SGPT) 19, Alkaline Phosphatase 115, C-Reactive Protein, Quantitative 2.6H, Pro-B-Type Natriuretic Peptide 4007H, Total Protein 7.0, Albumin 3.2L, Globulin 3.8, Albumin/Globulin Ratio 0.8L 03/25/17 08:45: White Blood Count 11.8H, Red Blood Count 2.91L, Hemoglobin 8.4L, Hematocrit 27.3L, Mean Corpuscular Volume 94, Mean Corpuscular Hemoglobin 29.1, Mean Corpuscular Hemoglobin Concent 30.9L, Red Cell Distribution Width 17.2H, Platelet Count 151, Mean Platelet Volume 7.6, Neutrophils (%) (Auto) 62.4, Lymphocytes (%) (Auto) 19.5L, Monocytes (%) (Auto) 16.3H, Eosinophils (%) (Auto ) 1.1, Basophils (%) (Auto) 0.7 Height (Feet): 5 Height (Inches): 6.00 Weight (Pounds): 180 General Appearance: lethargic EENT: normal ENT inspection Neck: supple Cardiovascular: normal rate Respiratory/Chest: normal breath sounds Abdomen: non tender Extremities: non-tender Edema: 1+ Leg (L), 1+ Leg (R) Edema: mild edema Neurologic: alert Skin: normal pigmentation Alexx Sanon Mar 25, 2017 23:18
[2017-03-26] VITALS (8 sets, daily range): BP systolic 101–149; BP diastolic 57–96
[2017-03-26] MEDS: Albuterol ud Inhalation IN-LINE SCH ×4 (02:10→19:39)
--- NOTE | 2017-03-26 04:15 | Progress Note ---
DATE: 03/25/2017 SUBJECTIVE: The patient is nonverbal . PHYSICAL EXAMINATION: GENERAL: The patient is hemodynamically stable and afebrile. CHEST: Clear to auscultation. CARDIOVASCULAR: Regular rate and rhythm. GI: Distended. Positive bowel sounds. G-tube site is intact. PEG site is intact. ASSESSMENT AND PLAN: 1. Acute renal failure on top of chronic renal failure, improved. 2. Sepsis is improving. 3. regarding percutaneous endoscopic gastrostomy and tracheostomy. 4. discharge planning. 5. We will check BMP and CBC they are improving most likely discharge the patient tomorrow . David Bowie M.D. DR: Denia JOB#: [id number] CC:
[2017-03-26] MEDS: Metoclopramide 10mg/10ml Liq NG SCH ×4 (05:17→23:35)
[2017-03-26] MEDS: NovoLOG Insulin Flexpen SUBQ SCH ×4 (05:20→23:37)
[2017-03-26] MEDS: Meropenem 500mg/NS 55ml IVPB SCH ×2 (08:45)
[2017-03-26] MEDS: Levemir Flexpen SUBQ SCH ×2 (08:47→21:20)
[2017-03-26] MEDS: Ascorbic Acid 500mg tab GT SCH ×3 (08:48→17:39)
[2017-03-26] MEDS: Docusate 100mg/10ml Liq GT SCH ×2 (08:49→17:41)
[2017-03-26] MEDS: Lactulose 20gm/30ml UDC GT SCH ×3 (08:49→17:41)
[2017-03-26] MEDS: Multivitamins W/Minerals 15 ML UDC GT SCH (08:49)
[2017-03-26] MEDS: Dyna-Hex 2% Top Sol 8oz TOPIC SCH (09:00)
--- NOTE | 2017-03-26 10:06 | General Progress Note ---
Assessment/Plan Status: stable Assessment/Plan status: Acute Renal Failure- with high K- Pre Renal / Super Imposed on Renal Respiratory failure- UTI / Sepsis h/o Anemia Decubs h/o DVT Other conditions: 1. Acute on chronic respiratory failure. 2. h/o Severe sepsis. 3. Ventilator-dependent respiratory failure. 4. Chronic obstructive pulmonary disease. 5. History of deep venous thrombosis. 6. Hypoalbuminemia. 7. h/o Clostridium difficile colitis. 8. Pressure ulcers on sacrococcygeal down to buttocks, right ischial tuberosity, and right heel and right trochanter present on admission. 9. h/o Urinary tract infection, Proteus mirabilis. 10. h/o Acute deep venous thrombosis of the right lower extremity, on heparin and bridged to Coumadin. 11. Tracheostomy status. 12. Gastrostomy tube feeding. 13. Diabetes mellitus. Plan: No labs today Slow IV hydration- BS control- keep BP under control- Avoid Nephrotoxics- monitor lytes and renal parameters- Subjective ROS Limited/Unobtainable: Yes Allergies: Coded Allergies: NO KNOWN DRUG ALLERGIES (Unverified Allergy, Unknown, 10/29/14) Objective Last 24 Hour Vital Signs Date Time Temp Pulse Resp B/P Pulse Ox O2 Delivery O2 Flow Rate FiO2 03/26/17 09:02 104 23 40 03/26/17 08:00 40 03/26/17 08:00 100.0 110 18 101/57 99 Mechanical Ventilator 40 03/26/17 07:21 104 20 99 Mechanical Ventilator 40 03/26/17 07:11 40 03/26/17 07:11 109 21 40 03/26/17 07:11 108 20 99 Mechanical Ventilator 40 03/26/17 05:23 120 33 40 03/26/17 04:00 40 03/26/17 04:00 129 03/26/17 04:00 98.0 91 18 116/67 Mechanical Ventilator 40 03/26/17 02:41 135 38 40 03/26/17 02:16 133 37 Mechanical Ventilator 40 03/26/17 02:10 116 27 100 Mechanical Ventilator 40 03/26/17 02:10 40 03/26/17 01:00 124 33 40 03/26/17 00:00 40 03/26/17 00:00 98.1 116 20 149/71 99 Mechanical Ventilator 40 03/26/17 00:00 119 03/25/17 23:10 122 35 40 03/25/17 21:25 116 33 40 03/25/17 20:00 97.9 104 20 130/69 99 Mechanical Ventilator 40 03/25/17 20:00 103 03/25/17 20:00 40 03/25/17 19:54 104 33 99 Mechanical Ventilator 40 03/25/17 19:47 98 26 40 03/25/17 19:45 103 26 99 Mechanical Ventilator 40 03/25/17 19:45 40 03/25/17 19:06 99 26 40 03/25/17 17:01 100 03/25/17 16:33 99 24 40 03/25/17 16:00 40 03/25/17 16:00 98.7 104 28 126/78 99 Mechanical Ventilator 40 03/25/17 15:10 99 23 40 03/25/17 13:01 96 21 99 Mechanical Ventilator 40 03/25/17 12:50 98 18 40 03/25/17 12:50 98 18 99 Mechanical Ventilator 40 03/25/17 12:50 40 03/25/17 12:00 99.5 101 20 130/77 98 Mechanical Ventilator 40 03/25/17 12:00 40 03/25/17 11:46 97 03/25/17 10:56 98 26 40 Intake and Output 03/25/17 03/26/17 19:00 07:00 Intake Total 1883.7 ml 1420 ml Output Total 1275 ml Balance 1883.7 ml 145 ml Intake Free Water 100 ml IV Total 1073.7 ml 600 ml Tube Feeding 720 ml 720 ml Other 90 ml Output Urine Total 1275 ml # Bowel Movements 1 5 Height (Feet): 5 Height (Inches): 6.00 Weight (Pounds): 180 General Appearance: no apparent distress Objective no change COLTEN DIEGO Mar 26, 2017 10:06
[2017-03-26] MEDS ORDERED: 1/2 NS 1000ml IV ONE (11:04)
[2017-03-26] MEDS ORDERED: NS 275ml ONE (11:04)
[2017-03-26] MEDS ORDERED: Tubing IV Secondary IV ONE (11:04)
--- NOTE | 2017-03-26 11:43 | Pulmonology Progress Note ---
Assessment/Plan Problems: (1) Chronic respiratory failure (2) Sepsis (3) Pneumonia (4) Severe sepsis (5) ARF (acute renal failure) (6) Feeding by G-tube (7) Dementia Respiratory: monitor respiratory rate, adjust FIO2, CXR Cardiac: continue to monitor HR/BP Renal: F/U I&O, keep IV fluid Infectious Disease: check cultures Gastrointestinal: continue feedings/current rate Endocrine: monitor blood sugar, continue sliding scale insulin Hematologic: monitor H/H, transfuse if hgb<8.5 Neurologic: PRN Ativan, PRN Morphine, keep patient comfortable Prophylaxis: Protonix, Heparin Notes Reviewed: cardio, 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, consultants, showcase maker Subjective ROS Limited/Unobtainable: No Constitutional: Reports: no symptoms HEENT: Repors: no symptoms Respiratory: Reports: no symptoms Allergies: Coded Allergies: NO KNOWN DRUG ALLERGIES (Unverified Allergy, Unknown, 10/29/14) Objective Last 24 Hour Vital Signs Date Time Temp Pulse Resp B/P Pulse Ox O2 Delivery O2 Flow Rate FiO2 03/26/17 10:33 106 23 40 03/26/17 09:02 104 23 40 03/26/17 08:00 40 03/26/17 08:00 100.0 110 18 101/57 99 Mechanical Ventilator 40 03/26/17 08:00 111 03/26/17 07:21 104 20 99 Mechanical Ventilator 40 03/26/17 07:11 40 03/26/17 07:11 109 21 40 03/26/17 07:11 108 20 99 Mechanical Ventilator 40 03/26/17 05:23 120 33 40 03/26/17 04:00 40 03/26/17 04:00 129 03/26/17 04:00 98.0 91 18 116/67 Mechanical Ventilator 40 03/26/17 02:41 135 38 40 03/26/17 02:16 133 37 Mechanical Ventilator 40 03/26/17 02:10 116 27 100 Mechanical Ventilator 40 03/26/17 02:10 40 03/26/17 01:00 124 33 40 03/26/17 00:00 40 03/26/17 00:00 98.1 116 20 149/71 99 Mechanical Ventilator 40 03/26/17 00:00 119 03/25/17 23:10 122 35 40 03/25/17 21:25 116 33 40 03/25/17 20:00 97.9 104 20 130/69 99 Mechanical Ventilator 40 03/25/17 20:00 103 03/25/17 20:00 40 03/25/17 19:54 104 33 99 Mechanical Ventilator 40 03/25/17 19:47 98 26 40 03/25/17 19:45 103 26 99 Mechanical Ventilator 40 03/25/17 19:45 40 03/25/17 19:06 99 26 40 03/25/17 17:01 100 03/25/17 16:33 99 24 40 03/25/17 16:00 40 03/25/17 16:00 98.7 104 28 126/78 99 Mechanical Ventilator 40 03/25/17 15:10 99 23 40 03/25/17 13:01 96 21 99 Mechanical Ventilator 40 03/25/17 12:50 98 18 40 03/25/17 12:50 98 18 99 Mechanical Ventilator 40 03/25/17 12:50 40 03/25/17 12:00 99.5 101 20 130/77 98 Mechanical Ventilator 40 03/25/17 12:00 40 03/25/17 11:46 97 Intake and Output 03/25/17 03/26/17 19:00 07:00 Intake Total 1883.7 ml 1420 ml Output Total 1275 ml Balance 1883.7 ml 145 ml Intake Free Water 100 ml IV Total 1073.7 ml 600 ml Tube Feeding 720 ml 720 ml Other 90 ml Output Urine Total 1275 ml # Bowel Movements 1 5 Objective Lines, tubes and drains: peripheral HEENT: normocephalic, atraumatic Neck: non-tender, normal alignment Respiratory/Chest: chest wall non-tender, lungs clear Breasts: no masses Cardiovascular/Chest: normal peripheral pulses Abdomen: normal bowel sounds, non tender Genitourinary/Rectal: normal genital exam Extremities: normal range of motion Microbiology Date/Time Source Procedure Growth Status 03/24/17 05:00 Sputum Gram Stain - Final Resulted 03/24/17 05:00 Sputum Culture - Preliminary Gram Negative Bacillus 1 Gram Negative Bacillus 2 Resulted Current Medications Medications (Trade) Dose Ordered Sig/Shubham Route PRN Reason Start Time Stop Time Status Last Admin Dose Admin Acetaminophen (Tylenol) 650 mg Q4H PRN GT Mild Pain/Temp > 100.5 03/22/17 16:00 04/21/17 15:59 Albuterol Sulfate (Proventil) 2.5 mg Q2H PRN IN-LINE Shortness of Breath 03/22/17 16:00 03/27/17 15:59 Albuterol Sulfate (Proventil) 2.5 mg Q6HRT IN-LINE 03/22/17 19:00 03/27/17 18:59 03/26/17 07:10 Amikacin Protocol 1 ea 1 ea DAILY PRN MISC Per rx protocol 03/23/17 16:45 04/22/17 16:44 Ascorbic Acid (Vitamin C) 500 mg TID GT 03/22/17 18:00 04/21/17 17:59 03/26/17 11:18 Chlorhexidine Gluconate (Janina-Hex 2%) 1 applic DAILY TOPIC 03/23/17 09:00 04/22/17 08:59 03/26/17 09:00 Dextrose (Dextrose 50%) STAT PRN IV Hypoglycemia 03/22/17 18:45 04/21/17 18:44 Docusate Sodium (Colace) 100 mg TWICE A DAY GT 03/22/17 18:00 04/21/17 17:59 03/25/17 17:26 Finasteride (Proscar) 5 mg DAILY GT 03/23/17 09:00 04/22/17 08:59 03/26/17 08:49 Insulin Aspart (NovoLOG) EVERY 6 HOURS SUBQ 03/23/17 00:00 04/22/17 00:00 03/26/17 11:19 Insulin Detemir (Levemir) 38 units EVERY 12 HOURS SUBQ 03/22/17 21:00 04/21/17 20:59 03/26/17 08:47 Lactulose (Cephulac) 30 gm TID GT 03/22/17 18:00 04/21/17 17:59 03/25/17 17:26 Lansoprazole (Prevacid) 30 mg DAILY GT 03/23/17 09:00 04/22/17 08:59 03/26/17 08:48 Linezolid 300 ml @ 300 mls/hr Q12HR IVPB 03/22/17 12:00 03/29/17 11:59 03/26/17 08:45 Meropenem/Sodium Chloride (Merrem/Sodium Chloride) 55 ml @ 110 mls/hr Q12HR IVPB 03/22/17 12:00 03/27/17 11:59 03/26/17 08:45 Metoclopramide HCl (Reglan) 5 mg EVERY 6 HOURS NG 03/22/17 18:00 04/21/17 17:59 03/26/17 11:18 Multivitamins (Multivitamins W/ Minerals 15ml Liquid) 15 ml DAILY GT 03/23/17 09:00 04/22/17 08:59 03/26/17 08:49 Sodium Chloride (0.45% NS 1000ml) 1,000 ml @ 50 mls/hr Q20H IV 03/25/17 12:00 04/24/17 11:59 03/26/17 08:45 MICH FONSECA Mar 26, 2017 11:43
--- NOTE | 2017-03-26 13:00 | General Progress Note ---
Assessment/Plan Problem List: (1) Bacteriuria ICD Codes: N39.0 - Bacteriuria SNOMED: 56866160 (2) Respiratory insufficiency ICD Codes: R06.89 - Other abnormalities of breathing SNOMED: 728344093 (3) Azotemia ICD Codes: R79.89 - Other specified abnormal findings of blood chemistry SNOMED: 439054352 (4) Sepsis ICD Codes: A41.9 - Sepsis, unspecified organism SNOMED: 31285562 (5) Acute and chronic respiratory failure ([id number]) ICD Codes: J96.20 - Acute and chronic respiratory failure ([id number]) SNOMED: 70891371 (6) HTN (hypertension) ICD Codes: I10 - HTN (hypertension) SNOMED: 05540577 (7) ARF (acute renal failure) ICD Codes: N17.9 - ARF (acute renal failure) SNOMED: 54730152 Status: progressing Assessment/Plan sepsis uti afebrle vitals stable no wheezing clinically improving reviewed chart and labs Subjective ROS Limited/Unobtainable: Yes Allergies: Coded Allergies: NO KNOWN DRUG ALLERGIES (Unverified Allergy, Unknown, 10/29/14) Objective Last 24 Hour Vital Signs Date Time Temp Pulse Resp B/P Pulse Ox O2 Delivery O2 Flow Rate FiO2 03/26/17 12:54 40 03/26/17 12:54 94 21 40 03/26/17 12:54 96 21 99 Mechanical Ventilator 40 03/26/17 12:00 100.8 104 28 106/60 97 Mechanical Ventilator 40 03/26/17 10:33 106 23 40 03/26/17 09:02 104 23 40 03/26/17 08:00 40 03/26/17 08:00 100.0 110 18 101/57 99 Mechanical Ventilator 40 03/26/17 08:00 111 03/26/17 07:21 104 20 99 Mechanical Ventilator 40 03/26/17 07:11 40 03/26/17 07:11 109 21 40 03/26/17 07:11 108 20 99 Mechanical Ventilator 40 03/26/17 05:23 120 33 40 03/26/17 04:00 40 03/26/17 04:00 129 03/26/17 04:00 98.0 91 18 116/67 Mechanical Ventilator 40 03/26/17 02:41 135 38 40 03/26/17 02:16 133 37 Mechanical Ventilator 40 03/26/17 02:10 116 27 100 Mechanical Ventilator 40 03/26/17 02:10 40 03/26/17 01:00 124 33 40 03/26/17 00:00 40 03/26/17 00:00 98.1 116 20 149/71 99 Mechanical Ventilator 40 03/26/17 00:00 119 03/25/17 23:10 122 35 40 03/25/17 21:25 116 33 40 03/25/17 20:00 97.9 104 20 130/69 99 Mechanical Ventilator 40 03/25/17 20:00 103 03/25/17 20:00 40 03/25/17 19:54 104 33 99 Mechanical Ventilator 40 03/25/17 19:47 98 26 40 03/25/17 19:45 103 26 99 Mechanical Ventilator 40 03/25/17 19:45 40 03/25/17 19:06 99 26 40 03/25/17 17:01 100 03/25/17 16:33 99 24 40 03/25/17 16:00 40 03/25/17 16:00 98.7 104 28 126/78 99 Mechanical Ventilator 40 03/25/17 15:10 99 23 40 03/25/17 13:01 96 21 99 Mechanical Ventilator 40 Intake and Output 03/25/17 03/26/17 19:00 07:00 Intake Total 1883.7 ml 1420 ml Output Total 1275 ml Balance 1883.7 ml 145 ml Intake Free Water 100 ml IV Total 1073.7 ml 600 ml Tube Feeding 720 ml 720 ml Other 90 ml Output Urine Total 1275 ml # Bowel Movements 1 5 Height (Feet): 5 Height (Inches): 6.00 Weight (Pounds): 180 Neck: supple Cardiovascular: normal rate Respiratory/Chest: lungs clear Abdomen: soft David Bowie MD Mar 26, 2017 13:00
--- NOTE | 2017-03-26 15:15 | Infectious Diseases Prog Note ---
Assessment/Plan Problems: (1) Severe sepsis Assessment & Plan: with MDR Acinetobacter baumannii and MRSA , will order 2D echo to rule out endocarditis . continue amikacin with meropenem for double coverage , and will switch zyvox to vancomycin since his renal function improved for now to cover for MRSA bacteremia . PICC line is most likely the source , will repeat blood culture to confirm clearance and take the picc line out as soon as possible . (2) UTI (urinary tract infection) Assessment & Plan: due to pseudomonas aeruginosa, and enterococcus faecalis , already on amikacin and zyvox for bacteremia (3) Pneumonia Assessment & Plan: improving on wide spectrum antibiotics , no need to send trach for culture since he is colonized with MDRO (4) Acute renal failure Assessment & Plan: improving, due to the above, continue IVF for hydration, monitor UOP, renal is following (5) Pressure ulcer Assessment & Plan: continue local wound care, and off loading, consult wound care (6) Chronic respiratory failure Assessment & Plan: with trach, on mechanical ventilation, monitor ABG Subjective ROS Limited/Unobtainable: Yes Allergies: Coded Allergies: NO KNOWN DRUG ALLERGIES (Unverified Allergy, Unknown, 10/29/14) Subjective he is comfortable, afebrile, on mechanical ventilation , not in acute distress Objective Vital Signs Last 24 Hour Vital Signs Date Time Temp Pulse Resp B/P Pulse Ox O2 Delivery O2 Flow Rate FiO2 03/26/17 14:32 91 20 40 03/26/17 13:04 97 21 100 Mechanical Ventilator 40 03/26/17 12:54 40 03/26/17 12:54 94 21 40 03/26/17 12:54 96 21 99 Mechanical Ventilator 40 03/26/17 12:00 100.8 104 28 106/60 97 Mechanical Ventilator 40 03/26/17 10:33 106 23 40 03/26/17 09:02 104 23 40 03/26/17 08:00 40 03/26/17 08:00 100.0 110 18 101/57 99 Mechanical Ventilator 40 03/26/17 08:00 111 03/26/17 07:21 104 20 99 Mechanical Ventilator 40 03/26/17 07:11 40 03/26/17 07:11 109 21 40 03/26/17 07:11 108 20 99 Mechanical Ventilator 40 03/26/17 05:23 120 33 40 03/26/17 04:00 40 03/26/17 04:00 129 03/26/17 04:00 98.0 91 18 116/67 Mechanical Ventilator 40 03/26/17 02:41 135 38 40 03/26/17 02:16 133 37 Mechanical Ventilator 40 03/26/17 02:10 116 27 100 Mechanical Ventilator 40 03/26/17 02:10 40 03/26/17 01:00 124 33 40 03/26/17 00:00 40 03/26/17 00:00 98.1 116 20 149/71 99 Mechanical Ventilator 40 03/26/17 00:00 119 03/25/17 23:10 122 35 40 03/25/17 21:25 116 33 40 03/25/17 20:00 97.9 104 20 130/69 99 Mechanical Ventilator 40 03/25/17 20:00 103 03/25/17 20:00 40 03/25/17 19:54 104 33 99 Mechanical Ventilator 40 03/25/17 19:47 98 26 40 03/25/17 19:45 103 26 99 Mechanical Ventilator 40 03/25/17 19:45 40 03/25/17 19:06 99 26 40 03/25/17 17:01 100 03/25/17 16:33 99 24 40 03/25/17 16:00 40 03/25/17 16:00 98.7 104 28 126/78 99 Mechanical Ventilator 40 03/25/17 15:10 99 23 40 Height (Feet): 5 Height (Inches): 6.00 Weight (Pounds): 180 General Appearance: WD/WN, no acute distress HEENT: normocephalic, atraumatic, anicteric, status post trach Respiratory/Chest: chest wall non-tender, lungs clear, normal breath sounds, no respiratory distress, no accessory muscle use Cardiovascular: normal peripheral pulses, normal rate, regular rhythm, no JVD Abdomen: normal bowel sounds, soft, non tender, no organomegaly, non distended , no mass Extremities: no cyanosis Skin: no rash, no lesions Microbiology Date/Time Source Procedure Growth Status 03/24/17 05:00 Sputum Gram Stain - Final Resulted 03/24/17 05:00 Sputum Culture - Preliminary Gram Negative Bacillus 1 Gram Negative Bacillus 2 Resulted Current Medications Medications (Trade) Dose Ordered Sig/Shubham Route PRN Reason Start Time Stop Time Status Last Admin Dose Admin Acetaminophen (Tylenol) 650 mg Q4H PRN GT Mild Pain/Temp > 100.5 03/22/17 16:00 04/21/17 15:59 Albuterol Sulfate (Proventil) 2.5 mg Q2H PRN IN-LINE Shortness of Breath 03/22/17 16:00 03/27/17 15:59 Albuterol Sulfate (Proventil) 2.5 mg Q6HRT IN-LINE 03/22/17 19:00 03/27/17 18:59 03/26/17 12:54 Amikacin Protocol 1 ea 1 ea DAILY PRN MISC Per rx protocol 03/23/17 16:45 04/22/17 16:44 Ascorbic Acid (Vitamin C) 500 mg TID GT 03/22/17 18:00 04/21/17 17:59 03/26/17 11:18 Chlorhexidine Gluconate (Janina-Hex 2%) 1 applic DAILY TOPIC 03/23/17 09:00 04/22/17 08:59 03/26/17 09:00 Dextrose (Dextrose 50%) STAT PRN IV Hypoglycemia 03/22/17 18:45 04/21/17 18:44 Docusate Sodium (Colace) 100 mg TWICE A DAY GT 03/22/17 18:00 04/21/17 17:59 03/25/17 17:26 Finasteride (Proscar) 5 mg DAILY GT 03/23/17 09:00 04/22/17 08:59 03/26/17 08:49 Insulin Aspart (NovoLOG) EVERY 6 HOURS SUBQ 03/23/17 00:00 04/22/17 00:00 03/26/17 11:19 Insulin Detemir (Levemir) 38 units EVERY 12 HOURS SUBQ 03/22/17 21:00 04/21/17 20:59 03/26/17 08:47 Lactulose (Cephulac) 30 gm TID GT 03/22/17 18:00 04/21/17 17:59 03/25/17 17:26 Lansoprazole (Prevacid) 30 mg DAILY GT 03/23/17 09:00 04/22/17 08:59 03/26/17 08:48 Linezolid 300 ml @ 300 mls/hr Q12HR IVPB 03/22/17 12:00 03/29/17 11:59 03/26/17 08:45 Meropenem/Sodium Chloride (Merrem/Sodium Chloride) 55 ml @ 110 mls/hr Q12HR IVPB 03/22/17 12:00 03/27/17 11:59 03/26/17 08:45 Metoclopramide HCl (Reglan) 5 mg EVERY 6 HOURS NG 03/22/17 18:00 04/21/17 17:59 03/26/17 11:18 Multivitamins (Multivitamins W/ Minerals 15ml Liquid) 15 ml DAILY GT 03/23/17 09:00 04/22/17 08:59 03/26/17 08:49 Sodium Chloride (0.45% NS 1000ml) 1,000 ml @ 50 mls/hr Q20H IV 03/25/17 12:00 04/24/17 11:59 03/26/17 08:45 Kacey Olivo M.D. Mar 26, 2017 15:15
[2017-03-26] MEDS: Meropenem 1gm in NS 110ml IVPB SCH (21:19)
[2017-03-26] MEDS ORDERED: Vancomycin 1.5 GM in D5W 325 ML IVPB ONE (22:00)
--- NOTE | 2017-03-26 22:19 | General Progress Note ---
Assessment/Plan Assessment/Plan Assessment - dysphagia - s/p PEG and Trach - chronic abd distention - Anemia - Renal failure - Resp failure - poor px Recommendations - continue TF - GT care - bowel regimen - check C Diff - elevate HOB - DVT prophylaxis Subjective Allergies: Coded Allergies: NO KNOWN DRUG ALLERGIES (Unverified Allergy, Unknown, 10/29/14) Subjective Above noted stable overnight tolerating TF WBC lower Cr lower Objective Last 24 Hour Vital Signs Date Time Temp Pulse Resp B/P Pulse Ox O2 Delivery O2 Flow Rate FiO2 03/26/17 21:09 102 29 40 03/26/17 20:00 98.6 102 34 141/82 100 Mechanical Ventilator 40 03/26/17 20:00 99 03/26/17 20:00 40 03/26/17 19:40 100 28 100 Mechanical Ventilator 03/26/17 19:30 96 20 40 03/26/17 19:30 98 28 99 Mechanical Ventilator 03/26/17 17:15 100 27 40 03/26/17 16:00 40 03/26/17 16:00 98.6 100 32 121/73 100 Mechanical Ventilator 40 03/26/17 16:00 106 03/26/17 14:32 91 20 40 03/26/17 13:04 97 21 100 Mechanical Ventilator 40 03/26/17 12:54 40 03/26/17 12:54 94 21 40 03/26/17 12:54 96 21 99 Mechanical Ventilator 40 03/26/17 12:00 104 03/26/17 12:00 40 03/26/17 12:00 100.8 104 28 106/60 97 Mechanical Ventilator 40 03/26/17 10:33 106 23 40 03/26/17 09:02 104 23 40 03/26/17 08:00 40 03/26/17 08:00 100.0 110 18 101/57 99 Mechanical Ventilator 40 03/26/17 08:00 111 03/26/17 07:21 104 20 99 Mechanical Ventilator 40 03/26/17 07:11 40 03/26/17 07:11 109 21 40 03/26/17 07:11 108 20 99 Mechanical Ventilator 40 03/26/17 05:23 120 33 40 03/26/17 04:00 40 03/26/17 04:00 129 03/26/17 04:00 98.0 91 18 116/67 Mechanical Ventilator 40 03/26/17 02:41 135 38 40 03/26/17 02:16 133 37 Mechanical Ventilator 40 03/26/17 02:10 116 27 100 Mechanical Ventilator 40 03/26/17 02:10 40 03/26/17 01:00 124 33 40 03/26/17 00:00 40 03/26/17 00:00 98.1 116 20 149/71 99 Mechanical Ventilator 40 03/26/17 00:00 119 03/25/17 23:10 122 35 40 Intake and Output 03/25/17 03/26/17 19:00 07:00 Intake Total 1883.7 ml 1420 ml Output Total 1275 ml Balance 1883.7 ml 145 ml Intake Free Water 100 ml IV Total 1073.7 ml 600 ml Tube Feeding 720 ml 720 ml Other 90 ml Output Urine Total 1275 ml # Bowel Movements 1 5 Laboratory Tests 03/26/17 19:50: Random Amikacin Level 4.6 Height (Feet): 5 Height (Inches): 6.00 Weight (Pounds): 180 Objective Elderly WM obtunded NCAT (+) trach coarse BS RRR abd distended, tympanitic, GT in good position no edema OBS/obtunded MARIAH HOOVER Mar 26, 2017 22:19
[2017-03-26] MEDS: Amikacin 500 MG in NS 55 ML IV SCH (23:36)
[2017-03-27] MEDS: Albuterol ud Inhalation IN-LINE SCH ×3 (01:14→12:54)
[2017-03-27 04:00] VITALS: BP 133/84
[2017-03-27] MEDS: Metoclopramide 10mg/10ml Liq NG SCH (05:26)
[2017-03-27 05:30] LABS: BASOPHILS % (AUTO) 1.1 % (0.0-2.0); EOSINOPHILS % (AUTO) 1.4 % (0.0-3.0); LYMPHOCYTES % (AUTO) 14.7 % (20.0-45.0); MEAN CORPUSCULAR HEMOGLOBIN 30.5 PG (27.0-31.0); MEAN CORPUSCULAR HGB CONC 32.7 G/DL (32.0-36.0); MEAN CORPUSCULAR VOLUME 93 FL (80-99); MEAN PLATELET VOLUME 7.9 FL (6.5-10.1); MONOCYTES % (AUTO) 9.9 % (1.0-10.0); NEUTROPHILS % (AUTO) 72.8 % (45.0-75.0); PLATELET COUNT 161 K/UL (150-450); RED BLOOD COUNT 2.77 M/UL (4.70-6.10); RED CELL DISTRIBUTION WIDTH 17.1 % (11.6-14.8)
[2017-03-27] MEDS: NovoLOG Insulin Flexpen SUBQ SCH ×3 (05:30→17:08)
[2017-03-27 06:01] LABS: ALANINE AMINOTRANSFERASE 12 U/L (3-41); ALBUMIN/GLOBULIN RATIO 0.4 (1.0-2.7); ANION GAP 16 (5-15); ASPARTATE AMINO TRANSFERASE 16 U/L (5-40); CALCIUM 8.9 mg/dL (8.6-10.2); CARBON DIOXIDE 22 mEQ/L (20-30); CHLORIDE 103 mEQ/L (98-107); CREATININE 1.8 mg/dL (0.7-1.2); HEMOLYSIS 1; MAGNESIUM 1.9 mg/dL (1.7-2.5); PHOSPHORUS 3.1 mg/dL (2.5-4.8); POTASSIUM 4.7 mEQ/L (3.4-4.9); SODIUM 141 mEQ/L (135-145); TOTAL PROTEIN 8.9 g/dL (6.6-8.7); URIC ACID 7.1 mg/dL (3.0-7.5)
[2017-03-27 07:49] VITALS: BP 142/69
[2017-03-27] MEDS: Ascorbic Acid 500mg tab GT SCH ×3 (08:36→17:06)
[2017-03-27] MEDS: Multivitamins W/Minerals 15 ML UDC GT SCH (08:36)
[2017-03-27] MEDS: Docusate 100mg/10ml Liq GT SCH ×2 (08:38→16:46)
[2017-03-27] MEDS: Levemir Flexpen SUBQ SCH ×2 (08:38→22:45)
[2017-03-27] MEDS: Lactulose 20gm/30ml UDC GT SCH ×3 (08:38→16:46)
[2017-03-27] MEDS: Meropenem 1gm in NS 110ml IVPB SCH ×2 (09:11→22:44)
[2017-03-27] MEDS: Dyna-Hex 2% Top Sol 8oz TOPIC SCH (09:11)
--- NOTE | 2017-03-27 09:52 | General Progress Note ---
Assessment/Plan Assessment/Plan ASSESSMENT: 1. Recurrent anemia currently better btw 8-10, now improved s/p transfusion and s/p egd in the recent past 2. Anemia secondary to chronic disease based on previous labs, ferritin remains elevated 3. Hx of anemia of iron deficiency 4. Leukocytosis 2/2 likely infection, r/o UTI 5. 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 Hyperferritinemia. 7. Chronic respiratory failure, trach/vent 8. Recanalized superficial femoral clot 9. Urinary tract infection. hx, sepsis now 10. Decubitus ulceration. RECOMMENDATIONS: 1. Patient had recent GI w/u 2. Hgb goAL >7 3. Monitor counts 4. Antibiotics as needed. 5. Breathing treatments prn 6. Pain control. 7. Gi followup recs 8. DVT prophylaxis with scds 9. Continue tube feedings. 10. Discussed with staff. Subjective Date patient seen: Mar 26, 2017 Constitutional: Reports: no symptoms HEENT: Reports: no symptoms Cardiovascular: Reports: no symptoms Respiratory: Reports: no symptoms Gastrointestinal/Abdominal: Reports: no symptoms Genitourinary: Reports: no symptoms Neurologic/Psychiatric: Reports: no symptoms Endocrine: Reports: no symptoms Hematologic/Lymphatic: Reports: no symptoms Allergies: Coded Allergies: NO KNOWN DRUG ALLERGIES (Unverified Allergy, Unknown, 10/29/14) Subjective no fevers, or chills, no night sweats, obtunded, withdraws to pain Objective Last 24 Hour Vital Signs Date Time Temp Pulse Resp B/P Pulse Ox O2 Delivery O2 Flow Rate FiO2 03/27/17 08:47 111 30 40 03/27/17 08:00 40 03/27/17 08:00 113 03/27/17 07:49 98.9 113 18 142/69 100 Mechanical Ventilator 40 03/27/17 07:20 109 30 100 Mechanical Ventilator 40 03/27/17 07:10 109 30 100 Mechanical Ventilator 40 03/27/17 06:58 109 30 40 03/27/17 06:58 109 30 Mechanical Ventilator 40 03/27/17 05:13 112 28 40 03/27/17 04:00 108 03/27/17 04:00 98.8 115 18 133/84 100 Mechanical Ventilator 40 03/27/17 04:00 40 03/27/17 03:20 114 30 40 03/27/17 01:18 109 25 100 Mechanical Ventilator 03/27/17 01:17 107 25 98 Mechanical Ventilator 03/27/17 01:14 107 25 40 03/27/17 00:00 109 03/27/17 00:00 40 03/26/17 23:50 97.9 90 21 121/96 100 Mechanical Ventilator 40 03/26/17 23:46 98.7 110 26 129/75 100 Mechanical Ventilator 40 03/26/17 23:10 109 22 40 03/26/17 21:09 102 29 40 03/26/17 20:00 98.6 102 34 141/82 100 Mechanical Ventilator 40 03/26/17 20:00 99 03/26/17 20:00 40 03/26/17 19:40 100 28 100 Mechanical Ventilator 03/26/17 19:30 96 20 40 03/26/17 19:30 98 28 99 Mechanical Ventilator 03/26/17 17:15 100 27 40 03/26/17 16:00 40 03/26/17 16:00 98.6 100 32 121/73 100 Mechanical Ventilator 40 03/26/17 16:00 106 03/26/17 14:32 91 20 40 03/26/17 13:04 97 21 100 Mechanical Ventilator 40 03/26/17 12:54 40 03/26/17 12:54 94 21 40 03/26/17 12:54 96 21 99 Mechanical Ventilator 40 03/26/17 12:00 104 03/26/17 12:00 40 03/26/17 12:00 100.8 104 28 106/60 97 Mechanical Ventilator 40 03/26/17 10:33 106 23 40 Intake and Output 03/26/17 03/27/17 19:00 07:00 Intake Total 1785 ml 2017.725 ml Output Total 242 ml 1400 ml Balance 1543 ml 617.725 ml Intake Free Water 100 ml 100 ml IV Total 905 ml 1097.725 ml Tube Feeding 720 ml 720 ml Other 60 ml 100 ml Output Urine Total 240 ml 1400 ml Stool Total 2 ml # Voids 2 # Bowel Movements 2 Laboratory Tests 03/26/17 19:50: Random Amikacin Level 4.6 03/27/17 03:00: White Blood Count 17.0H, Red Blood Count 2.77L, Hemoglobin 8.4L, Hematocrit 25.9L, Mean Corpuscular Volume 93, Mean Corpuscular Hemoglobin 30.5, Mean Corpuscular Hemoglobin Concent 32.7, Red Cell Distribution Width 17.1H, Platelet Count 161, Mean Platelet Volume 7.9, Neutrophils (%) (Auto) 72.8, Lymphocytes (%) (Auto) 14.7L, Monocytes (%) (Auto) 9.9, Eosinophils (%) (Auto) 1.4, Basophils (%) (Auto) 1.1, Sodium Level 141, Potassium Level 4.7, Chloride Level 103, Carbon Dioxide Level 22, Anion Gap 16H, Blood Urea Nitrogen 40H, Creatinine 1.8H, Estimat Glomerular Filtration Rate , Glucose Level 162H, Uric Acid 7.1, Calcium Level 8.9, Phosphorus Level 3.1, Magnesium Level 1.9, Total Bilirubin 0.2, Aspartate Amino Transf (AST/SGOT) 16, Alanine Aminotransferase ( ALT/SGPT) 12, Alkaline Phosphatase 157H, Pro-B-Type Natriuretic Peptide 1310H, Total Protein 8.9H, Albumin 2.7L, Globulin 6.2, Albumin/Globulin Ratio 0.4L Height (Feet): 5 Height (Inches): 6.00 Weight (Pounds): 180 General Appearance: no apparent distress EENT: PERRL/EOMI Neck: non-tender Cardiovascular: normal rate Respiratory/Chest: chest wall non-tender Abdomen: normal bowel sounds Extremities: normal range of motion Edema: no edema noted Leg (L), no edema noted Leg (R), no edema noted Pedal (L) , no edema noted Pedal (R) Neurologic: unresponsive Skin: warm/dry Alexx Sanon Mar 27, 2017 09:52
--- NOTE | 2017-03-27 09:55 | General Progress Note ---
Assessment/Plan Assessment/Plan ASSESSMENT: 1. Recurrent anemia currently better btw 8-10, now improved s/p transfusion and s/p egd in the recent past 2. Anemia secondary to chronic disease based on previous labs, ferritin remains elevated 3. Hx of anemia of iron deficiency 4. Leukocytosis 2/2 likely infection, r/o UTI 5. 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 Hyperferritinemia. 7. Chronic respiratory failure, trach/vent 8. Recanalized superficial femoral clot 9. Urinary tract infection. hx, sepsis now 10. Decubitus ulceration. RECOMMENDATIONS: 1. Patient had recent GI w/u 2. Hgb goAL >7 3. Monitor counts 4. Antibiotics as needed. 5. Breathing treatments prn 6. Pain control. 7. GI followup recs 8. DVT prophylaxis with scds 9. Continue tube feedings. 10. Discussed with staff. Subjective Constitutional: Reports: no symptoms HEENT: Reports: no symptoms Cardiovascular: Reports: no symptoms Respiratory: Reports: no symptoms Gastrointestinal/Abdominal: Reports: no symptoms Genitourinary: Reports: no symptoms Neurologic/Psychiatric: Reports: no symptoms Endocrine: Reports: no symptoms Hematologic/Lymphatic: Reports: anemia Allergies: Coded Allergies: NO KNOWN DRUG ALLERGIES (Unverified Allergy, Unknown, 10/29/14) Subjective no fevers, or chills, no night sweats, on a vent Objective Last 24 Hour Vital Signs Date Time Temp Pulse Resp B/P Pulse Ox O2 Delivery O2 Flow Rate FiO2 03/27/17 08:47 111 30 40 03/27/17 08:00 40 03/27/17 08:00 113 03/27/17 07:49 98.9 113 18 142/69 100 Mechanical Ventilator 40 03/27/17 07:20 109 30 100 Mechanical Ventilator 40 03/27/17 07:10 109 30 100 Mechanical Ventilator 40 03/27/17 06:58 109 30 40 03/27/17 06:58 109 30 Mechanical Ventilator 40 03/27/17 05:13 112 28 40 03/27/17 04:00 108 03/27/17 04:00 98.8 115 18 133/84 100 Mechanical Ventilator 40 03/27/17 04:00 40 03/27/17 03:20 114 30 40 03/27/17 01:18 109 25 100 Mechanical Ventilator 6/13/17 01:17 107 25 98 Mechanical Ventilator 03/27/17 01:14 107 25 40 03/27/17 00:00 109 03/27/17 00:00 40 03/26/17 23:50 97.9 90 21 121/96 100 Mechanical Ventilator 40 03/26/17 23:46 98.7 110 26 129/75 100 Mechanical Ventilator 40 03/26/17 23:10 109 22 40 03/26/17 21:09 102 29 40 03/26/17 20:00 98.6 102 34 141/82 100 Mechanical Ventilator 40 03/26/17 20:00 99 03/26/17 20:00 40 03/26/17 19:40 100 28 100 Mechanical Ventilator 03/26/17 19:30 96 20 40 03/26/17 19:30 98 28 99 Mechanical Ventilator 03/26/17 17:15 100 27 40 03/26/17 16:00 40 03/26/17 16:00 98.6 100 32 121/73 100 Mechanical Ventilator 40 03/26/17 16:00 106 03/26/17 14:32 91 20 40 03/26/17 13:04 97 21 100 Mechanical Ventilator 40 03/26/17 12:54 40 03/26/17 12:54 94 21 40 03/26/17 12:54 96 21 99 Mechanical Ventilator 40 03/26/17 12:00 104 03/26/17 12:00 40 03/26/17 12:00 100.8 104 28 106/60 97 Mechanical Ventilator 40 03/26/17 10:33 106 23 40 Intake and Output 03/26/17 03/27/17 19:00 07:00 Intake Total 1785 ml 2017.725 ml Output Total 242 ml 1400 ml Balance 1543 ml 617.725 ml Intake Free Water 100 ml 100 ml IV Total 905 ml 1097.725 ml Tube Feeding 720 ml 720 ml Other 60 ml 100 ml Output Urine Total 240 ml 1400 ml Stool Total 2 ml # Voids 2 # Bowel Movements 2 Laboratory Tests 03/26/17 19:50: Random Amikacin Level 4.6 03/27/17 03:00: White Blood Count 17.0H, Red Blood Count 2.77L, Hemoglobin 8.4L, Hematocrit 25.9L, Mean Corpuscular Volume 93, Mean Corpuscular Hemoglobin 30.5, Mean Corpuscular Hemoglobin Concent 32.7, Red Cell Distribution Width 17.1H, Platelet Count 161, Mean Platelet Volume 7.9, Neutrophils (%) (Auto) 72.8, Lymphocytes (%) (Auto) 14.7L, Monocytes (%) (Auto) 9.9, Eosinophils (%) (Auto) 1.4, Basophils (%) (Auto) 1.1, Sodium Level 141, Potassium Level 4.7, Chloride Level 103, Carbon Dioxide Level 22, Anion Gap 16H, Blood Urea Nitrogen 40H, Creatinine 1.8H, Estimat Glomerular Filtration Rate , Glucose Level 162H, Uric Acid 7.1, Calcium Level 8.9, Phosphorus Level 3.1, Magnesium Level 1.9, Total Bilirubin 0.2, Aspartate Amino Transf (AST/SGOT) 16, Alanine Aminotransferase ( ALT/SGPT) 12, Alkaline Phosphatase 157H, Pro-B-Type Natriuretic Peptide 1310H, Total Protein 8.9H, Albumin 2.7L, Globulin 6.2, Albumin/Globulin Ratio 0.4L Height (Feet): 5 Height (Inches): 6.00 Weight (Pounds): 180 General Appearance: no apparent distress EENT: normal ENT inspection Neck: normal alignment Cardiovascular: normal rate Respiratory/Chest: chest wall non-tender Abdomen: normal bowel sounds Extremities: non-tender Edema: no edema noted Leg (L), no edema noted Leg (R), no edema noted Pedal (L) Neurologic: rib cutter II-XII grossly normal Skin: warm/dry Alexx Sanon Mar 27, 2017 09:55
--- NOTE | 2017-03-27 10:31 | General Progress Note ---
Assessment/Plan Status: stable - from renal stand Status Narrative WBCs higher- Cr stable Assessment/Plan status: Acute Renal Failure- with high K- Pre Renal / Super Imposed on Renal Respiratory failure- UTI / Sepsis h/o Anemia Decubs h/o DVT Other conditions: 1. Acute on chronic respiratory failure. 2. h/o Severe sepsis. 3. Ventilator-dependent respiratory failure. 4. Chronic obstructive pulmonary disease. 5. History of deep venous thrombosis. 6. Hypoalbuminemia. 7. h/o Clostridium difficile colitis. 8. Pressure ulcers on sacrococcygeal down to buttocks, right ischial tuberosity, and right heel and right trochanter present on admission. 9. h/o Urinary tract infection, Proteus mirabilis. 10. h/o Acute deep venous thrombosis of the right lower extremity, on heparin and bridged to Coumadin. 11. Tracheostomy status. 12. Gastrostomy tube feeding. 13. Diabetes mellitus. Plan: Per ID Slow IV hydration- BS control- keep BP under control- Avoid Nephrotoxics- monitor lytes and renal parameters- Subjective ROS Limited/Unobtainable: Yes Allergies: Coded Allergies: NO KNOWN DRUG ALLERGIES (Unverified Allergy, Unknown, 10/29/14) Objective Last 24 Hour Vital Signs Date Time Temp Pulse Resp B/P Pulse Ox O2 Delivery O2 Flow Rate FiO2 03/27/17 08:47 111 30 40 03/27/17 08:00 40 03/27/17 08:00 113 03/27/17 07:49 98.9 113 18 142/69 100 Mechanical Ventilator 40 03/27/17 07:20 109 30 100 Mechanical Ventilator 40 03/27/17 07:10 109 30 100 Mechanical Ventilator 40 03/27/17 06:58 109 30 40 03/27/17 06:58 109 30 Mechanical Ventilator 40 03/27/17 05:13 112 28 40 03/27/17 04:00 108 03/27/17 04:00 98.8 115 18 133/84 100 Mechanical Ventilator 40 03/27/17 04:00 40 03/27/17 03:20 114 30 40 03/27/17 01:18 109 25 100 Mechanical Ventilator 03/27/17 01:17 107 25 98 Mechanical Ventilator 03/27/17 01:14 107 25 40 03/27/17 00:00 109 03/27/17 00:00 40 03/26/17 23:50 97.9 90 21 121/96 100 Mechanical Ventilator 40 03/26/17 23:46 98.7 110 26 129/75 100 Mechanical Ventilator 40 03/26/17 23:10 109 22 40 03/26/17 21:09 102 29 40 03/26/17 20:00 98.6 102 34 141/82 100 Mechanical Ventilator 40 03/26/17 20:00 99 03/26/17 20:00 40 03/26/17 19:40 100 28 100 Mechanical Ventilator 03/26/17 19:30 96 20 40 03/26/17 19:30 98 28 99 Mechanical Ventilator 03/26/17 17:15 100 27 40 03/26/17 16:00 40 03/26/17 16:00 98.6 100 32 121/73 100 Mechanical Ventilator 40 03/26/17 16:00 106 03/26/17 14:32 91 20 40 03/26/17 13:04 97 21 100 Mechanical Ventilator 40 03/26/17 12:54 40 03/26/17 12:54 94 21 40 03/26/17 12:54 96 21 99 Mechanical Ventilator 40 03/26/17 12:00 104 03/26/17 12:00 40 03/26/17 12:00 100.8 104 28 106/60 97 Mechanical Ventilator 40 03/26/17 10:33 106 23 40 Intake and Output 03/26/17 03/27/17 19:00 07:00 Intake Total 1785 ml 2017.725 ml Output Total 242 ml 1400 ml Balance 1543 ml 617.725 ml Intake Free Water 100 ml 100 ml IV Total 905 ml 1097.725 ml Tube Feeding 720 ml 720 ml Other 60 ml 100 ml Output Urine Total 240 ml 1400 ml Stool Total 2 ml # Voids 2 # Bowel Movements 2 Laboratory Tests 03/26/17 19:50: Random Amikacin Level 4.6 03/27/17 03:00: White Blood Count 17.0H, Red Blood Count 2.77L, Hemoglobin 8.4L, Hematocrit 25.9L, Mean Corpuscular Volume 93, Mean Corpuscular Hemoglobin 30.5, Mean Corpuscular Hemoglobin Concent 32.7, Red Cell Distribution Width 17.1H, Platelet Count 161, Mean Platelet Volume 7.9, Neutrophils (%) (Auto) 72.8, Lymphocytes (%) (Auto) 14.7L, Monocytes (%) (Auto) 9.9, Eosinophils (%) (Auto) 1.4, Basophils (%) (Auto) 1.1, Sodium Level 141, Potassium Level 4.7, Chloride Level 103, Carbon Dioxide Level 22, Anion Gap 16H, Blood Urea Nitrogen 40H, Creatinine 1.8H, Estimat Glomerular Filtration Rate , Glucose Level 162H, Uric Acid 7.1, Calcium Level 8.9, Phosphorus Level 3.1, Magnesium Level 1.9, Total Bilirubin 0.2, Aspartate Amino Transf (AST/SGOT) 16, Alanine Aminotransferase ( ALT/SGPT) 12, Alkaline Phosphatase 157H, Pro-B-Type Natriuretic Peptide 1310H, Total Protein 8.9H, Albumin 2.7L, Globulin 6.2, Albumin/Globulin Ratio 0.4L Height (Feet): 5 Height (Inches): 6.00 Weight (Pounds): 180 General Appearance: no apparent distress Objective no change COLTEN DIEGO Mar 27, 2017 10:31
--- NOTE | 2017-03-27 11:25 | Pulmonology Progress Note ---
Assessment/Plan Problems: (1) Chronic respiratory failure (2) Sepsis (3) Pneumonia (4) Severe sepsis (5) ARF (acute renal failure) (6) Feeding by G-tube (7) Dementia Respiratory: monitor respiratory rate, adjust FIO2 Cardiac: continue pressors Renal: F/U I&O, keep IV fluid Infectious Disease: check cultures Gastrointestinal: hold feedings Endocrine: check TSH Hematologic: monitor H/H, transfuse if hgb<8.5 Neurologic: PRN Ativan, keep patient comfortable Affect: PRN ativan Disposition: keep in ICU Time Spent (Minutes): 30 Notes Reviewed: soap chipper, renal Discussed with: consultants, behavioral health case manager Subjective ROS Limited/Unobtainable: No Constitutional: Reports: no symptoms Respiratory: Reports: no symptoms Allergies: Coded Allergies: NO KNOWN DRUG ALLERGIES (Unverified Allergy, Unknown, 10/29/14) Objective Last 24 Hour Vital Signs Date Time Temp Pulse Resp B/P Pulse Ox O2 Delivery O2 Flow Rate FiO2 03/27/17 08:47 111 30 40 03/27/17 08:00 40 03/27/17 08:00 113 03/27/17 07:49 98.9 113 18 142/69 100 Mechanical Ventilator 40 03/27/17 07:20 109 30 100 Mechanical Ventilator 40 03/27/17 07:10 109 30 100 Mechanical Ventilator 40 03/27/17 06:58 109 30 40 03/27/17 06:58 109 30 Mechanical Ventilator 40 03/27/17 05:13 112 28 40 03/27/17 04:00 108 03/27/17 04:00 98.8 115 18 133/84 100 Mechanical Ventilator 40 03/27/17 04:00 40 03/27/17 03:20 114 30 40 03/27/17 01:18 109 25 100 Mechanical Ventilator 03/27/17 01:17 107 25 98 Mechanical Ventilator 03/27/17 01:14 107 25 40 03/27/17 00:00 109 03/27/17 00:00 40 03/26/17 23:50 97.9 90 21 121/96 100 Mechanical Ventilator 40 03/26/17 23:46 98.7 110 26 129/75 100 Mechanical Ventilator 40 03/26/17 23:10 109 22 40 03/26/17 21:09 102 29 40 03/26/17 20:00 98.6 102 34 141/82 100 Mechanical Ventilator 40 03/26/17 20:00 99 03/26/17 20:00 40 03/26/17 19:40 100 28 100 Mechanical Ventilator 03/26/17 19:30 96 20 40 03/26/17 19:30 98 28 99 Mechanical Ventilator 03/26/17 17:15 100 27 40 03/26/17 16:00 40 03/26/17 16:00 98.6 100 32 121/73 100 Mechanical Ventilator 40 03/26/17 16:00 106 03/26/17 14:32 91 20 40 03/26/17 13:04 97 21 100 Mechanical Ventilator 40 03/26/17 12:54 40 03/26/17 12:54 94 21 40 03/26/17 12:54 96 21 99 Mechanical Ventilator 40 03/26/17 12:00 104 03/26/17 12:00 40 03/26/17 12:00 100.8 104 28 106/60 97 Mechanical Ventilator 40 Intake and Output 03/26/17 03/27/17 19:00 07:00 Intake Total 1785 ml 2017.725 ml Output Total 242 ml 1400 ml Balance 1543 ml 617.725 ml Intake Free Water 100 ml 100 ml IV Total 905 ml 1097.725 ml Tube Feeding 720 ml 720 ml Other 60 ml 100 ml Output Urine Total 240 ml 1400 ml Stool Total 2 ml # Voids 2 # Bowel Movements 2 Objective Lines, tubes and drains: peripheral HEENT: normocephalic, atraumatic Neck: non-tender, normal alignment Respiratory/Chest: chest wall non-tender, lungs clear Breasts: no masses Cardiovascular/Chest: normal peripheral pulses Abdomen: normal bowel sounds, non tender Genitourinary/Rectal: normal genital exam Extremities: normal range of motion Laboratory Tests 03/26/17 19:50: Random Amikacin Level 4.6 03/27/17 03:00: White Blood Count 17.0H, Red Blood Count 2.77L, Hemoglobin 8.4L, Hematocrit 25.9L, Mean Corpuscular Volume 93, Mean Corpuscular Hemoglobin 30.5, Mean Corpuscular Hemoglobin Concent 32.7, Red Cell Distribution Width 17.1H, Platelet Count 161, Mean Platelet Volume 7.9, Neutrophils (%) (Auto) 72.8, Lymphocytes (%) (Auto) 14.7L, Monocytes (%) (Auto) 9.9, Eosinophils (%) (Auto) 1.4, Basophils (%) (Auto) 1.1, Sodium Level 141, Potassium Level 4.7, Chloride Level 103, Carbon Dioxide Level 22, Anion Gap 16H, Blood Urea Nitrogen 40H, Creatinine 1.8H, Estimat Glomerular Filtration Rate , Glucose Level 162H, Uric Acid 7.1, Calcium Level 8.9, Phosphorus Level 3.1, Magnesium Level 1.9, Total Bilirubin 0.2, Aspartate Amino Transf (AST/SGOT) 16, Alanine Aminotransferase ( ALT/SGPT) 12, Alkaline Phosphatase 157H, Pro-B-Type Natriuretic Peptide 1310H, Total Protein 8.9H, Albumin 2.7L, Globulin 6.2, Albumin/Globulin Ratio 0.4L Current Medications Medications (Trade) Dose Ordered Sig/Shubham Route PRN Reason Start Time Stop Time Status Last Admin Dose Admin Acetaminophen (Tylenol) 650 mg Q4H PRN GT Mild Pain/Temp > 100.5 03/22/17 16:00 04/21/17 15:59 Albuterol Sulfate (Proventil) 2.5 mg Q2H PRN IN-LINE Shortness of Breath 03/22/17 16:00 03/27/17 15:59 Albuterol Sulfate (Proventil) 2.5 mg Q6HRT IN-LINE 03/22/17 19:00 03/27/17 18:59 03/27/17 07:10 Amikacin Protocol 1 ea 1 ea DAILY PRN MISC Per rx protocol 03/23/17 16:45 04/22/17 16:44 Amikacin Sulfate 500 mg/Sodium Chloride 57 ml @ 114 mls/hr Q36H IV 03/27/17 00:00 04/03/17 00:00 03/26/17 23:36 Ascorbic Acid (Vitamin C) 500 mg TID GT 03/22/17 18:00 04/21/17 17:59 03/27/17 08:36 Chlorhexidine Gluconate (Janina-Hex 2%) 1 applic DAILY TOPIC 03/23/17 09:00 04/22/17 08:59 03/27/17 09:11 Dextrose (Dextrose 50%) STAT PRN IV Hypoglycemia 03/22/17 18:45 04/21/17 18:44 Docusate Sodium (Colace) 100 mg TWICE A DAY GT 03/22/17 18:00 04/21/17 17:59 03/25/17 17:26 Finasteride (Proscar) 5 mg DAILY GT 03/23/17 09:00 04/22/17 08:59 03/27/17 08:36 Insulin Aspart (NovoLOG) EVERY 6 HOURS SUBQ 03/23/17 00:00 04/22/17 00:00 03/27/17 05:30 Insulin Detemir (Levemir) 38 units EVERY 12 HOURS SUBQ 03/22/17 21:00 04/21/17 20:59 03/27/17 08:38 Lactulose (Cephulac) 30 gm TID GT 03/22/17 18:00 04/21/17 17:59 03/25/17 17:26 Lansoprazole (Prevacid) 30 mg DAILY GT 03/23/17 09:00 04/22/17 08:59 03/27/17 08:36 Linezolid (Zyvox) 300 ml @ 300 mls/hr Q12HR IVPB 03/27/17 11:00 04/03/17 10:59 03/27/17 10:41 Meropenem 1 gm/ Sodium Chloride 110 ml @ 220 mls/hr Q12HR IVPB 03/26/17 21:00 03/31/17 20:59 03/27/17 09:11 Multivitamins (Multivitamins W/ Minerals 15ml Liquid) 15 ml DAILY GT 03/23/17 09:00 04/22/17 08:59 03/27/17 08:36 Rifampin (Rifadin) 300 mg EVERY 12 HOURS ORAL 03/27/17 11:00 04/26/17 10:59 03/27/17 10:41 Sodium Chloride 1,000 ml @ 50 mls/hr Q20H IV 03/25/17 12:00 04/24/17 11:59 03/27/17 04:00 MICH FONSECA Mar 27, 2017 11:25
[2017-03-27 12:00] VITALS: BP 152/82
--- NOTE | 2017-03-27 12:58 | Diagnostic Imaging Report ---
APPROVED REPORT CPT Code: 71128 Present Symptoms Shortness of breath Comments: Technically difficult study (bilateral contractures of the hip) RIGHT LEG: Venous imaging reveals recanalized chronic thrombus in the superficial femoral vein. Large collateral vein noted anterior to the superficial femoral artery. The remainder of the deep venous system is within normal limits. There is no evidence of thrombus in the common femoral, popliteal or calf veins. The greater saphenous vein is also within normal limits. Doppler indicates normal spontaneous flow within these segments. LEFT LEG: Venous imaging reveals a patent deep venous system. There is no evidence of thrombus within the femoral, popliteal or tibial segments. The greater saphenous vein is also within normal limits. Doppler indicates normal spontaneous flow within these segments. There is no evidence of acute deep vein thrombosis.
--- NOTE | 2017-03-27 13:09 | General Progress Note ---
Assessment/Plan Problem List: (1) Bacteriuria ICD Codes: N39.0 - Bacteriuria SNOMED: 97428485 (2) Respiratory insufficiency ICD Codes: R06.89 - Other abnormalities of breathing SNOMED: 901187886 (3) Azotemia ICD Codes: R79.89 - Other specified abnormal findings of blood chemistry SNOMED: 749069206 (4) Sepsis ICD Codes: A41.9 - Sepsis, unspecified organism SNOMED: 41963028 (5) Acute and chronic respiratory failure (kgsqg-yn-ovowmry) ICD Codes: J96.20 - Acute and chronic respiratory failure (zjxdm-gl-dimmdqd) SNOMED: 64006912 (6) HTN (hypertension) ICD Codes: I10 - HTN (hypertension) SNOMED: 92936642 (7) ARF (acute renal failure) ICD Codes: N17.9 - ARF (acute renal failure) SNOMED: 87672579 Status: progressing Assessment/Plan sepsis uti afebrle vitals stable no wheezing worsening leukocytosis anemia still present discussed w id re elev wbx r/o line sepsis change of line per id Subjective ROS Limited/Unobtainable: Yes Constitutional: Reports: no symptoms Allergies: Coded Allergies: NO KNOWN DRUG ALLERGIES (Unverified Allergy, Unknown, 10/29/14) Objective Last 24 Hour Vital Signs Date Time Temp Pulse Resp B/P Pulse Ox O2 Delivery O2 Flow Rate FiO2 03/27/17 12:51 109 31 40 03/27/17 12:51 109 31 100 Mechanical Ventilator 40 03/27/17 12:00 98.8 109 22 152/82 100 Mechanical Ventilator 40 03/27/17 12:00 40 03/27/17 12:00 110 03/27/17 11:27 109 28 40 03/27/17 08:47 111 30 40 03/27/17 08:00 40 03/27/17 08:00 113 03/27/17 07:49 98.9 113 18 142/69 100 Mechanical Ventilator 40 03/27/17 07:20 109 30 100 Mechanical Ventilator 40 03/27/17 07:10 109 30 100 Mechanical Ventilator 40 03/27/17 06:58 109 30 40 03/27/17 06:58 109 30 Mechanical Ventilator 40 03/27/17 05:13 112 28 40 03/27/17 04:00 108 03/27/17 04:00 98.8 115 18 133/84 100 Mechanical Ventilator 40 03/27/17 04:00 40 03/27/17 03:20 114 30 40 03/27/17 01:18 109 25 100 Mechanical Ventilator 03/27/17 01:17 107 25 98 Mechanical Ventilator 03/27/17 01:14 107 25 40 03/27/17 00:00 109 03/27/17 00:00 40 03/26/17 23:50 97.9 90 21 121/96 100 Mechanical Ventilator 40 03/26/17 23:46 98.7 110 26 129/75 100 Mechanical Ventilator 40 03/26/17 23:10 109 22 40 03/26/17 21:09 102 29 40 03/26/17 20:00 98.6 102 34 141/82 100 Mechanical Ventilator 40 03/26/17 20:00 99 03/26/17 20:00 40 03/26/17 19:40 100 28 100 Mechanical Ventilator 03/26/17 19:30 96 20 40 03/26/17 19:30 98 28 99 Mechanical Ventilator 03/26/17 17:15 100 27 40 03/26/17 16:00 40 03/26/17 16:00 98.6 100 32 121/73 100 Mechanical Ventilator 40 03/26/17 16:00 106 03/26/17 14:32 91 20 40 Intake and Output 03/26/17 03/27/17 19:00 07:00 Intake Total 1785 ml 2017.725 ml Output Total 242 ml 1400 ml Balance 1543 ml 617.725 ml Intake Free Water 100 ml 100 ml IV Total 905 ml 1097.725 ml Tube Feeding 720 ml 720 ml Other 60 ml 100 ml Output Urine Total 240 ml 1400 ml Stool Total 2 ml # Voids 2 # Bowel Movements 2 Laboratory Tests 03/26/17 19:50: Random Amikacin Level 4.6 03/27/17 03:00: White Blood Count 17.0H, Red Blood Count 2.77L, Hemoglobin 8.4L, Hematocrit 25.9L, Mean Corpuscular Volume 93, Mean Corpuscular Hemoglobin 30.5, Mean Corpuscular Hemoglobin Concent 32.7, Red Cell Distribution Width 17.1H, Platelet Count 161, Mean Platelet Volume 7.9, Neutrophils (%) (Auto) 72.8, Lymphocytes (%) (Auto) 14.7L, Monocytes (%) (Auto) 9.9, Eosinophils (%) (Auto) 1.4, Basophils (%) (Auto) 1.1, Sodium Level 141, Potassium Level 4.7, Chloride Level 103, Carbon Dioxide Level 22, Anion Gap 16H, Blood Urea Nitrogen 40H, Creatinine 1.8H, Estimat Glomerular Filtration Rate , Glucose Level 162H, Uric Acid 7.1, Calcium Level 8.9, Phosphorus Level 3.1, Magnesium Level 1.9, Total Bilirubin 0.2, Aspartate Amino Transf (AST/SGOT) 16, Alanine Aminotransferase ( ALT/SGPT) 12, Alkaline Phosphatase 157H, Pro-B-Type Natriuretic Peptide 1310H, Total Protein 8.9H, Albumin 2.7L, Globulin 6.2, Albumin/Globulin Ratio 0.4L Height (Feet): 5 Height (Inches): 6.00 Weight (Pounds): 180 General Appearance: confused Neck: supple Respiratory/Chest: lungs clear David Bowie MD Mar 27, 2017 13:09
--- NOTE | 2017-03-27 14:35 | Infectious Diseases Prog Note ---
Assessment/Plan Problems: (1) Severe sepsis Assessment & Plan: with MDR Acinetobacter baumannii and MRSA . await 2D echo to rule out endocarditis . continue amikacin with meropenem for double coverage , and restart zyvox since his wbc went up and also his creatinine after switching to vancomycin to cover for MRSA bacteremia . PICC line could be the source , will repeat blood culture to confirm clearance and take the picc line out as soon as possible . (2) UTI (urinary tract infection) Assessment & Plan: due to pseudomonas aeruginosa, and enterococcus faecalis , already on amikacin and zyvox for bacteremia (3) Pneumonia Assessment & Plan: improving on wide spectrum antibiotics , monitor CXR (4) Acute renal failure Assessment & Plan: improving, due to the above, continue IVF for hydration, monitor UOP, renal is following (5) Pressure ulcer Assessment & Plan: continue local wound care, and off loading, consult wound care (6) Chronic respiratory failure Assessment & Plan: with trach, on mechanical ventilation, monitor ABG Subjective ROS Limited/Unobtainable: Yes Allergies: Coded Allergies: NO KNOWN DRUG ALLERGIES (Unverified Allergy, Unknown, 10/29/14) Subjective he is lying in bed, comfortable, afebrile, on mechanical ventilation , not in acute distress Objective Vital Signs Last 24 Hour Vital Signs Date Time Temp Pulse Resp B/P Pulse Ox O2 Delivery O2 Flow Rate FiO2 03/27/17 13:01 109 31 100 Mechanical Ventilator 40 03/27/17 12:51 109 31 40 03/27/17 12:51 109 31 100 Mechanical Ventilator 40 03/27/17 12:00 98.8 109 22 152/82 100 Mechanical Ventilator 40 03/27/17 12:00 40 03/27/17 12:00 110 03/27/17 11:27 109 28 40 03/27/17 08:47 111 30 40 03/27/17 08:00 40 03/27/17 08:00 113 03/27/17 07:49 98.9 113 18 142/69 100 Mechanical Ventilator 40 03/27/17 07:20 109 30 100 Mechanical Ventilator 40 03/27/17 07:10 109 30 100 Mechanical Ventilator 40 03/27/17 06:58 109 30 40 03/27/17 06:58 109 30 Mechanical Ventilator 40 03/27/17 05:13 112 28 40 03/27/17 04:00 108 03/27/17 04:00 98.8 115 18 133/84 100 Mechanical Ventilator 40 03/27/17 04:00 40 03/27/17 03:20 114 30 40 03/27/17 01:18 109 25 100 Mechanical Ventilator 03/27/17 01:17 107 25 98 Mechanical Ventilator 03/27/17 01:14 107 25 40 03/27/17 00:00 109 03/27/17 00:00 40 03/26/17 23:50 97.9 90 21 121/96 100 Mechanical Ventilator 40 03/26/17 23:46 98.7 110 26 129/75 100 Mechanical Ventilator 40 03/26/17 23:10 109 22 40 03/26/17 21:09 102 29 40 03/26/17 20:00 98.6 102 34 141/82 100 Mechanical Ventilator 40 03/26/17 20:00 99 03/26/17 20:00 40 03/26/17 19:40 100 28 100 Mechanical Ventilator 03/26/17 19:30 96 20 40 03/26/17 19:30 98 28 99 Mechanical Ventilator 03/26/17 17:15 100 27 40 03/26/17 16:00 40 03/26/17 16:00 98.6 100 32 121/73 100 Mechanical Ventilator 40 03/26/17 16:00 106 Height (Feet): 5 Height (Inches): 6.00 Weight (Pounds): 180 General Appearance: WD/WN, no acute distress HEENT: normocephalic, atraumatic, anicteric Respiratory/Chest: chest wall non-tender, normal breath sounds, no respiratory distress, no accessory muscle use, decreased breath sounds Cardiovascular: normal peripheral pulses, normal rate, regular rhythm, no gallop/murmur, no JVD Abdomen: normal bowel sounds, soft, non tender, no organomegaly, non distended , no mass Extremities: no cyanosis, no clubbing Skin: no rash, no lesions, ulcers Laboratory Tests Test 03/26/17 19:50 03/27/17 03:00 Random Amikacin Level 4.6 ug/mL White Blood Count 17.0 K/UL (4.8-10.8) H Red Blood Count 2.77 M/UL (4.70-6.10) L Hemoglobin 8.4 G/DL (14.2-18.0) L Hematocrit 25.9 % (42.0-52.0) L Mean Corpuscular Volume 93 FL (80-99) Mean Corpuscular Hemoglobin 30.5 PG (27.0-31.0) Mean Corpuscular Hemoglobin Concent 32.7 G/DL (32.0-36.0) Red Cell Distribution Width 17.1 % (11.6-14.8) H Platelet Count 161 K/UL (150-450) Mean Platelet Volume 7.9 FL (6.5-10.1) Neutrophils (%) (Auto) 72.8 % (45.0-75.0) Lymphocytes (%) (Auto) 14.7 % (20.0-45.0) L Monocytes (%) (Auto) 9.9 % (1.0-10.0) Eosinophils (%) (Auto) 1.4 % (0.0-3.0) Basophils (%) (Auto) 1.1 % (0.0-2.0) Sodium Level 141 mEQ/L (135-145) Potassium Level 4.7 mEQ/L (3.4-4.9) Chloride Level 103 mEQ/L (98-107) Carbon Dioxide Level 22 mEQ/L (20-30) Anion Gap 16 (5-15) H Blood Urea Nitrogen 40 mg/dL (7-23) H Creatinine 1.8 mg/dL (0.7-1.2) H Estimat Glomerular Filtration Rate mL/min (>60) Glucose Level 162 mg/dL (74-106) H Uric Acid 7.1 mg/dL (3.0-7.5) Calcium Level 8.9 mg/dL (8.6-10.2) Phosphorus Level 3.1 mg/dL (2.5-4.8) Magnesium Level 1.9 mg/dL (1.7-2.5) Total Bilirubin 0.2 mg/dL (0.0-1.2) Aspartate Amino Transf (AST/SGOT) 16 U/L (5-40) Alanine Aminotransferase (ALT/SGPT) 12 U/L (3-41) Alkaline Phosphatase 157 U/L (40-129) H Pro-B-Type Natriuretic Peptide 1310 pg/mL (0-450) H Total Protein 8.9 g/dL (6.6-8.7) H Albumin 2.7 g/dL (3.5-5.2) L Globulin 6.2 g/dL Albumin/Globulin Ratio 0.4 (1.0-2.7) L Current Medications Medications (Trade) Dose Ordered Sig/Shubham Route PRN Reason Start Time Stop Time Status Last Admin Dose Admin Acetaminophen (Tylenol) 650 mg Q4H PRN GT Mild Pain/Temp > 100.5 03/22/17 16:00 04/21/17 15:59 Albuterol Sulfate (Proventil) 2.5 mg Q2H PRN IN-LINE Shortness of Breath 03/22/17 16:00 03/27/17 15:59 Albuterol Sulfate (Proventil) 2.5 mg Q6HRT IN-LINE 03/22/17 19:00 03/27/17 18:59 03/27/17 12:54 Amikacin Protocol 1 ea 1 ea DAILY PRN MISC Per rx protocol 03/23/17 16:45 04/22/17 16:44 Amikacin Sulfate 500 mg/Sodium Chloride 57 ml @ 114 mls/hr Q36H IV 03/27/17 00:00 04/03/17 00:00 03/26/17 23:36 Ascorbic Acid (Vitamin C) 500 mg TID GT 03/22/17 18:00 04/21/17 17:59 03/27/17 12:47 Chlorhexidine Gluconate (Janina-Hex 2%) 1 applic DAILY TOPIC 03/23/17 09:00 04/22/17 08:59 03/27/17 09:11 Dextrose (Dextrose 50%) STAT PRN IV Hypoglycemia 03/22/17 18:45 04/21/17 18:44 Docusate Sodium (Colace) 100 mg TWICE A DAY GT 03/22/17 18:00 04/21/17 17:59 03/25/17 17:26 Finasteride (Proscar) 5 mg DAILY GT 03/23/17 09:00 04/22/17 08:59 03/27/17 08:36 Insulin Aspart (NovoLOG) EVERY 6 HOURS SUBQ 03/23/17 00:00 04/22/17 00:00 03/27/17 12:46 Insulin Detemir (Levemir) 38 units EVERY 12 HOURS SUBQ 03/22/17 21:00 04/21/17 20:59 03/27/17 08:38 Lactulose (Cephulac) 30 gm TID GT 03/22/17 18:00 04/21/17 17:59 03/25/17 17:26 Lansoprazole (Prevacid) 30 mg DAILY GT 03/23/17 09:00 04/22/17 08:59 03/27/17 08:36 Linezolid (Zyvox) 300 ml @ 300 mls/hr Q12HR IVPB 03/27/17 11:00 04/03/17 10:59 03/27/17 10:41 Meropenem 1 gm/ Sodium Chloride 110 ml @ 220 mls/hr Q12HR IVPB 03/26/17 21:00 03/31/17 20:59 03/27/17 09:11 Multivitamins (Multivitamins W/ Minerals 15ml Liquid) 15 ml DAILY GT 03/23/17 09:00 04/22/17 08:59 03/27/17 08:36 Rifampin (Rifadin) 300 mg EVERY 12 HOURS ORAL 03/27/17 11:00 04/26/17 10:59 03/27/17 10:41 Sodium Chloride 1,000 ml @ 50 mls/hr Q20H IV 03/25/17 12:00 04/24/17 11:59 03/27/17 04:00 Kacey Olivo M.D. Mar 27, 2017 14:35
[2017-03-27 15:54] VITALS: BP 118/69
--- NOTE | 2017-03-27 18:05 | Cardiology Report ---
APPROVED REPORT EXAM: Two-dimensional and M-mode echocardiogram with Doppler and color Doppler. INDICATION Endocarditis M-Mode DIMENSIONS IVSd0.8 (0.7-1.1cm)Left Atrium (MM)6.4 (1.6-4.0cm) LVDd4.1 (3.5-5.6cm)Aortic Root2.3 (2.0-3.7cm) PWd1.0 (0.7-1.1cm)Aortic Cusp Exc.1.5 (1.5-2.0cm) IVSs2.3 cm LVDs1.5 (2.5-4.0cm) PWs2.0 cm Technically difficult and limited study due to poor acoustic windows and patient on ventilator. Study quality precludes accurate assessment of regional wall motion AND VALVE DETAIL . M-mode measurements not obtained due to cardiac posistion. Normal left ventricular chamber size, systolic function and wall motion. Left ventricular ejection fraction estimated to be 60 %. No evidence of ventricular hypertrophy. Anterior Echo-free space, may be due to pericardial fat or effusion. All other cardiac chamber sizes are within normal limits. Mild focal aortic valve sclerosis with adequate cusp excursion. Mildly thickened mitral valve leaflets with normal excursion. Mild mitral annulus and aortic root calcification. Pulmonic valve not well visualized. Normal tricuspid valve structure. Subcostal views not obtainable due to GI tube. No discrete vegetations seen, however SBE may not be excluded by THIS transthoracic 2-D echo. A color flow and spectral Doppler study was performed and revealed: Trace aortic regurgitation. Trace mitral regurgitation. Mitral diastolic velocities suggest reduced left ventricular relaxation (Grade I). Trace tricuspid regurgitation. No pulmonic regurgitation present.
--- NOTE | 2017-03-27 18:31 | General Progress Note ---
Assessment/Plan Assessment/Plan Assessment - dysphagia - s/p PEG and Trach - chronic abd distention - Anemia - Leukocytosis - Renal failure - Resp failure - poor px Recommendations - continue TF - GT care - bowel regimen - watch labs - elevate HOB - DVT prophylaxis Subjective Allergies: Coded Allergies: NO KNOWN DRUG ALLERGIES (Unverified Allergy, Unknown, 10/29/14) Subjective Above noted stable overnight tolerating TF Objective Last 24 Hour Vital Signs Date Time Temp Pulse Resp B/P Pulse Ox O2 Delivery O2 Flow Rate FiO2 03/27/17 16:37 86 38 40 03/27/17 16:00 100 03/27/17 16:00 40 03/27/17 15:54 97.6 103 20 118/69 100 Mechanical Ventilator 40 03/27/17 14:40 103 22 40 03/27/17 13:01 109 31 100 Mechanical Ventilator 40 03/27/17 12:51 109 31 40 03/27/17 12:51 109 31 100 Mechanical Ventilator 40 03/27/17 12:00 98.8 109 22 152/82 100 Mechanical Ventilator 40 03/27/17 12:00 40 03/27/17 12:00 110 03/27/17 11:27 109 28 40 03/27/17 08:47 111 30 40 03/27/17 08:00 40 03/27/17 08:00 113 03/27/17 07:49 98.9 113 18 142/69 100 Mechanical Ventilator 40 03/27/17 07:20 109 30 100 Mechanical Ventilator 40 03/27/17 07:10 109 30 100 Mechanical Ventilator 40 03/27/17 06:58 109 30 40 03/27/17 06:58 109 30 Mechanical Ventilator 40 03/27/17 05:13 112 28 40 03/27/17 04:00 108 03/27/17 04:00 98.8 115 18 133/84 100 Mechanical Ventilator 40 03/27/17 04:00 40 03/27/17 03:20 114 30 40 03/27/17 01:18 109 25 100 Mechanical Ventilator 03/27/17 01:17 107 25 98 Mechanical Ventilator 03/27/17 01:14 107 25 40 03/27/17 00:00 109 03/27/17 00:00 40 03/26/17 23:50 97.9 90 21 121/96 100 Mechanical Ventilator 40 03/26/17 23:46 98.7 110 26 129/75 100 Mechanical Ventilator 40 03/26/17 23:10 109 22 40 03/26/17 21:09 102 29 40 03/26/17 20:00 98.6 102 34 141/82 100 Mechanical Ventilator 40 03/26/17 20:00 99 03/26/17 20:00 40 03/26/17 19:40 100 28 100 Mechanical Ventilator 03/26/17 19:30 96 20 40 03/26/17 19:30 98 28 99 Mechanical Ventilator Intake and Output 03/26/17 03/27/17 19:00 07:00 Intake Total 1785 ml 2017.725 ml Output Total 242 ml 1400 ml Balance 1543 ml 617.725 ml Intake Free Water 100 ml 100 ml IV Total 905 ml 1097.725 ml Tube Feeding 720 ml 720 ml Other 60 ml 100 ml Output Urine Total 240 ml 1400 ml Stool Total 2 ml # Voids 2 # Bowel Movements 2 Laboratory Tests 03/26/17 19:50: Random Amikacin Level 4.6 03/27/17 03:00: White Blood Count 17.0H, Red Blood Count 2.77L, Hemoglobin 8.4L, Hematocrit 25.9L, Mean Corpuscular Volume 93, Mean Corpuscular Hemoglobin 30.5, Mean Corpuscular Hemoglobin Concent 32.7, Red Cell Distribution Width 17.1H, Platelet Count 161, Mean Platelet Volume 7.9, Neutrophils (%) (Auto) 72.8, Lymphocytes (%) (Auto) 14.7L, Monocytes (%) (Auto) 9.9, Eosinophils (%) (Auto) 1.4, Basophils (%) (Auto) 1.1, Sodium Level 141, Potassium Level 4.7, Chloride Level 103, Carbon Dioxide Level 22, Anion Gap 16H, Blood Urea Nitrogen 40H, Creatinine 1.8H, Estimat Glomerular Filtration Rate , Glucose Level 162H, Uric Acid 7.1, Calcium Level 8.9, Phosphorus Level 3.1, Magnesium Level 1.9, Total Bilirubin 0.2, Aspartate Amino Transf (AST/SGOT) 16, Alanine Aminotransferase ( ALT/SGPT) 12, Alkaline Phosphatase 157H, Pro-B-Type Natriuretic Peptide 1310H, Total Protein 8.9H, Albumin 2.7L, Globulin 6.2, Albumin/Globulin Ratio 0.4L Height (Feet): 5 Height (Inches): 6.00 Weight (Pounds): 180 Objective Elderly WM obtunded NCAT (+) trach coarse BS RRR abd distended, tympanitic, GT in good position no edema OBS/obtunded MARIAH HOOVER Mar 27, 2017 18:31
[2017-03-27 20:00] VITALS: BP 117/72
[2017-03-27] MEDS ORDERED: Vancomycin 1gm/D5W 275ml IVPB SCH ×2 (22:00)
[2017-03-28] VITALS (7 sets, daily range): BP systolic 115–146; BP diastolic 66–78
[2017-03-28] MEDS: NovoLOG Insulin Flexpen SUBQ SCH ×5 (00:10→23:02)
[2017-03-28] MEDS: Lactulose 20gm/30ml UDC GT SCH ×3 (09:00→16:36)
[2017-03-28] MEDS: Docusate 100mg/10ml Liq GT SCH ×2 (09:00→16:36)
[2017-03-28] MEDS: Multivitamins W/Minerals 15 ML UDC GT SCH (09:02)
[2017-03-28] MEDS: Ascorbic Acid 500mg tab GT SCH ×3 (09:02→17:57)
[2017-03-28] MEDS: Meropenem 1gm in NS 110ml IVPB SCH ×2 (09:03→20:27)
[2017-03-28] MEDS: Levemir Flexpen SUBQ SCH ×2 (09:05→20:29)
--- NOTE | 2017-03-28 10:48 | General Progress Note ---
Assessment/Plan Status: stable Assessment/Plan status: Acute Renal Failure- with high K- Pre Renal / Super Imposed on Renal Respiratory failure- UTI / Sepsis h/o Anemia Decubs h/o DVT Other conditions: 1. Acute on chronic respiratory failure. 2. h/o Severe sepsis. 3. Ventilator-dependent respiratory failure. 4. Chronic obstructive pulmonary disease. 5. History of deep venous thrombosis. 6. Hypoalbuminemia. 7. h/o Clostridium difficile colitis. 8. Pressure ulcers on sacrococcygeal down to buttocks, right ischial tuberosity, and right heel and right trochanter present on admission. 9. h/o Urinary tract infection, Proteus mirabilis. 10. h/o Acute deep venous thrombosis of the right lower extremity, on heparin and bridged to Coumadin. 11. Tracheostomy status. 12. Gastrostomy tube feeding. 13. Diabetes mellitus. Plan: Per ID Slow IV hydration- BS control- keep BP under control- Avoid Nephrotoxics- monitor lytes and renal parameters- Subjective ROS Limited/Unobtainable: Yes Allergies: Coded Allergies: NO KNOWN DRUG ALLERGIES (Unverified Allergy, Unknown, 10/29/14) Objective Last 24 Hour Vital Signs Date Time Temp Pulse Resp B/P Pulse Ox O2 Delivery O2 Flow Rate FiO2 03/28/17 09:27 97 31 40 03/28/17 08:06 40 03/28/17 08:00 98.1 92 22 115/69 100 Mechanical Ventilator 40 03/28/17 08:00 92 03/28/17 07:04 91 20 40 03/28/17 04:45 95 26 40 03/28/17 04:00 98.1 96 22 140/66 99 Trach Collar 03/28/17 04:00 40 03/28/17 03:23 100 03/28/17 02:35 106 26 40 03/28/17 00:58 96 26 40 03/28/17 00:00 98.6 97 21 122/71 100 Mechanical Ventilator 40 03/28/17 00:00 40 03/27/17 23:27 97 03/27/17 22:51 99 32 40 03/27/17 21:15 109 30 40 03/27/17 20:00 99.0 95 25 117/72 100 Mechanical Ventilator 40 03/27/17 20:00 40 03/27/17 19:12 93 03/27/17 19:12 92 25 40 03/27/17 16:37 86 38 40 03/27/17 16:00 100 03/27/17 16:00 40 03/27/17 15:54 97.6 103 20 118/69 100 Mechanical Ventilator 40 03/27/17 14:40 103 22 40 03/27/17 13:01 109 31 100 Mechanical Ventilator 40 03/27/17 12:51 109 31 40 03/27/17 12:51 109 31 100 Mechanical Ventilator 40 03/27/17 12:00 98.8 109 22 152/82 100 Mechanical Ventilator 40 03/27/17 12:00 40 03/27/17 12:00 110 03/27/17 11:27 109 28 40 Intake and Output 03/27/17 03/28/17 19:00 07:00 Intake Total 1980 ml 1740 ml Output Total 2400 ml 1200 ml Balance -420 ml 540 ml Intake Free Water 200 ml IV Total 750 ml 1020 ml Tube Feeding 720 ml 720 ml Blood Product 250 ml Other 60 ml Output Urine Total 2400 ml 1200 ml # Bowel Movements 2 Height (Feet): 5 Height (Inches): 6.00 Weight (Pounds): 180 General Appearance: no apparent distress Objective no change COLTEN DIEGO Mar 28, 2017 10:48
[2017-03-28 11:11] LABS: BASOPHILS % (AUTO) 1.7 % (0.0-2.0); EOSINOPHILS % (AUTO) 1.4 % (0.0-3.0); MEAN CORPUSCULAR HGB CONC 31.9 G/DL (32.0-36.0); MEAN CORPUSCULAR VOLUME 91 FL (80-99); MONOCYTES % (AUTO) 4.3 % (1.0-10.0); NEUTROPHILS % (AUTO) 67.7 % (45.0-75.0); PLATELET COUNT 151 K/UL (150-450); RED BLOOD COUNT 2.99 M/UL (4.70-6.10); RED CELL DISTRIBUTION WIDTH 17.1 % (11.6-14.8); WHITE BLOOD COUNT 11.3 K/UL (4.8-10.8)
--- NOTE | 2017-03-28 11:25 | Pulmonology Progress Note ---
Assessment/Plan Problems: (1) Chronic respiratory failure (2) Sepsis (3) Pneumonia (4) Severe sepsis (5) ARF (acute renal failure) (6) Feeding by G-tube (7) Dementia Respiratory: monitor respiratory rate, adjust FIO2 Cardiac: continue to monitor HR/BP Renal: F/U I&O, keep IV fluid, check electrolytes Infectious Disease: check cultures, continue antibiotics Gastrointestinal: hold feedings Endocrine: monitor blood sugar, check TSH, continue sliding scale insulin Hematologic: monitor H/H, transfuse if hgb<8.5 Neurologic: PRN Ativan, PRN Morphine, keep patient comfortable Affect: PRN ativan Prophylaxis: Protonix, Heparin Notes Reviewed: 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 correspondent, cardio, 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, consultants, corrections caseworker Subjective ROS Limited/Unobtainable: No Constitutional: Reports: no symptoms HEENT: Repors: no symptoms Respiratory: Reports: no symptoms Allergies: Coded Allergies: NO KNOWN DRUG ALLERGIES (Unverified Allergy, Unknown, 10/29/14) Objective Last 24 Hour Vital Signs Date Time Temp Pulse Resp B/P Pulse Ox O2 Delivery O2 Flow Rate FiO2 03/28/17 09:27 97 31 40 03/28/17 08:06 40 03/28/17 08:00 98.1 92 22 115/69 100 Mechanical Ventilator 40 03/28/17 08:00 92 03/28/17 07:04 91 20 40 03/28/17 04:45 95 26 40 03/28/17 04:00 98.1 96 22 140/66 99 Trach Collar 03/28/17 04:00 40 03/28/17 03:23 100 03/28/17 02:35 106 26 40 03/28/17 00:58 96 26 40 03/28/17 00:00 98.6 97 21 122/71 100 Mechanical Ventilator 40 03/28/17 00:00 40 03/27/17 23:27 97 03/27/17 22:51 99 32 40 03/27/17 21:15 109 30 40 03/27/17 20:00 99.0 95 25 117/72 100 Mechanical Ventilator 40 03/27/17 20:00 40 03/27/17 19:12 93 03/27/17 19:12 92 25 40 03/27/17 16:37 86 38 40 03/27/17 16:00 100 03/27/17 16:00 40 03/27/17 15:54 97.6 103 20 118/69 100 Mechanical Ventilator 40 03/27/17 14:40 103 22 40 03/27/17 13:01 109 31 100 Mechanical Ventilator 40 03/27/17 12:51 109 31 40 03/27/17 12:51 109 31 100 Mechanical Ventilator 40 03/27/17 12:00 98.8 109 22 152/82 100 Mechanical Ventilator 40 03/27/17 12:00 40 03/27/17 12:00 110 03/27/17 11:27 109 28 40 Intake and Output 03/27/17 03/28/17 19:00 07:00 Intake Total 1980 ml 1740 ml Output Total 2400 ml 1200 ml Balance -420 ml 540 ml Intake Free Water 200 ml IV Total 750 ml 1020 ml Tube Feeding 720 ml 720 ml Blood Product 250 ml Other 60 ml Output Urine Total 2400 ml 1200 ml # Bowel Movements 2 Objective Lines, tubes and drains: peripheral HEENT: normocephalic, atraumatic Neck: non-tender, normal alignment Respiratory/Chest: chest wall non-tender, lungs clear Breasts: no masses Cardiovascular/Chest: normal peripheral pulses Abdomen: normal bowel sounds, non tender Genitourinary/Rectal: normal genital exam Extremities: normal range of motion Microbiology Date/Time Source Procedure Growth Status 03/26/17 20:03 Blood Blood Culture - Preliminary NO GROWTH AFTER 24 HOURS Resulted 03/26/17 19:50 Blood Blood Culture - Preliminary Resulted 03/28/17 00:30 Stool Clostridium difficile Toxin Assay - Final Complete 03/27/17 05:00 Arm Right Catheter Tip Culture - Preliminary NO GROWTH AFTER 24 HOURS Resulted Laboratory Tests 03/28/17 10:55: White Blood Count 11.3H, Red Blood Count 2.99L, Hemoglobin 8.7L, Hematocrit 27.2L, Mean Corpuscular Volume 91, Mean Corpuscular Hemoglobin 29.0, Mean Corpuscular Hemoglobin Concent 31.9L, Red Cell Distribution Width 17.1H, Platelet Count 151, Mean Platelet Volume 7.0, Neutrophils (%) (Auto) 67.7, Lymphocytes (%) (Auto) 25.0, Monocytes (%) (Auto) 4.3, Eosinophils (%) (Auto) 1.4, Basophils (%) (Auto) 1.7 Current Medications Medications (Trade) Dose Ordered Sig/Shubham Route PRN Reason Start Time Stop Time Status Last Admin Dose Admin Acetaminophen (Tylenol) 650 mg Q4H PRN GT Mild Pain/Temp > 100.5 03/22/17 16:00 04/21/17 15:59 Amikacin Protocol 1 ea 1 ea DAILY PRN MISC Per rx protocol 03/23/17 16:45 04/22/17 16:44 Amikacin Sulfate 500 mg/Sodium Chloride 57 ml @ 114 mls/hr Q36H IV 03/27/17 00:00 04/03/17 00:00 03/26/17 23:36 Ascorbic Acid (Vitamin C) 500 mg TID GT 03/22/17 18:00 04/21/17 17:59 03/28/17 09:02 Dextrose (Dextrose 50%) STAT PRN IV Hypoglycemia 03/22/17 18:45 04/21/17 18:44 Docusate Sodium (Colace) 100 mg TWICE A DAY GT 03/22/17 18:00 04/21/17 17:59 03/25/17 17:26 Finasteride (Proscar) 5 mg DAILY GT 03/23/17 09:00 04/22/17 08:59 03/28/17 09:02 Insulin Aspart (NovoLOG) EVERY 6 HOURS SUBQ 03/23/17 00:00 04/22/17 00:00 03/28/17 06:14 Insulin Detemir (Levemir) 38 units EVERY 12 HOURS SUBQ 03/22/17 21:00 04/21/17 20:59 03/28/17 09:05 Lactulose (Cephulac) 30 gm TID GT 03/22/17 18:00 04/21/17 17:59 03/25/17 17:26 Lansoprazole (Prevacid) 30 mg DAILY GT 03/23/17 09:00 04/22/17 08:59 03/28/17 09:02 Linezolid (Zyvox) 300 ml @ 300 mls/hr Q12HR IVPB 03/27/17 11:00 04/03/17 10:59 03/28/17 09:03 Meropenem 1 gm/ Sodium Chloride 110 ml @ 220 mls/hr Q12HR IVPB 03/26/17 21:00 03/31/17 20:59 03/28/17 09:03 Multivitamins (Multivitamins W/ Minerals 15ml Liquid) 15 ml DAILY GT 03/23/17 09:00 04/22/17 08:59 03/28/17 09:02 Rifampin (Rifadin) 300 mg EVERY 12 HOURS GT 03/27/17 16:11 04/26/17 10:59 03/28/17 09:03 Sodium Chloride 1,000 ml @ 50 mls/hr Q20H IV 03/25/17 12:00 04/24/17 11:59 03/27/17 23:59 MICH FONSECA Mar 28, 2017 11:25
[2017-03-28] MEDS: Amikacin 500 MG in NS 55 ML IV SCH (12:28)
--- NOTE | 2017-03-28 15:28 | Infectious Diseases Prog Note ---
Assessment/Plan Problems: (1) Severe sepsis Assessment & Plan: with MDR Acinetobacter baumannii and MRSA . await 2D echo to rule out endocarditis . continue meropenem, and switch amikacin to polymyxin B for double coverage , continue zyvox to cover for MRSA bacteremia . his PICC line was removed and tip sent for culture , which might be the source of his sepsis. repeated blood culture ig growing gram negative rods in one set but was done while PICC line still in (2) UTI (urinary tract infection) Assessment & Plan: due to pseudomonas aeruginosa, and enterococcus faecalis , already on polymyxin B and zyvox , will treat for two weeks (3) Pneumonia Assessment & Plan: due to KPC and acinetobacter baumannii , will continue meropenem and switch amikacin to polymyxin B , monitor CXR (4) Acute renal failure Assessment & Plan: improving, due to the above, continue IVF for hydration, monitor UOP, renal is following (5) Pressure ulcer Assessment & Plan: continue local wound care, and off loading, consult wound care (6) Chronic respiratory failure Assessment & Plan: with trach, on mechanical ventilation, monitor ABG Subjective ROS Limited/Unobtainable: Yes Allergies: Coded Allergies: NO KNOWN DRUG ALLERGIES (Unverified Allergy, Unknown, 10/29/14) Subjective he is lying in bed, comfortable, afebrile, on mechanical ventilation , not in acute distress Objective Vital Signs Last 24 Hour Vital Signs Date Time Temp Pulse Resp B/P Pulse Ox O2 Delivery O2 Flow Rate FiO2 03/28/17 15:05 98 26 40 03/28/17 12:45 100 27 40 03/28/17 12:00 101 03/28/17 12:00 40 03/28/17 12:00 98.4 102 22 146/78 100 Mechanical Ventilator 40 03/28/17 11:00 102 31 40 03/28/17 09:27 97 31 40 03/28/17 08:06 40 03/28/17 08:00 98.1 92 22 115/69 100 Mechanical Ventilator 40 03/28/17 08:00 92 03/28/17 07:04 91 20 40 03/28/17 04:45 95 26 40 03/28/17 04:00 98.1 96 22 140/66 99 Trach Collar 03/28/17 04:00 40 03/28/17 03:23 100 03/28/17 02:35 106 26 40 03/28/17 00:58 96 26 40 03/28/17 00:00 98.6 97 21 122/71 100 Mechanical Ventilator 40 03/28/17 00:00 40 03/27/17 23:27 97 03/27/17 22:51 99 32 40 03/27/17 21:15 109 30 40 03/27/17 20:00 99.0 95 25 117/72 100 Mechanical Ventilator 40 03/27/17 20:00 40 03/27/17 19:12 93 03/27/17 19:12 92 25 40 03/27/17 16:37 86 38 40 03/27/17 16:00 100 03/27/17 16:00 40 03/27/17 15:54 97.6 103 20 118/69 100 Mechanical Ventilator 40 Height (Feet): 5 Height (Inches): 6.00 Weight (Pounds): 180 General Appearance: WD/WN, no acute distress HEENT: normocephalic, atraumatic, anicteric, mucous membranes moist, status post trach Respiratory/Chest: chest wall non-tender, lungs clear, normal breath sounds, no respiratory distress Cardiovascular: normal peripheral pulses, normal rate, regular rhythm, no gallop/murmur, no JVD Abdomen: normal bowel sounds, no organomegaly, non distended, no mass, no scars Extremities: no cyanosis, no clubbing Skin: no rash, no lesions, ulcers Microbiology Date/Time Source Procedure Growth Status 03/26/17 20:03 Blood Blood Culture - Preliminary NO GROWTH AFTER 24 HOURS Resulted 03/26/17 19:50 Blood Blood Culture - Preliminary Resulted 03/28/17 00:30 Stool Clostridium difficile Toxin Assay - Final Complete 03/27/17 05:00 Arm Right Catheter Tip Culture - Preliminary NO GROWTH AFTER 24 HOURS Resulted Laboratory Tests Test 03/28/17 10:55 White Blood Count 11.3 K/UL (4.8-10.8) H Red Blood Count 2.99 M/UL (4.70-6.10) L Hemoglobin 8.7 G/DL (14.2-18.0) L Hematocrit 27.2 % (42.0-52.0) L Mean Corpuscular Volume 91 FL (80-99) Mean Corpuscular Hemoglobin 29.0 PG (27.0-31.0) Mean Corpuscular Hemoglobin Concent 31.9 G/DL (32.0-36.0) L Red Cell Distribution Width 17.1 % (11.6-14.8) H Platelet Count 151 K/UL (150-450) Mean Platelet Volume 7.0 FL (6.5-10.1) Neutrophils (%) (Auto) 67.7 % (45.0-75.0) Lymphocytes (%) (Auto) 25.0 % (20.0-45.0) Monocytes (%) (Auto) 4.3 % (1.0-10.0) Eosinophils (%) (Auto) 1.4 % (0.0-3.0) Basophils (%) (Auto) 1.7 % (0.0-2.0) Current Medications Medications (Trade) Dose Ordered Sig/Shubham Route PRN Reason Start Time Stop Time Status Last Admin Dose Admin Acetaminophen (Tylenol) 650 mg Q4H PRN GT Mild Pain/Temp > 100.5 03/22/17 16:00 04/21/17 15:59 Amikacin Protocol 1 ea 1 ea DAILY PRN MISC Per rx protocol 03/23/17 16:45 04/22/17 16:44 Amikacin Sulfate 500 mg/Sodium Chloride 57 ml @ 114 mls/hr Q36H IV 03/27/17 00:00 04/03/17 00:00 03/28/17 12:28 Ascorbic Acid (Vitamin C) 500 mg TID GT 03/22/17 18:00 04/21/17 17:59 03/28/17 12:05 Dextrose (Dextrose 50%) STAT PRN IV Hypoglycemia 03/22/17 18:45 04/21/17 18:44 Docusate Sodium (Colace) 100 mg TWICE A DAY GT 03/22/17 18:00 04/21/17 17:59 03/25/17 17:26 Finasteride (Proscar) 5 mg DAILY GT 03/23/17 09:00 04/22/17 08:59 03/28/17 09:02 Insulin Aspart (NovoLOG) EVERY 6 HOURS SUBQ 03/23/17 00:00 04/22/17 00:00 03/28/17 12:08 Insulin Detemir (Levemir) 38 units EVERY 12 HOURS SUBQ 03/22/17 21:00 7/8/17 20:59 03/28/17 09:05 Lactulose (Cephulac) 30 gm TID GT 03/22/17 18:00 04/21/17 17:59 03/25/17 17:26 Lansoprazole (Prevacid) 30 mg DAILY GT 03/23/17 09:00 04/22/17 08:59 03/28/17 09:02 Linezolid (Zyvox) 300 ml @ 300 mls/hr Q12HR IVPB 03/27/17 11:00 04/03/17 10:59 03/28/17 09:03 Meropenem 1 gm/ Sodium Chloride 110 ml @ 220 mls/hr Q12HR IVPB 03/26/17 21:00 03/31/17 20:59 03/28/17 09:03 Multivitamins (Multivitamins W/ Minerals 15ml Liquid) 15 ml DAILY GT 03/23/17 09:00 04/22/17 08:59 03/28/17 09:02 Rifampin (Rifadin) 300 mg EVERY 12 HOURS GT 03/27/17 16:11 04/26/17 10:59 03/28/17 09:03 Sodium Chloride 1,000 ml @ 50 mls/hr Q20H IV 03/25/17 12:00 04/24/17 11:59 03/27/17 23:59 Kacey Olivo M.D. Mar 28, 2017 15:28
--- NOTE | 2017-03-28 15:43 | General Progress Note ---
Assessment/Plan Assessment/Plan ASSESSMENT: 1. Recurrent anemia currently better btw 8-10, now improved s/p transfusion and s/p egd in the recent past 2. Anemia secondary to chronic disease based on previous labs, ferritin remains elevated 3. Hx of anemia of iron deficiency 4. Leukocytosis 2/2 likely infection, r/o UTI 5. 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 Hyperferritinemia. 7. Chronic respiratory failure, trach/vent 8. Recanalized superficial femoral clot 9. Urinary tract infection. hx, sepsis now 10. Decubitus ulceration. RECOMMENDATIONS: 1. Patient had recent GI w/u 2. Hgb goAL >7 3. Monitor counts 4. Antibiotics as needed. 5. Breathing treatments prn basis 6. Pain control. 7. GI followup recs 8. DVT prophylaxis with scds 9. Continue tube feedings. 10. Discussed with staff. Subjective Constitutional: Reports: no symptoms HEENT: Reports: no symptoms Cardiovascular: Reports: no symptoms Respiratory: Reports: no symptoms Gastrointestinal/Abdominal: Reports: poor appetite Genitourinary: Reports: no symptoms Neurologic/Psychiatric: Reports: no symptoms Endocrine: Reports: no symptoms Hematologic/Lymphatic: Reports: anemia Allergies: Coded Allergies: NO KNOWN DRUG ALLERGIES (Unverified Allergy, Unknown, 10/29/14) Subjective no fevers, or chills, no night sweats, is on a vent Objective Last 24 Hour Vital Signs Date Time Temp Pulse Resp B/P Pulse Ox O2 Delivery O2 Flow Rate FiO2 03/28/17 15:05 98 26 40 03/28/17 12:45 100 27 40 03/28/17 12:00 101 03/28/17 12:00 40 03/28/17 12:00 98.4 102 22 146/78 100 Mechanical Ventilator 40 03/28/17 11:00 102 31 40 03/28/17 09:27 97 31 40 03/28/17 08:06 40 03/28/17 08:00 98.1 92 22 115/69 100 Mechanical Ventilator 40 03/28/17 08:00 92 03/28/17 07:04 91 20 40 03/28/17 04:45 95 26 40 03/28/17 04:00 98.1 96 22 140/66 99 Trach Collar 03/28/17 04:00 40 03/28/17 03:23 100 03/28/17 02:35 106 26 40 03/28/17 00:58 96 26 40 03/28/17 00:00 98.6 97 21 122/71 100 Mechanical Ventilator 40 03/28/17 00:00 40 03/27/17 23:27 97 03/27/17 22:51 99 32 40 03/27/17 21:15 109 30 40 03/27/17 20:00 99.0 95 25 117/72 100 Mechanical Ventilator 40 03/27/17 20:00 40 03/27/17 19:12 93 03/27/17 19:12 92 25 40 03/27/17 16:37 86 38 40 03/27/17 16:00 100 03/27/17 16:00 40 03/27/17 15:54 97.6 103 20 118/69 100 Mechanical Ventilator 40 Intake and Output 03/27/17 03/28/17 19:00 07:00 Intake Total 1980 ml 1740 ml Output Total 2400 ml 1200 ml Balance -420 ml 540 ml Intake Free Water 200 ml IV Total 750 ml 1020 ml Tube Feeding 720 ml 720 ml Blood Product 250 ml Other 60 ml Output Urine Total 2400 ml 1200 ml # Bowel Movements 2 Laboratory Tests 03/28/17 10:55: White Blood Count 11.3H, Red Blood Count 2.99L, Hemoglobin 8.7L, Hematocrit 27.2L, Mean Corpuscular Volume 91, Mean Corpuscular Hemoglobin 29.0, Mean Corpuscular Hemoglobin Concent 31.9L, Red Cell Distribution Width 17.1H, Platelet Count 151, Mean Platelet Volume 7.0, Neutrophils (%) (Auto) 67.7, Lymphocytes (%) (Auto) 25.0, Monocytes (%) (Auto) 4.3, Eosinophils (%) (Auto) 1.4, Basophils (%) (Auto) 1.7 Height (Feet): 5 Height (Inches): 6.00 Weight (Pounds): 180 General Appearance: no apparent distress Neck: normal alignment Cardiovascular: normal rate Respiratory/Chest: normal breath sounds Abdomen: non tender Extremities: normal inspection Edema: 1+ Leg (L), 1+ Leg (R) Edema: mild edema Neurologic: alert Skin: warm/dry Alexx Sanon Mar 28, 2017 15:43
[2017-03-28] MEDS: Polymyxin B Sulfate 250,000 UNITS in D5W 275 ML IV SCH (16:36)
--- NOTE | 2017-03-28 17:23 | General Progress Note ---
Assessment/Plan Assessment/Plan Assessment - dysphagia - s/p PEG and Trach - chronic abd distention - Anemia - Leukocytosis - Renal failure - Resp failure - poor px Recommendations - continue TF - GT care - bowel regimen - watch labs - elevate HOB - DVT prophylaxis Subjective Allergies: Coded Allergies: NO KNOWN DRUG ALLERGIES (Unverified Allergy, Unknown, 10/29/14) Subjective Above noted stable overnight tolerating TF Objective Last 24 Hour Vital Signs Date Time Temp Pulse Resp B/P Pulse Ox O2 Delivery O2 Flow Rate FiO2 03/28/17 17:18 98 23 40 03/28/17 16:00 98.1 101 20 141/74 100 Mechanical Ventilator 40 03/28/17 16:00 40 03/28/17 15:05 98 26 40 03/28/17 12:45 100 27 40 03/28/17 12:00 101 03/28/17 12:00 40 03/28/17 12:00 98.4 102 22 146/78 100 Mechanical Ventilator 40 03/28/17 11:00 102 31 40 03/28/17 09:27 97 31 40 03/28/17 08:06 40 03/28/17 08:00 98.1 92 22 115/69 100 Mechanical Ventilator 40 03/28/17 08:00 92 03/28/17 07:04 91 20 40 03/28/17 04:45 95 26 40 03/28/17 04:00 98.1 96 22 140/66 99 Trach Collar 03/28/17 04:00 40 03/28/17 03:23 100 03/28/17 02:35 106 26 40 03/28/17 00:58 96 26 40 03/28/17 00:00 98.6 97 21 122/71 100 Mechanical Ventilator 40 03/28/17 00:00 40 03/27/17 23:27 97 03/27/17 22:51 99 32 40 03/27/17 21:15 109 30 40 03/27/17 20:00 99.0 95 25 117/72 100 Mechanical Ventilator 40 03/27/17 20:00 40 03/27/17 19:12 93 03/27/17 19:12 92 25 40 Intake and Output 03/27/17 03/28/17 19:00 07:00 Intake Total 1980 ml 1740 ml Output Total 2400 ml 1200 ml Balance -420 ml 540 ml Intake Free Water 200 ml IV Total 750 ml 1020 ml Tube Feeding 720 ml 720 ml Blood Product 250 ml Other 60 ml Output Urine Total 2400 ml 1200 ml # Bowel Movements 2 Laboratory Tests 03/28/17 10:55: White Blood Count 11.3H, Red Blood Count 2.99L, Hemoglobin 8.7L, Hematocrit 27.2L, Mean Corpuscular Volume 91, Mean Corpuscular Hemoglobin 29.0, Mean Corpuscular Hemoglobin Concent 31.9L, Red Cell Distribution Width 17.1H, Platelet Count 151, Mean Platelet Volume 7.0, Neutrophils (%) (Auto) 67.7, Lymphocytes (%) (Auto) 25.0, Monocytes (%) (Auto) 4.3, Eosinophils (%) (Auto) 1.4, Basophils (%) (Auto) 1.7 Height (Feet): 5 Height (Inches): 6.00 Weight (Pounds): 180 Objective Elderly WM obtunded NCAT (+) trach coarse BS RRR abd distended, tympanitic, GT in good position no edema OBS/obtunded MARIAH HOOVER Mar 28, 2017 17:23
--- NOTE | 2017-03-28 20:04 | General Progress Note ---
Assessment/Plan Problem List: (1) Bacteriuria ICD Codes: N39.0 - Bacteriuria SNOMED: 74547967 (2) Respiratory insufficiency ICD Codes: R06.89 - Other abnormalities of breathing SNOMED: 751652647 (3) Azotemia ICD Codes: R79.89 - Other specified abnormal findings of blood chemistry SNOMED: 035781799 (4) Sepsis ICD Codes: A41.9 - Sepsis, unspecified organism SNOMED: 13064462 (5) Acute and chronic respiratory failure (bsivs-rh-qtvtkle) ICD Codes: J96.20 - Acute and chronic respiratory failure (dpuvg-ul-glzbagf) SNOMED: 17812491 (6) HTN (hypertension) ICD Codes: I10 - HTN (hypertension) SNOMED: 58719463 (7) ARF (acute renal failure) ICD Codes: N17.9 - ARF (acute renal failure) SNOMED: 16209621 Status: progressing Assessment/Plan sepsis uti line sepsis leukocytosis improving afebrile \cri trach and peg anemia of chronic disease Subjective ROS Limited/Unobtainable: Yes Allergies: Coded Allergies: NO KNOWN DRUG ALLERGIES (Unverified Allergy, Unknown, 10/29/14) Objective Last 24 Hour Vital Signs Date Time Temp Pulse Resp B/P Pulse Ox O2 Delivery O2 Flow Rate FiO2 03/28/17 19:32 97 23 40 03/28/17 17:18 98 23 40 03/28/17 16:00 99 03/28/17 16:00 98.1 101 20 141/74 100 Mechanical Ventilator 40 03/28/17 16:00 40 03/28/17 15:05 98 26 40 03/28/17 12:45 100 27 40 03/28/17 12:00 101 03/28/17 12:00 40 03/28/17 12:00 98.4 102 22 146/78 100 Mechanical Ventilator 40 03/28/17 11:00 102 31 40 03/28/17 09:27 97 31 40 03/28/17 08:06 40 03/28/17 08:00 98.1 92 22 115/69 100 Mechanical Ventilator 40 03/28/17 08:00 92 03/28/17 07:04 91 20 40 03/28/17 04:45 95 26 40 03/28/17 04:00 98.1 96 22 140/66 99 Trach Collar 03/28/17 04:00 40 03/28/17 03:23 100 03/28/17 02:35 106 26 40 03/28/17 00:58 96 26 40 03/28/17 00:00 98.6 97 21 122/71 100 Mechanical Ventilator 40 03/28/17 00:00 40 03/27/17 23:27 97 03/27/17 22:51 99 32 40 03/27/17 21:15 109 30 40 Intake and Output 03/27/17 03/28/17 19:00 07:00 Intake Total 1980 ml 1740 ml Output Total 2400 ml 1200 ml Balance -420 ml 540 ml Intake Free Water 200 ml IV Total 750 ml 1020 ml Tube Feeding 720 ml 720 ml Blood Product 250 ml Other 60 ml Output Urine Total 2400 ml 1200 ml # Bowel Movements 2 Laboratory Tests 03/28/17 10:55: White Blood Count 11.3H, Red Blood Count 2.99L, Hemoglobin 8.7L, Hematocrit 27.2L, Mean Corpuscular Volume 91, Mean Corpuscular Hemoglobin 29.0, Mean Corpuscular Hemoglobin Concent 31.9L, Red Cell Distribution Width 17.1H, Platelet Count 151, Mean Platelet Volume 7.0, Neutrophils (%) (Auto) 67.7, Lymphocytes (%) (Auto) 25.0, Monocytes (%) (Auto) 4.3, Eosinophils (%) (Auto) 1.4, Basophils (%) (Auto) 1.7 Height (Feet): 5 Height (Inches): 6.00 Weight (Pounds): 180 General Appearance: confused Neck: supple Cardiovascular: normal rate David Bowie MD Mar 28, 2017 20:03
[2017-03-29] VITALS: BP 136/74
[2017-03-29 04:00] VITALS: BP 136/74
[2017-03-29] MEDS: Polymyxin B Sulfate 250,000 UNITS in D5W 275 ML IV SCH ×2 (05:19→17:22)
[2017-03-29] MEDS: NovoLOG Insulin Flexpen SUBQ SCH ×3 (05:20→17:27)
[2017-03-29 08:00] VITALS: BP 134/74
[2017-03-29] MEDS: Docusate 100mg/10ml Liq GT SCH (08:53)
[2017-03-29] MEDS: Lactulose 20gm/30ml UDC GT SCH (08:53)
[2017-03-29] MEDS: Multivitamins W/Minerals 15 ML UDC GT SCH (08:54)
[2017-03-29] MEDS: Ascorbic Acid 500mg tab GT SCH ×3 (08:54→17:22)
[2017-03-29] MEDS: Levemir Flexpen SUBQ SCH ×2 (08:59→21:48)
[2017-03-29] MEDS: Meropenem 1gm in NS 110ml IVPB SCH ×2 (08:59→21:46)
--- NOTE | 2017-03-29 09:06 | General Progress Note ---
Assessment/Plan Assessment/Plan Assessment - dysphagia - s/p PEG and Trach - chronic abd distention - Anemia - Leukocytosis - Renal failure - Resp failure - diarrhea - poor px Recommendations - continue TF - GT care - hold laxatives - watch labs - elevate HOB - DVT prophylaxis Subjective Allergies: Coded Allergies: NO KNOWN DRUG ALLERGIES (Unverified Allergy, Unknown, 10/29/14) Subjective Above noted d/w RN diarrhea since yesterday - C Diff (-) (+) Rectal tube tolerating TF Objective Last 24 Hour Vital Signs Date Time Temp Pulse Resp B/P Pulse Ox O2 Delivery O2 Flow Rate FiO2 03/29/17 08:36 107 27 40 03/29/17 07:09 104 26 40 03/29/17 05:11 104 22 40 03/29/17 04:00 100 03/29/17 04:00 40 03/29/17 04:00 98.8 96 21 136/74 100 Mechanical Ventilator 40 03/29/17 03:06 99 25 40 03/29/17 01:23 102 26 40 03/29/17 00:00 98.8 96 21 136/74 100 Mechanical Ventilator 40 03/29/17 00:00 100 03/29/17 00:00 40 03/28/17 23:03 102 23 40 03/28/17 21:30 98.4 96 20 132/72 100 Mechanical Ventilator 40 03/28/17 20:51 98 24 40 03/28/17 20:00 40 03/28/17 20:00 98.2 98 21 136/73 100 Mechanical Ventilator 40 03/28/17 20:00 40 03/28/17 20:00 98 03/28/17 19:32 97 23 40 03/28/17 17:18 98 23 40 03/28/17 16:00 99 03/28/17 16:00 98.1 101 20 141/74 100 Mechanical Ventilator 40 03/28/17 16:00 40 03/28/17 15:05 98 26 40 03/28/17 12:45 100 27 40 03/28/17 12:00 101 03/28/17 12:00 40 03/28/17 12:00 98.4 102 22 146/78 100 Mechanical Ventilator 40 03/28/17 11:00 102 31 40 03/28/17 09:27 97 31 40 Intake and Output 03/28/17 03/29/17 19:00 07:00 Intake Total 2002 ml 1343 ml Output Total 1000 ml 1250 ml Balance 1002 ml 93 ml Intake Free Water 50 ml IV Total 1192 ml 573 ml Tube Feeding 720 ml 720 ml Other 90 ml Output Urine Total 1000 ml 1250 ml # Bowel Movements 5 1 Laboratory Tests 03/28/17 10:55: White Blood Count 11.3H, Red Blood Count 2.99L, Hemoglobin 8.7L, Hematocrit 27.2L, Mean Corpuscular Volume 91, Mean Corpuscular Hemoglobin 29.0, Mean Corpuscular Hemoglobin Concent 31.9L, Red Cell Distribution Width 17.1H, Platelet Count 151, Mean Platelet Volume 7.0, Neutrophils (%) (Auto) 67.7, Lymphocytes (%) (Auto) 25.0, Monocytes (%) (Auto) 4.3, Eosinophils (%) (Auto) 1.4, Basophils (%) (Auto) 1.7 03/29/17 08:35: White Blood Count [Pending], Red Blood Count [Pending], Hemoglobin [Pending], Hematocrit [Pending], Mean Corpuscular Volume [Pending], Mean Corpuscular Hemoglobin [Pending], Mean Corpuscular Hemoglobin Concent [Pending], Red Cell Distribution Width [Pending], Platelet Count [Pending], Mean Platelet Volume [ Pending], Neutrophils (%) (Auto) [Pending], Lymphocytes (%) (Auto) [Pending], Monocytes (%) (Auto) [Pending], Eosinophils (%) (Auto) [Pending], Basophils (%) (Auto) [Pending] Height (Feet): 5 Height (Inches): 6.00 Weight (Pounds): 180 Objective Elderly WM obtunded NCAT (+) trach coarse BS RRR abd distended, tympanitic, GT in good position no edema OBS/obtunded MARIAH HOOVER Mar 29, 2017 09:06
[2017-03-29 09:13] LABS: BASOPHILS % (AUTO) 1.2 % (0.0-2.0); LYMPHOCYTES % (AUTO) 14.1 % (20.0-45.0); MEAN CORPUSCULAR HEMOGLOBIN 30.2 PG (27.0-31.0); MEAN CORPUSCULAR HGB CONC 33.2 G/DL (32.0-36.0); MEAN CORPUSCULAR VOLUME 91 FL (80-99); MEAN PLATELET VOLUME 7.6 FL (6.5-10.1); MONOCYTES % (AUTO) 10.8 % (1.0-10.0); PLATELET COUNT 163 K/UL (150-450); RED BLOOD COUNT 3.39 M/UL (4.70-6.10); RED CELL DISTRIBUTION WIDTH 16.4 % (11.6-14.8); WHITE BLOOD COUNT 13.5 K/UL (4.8-10.8)
--- NOTE | 2017-03-29 11:50 | General Progress Note ---
Assessment/Plan Problem List: (1) Bacteriuria ICD Codes: N39.0 - Bacteriuria SNOMED: 32579930 (2) Respiratory insufficiency ICD Codes: R06.89 - Other abnormalities of breathing SNOMED: 409248738 (3) Azotemia ICD Codes: R79.89 - Other specified abnormal findings of blood chemistry SNOMED: 436681006 (4) Sepsis ICD Codes: A41.9 - Sepsis, unspecified organism SNOMED: 25492988 (5) Acute and chronic respiratory failure (ictgi-el-hcdrekv) ICD Codes: J96.20 - Acute and chronic respiratory failure (ywjvs-pg-cuxddvv) SNOMED: 52870662 (6) HTN (hypertension) ICD Codes: I10 - HTN (hypertension) SNOMED: 25921175 (7) ARF (acute renal failure) ICD Codes: N17.9 - ARF (acute renal failure) SNOMED: 51271961 Status: progressing Assessment/Plan sepsis uti line sepsis leukocytosis worsening anemia resolved s/p transfusion diarrhea has rectal tube Subjective ROS Limited/Unobtainable: Yes Allergies: Coded Allergies: NO KNOWN DRUG ALLERGIES (Unverified Allergy, Unknown, 10/29/14) Objective Last 24 Hour Vital Signs Date Time Temp Pulse Resp B/P Pulse Ox O2 Delivery O2 Flow Rate FiO2 03/29/17 10:35 103 24 40 03/29/17 08:36 107 27 40 03/29/17 08:00 98.4 102 20 134/74 100 Mechanical Ventilator 40 03/29/17 08:00 40 03/29/17 08:00 101 03/29/17 07:09 104 26 40 03/29/17 05:11 104 22 40 03/29/17 04:00 100 03/29/17 04:00 40 03/29/17 04:00 98.8 96 21 136/74 100 Mechanical Ventilator 40 03/29/17 03:06 99 25 40 03/29/17 01:23 102 26 40 03/29/17 00:00 98.8 96 21 136/74 100 Mechanical Ventilator 40 03/29/17 00:00 100 03/29/17 00:00 40 03/28/17 23:03 102 23 40 03/28/17 21:30 98.4 96 20 132/72 100 Mechanical Ventilator 40 03/28/17 20:51 98 24 40 03/28/17 20:00 40 03/28/17 20:00 98.2 98 21 136/73 100 Mechanical Ventilator 40 03/28/17 20:00 40 03/28/17 20:00 98 03/28/17 19:32 97 23 40 03/28/17 17:18 98 23 40 03/28/17 16:00 99 03/28/17 16:00 98.1 101 20 141/74 100 Mechanical Ventilator 40 03/28/17 16:00 40 03/28/17 15:05 98 26 40 03/28/17 12:45 100 27 40 03/28/17 12:00 101 03/28/17 12:00 40 03/28/17 12:00 98.4 102 22 146/78 100 Mechanical Ventilator 40 Intake and Output 03/28/17 03/29/17 19:00 07:00 Intake Total 2002 ml 1343 ml Output Total 1000 ml 1250 ml Balance 1002 ml 93 ml Intake Free Water 50 ml IV Total 1192 ml 573 ml Tube Feeding 720 ml 720 ml Other 90 ml Output Urine Total 1000 ml 1250 ml # Bowel Movements 5 1 Laboratory Tests 03/29/17 08:35: White Blood Count 13.5H, Red Blood Count 3.39L, Hemoglobin 10.2L, Hematocrit 30.8L, Mean Corpuscular Volume 91, Mean Corpuscular Hemoglobin 30.2, Mean Corpuscular Hemoglobin Concent 33.2, Red Cell Distribution Width 16.4H, Platelet Count 163, Mean Platelet Volume 7.6, Neutrophils (%) (Auto) 73.0, Lymphocytes (%) (Auto) 14.1L, Monocytes (%) (Auto) 10.8H, Eosinophils (%) (Auto ) 1.0, Basophils (%) (Auto) 1.2 Height (Feet): 5 Height (Inches): 6.00 Weight (Pounds): 180 Neck: supple Cardiovascular: regular rhythm Respiratory/Chest: lungs clear Abdomen: soft David Bowie MD Mar 29, 2017 11:50
[2017-03-29 12:00] VITALS: BP 102/56
--- NOTE | 2017-03-29 12:21 | Pulmonology Progress Note ---
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 Subjective ROS Limited/Unobtainable: No Constitutional: Reports: no symptoms HEENT: Repors: no symptoms Allergies: Coded Allergies: NO KNOWN DRUG ALLERGIES (Unverified Allergy, Unknown, 10/29/14) Objective Last 24 Hour Vital Signs Date Time Temp Pulse Resp B/P Pulse Ox O2 Delivery O2 Flow Rate FiO2 03/29/17 10:35 103 24 40 03/29/17 08:36 107 27 40 03/29/17 08:00 98.4 102 20 134/74 100 Mechanical Ventilator 40 03/29/17 08:00 40 03/29/17 08:00 101 03/29/17 07:09 104 26 40 03/29/17 05:11 104 22 40 03/29/17 04:00 100 03/29/17 04:00 40 03/29/17 04:00 98.8 96 21 136/74 100 Mechanical Ventilator 40 03/29/17 03:06 99 25 40 03/29/17 01:23 102 26 40 03/29/17 00:00 98.8 96 21 136/74 100 Mechanical Ventilator 40 03/29/17 00:00 100 03/29/17 00:00 40 03/28/17 23:03 102 23 40 03/28/17 21:30 98.4 96 20 132/72 100 Mechanical Ventilator 40 03/28/17 20:51 98 24 40 03/28/17 20:00 40 03/28/17 20:00 98.2 98 21 136/73 100 Mechanical Ventilator 40 03/28/17 20:00 40 03/28/17 20:00 98 03/28/17 19:32 97 23 40 03/28/17 17:18 98 23 40 03/28/17 16:00 99 03/28/17 16:00 98.1 101 20 141/74 100 Mechanical Ventilator 40 03/28/17 16:00 40 03/28/17 15:05 98 26 40 03/28/17 12:45 100 27 40 Intake and Output 03/28/17 03/29/17 19:00 07:00 Intake Total 2002 ml 1343 ml Output Total 1000 ml 1250 ml Balance 1002 ml 93 ml Intake Free Water 50 ml IV Total 1192 ml 573 ml Tube Feeding 720 ml 720 ml Other 90 ml Output Urine Total 1000 ml 1250 ml # Bowel Movements 5 1 Objective Lines, tubes and drains: peripheral HEENT: normocephalic, atraumatic Neck: non-tender, normal alignment Respiratory/Chest: chest wall non-tender, lungs clear Breasts: no masses Cardiovascular/Chest: normal peripheral pulses Abdomen: normal bowel sounds, non tender Genitourinary/Rectal: normal genital exam Extremities: normal range of motion Microbiology Date/Time Source Procedure Growth Status 03/26/17 20:03 Blood Blood Culture - Preliminary NO GROWTH AFTER 48 HOURS Resulted 03/26/17 19:50 Blood Blood Culture - Preliminary Gram Negative Bacillus 1 Resulted 03/28/17 00:30 Stool Clostridium difficile Toxin Assay - Final Complete 03/27/17 05:00 Arm Right Catheter Tip Culture - Preliminary NO GROWTH AFTER 48 HOURS Resulted Laboratory Tests 03/29/17 08:35: White Blood Count 13.5H, Red Blood Count 3.39L, Hemoglobin 10.2L, Hematocrit 30.8L, Mean Corpuscular Volume 91, Mean Corpuscular Hemoglobin 30.2, Mean Corpuscular Hemoglobin Concent 33.2, Red Cell Distribution Width 16.4H, Platelet Count 163, Mean Platelet Volume 7.6, Neutrophils (%) (Auto) 73.0, Lymphocytes (%) (Auto) 14.1L, Monocytes (%) (Auto) 10.8H, Eosinophils (%) (Auto ) 1.0, Basophils (%) (Auto) 1.2 Current Medications Medications (Trade) Dose Ordered Sig/Shubham Route PRN Reason Start Time Stop Time Status Last Admin Dose Admin Acetaminophen (Tylenol) 650 mg Q4H PRN GT Mild Pain/Temp > 100.5 03/22/17 16:00 04/21/17 15:59 Ascorbic Acid (Vitamin C) 500 mg TID GT 03/22/17 18:00 04/21/17 17:59 03/29/17 08:54 Dextrose (Dextrose 50%) STAT PRN IV Hypoglycemia 03/22/17 18:45 04/21/17 18:44 Finasteride (Proscar) 5 mg DAILY GT 03/23/17 09:00 04/22/17 08:59 03/29/17 08:54 Insulin Aspart EVERY 6 HOURS SUBQ 03/23/17 00:00 04/22/17 00:00 03/29/17 05:20 Insulin Detemir (Levemir) 38 units EVERY 12 HOURS SUBQ 03/22/17 21:00 04/21/17 20:59 03/29/17 08:59 Lansoprazole (Prevacid) 30 mg DAILY GT 03/23/17 09:00 04/22/17 08:59 03/29/17 08:54 Linezolid 300 ml @ 300 mls/hr Q12HR IVPB 03/27/17 11:00 04/03/17 10:59 03/29/17 08:59 Meropenem 1 gm/ Sodium Chloride 110 ml @ 220 mls/hr Q12HR IVPB 03/26/17 21:00 03/31/17 20:59 03/29/17 08:59 Multivitamins (Multivitamins W/ Minerals 15ml Liquid) 15 ml DAILY GT 03/23/17 09:00 04/22/17 08:59 03/29/17 08:54 Polymyxin B Sulfate/Dextrose (Polymyxin B Sulfate/D5W) 275 ml @ 275 mls/hr Q12HR@0600,1800 IV 03/28/17 17:00 04/04/17 16:59 03/29/17 05:19 Sodium Chloride 1,000 ml @ 50 mls/hr Q20H IV 03/25/17 12:00 04/24/17 11:59 03/28/17 20:27 MICH FONSECA Mar 29, 2017 12:20
--- NOTE | 2017-03-29 13:18 | Infectious Diseases Prog Note ---
Assessment/Plan Problems: (1) Severe sepsis Assessment & Plan: with MDR Acinetobacter baumannii and MRSA . 2D echo didn't show any vegetations . recommend BRITTA . will continue meropenem, and polymyxin B double coverage for his MDR Acinetobacter baumannii , continue zyvox to cover for MRSA bacteremia . his PICC line was removed and tip sent for culture , which might be the source of his sepsis. repeated blood culture is growing gram negative rods in one set but was done while PICC line still in place. will repeat another sets of blood culture today to confirm clearance .will need two weeks of meropenem and polymyxin B for Acinetobacter bacteremia , and four weeks of Zyvox for MRSA bacteremia . (2) UTI (urinary tract infection) Assessment & Plan: due to pseudomonas aeruginosa, and enterococcus faecalis , already on polymyxin B for two weeks , and zyvox for 4 weeks (3) Pneumonia Assessment & Plan: due to KPC and acinetobacter baumannii , continue meropenem and polymyxin B for two weeks , monitor CXR (4) Acute renal failure Assessment & Plan: improving, due to the above, continue IVF for hydration, monitor UOP, renal is following (5) Pressure ulcer Assessment & Plan: continue local wound care, and off loading, continue local wound care (6) Chronic respiratory failure Assessment & Plan: with trach, on mechanical ventilation, monitor ABG (7) Dehydration Assessment & Plan: due to diarrhea with negative stool for C diff, continue ivf for hydration monitor UOP Subjective ROS Limited/Unobtainable: Yes Allergies: Coded Allergies: NO KNOWN DRUG ALLERGIES (Unverified Allergy, Unknown, 10/29/14) Subjective he had diarrhea, no blood in it , afebrile, on mechanical ventilation , not in acute distress Objective Vital Signs Last 24 Hour Vital Signs Date Time Temp Pulse Resp B/P Pulse Ox O2 Delivery O2 Flow Rate FiO2 03/29/17 12:00 97.7 102 21 102/56 100 Mechanical Ventilator 40 03/29/17 12:00 40 03/29/17 10:35 103 24 40 03/29/17 08:36 107 27 40 03/29/17 08:00 98.4 102 20 134/74 100 Mechanical Ventilator 40 03/29/17 08:00 40 03/29/17 08:00 101 03/29/17 07:09 104 26 40 03/29/17 05:11 104 22 40 03/29/17 04:00 100 03/29/17 04:00 40 03/29/17 04:00 98.8 96 21 136/74 100 Mechanical Ventilator 40 03/29/17 03:06 99 25 40 03/29/17 01:23 102 26 40 03/29/17 00:00 98.8 96 21 136/74 100 Mechanical Ventilator 40 03/29/17 00:00 100 03/29/17 00:00 40 03/28/17 23:03 102 23 40 03/28/17 21:30 98.4 96 20 132/72 100 Mechanical Ventilator 40 03/28/17 20:51 98 24 40 03/28/17 20:00 40 03/28/17 20:00 98.2 98 21 136/73 100 Mechanical Ventilator 40 03/28/17 20:00 40 03/28/17 20:00 98 03/28/17 19:32 97 23 40 03/28/17 17:18 98 23 40 03/28/17 16:00 99 03/28/17 16:00 98.1 101 20 141/74 100 Mechanical Ventilator 40 03/28/17 16:00 40 03/28/17 15:05 98 26 40 Height (Feet): 5 Height (Inches): 6.00 Weight (Pounds): 180 General Appearance: WD/WN, no acute distress HEENT: normocephalic, atraumatic, anicteric, mucous membranes moist Respiratory/Chest: chest wall non-tender, lungs clear, normal breath sounds, no respiratory distress, no accessory muscle use Cardiovascular: normal peripheral pulses, normal rate, regular rhythm, no gallop/murmur, no JVD Abdomen: normal bowel sounds, soft, non tender, no organomegaly, non distended , no mass Extremities: no cyanosis, no clubbing Skin: no rash, no lesions, ulcers Microbiology Date/Time Source Procedure Growth Status 03/26/17 20:03 Blood Blood Culture - Preliminary NO GROWTH AFTER 48 HOURS Resulted 03/26/17 19:50 Blood Blood Culture - Preliminary Gram Negative Bacillus 1 Resulted 03/28/17 00:30 Stool Clostridium difficile Toxin Assay - Final Complete 03/27/17 05:00 Arm Right Catheter Tip Culture - Preliminary NO GROWTH AFTER 48 HOURS Resulted Laboratory Tests Test 03/29/17 08:35 White Blood Count 13.5 K/UL (4.8-10.8) H Red Blood Count 3.39 M/UL (4.70-6.10) L Hemoglobin 10.2 G/DL (14.2-18.0) L Hematocrit 30.8 % (42.0-52.0) L Mean Corpuscular Volume 91 FL (80-99) Mean Corpuscular Hemoglobin 30.2 PG (27.0-31.0) Mean Corpuscular Hemoglobin Concent 33.2 G/DL (32.0-36.0) Red Cell Distribution Width 16.4 % (11.6-14.8) H Platelet Count 163 K/UL (150-450) Mean Platelet Volume 7.6 FL (6.5-10.1) Neutrophils (%) (Auto) 73.0 % (45.0-75.0) Lymphocytes (%) (Auto) 14.1 % (20.0-45.0) L Monocytes (%) (Auto) 10.8 % (1.0-10.0) H Eosinophils (%) (Auto) 1.0 % (0.0-3.0) Basophils (%) (Auto) 1.2 % (0.0-2.0) Current Medications Medications (Trade) Dose Ordered Sig/Shubham Route PRN Reason Start Time Stop Time Status Last Admin Dose Admin Acetaminophen (Tylenol) 650 mg Q4H PRN GT Mild Pain/Temp > 100.5 03/22/17 16:00 04/21/17 15:59 Ascorbic Acid (Vitamin C) 500 mg TID GT 03/22/17 18:00 04/21/17 17:59 03/29/17 12:35 Dextrose (Dextrose 50%) STAT PRN IV Hypoglycemia 03/22/17 18:45 04/21/17 18:44 Finasteride (Proscar) 5 mg DAILY GT 03/23/17 09:00 04/22/17 08:59 03/29/17 08:54 Insulin Aspart EVERY 6 HOURS SUBQ 03/23/17 00:00 04/22/17 00:00 03/29/17 12:37 Insulin Detemir (Levemir) 38 units EVERY 12 HOURS SUBQ 03/22/17 21:00 04/21/17 20:59 03/29/17 08:59 Lansoprazole (Prevacid) 30 mg DAILY GT 03/23/17 09:00 04/22/17 08:59 03/29/17 08:54 Linezolid 300 ml @ 300 mls/hr Q12HR IVPB 03/27/17 11:00 04/03/17 10:59 03/29/17 08:59 Meropenem 1 gm/ Sodium Chloride 110 ml @ 220 mls/hr Q12HR IVPB 03/26/17 21:00 03/31/17 20:59 03/29/17 08:59 Multivitamins (Multivitamins W/ Minerals 15ml Liquid) 15 ml DAILY GT 03/23/17 09:00 04/22/17 08:59 03/29/17 08:54 Polymyxin B Sulfate/Dextrose (Polymyxin B Sulfate/D5W) 275 ml @ 275 mls/hr Q12HR@0600,1800 IV 03/28/17 17:00 04/04/17 16:59 03/29/17 05:19 Sodium Chloride 1,000 ml @ 50 mls/hr Q20H IV 03/25/17 12:00 04/24/17 11:59 03/28/17 20:27 Kacey Olivo M.D. Mar 29, 2017 13:17
--- NOTE | 2017-03-29 13:32 | General Progress Note ---
Assessment/Plan Status: unchanged Assessment/Plan status: Acute Renal Failure- with high K- Pre Renal / Super Imposed on Renal Respiratory failure- UTI / Sepsis h/o Anemia Decubs h/o DVT Other conditions: 1. Acute on chronic respiratory failure. 2. h/o Severe sepsis. 3. Ventilator-dependent respiratory failure. 4. Chronic obstructive pulmonary disease. 5. History of deep venous thrombosis. 6. Hypoalbuminemia. 7. h/o Clostridium difficile colitis. 8. Pressure ulcers on sacrococcygeal down to buttocks, right ischial tuberosity, and right heel and right trochanter present on admission. 9. h/o Urinary tract infection, Proteus mirabilis. 10. h/o Acute deep venous thrombosis of the right lower extremity, on heparin and bridged to Coumadin. 11. Tracheostomy status. 12. Gastrostomy tube feeding. 13. Diabetes mellitus. Plan: Per ID Slow IV hydration- BS control- keep BP under control- Avoid Nephrotoxics- monitor lytes and renal parameters- Subjective ROS Limited/Unobtainable: Yes Allergies: Coded Allergies: NO KNOWN DRUG ALLERGIES (Unverified Allergy, Unknown, 10/29/14) Objective Last 24 Hour Vital Signs Date Time Temp Pulse Resp B/P Pulse Ox O2 Delivery O2 Flow Rate FiO2 03/29/17 12:32 101 24 40 03/29/17 12:00 97.7 102 21 102/56 100 Mechanical Ventilator 40 03/29/17 12:00 40 03/29/17 10:35 103 24 40 03/29/17 08:36 107 27 40 03/29/17 08:00 98.4 102 20 134/74 100 Mechanical Ventilator 40 03/29/17 08:00 40 03/29/17 08:00 101 03/29/17 07:09 104 26 40 03/29/17 05:11 104 22 40 03/29/17 04:00 100 03/29/17 04:00 40 03/29/17 04:00 98.8 96 21 136/74 100 Mechanical Ventilator 40 03/29/17 03:06 99 25 40 03/29/17 01:23 102 26 40 03/29/17 00:00 98.8 96 21 136/74 100 Mechanical Ventilator 40 03/29/17 00:00 100 03/29/17 00:00 40 03/28/17 23:03 102 23 40 03/28/17 21:30 98.4 96 20 132/72 100 Mechanical Ventilator 40 03/28/17 20:51 98 24 40 03/28/17 20:00 40 03/28/17 20:00 98.2 98 21 136/73 100 Mechanical Ventilator 40 03/28/17 20:00 40 03/28/17 20:00 98 03/28/17 19:32 97 23 40 03/28/17 17:18 98 23 40 03/28/17 16:00 99 03/28/17 16:00 98.1 101 20 141/74 100 Mechanical Ventilator 40 03/28/17 16:00 40 03/28/17 15:05 98 26 40 Intake and Output 03/28/17 03/29/17 19:00 07:00 Intake Total 2002 ml 1343 ml Output Total 1000 ml 1250 ml Balance 1002 ml 93 ml Intake Free Water 50 ml IV Total 1192 ml 573 ml Tube Feeding 720 ml 720 ml Other 90 ml Output Urine Total 1000 ml 1250 ml # Bowel Movements 5 1 Laboratory Tests 03/29/17 08:35: White Blood Count 13.5H, Red Blood Count 3.39L, Hemoglobin 10.2L, Hematocrit 30.8L, Mean Corpuscular Volume 91, Mean Corpuscular Hemoglobin 30.2, Mean Corpuscular Hemoglobin Concent 33.2, Red Cell Distribution Width 16.4H, Platelet Count 163, Mean Platelet Volume 7.6, Neutrophils (%) (Auto) 73.0, Lymphocytes (%) (Auto) 14.1L, Monocytes (%) (Auto) 10.8H, Eosinophils (%) (Auto ) 1.0, Basophils (%) (Auto) 1.2 Height (Feet): 5 Height (Inches): 6.00 Weight (Pounds): 180 General Appearance: no apparent distress Objective no change COLTEN DIEGO Mar 29, 2017 13:32
[2017-03-29 16:00] VITALS: BP 122/64
--- NOTE | 2017-03-29 19:13 | General Progress Note ---
Assessment/Plan Assessment/Plan ASSESSMENT: 1. Recurrent anemia currently better btw 8-10, now improved s/p transfusion and s/p egd in the recent past 2. Anemia secondary to chronic disease based on previous labs, ferritin remains elevated 3. Hx of anemia of iron deficiency 4. Leukocytosis 2/2 likely infection, r/o UTI 5. 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 Hyperferritinemia. 7. Chronic respiratory failure, trach/vent 8. Recanalized superficial femoral clot 9. Urinary tract infection. hx, sepsis now 10. Decubitus ulceration. RECOMMENDATIONS: 1. Patient had recent GI w/u 2. Hgb goAL >7 3. Monitor counts 4. Antibiotics as needed. 5. Breathing treatments prn basis 6. Pain control. 7. GI followup recs 8. DVT prophylaxis with scds 9. Continue tube feedings. 10. Discussed with staff. Subjective Constitutional: Reports: no symptoms HEENT: Reports: no symptoms Cardiovascular: Reports: no symptoms Respiratory: Reports: no symptoms Gastrointestinal/Abdominal: Reports: poor appetite Genitourinary: Reports: no symptoms Neurologic/Psychiatric: Reports: no symptoms Endocrine: Reports: no symptoms Hematologic/Lymphatic: Reports: anemia Allergies: Coded Allergies: NO KNOWN DRUG ALLERGIES (Unverified Allergy, Unknown, 10/29/14) Subjective no fevers, or chills, no night sweats, remains on a vent Objective Last 24 Hour Vital Signs Date Time Temp Pulse Resp B/P Pulse Ox O2 Delivery O2 Flow Rate FiO2 03/29/17 18:52 100 25 40 03/29/17 16:41 101 23 40 03/29/17 16:00 40 03/29/17 16:00 101 03/29/17 16:00 98.4 101 20 122/64 100 Mechanical Ventilator 40 03/29/17 14:57 99 27 40 03/29/17 12:32 101 24 40 03/29/17 12:00 101 03/29/17 12:00 97.7 102 21 102/56 100 Mechanical Ventilator 40 03/29/17 12:00 40 03/29/17 10:35 103 24 40 03/29/17 08:36 107 27 40 03/29/17 08:00 98.4 102 20 134/74 100 Mechanical Ventilator 40 03/29/17 08:00 40 03/29/17 08:00 101 03/29/17 07:09 104 26 40 03/29/17 05:11 104 22 40 03/29/17 04:00 100 03/29/17 04:00 40 03/29/17 04:00 98.8 96 21 136/74 100 Mechanical Ventilator 40 03/29/17 03:06 99 25 40 03/29/17 01:23 102 26 40 03/29/17 00:00 98.8 96 21 136/74 100 Mechanical Ventilator 40 03/29/17 00:00 100 03/29/17 00:00 40 03/28/17 23:03 102 23 40 03/28/17 21:30 98.4 96 20 132/72 100 Mechanical Ventilator 40 03/28/17 20:51 98 24 40 03/28/17 20:00 40 03/28/17 20:00 98.2 98 21 136/73 100 Mechanical Ventilator 40 03/28/17 20:00 40 03/28/17 20:00 98 03/28/17 19:32 97 23 40 Intake and Output 03/28/17 03/29/17 19:00 07:00 Intake Total 2002 ml 1343 ml Output Total 1000 ml 1250 ml Balance 1002 ml 93 ml Intake Free Water 50 ml IV Total 1192 ml 573 ml Tube Feeding 720 ml 720 ml Other 90 ml Output Urine Total 1000 ml 1250 ml # Bowel Movements 5 1 Laboratory Tests 03/29/17 08:35: White Blood Count 13.5H, Red Blood Count 3.39L, Hemoglobin 10.2L, Hematocrit 30.8L, Mean Corpuscular Volume 91, Mean Corpuscular Hemoglobin 30.2, Mean Corpuscular Hemoglobin Concent 33.2, Red Cell Distribution Width 16.4H, Platelet Count 163, Mean Platelet Volume 7.6, Neutrophils (%) (Auto) 73.0, Lymphocytes (%) (Auto) 14.1L, Monocytes (%) (Auto) 10.8H, Eosinophils (%) (Auto ) 1.0, Basophils (%) (Auto) 1.2 Height (Feet): 5 Height (Inches): 6.00 Weight (Pounds): 180 General Appearance: no apparent distress EENT: normal ENT inspection Neck: normal alignment Cardiovascular: normal rate Respiratory/Chest: lungs clear Extremities: non-tender Edema: 1+ Leg (L), 1+ Leg (R) Edema: mild edema Neurologic: oriented x 3 Skin: warm/dry Alexx Sanon Mar 29, 2017 19:13
[2017-03-29 20:00] VITALS: BP 128/72
[2017-03-30] VITALS: BP 126/74
[2017-03-30] MEDS: NovoLOG Insulin Flexpen SUBQ SCH ×4 (00:55→18:23)
[2017-03-30 04:00] VITALS: BP 139/66
[2017-03-30] MEDS: Polymyxin B Sulfate 250,000 UNITS in D5W 275 ML IV SCH ×2 (05:05→18:22)
[2017-03-30 08:35] VITALS: BP 149/70
[2017-03-30] MEDS: Meropenem 1gm in NS 110ml IVPB SCH (08:58)
[2017-03-30] MEDS: Multivitamins W/Minerals 15 ML UDC GT SCH (09:04)
[2017-03-30] MEDS: Ascorbic Acid 500mg tab GT SCH ×3 (09:04→18:22)
[2017-03-30] MEDS: Levemir Flexpen SUBQ SCH (09:06)
--- NOTE | 2017-03-30 09:27 | Pulmonology Progress Note ---
Assessment/Plan Problems: (1) Chronic respiratory failure (2) Sepsis (3) Pneumonia (4) Severe sepsis (5) ARF (acute renal failure) (6) Feeding by G-tube (7) Dementia Subjective Allergies: Coded Allergies: NO KNOWN DRUG ALLERGIES (Unverified Allergy, Unknown, 10/29/14) Objective Last 24 Hour Vital Signs Date Time Temp Pulse Resp B/P Pulse Ox O2 Delivery O2 Flow Rate FiO2 03/30/17 08:35 97.0 99 20 149/70 100 Mechanical Ventilator 03/30/17 08:32 114 26 40 03/30/17 07:30 101 25 40 03/30/17 04:42 98 25 40 03/30/17 04:00 98.1 84 22 139/66 100 03/30/17 04:00 40 03/30/17 04:00 96 03/30/17 03:27 98 25 40 03/30/17 01:25 101 26 40 03/30/17 00:00 40 03/30/17 00:00 97.9 96 22 126/74 100 03/30/17 00:00 96 03/29/17 23:19 96 29 40 03/29/17 21:19 99 26 40 03/29/17 20:00 40 03/29/17 20:00 98.6 101 26 128/72 100 03/29/17 20:00 100 03/29/17 18:52 100 25 40 03/29/17 16:41 101 23 40 03/29/17 16:00 40 03/29/17 16:00 101 03/29/17 16:00 98.4 101 20 122/64 100 Mechanical Ventilator 40 03/29/17 14:57 99 27 40 03/29/17 12:32 101 24 40 03/29/17 12:00 101 03/29/17 12:00 97.7 102 21 102/56 100 Mechanical Ventilator 40 03/29/17 12:00 40 03/29/17 10:35 103 24 40 Intake and Output 03/29/17 03/30/17 19:00 07:00 Intake Total 1995 ml 1420 ml Output Total 1000 ml 1000 ml Balance 995 ml 420 ml Intake Free Water 100 ml IV Total 1185 ml 600 ml Tube Feeding 720 ml 720 ml Other 90 ml Output Urine Total 1000 ml 1000 ml Stool Total 0 ml # Bowel Movements 3 Objective Lines, tubes and drains: peripheral HEENT: normocephalic, atraumatic Neck: non-tender, normal alignment Respiratory/Chest: chest wall non-tender, lungs clear Breasts: no masses Cardiovascular/Chest: normal peripheral pulses Abdomen: normal bowel sounds, non tender Genitourinary/Rectal: normal genital exam Extremities: normal range of motion Microbiology Date/Time Source Procedure Growth Status 03/28/17 00:30 Stool Clostridium difficile Toxin Assay - Final Complete Laboratory Tests 03/29/17 20:43: Vancomycin Level Trough 7.7 Current Medications Medications (Trade) Dose Ordered Sig/Shubham Route PRN Reason Start Time Stop Time Status Last Admin Dose Admin Acetaminophen (Tylenol) 650 mg Q4H PRN GT Mild Pain/Temp > 100.5 03/22/17 16:00 04/21/17 15:59 Ascorbic Acid (Vitamin C) 500 mg TID GT 03/22/17 18:00 04/21/17 17:59 03/30/17 09:04 Dextrose (Dextrose 50%) STAT PRN IV Hypoglycemia 03/22/17 18:45 04/21/17 18:44 Finasteride (Proscar) 5 mg DAILY GT 03/23/17 09:00 04/22/17 08:59 03/30/17 09:04 Insulin Aspart EVERY 6 HOURS SUBQ 03/23/17 00:00 04/22/17 00:00 03/30/17 00:55 Insulin Detemir (Levemir) 38 units EVERY 12 HOURS SUBQ 03/22/17 21:00 04/21/17 20:59 03/30/17 09:06 Lansoprazole (Prevacid) 30 mg DAILY GT 03/23/17 09:00 04/22/17 08:59 03/30/17 09:04 Linezolid 300 ml @ 300 mls/hr Q12HR IVPB 03/27/17 11:00 04/03/17 10:59 03/29/17 21:46 Meropenem 1 gm/ Sodium Chloride 110 ml @ 220 mls/hr Q12HR IVPB 03/26/17 21:00 03/31/17 20:59 03/30/17 08:58 Multivitamins (Multivitamins W/ Minerals 15ml Liquid) 15 ml DAILY GT 03/23/17 09:00 04/22/17 08:59 03/30/17 09:04 Polymyxin B Sulfate/Dextrose (Polymyxin B Sulfate/D5W) 275 ml @ 275 mls/hr Q12HR@0600,1800 IV 03/28/17 17:00 04/04/17 16:59 03/30/17 05:05 Sodium Chloride 1,000 ml @ 50 mls/hr Q20H IV 03/25/17 12:00 04/24/17 11:59 03/29/17 16:11 MICH FONSECA Mar 30, 2017 09:27
--- NOTE | 2017-03-30 10:10 | Infectious Diseases Prog Note ---
Assessment/Plan Problems: (1) Severe sepsis Assessment & Plan: due to MDR Acinetobacter baumannii and MRSA . 2D echo didn 't show any vegetations. will continue meropenem, and polymyxin B double coverage for his MDR Acinetobacter baumannii for two weeks . continue zyvox to cover for MRSA bacteremia for four weeks . his PICC line was removed and tip culture grew Achromobacter xylosoxidans , most likely from his PICC line . will repeat another sets of blood culture today to confirm clearance .will need two weeks of meropenem and polymyxin B for Acinetobacter bacteremia , and four weeks of Zyvox for MRSA bacteremia starting from the date of blood culture clearance . (2) UTI (urinary tract infection) Assessment & Plan: due to pseudomonas aeruginosa, and enterococcus faecalis , already on polymyxin B for two weeks , and zyvox for 4 weeks (3) Pneumonia Assessment & Plan: due to KPC and acinetobacter baumannii , continue meropenem and polymyxin B for two weeks , monitor CXR (4) Acute renal failure Assessment & Plan: improving, due to the above, continue IVF for hydration, monitor UOP, renal is following (5) Pressure ulcer Assessment & Plan: continue local wound care, and off loading, continue local wound care (6) Chronic respiratory failure Assessment & Plan: with trach, on mechanical ventilation, monitor ABG (7) Dehydration Assessment & Plan: due to diarrhea with negative stool for C diff, continue ivf for hydration monitor UOP Subjective ROS Limited/Unobtainable: Yes Allergies: Coded Allergies: NO KNOWN DRUG ALLERGIES (Unverified Allergy, Unknown, 10/29/14) Subjective he had no diarrhea today as per the nurse , no fever , on mechanical ventilation through his trach , not in acute distress Objective Vital Signs Last 24 Hour Vital Signs Date Time Temp Pulse Resp B/P Pulse Ox O2 Delivery O2 Flow Rate FiO2 03/30/17 08:35 97.0 99 20 149/70 100 Mechanical Ventilator 03/30/17 08:32 114 26 40 03/30/17 08:00 40 03/30/17 07:30 101 25 40 03/30/17 04:42 98 25 40 03/30/17 04:00 98.1 84 22 139/66 100 03/30/17 04:00 40 03/30/17 04:00 96 03/30/17 03:27 98 25 40 6/16/17 01:25 101 26 40 03/30/17 00:00 40 03/30/17 00:00 97.9 96 22 126/74 100 03/30/17 00:00 96 03/29/17 23:19 96 29 40 03/29/17 21:19 99 26 40 03/29/17 20:00 40 03/29/17 20:00 98.6 101 26 128/72 100 03/29/17 20:00 100 03/29/17 18:52 100 25 40 03/29/17 16:41 101 23 40 03/29/17 16:00 40 03/29/17 16:00 101 03/29/17 16:00 98.4 101 20 122/64 100 Mechanical Ventilator 40 03/29/17 14:57 99 27 40 03/29/17 12:32 101 24 40 03/29/17 12:00 101 03/29/17 12:00 97.7 102 21 102/56 100 Mechanical Ventilator 40 03/29/17 12:00 40 03/29/17 10:35 103 24 40 Height (Feet): 5 Height (Inches): 6.00 Weight (Pounds): 180 General Appearance: WD/WN, no acute distress HEENT: normocephalic, atraumatic, anicteric, mucous membranes moist, status post trach Respiratory/Chest: chest wall non-tender, normal breath sounds, no respiratory distress, no accessory muscle use, decreased breath sounds Cardiovascular: normal peripheral pulses, normal rate, regular rhythm, no gallop/murmur Abdomen: normal bowel sounds, soft, non tender, no organomegaly, non distended , no mass Extremities: no cyanosis, no clubbing Skin: no rash, no lesions, ulcers Microbiology Date/Time Source Procedure Growth Status 03/28/17 00:30 Stool Clostridium difficile Toxin Assay - Final Complete Laboratory Tests Test 03/29/17 20:43 Vancomycin Level Trough 7.7 ug/mL (5.0-12.0) Current Medications Medications (Trade) Dose Ordered Sig/Shubham Route PRN Reason Start Time Stop Time Status Last Admin Dose Admin Acetaminophen (Tylenol) 650 mg Q4H PRN GT Mild Pain/Temp > 100.5 03/22/17 16:00 04/21/17 15:59 Ascorbic Acid (Vitamin C) 500 mg TID GT 03/22/17 18:00 04/21/17 17:59 03/30/17 09:04 Dextrose (Dextrose 50%) STAT PRN IV Hypoglycemia 03/22/17 18:45 04/21/17 18:44 Finasteride (Proscar) 5 mg DAILY GT 03/23/17 09:00 04/22/17 08:59 03/30/17 09:04 Insulin Aspart EVERY 6 HOURS SUBQ 03/23/17 00:00 04/22/17 00:00 03/30/17 00:55 Insulin Detemir (Levemir) 38 units EVERY 12 HOURS SUBQ 03/22/17 21:00 04/21/17 20:59 03/30/17 09:06 Lansoprazole (Prevacid) 30 mg DAILY GT 03/23/17 09:00 04/22/17 08:59 03/30/17 09:04 Linezolid 300 ml @ 300 mls/hr Q12HR IVPB 03/27/17 11:00 04/03/17 10:59 03/30/17 09:33 Meropenem 1 gm/ Sodium Chloride 110 ml @ 220 mls/hr Q12HR IVPB 03/26/17 21:00 03/31/17 20:59 03/30/17 08:58 Multivitamins (Multivitamins W/ Minerals 15ml Liquid) 15 ml DAILY GT 03/23/17 09:00 04/22/17 08:59 03/30/17 09:04 Polymyxin B Sulfate/Dextrose (Polymyxin B Sulfate/D5W) 275 ml @ 275 mls/hr Q12HR@0600,1800 IV 03/28/17 17:00 04/04/17 16:59 03/30/17 05:05 Sodium Chloride 1,000 ml @ 50 mls/hr Q20H IV 03/25/17 12:00 04/24/17 11:59 03/29/17 16:11 Kacey Olivo M.D. Mar 30, 2017 10:10
--- NOTE | 2017-03-30 10:28 | General Progress Note ---
Assessment/Plan Status: stable Assessment/Plan status: Acute Renal Failure- with high K- Pre Renal / Super Imposed on Renal Respiratory failure- UTI / Sepsis h/o Anemia Decubs h/o DVT Other conditions: 1. Acute on chronic respiratory failure. 2. h/o Severe sepsis. 3. Ventilator-dependent respiratory failure. 4. Chronic obstructive pulmonary disease. 5. History of deep venous thrombosis. 6. Hypoalbuminemia. 7. h/o Clostridium difficile colitis. 8. Pressure ulcers on sacrococcygeal down to buttocks, right ischial tuberosity, and right heel and right trochanter present on admission. 9. h/o Urinary tract infection, Proteus mirabilis. 10. h/o Acute deep venous thrombosis of the right lower extremity, on heparin and bridged to Coumadin. 11. Tracheostomy status. 12. Gastrostomy tube feeding. 13. Diabetes mellitus. Plan: no labs today Per ID Slow IV hydration- BS control- keep BP under control- Avoid Nephrotoxics- monitor lytes and renal parameters- Subjective ROS Limited/Unobtainable: Yes Allergies: Coded Allergies: NO KNOWN DRUG ALLERGIES (Unverified Allergy, Unknown, 10/29/14) Objective Last 24 Hour Vital Signs Date Time Temp Pulse Resp B/P Pulse Ox O2 Delivery O2 Flow Rate FiO2 03/30/17 08:35 97.0 99 20 149/70 100 Mechanical Ventilator 03/30/17 08:32 114 26 40 03/30/17 08:00 40 03/30/17 07:30 101 25 40 03/30/17 04:42 98 25 40 03/30/17 04:00 98.1 84 22 139/66 100 03/30/17 04:00 40 03/30/17 04:00 96 03/30/17 03:27 98 25 40 03/30/17 01:25 101 26 40 03/30/17 00:00 40 03/30/17 00:00 97.9 96 22 126/74 100 03/30/17 00:00 96 03/29/17 23:19 96 29 40 03/29/17 21:19 99 26 40 03/29/17 20:00 40 03/29/17 20:00 98.6 101 26 128/72 100 03/29/17 20:00 100 03/29/17 18:52 100 25 40 6/15/17 16:41 101 23 40 03/29/17 16:00 40 03/29/17 16:00 101 03/29/17 16:00 98.4 101 20 122/64 100 Mechanical Ventilator 40 03/29/17 14:57 99 27 40 03/29/17 12:32 101 24 40 03/29/17 12:00 101 03/29/17 12:00 97.7 102 21 102/56 100 Mechanical Ventilator 40 03/29/17 12:00 40 03/29/17 10:35 103 24 40 Intake and Output 03/29/17 03/30/17 19:00 07:00 Intake Total 1995 ml 1420 ml Output Total 1000 ml 1000 ml Balance 995 ml 420 ml Intake Free Water 100 ml IV Total 1185 ml 600 ml Tube Feeding 720 ml 720 ml Other 90 ml Output Urine Total 1000 ml 1000 ml Stool Total 0 ml # Bowel Movements 3 Laboratory Tests 03/29/17 20:43: Vancomycin Level Trough 7.7 Height (Feet): 5 Height (Inches): 6.00 Weight (Pounds): 180 General Appearance: no apparent distress Objective no change COLTEN DIEGO Mar 30, 2017 10:28
--- NOTE | 2017-03-30 12:08 | General Progress Note ---
Assessment/Plan Problem List: (1) Bacteriuria ICD Codes: N39.0 - Bacteriuria SNOMED: 57341211 (2) Respiratory insufficiency ICD Codes: R06.89 - Other abnormalities of breathing SNOMED: 017279489 (3) Azotemia ICD Codes: R79.89 - Other specified abnormal findings of blood chemistry SNOMED: 297814740 (4) Sepsis ICD Codes: A41.9 - Sepsis, unspecified organism SNOMED: 26152594 (5) Acute and chronic respiratory failure ([id number]-oi-ldspijl) ICD Codes: J96.20 - Acute and chronic respiratory failure ([id number]-wtdsrsa) SNOMED: 01249872 (6) HTN (hypertension) ICD Codes: I10 - HTN (hypertension) SNOMED: 48999477 (7) ARF (acute renal failure) ICD Codes: N17.9 - ARF (acute renal failure) SNOMED: 22145873 Status: progressing Assessment/Plan sepsis uti line sepsis not stable for dc marti eval and transfer s/p transfusion diarrhea has rectal tube Subjective ROS Limited/Unobtainable: Yes Allergies: Coded Allergies: NO KNOWN DRUG ALLERGIES (Unverified Allergy, Unknown, 10/29/14) Objective Last 24 Hour Vital Signs Date Time Temp Pulse Resp B/P Pulse Ox O2 Delivery O2 Flow Rate FiO2 03/30/17 11:26 99 26 40 03/30/17 08:35 97.0 99 20 149/70 100 Mechanical Ventilator 03/30/17 08:32 114 26 40 03/30/17 08:00 40 03/30/17 08:00 99 03/30/17 07:30 101 25 40 03/30/17 04:42 98 25 40 03/30/17 04:00 98.1 84 22 139/66 100 03/30/17 04:00 40 03/30/17 04:00 96 03/30/17 03:27 98 25 40 03/30/17 01:25 101 26 40 03/30/17 00:00 40 03/30/17 00:00 97.9 96 22 126/74 100 03/30/17 00:00 96 03/29/17 23:19 96 29 40 03/29/17 21:19 99 26 40 03/29/17 20:00 40 03/29/17 20:00 98.6 101 26 128/72 100 03/29/17 20:00 100 03/29/17 18:52 100 25 40 03/29/17 16:41 101 23 40 03/29/17 16:00 40 03/29/17 16:00 101 03/29/17 16:00 98.4 101 20 122/64 100 Mechanical Ventilator 40 03/29/17 14:57 99 27 40 03/29/17 12:32 101 24 40 Intake and Output 03/29/17 03/30/17 19:00 07:00 Intake Total 1995 ml 1420 ml Output Total 1000 ml 1000 ml Balance 995 ml 420 ml Intake Free Water 100 ml IV Total 1185 ml 600 ml Tube Feeding 720 ml 720 ml Other 90 ml Output Urine Total 1000 ml 1000 ml Stool Total 0 ml # Bowel Movements 3 Laboratory Tests 03/29/17 20:43: Vancomycin Level Trough 7.7 Height (Feet): 5 Height (Inches): 6.00 Weight (Pounds): 180 General Appearance: confused Cardiovascular: normal rate Respiratory/Chest: lungs clear David Bowie MD Mar 30, 2017 12:08
[2017-03-30 12:36] VITALS: BP 126/72
--- NOTE | 2017-03-30 16:10 | General Progress Note ---
Assessment/Plan Assessment/Plan ASSESSMENT: 1. Recurrent anemia currently better btw 8-10, now improved s/p transfusion and s/p egd in the recent past 2. Anemia secondary to chronic disease based on previous labs, ferritin remains elevated 3. Hx of anemia of iron deficiency 4. Leukocytosis 2/2 likely infection, r/o UTI 5. 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 Hyperferritinemia. 7. Chronic respiratory failure, trach/vent 8. Recanalized superficial femoral clot 9. Urinary tract infection. hx, sepsis now 10. Decubitus ulceration. RECOMMENDATIONS: 1. Patient had recent GI w/u 2. Hgb goAL >7 3. Monitor counts 4. Antibiotics as needed. 5. Breathing treatments prn basis 6. Pain control. 7. GI followup recs 8. DVT prophylaxis with scds 9. Continue tube feedings. 10. Discussed with staff. Subjective Constitutional: Reports: no symptoms HEENT: Reports: no symptoms Cardiovascular: Reports: no symptoms Respiratory: Reports: no symptoms Gastrointestinal/Abdominal: Reports: no symptoms Genitourinary: Reports: no symptoms Neurologic/Psychiatric: Reports: no symptoms Endocrine: Reports: no symptoms Hematologic/Lymphatic: Reports: no symptoms Allergies: Coded Allergies: NO KNOWN DRUG ALLERGIES (Unverified Allergy, Unknown, 10/29/14) Subjective no fevers, or chills, no night sweats, remains on a vent and obtunded Objective Last 24 Hour Vital Signs Date Time Temp Pulse Resp B/P Pulse Ox O2 Delivery O2 Flow Rate FiO2 03/30/17 16:00 40 03/30/17 15:30 99 25 40 03/30/17 13:21 100 28 40 03/30/17 12:36 98.2 100 18 126/72 100 Mechanical Ventilator 03/30/17 12:00 101 03/30/17 12:00 40 03/30/17 11:26 99 26 40 03/30/17 08:35 97.0 99 20 149/70 100 Mechanical Ventilator 03/30/17 08:32 114 26 40 03/30/17 08:00 40 03/30/17 08:00 99 03/30/17 07:30 101 25 40 03/30/17 04:42 98 25 40 03/30/17 04:00 98.1 84 22 139/66 100 03/30/17 04:00 40 03/30/17 04:00 96 03/30/17 03:27 98 25 40 03/30/17 01:25 101 26 40 03/30/17 00:00 40 03/30/17 00:00 97.9 96 22 126/74 100 03/30/17 00:00 96 03/29/17 23:19 96 29 40 03/29/17 21:19 99 26 40 03/29/17 20:00 40 03/29/17 20:00 98.6 101 26 128/72 100 03/29/17 20:00 100 03/29/17 18:52 100 25 40 03/29/17 16:41 101 23 40 Intake and Output 03/29/17 03/30/17 19:00 07:00 Intake Total 1995 ml 1420 ml Output Total 1000 ml 1000 ml Balance 995 ml 420 ml Intake Free Water 100 ml IV Total 1185 ml 600 ml Tube Feeding 720 ml 720 ml Other 90 ml Output Urine Total 1000 ml 1000 ml Stool Total 0 ml # Bowel Movements 3 Laboratory Tests 03/29/17 20:43: Vancomycin Level Trough 7.7 Height (Feet): 5 Height (Inches): 6.00 Weight (Pounds): 180 General Appearance: WD/WN EENT: PERRL/EOMI Neck: non-tender Cardiovascular: normal peripheral pulses Respiratory/Chest: chest wall non-tender Abdomen: distended Extremities: non-tender Edema: no edema noted Leg (L), no edema noted Leg (R), no edema noted Pedal (L) , no edema noted Pedal (R) Edema: trace edema Skin: warm/dry Alexx Sanon Mar 30, 2017 16:10
[2017-03-30 16:48] VITALS: BP 117/72
[2017-03-30] MEDS ORDERED: Tubing Blood Filter IV ONE (20:09)
[2017-03-30] MEDS ORDERED: Tubing IV Secondary IV ONE ×2 (20:09)
[2017-03-30] MEDS ORDERED: NS 275ml ONE ×2 (20:09)
[2017-03-30] MEDS ORDERED: D5W 275ml ONE (20:09)
[2017-03-30] MEDS ORDERED: 1/2 NS 1000ml IV ONE ×2 (20:09)
[2017-03-30 20:24] VITALS: BP 158/87
--- NOTE | 2017-03-30 22:50 | General Progress Note ---
Assessment/Plan Assessment/Plan Assessment - dysphagia - s/p PEG and Trach - chronic abd distention - Anemia - Leukocytosis - Renal failure - Resp failure - diarrhea - poor px Recommendations - continue TF - GT care - laxatives PRN - watch labs - elevate HOB - DVT prophylaxis Subjective Allergies: Coded Allergies: NO KNOWN DRUG ALLERGIES (Unverified Allergy, Unknown, 10/29/14) Subjective Above noted d/w RN tolerating TF for discharge today Objective Last 24 Hour Vital Signs Date Time Temp Pulse Resp B/P Pulse Ox O2 Delivery O2 Flow Rate FiO2 03/30/17 20:24 98.2 95 20 158/87 100 Room Air 03/30/17 19:00 96 24 40 03/30/17 17:05 95 23 40 03/30/17 16:48 98.2 96 18 117/72 100 Mechanical Ventilator 03/30/17 16:00 40 03/30/17 16:00 97 03/30/17 15:30 99 25 40 03/30/17 13:21 100 28 40 03/30/17 12:36 98.2 100 18 126/72 100 Mechanical Ventilator 03/30/17 12:00 101 03/30/17 12:00 40 03/30/17 11:26 99 26 40 03/30/17 08:35 97.0 99 20 149/70 100 Mechanical Ventilator 03/30/17 08:32 114 26 40 03/30/17 08:00 40 03/30/17 08:00 99 03/30/17 07:30 101 25 40 03/30/17 04:42 98 25 40 03/30/17 04:00 98.1 84 22 139/66 100 03/30/17 04:00 40 03/30/17 04:00 96 03/30/17 03:27 98 25 40 03/30/17 01:25 101 26 40 03/30/17 00:00 40 03/30/17 00:00 97.9 96 22 126/74 100 03/30/17 00:00 96 03/29/17 23:19 96 29 40 Intake and Output 03/29/17 03/30/17 19:00 07:00 Intake Total 1995 ml 1420 ml Output Total 1000 ml 1000 ml Balance 995 ml 420 ml Intake Free Water 100 ml IV Total 1185 ml 600 ml Tube Feeding 720 ml 720 ml Other 90 ml Output Urine Total 1000 ml 1000 ml Stool Total 0 ml # Bowel Movements 3 Height (Feet): 5 Height (Inches): 6.00 Weight (Pounds): 180 Objective Elderly WM obtunded NCAT (+) trach coarse BS RRR abd distended, tympanitic, GT in good position no edema OBS/obtunded MARIAH HOOVER Mar 30, 2017 22:50
--- NOTE | 2017-04-02 15:13 | Discharge Summary ---
Discharge Summary Hospital Course Date of Admission Mar 22, 2017 at 07:17 Date of Discharge Mar 30, 2017 at 20:10 Admitting Diagnosis sepsis HPI José Miguel Travis is a 81 year old male who was admitted on Mar 22, 2017 at 07:17 for Sepsis Hospital Course dc summary #[id number] Discharge Condition Upon Discharge: stable Discharge Disposition Patient was discharged to [facility] Discharge Diagnoses: Discharge Instructions Discharge Instructions Special Instructions I have been assigned to complete a D/C Summary on this account. I was not involved in the patient management Ehsan Alcantara)Hermila NP Apr 02, 2017 15:13
--- NOTE | 2017-04-03 00:15 | Discharge Summary 2 SIG ---
DATE OF ADMISSION: 03/22/2017 DATE OF DISCHARGE: 03/30/2017 REASON FOR ADMISSION: 81-year-old male with chronic respiratory failure, ventilator dependent, tracheostomy status, dysphagia, G-tube, diabetes, and history of DVT, was sent to emergency room for evaluation after G-tube was dislodged last night at the [facility]. A 24-gauge Malhotra was placed to keep it open, and the patient was sent for G-tube insertion and further management. Workup in the emergency room revealed acute renal failure. BUN- 78 and creatinine -3.0. The patient had low-grade fever - 100.6 degrees. WBC - 16.4. Tachycardic 115-120. Tachypneic 22 to 28. Lactic acid -1.6. Potassium - 5.4. The patient was hypertensive. In the emergency department, a Malhotra was deflated and removed. Instead ,a G-tube, a 24-gauge was placed under sterile procedure and inflated with 20 mL sterile water. No complications. The patient tolerated well. Placement of G-tube was verified on KUB. The patient was admitted for further management. ADMITTING DIAGNOSES: 1. Severe sepsis. 2. Chronic respiratory failure, ventilator dependent. 3. Abdominal distention. 4. Dysphagia, gastrostomy tube. 5. Acute renal failure. 6. Hyperkalemia. 7. Urinary tract infection. 8. Possible pneumonia. HOSPITAL STAY: The patient was admitted to [facility]. The patient was started on empiric antibiotics. ID closely followed. The patient has recurrent leukocytosis. Blood culture revealed Acinetobacter, multidrug resistant and MRSA initially. PICC line was discontinued. Catheter tip was sent for culture and sensitivity and was negative. Echocardiogram revealed no evidence of vegetation. Repeated blood cultures on 03/30/2017, positive for Acinetobacter, multidrug resistant. Stool for C. difficile was negative. Sputum was positive for Acinetobacter, multidrug resistant and Klebsiella pneumoniae, carbapenem resistant. Urine culture was positive for Pseudomonas aeruginosa and Enterococcus. The patient was on multiple antibiotics as recommended by ID. The patient needed further to be on antibiotics, and therefore, the patient was transferred to [facility] for antibiotics management. Gastrointestinal specialist seen the patient in lieu of the dislodged G-tube and the tube feeding. The patient had abdominal distention. G-tube was already placed in the emergency room. Placement was confirmed with KUB. Bowel regimen was instituted. The patient was able to tolerate tube feeding. Surgery Nurse follow up with ventilator support and pulmonary toilet. Ventilator support and tracheostomy care provided as needed. Pulmonary toilet provided. Settings titrated as needed. Chest x-ray revealed bilateral interstitial disease. The patient was on treatment with antibiotics for pneumonia with Acinetobacter multidrug resistant and Klebsiella pneumoniae, carbapenem resistant. The patient was found to have sinus tachycardia, which resolved, likely due to the infectious process. The patient was on slow intravenous hydration. Non Categorical Preschool Teacher followed for acute renal failure. He recommended slow hydration. Avoid nephrotoxics. Renal parameters and electrolytes were closely monitored. Electrolytes replaced as needed. Renal parameters improved from initial BUN - 78 and creatinine - 3.0. The last BMP revealed BUN - 40 and creatinine - 1.8, likely element of acute on chronic renal failure, and acute renal failure likely precipitated by dehydration. Hyperkalemia resolved after treatment. Blood sugar was managed with sliding scale of insulin. Hemoglobin A1c-8.6. Currently, blood sugar was stable. However, in the long term, further optimization of anti-glycemic regimen needs to be closely monitored and followed. The patient has a history of the DVT. Venous duplex of bilateral lower extremities revealed no evidence of acute DVT, but revealed chronic recanalized thrombus in superficial femoral vein, right lower extremity. Director Card seen the patient as well. Per dinking machine operator, the patient had anemia of chronic disease. Iron was low. Stool OB was positive. Director Card recommended to closely monitor counts and transfuse as needed with goal to keep hemoglobin above 7. Wound care nurse seen the patient for sacral decubitus, present on admission. Wound care provided as per wound care nurse recommendation. The patient was stable for transfer to long-term hospital for IV antibiotics due to the persistent bacteremia. DISCHARGE DIAGNOSES: 1. Severe sepsis with bacteremia. 2. Persistent bacteremia with Acinetobacter, multidrug resistant and methicillin-resistant Staphylococcus aureus. 3. Pneumonia with Acinetobacter, multidrug resistant and Klebsiella pneumoniae, carbapenem resistant. 4. Urinary tract infection with Pseudomonas aeruginosa and Enterococcus. 5. Abdominal distention, resolved. 6. Chronic respiratory failure. 7. Ventilator-dependent respiratory failure with tracheostomy status. 8. Anemia of chronic disease. 9. Sinus tachycardia. 10. Dysphagia, gastrostomy tube, status post replacement in the emergency department. 11. Acute renal failure on chronic kidney disease. 12. Hyperkalemia. 13. Diabetes mellitus. 14. History of deep venous thrombosis. 15. Sacral decubitus stage III, present on admission. DISCHARGE MEDICATIONS: Medication list was sent with the patient to the group home facility. DISCHARGE INSTRUCTIONS: The patient is discharged to [facility] for IV antibiotics. Follow up with medical doctor and ID at the facility. David Bowie M.D. I have been assigned to dictate discharge summary on this account and I was not involved in the patient's management. Hermila Moser ([facility] NAlvinaPAlvina DR: KRISTINE JOB#: [id number] CC: PAM
== END 2017-03-30 20:10 | DRG 870 ==
LOC: EDBD 06:48 → EDUNIT# 06:48 → EMR 07:06 → EDBEDREQ 07:09 → 2W 07:17 → EDBEDREQ 07:39
PROC: 5A1955Z Respiratory Ventilation, Greater than 96 Consecutive Hours (ICD-10-PCS; principal; 2017-03-22)
PROC: 30233N1 Transfusion of Nonautologous Red Blood Cells into Peripheral Vein, Percutaneous Approach (ICD-10-PCS; 2017-03-27)
DX: A41.02 Sepsis due to Methicillin resistant Staphylococcus aureus (principal); J96.20 Acute and chronic respiratory failure, unspecified whether with hypoxia or hypercapnia; J18.9 Pneumonia, unspecified organism; N17.9 Acute kidney failure, unspecified; Z99.11 Dependence on respirator [ventilator] status; R40.3 Persistent vegetative state; L89.153 Pressure ulcer of sacral region, stage 3; F03.90 Unspecified dementia, unspecified severity, without behavioral disturbance, psychotic disturbance, mood disturbance, and anxiety; N39.0 Urinary tract infection, site not specified; Z43.1 Encounter for attention to gastrostomy; Z43.0 Encounter for attention to tracheostomy; A41.59 Other Gram-negative sepsis; Z16.24 Resistance to multiple antibiotics; R65.20 Severe sepsis without septic shock; E87.5 Hyperkalemia; R13.10 Dysphagia, unspecified; B95.62 Methicillin resistant Staphylococcus aureus infection as the cause of diseases classified elsewhere; B95.2 Enterococcus as the cause of diseases classified elsewhere; B96.5 Pseudomonas (aeruginosa) (mallei) (pseudomallei) as the cause of diseases classified elsewhere; Z86.718 Personal history of other venous thrombosis and embolism; D63.8 Anemia in other chronic diseases classified elsewhere; E88.09 Other disorders of plasma-protein metabolism, not elsewhere classified; I12.9 Hypertensive chronic kidney disease with stage 1 through stage 4 chronic kidney disease, or unspecified chronic kidney disease; E11.22 Type 2 diabetes mellitus with diabetic chronic kidney disease; N18.9 Chronic kidney disease, unspecified; J44.9 Chronic obstructive pulmonary disease, unspecified; K21.9 Gastro-esophageal reflux disease without esophagitis; I25.10 Atherosclerotic heart disease of native coronary artery without angina pectoris; L89.310 Pressure ulcer of right buttock, unstageable; Z66 Do not resuscitate
CPT/HCPCS: 36415; 43760; 71010; 74000; 80053; 80150; 80202; 81001; 81003; 82270; 82550; 82553; 82728; 82962; 82977; 83036; 83540; 83550; 83605; 83735; 83880; 84100; 84300; 84484; 84550; 85025; 86140; 86710; 86850; 86900; 86901; 86920; 87040; 87070; 87086; 87181; 87205; 87324; 93005; 93306; 93970; 94002; 94003; 94640; 94664; J1815; S5561